=== PATIENT | male | born 1955 | race Two or more races ===

== ENCOUNTER 2018-10-14 07:40 | Inpatient (IN) | payer OTHER ==
[~2018-10-14] VITALS: Ht 167.6 cm; Wt 90.4 kg
[2018-10-14 08:17] LABS: BASO % 0 % (0-3); EOS # 0.2 x10^3/uL (0.0-0.7); EOS % 3 % (0-3); HEMATOCRIT 30.3 % (39.0-53.0); HEMOGLOBIN 10.5 g/dL (13.0-17.5); LYMPH # 0.2 x10^3/uL (1.0-4.8); LYMPH % 3 % (24-48); MEAN CORPUSCULAR HEMOGLOBIN 37 pg (25-35); MEAN CORPUSCULAR HGB CONC 35 g/dL (31-37); MEAN CORPUSCULAR VOLUME 106 fL (79-100); MONO # 0.5 x10^3/uL (0.0-1.1); MONO % 6 % (0-9); NEUT # 7.2 x10^3uL (1.8-7.7); NEUT % 89 % (31-73); RED BLOOD COUNT 2.86 x10^6/uL (4.30-5.70); RED CELL DISTRIBUTION WIDTH 14.6 % (11.5-14.5); WHITE BLOOD COUNT 8.1 x10^3/uL (4.0-11.0)
[2018-10-14 08:21] LABS: PLATELET COUNT 16 x10^3/uL (140-400)
[2018-10-14 08:27] LABS: ALBUMIN 2.1 g/dL (3.4-5.0); ALBUMIN/GLOBULIN RATIO 0.4 (1.0-1.7); CALCIUM 7.2 mg/dL (8.5-10.1); CREATININE 4.4 mg/dL (0.7-1.3); GFR 13.7; POTASSIUM 4.6 mmol/L (3.5-5.1); TOTAL BILIRUBIN 5.4 mg/dL (0.2-1.0)
[2018-10-14 08:29] LABS: PROTHROMBIN TIME PATIENT 19.2 SEC (11.7-14.0)
[2018-10-14 08:34] LABS: CREATINE KINASE 39 U/L (39-308)
[2018-10-14] MEDS ORDERED: IV NORMAL SALINE 500ML BAG 500 ML IV ONE (09:30)
--- NOTE | 2018-10-14 09:42 | RAD ---
CHEST AP ONLY History: SOA X3 DAYS. HX OF SMOKING Comparison: None. Cardiomediastinal silhouette is stable. Mild markings in left lung base, likely atelectasis versus a small infiltrate. No lobar airspace consolidation. Elevation of the right hemidiaphragm and lung base. No pneumothorax. No pleural effusion identified. IMPRESSION: Mild left lung base opacity, likely atelectasis, versus a small infiltrate. Consider follow-up PA and lateral chest radiograph when clinically feasible. Electronically signed by: Anthony Mcconnell MD (10/14/2018 9:39 AM) [facility]
--- NOTE | 2018-10-14 10:00 | PHYS DOC ---
Past Medical History Past Medical History: Alcoholism, Diabetes-Type II, Hypertension Additional Past Medical Histor: CIRRHOSIS, PANCYTOPENIA, ESOPHAGEAL VARICES Additional Past Surgical Histo: RT INGUINAL HERNIA REPAIR, ESOPHAGEAL VARICES BANDING Alcohol Use: Sober Additional Information: 10/14/18-SOBER 2 YEARS Drug Use: None Adult General Chief Complaint Chief Complaint: FLANK PAIN HPI HPI Patient is a 63 year old male presented to the ER today for evaluation of bilateral flank pain, decreased urination. Patient started having this symptom on , whenever he urinated, not much coming out. Patient went to see his doctor on Monday, had a small urine sample collected and checked. He was diagnosed with UTI, he was put on Cipro and Flomax. Patient said he had taken 4 doses of the Cipro already, but did not get any better so he came in here for evaluation today. He also complaints of trouble breathing with exertion. He denies any chest pain. Patient denies any fever, no cough. Patient felt weak and dizzy when he stood up. Review of Systems Review of Systems Constitutional: Denies fever or chills [] Eyes: Denies change in visual acuity, redness, or eye pain [] HENT: Denies nasal congestion or sore throat [] Respiratory: Denies cough, Positive for shortness of breath [] Cardiovascular: No additional information not addressed in HPI [] GI: Positive for abdominal pain and flank pain, NO nausea, vomiting, bloody stools or diarrhea [] : Denies dysuria or hematuria. Positive for decrease urination. Musculoskeletal: Denies back pain or joint pain [] Integument: Denies rash or skin lesions [] Neurologic: Denies headache, focal weakness or sensory changes [] Endocrine: Denies polyuria or polydipsia [] All other systems were reviewed and found to be within normal limits, except as documented in this note. Current Medications Current Medications Current Medications Medications (Trade) Dose Ordered Sig/Micheal Start Time Stop Time Status Last Admin Dose Admin Ondansetron HCl (Zofran) 4 mg PRN Q8HRS PRN 10/14/18 10:15 10/15/18 10:14 Sodium Chloride 500 ml @ 500 mls/hr 1X ONCE 10/14/18 09:30 10/14/18 10:29 10/14/18 09:47 500 MLS/HR Allergies Allergies Allergies Coded Allergies Type Severity Reaction Last Updated Verified No Known Drug Allergies 10/14/18 No Physical Exam Physical Exam Constitutional: Well developed, well nourished, no acute distress, non-toxic appearance. [] HENT: Normocephalic, atraumatic, bilateral external ears normal, oropharynx moist, no oral exudates, nose normal. [] Eyes: PERRLA, EOMI, conjunctiva normal, no discharge. [] Neck: Normal range of motion, no tenderness, supple, no stridor. BILATERAL JVD. Cardiovascular:Heart rate regular rhythm, no murmur [] Lungs & Thorax: Bilateral breath sounds clear to auscultation [] Abdomen: Bowel sounds normal, soft, no tenderness, no masses, no pulsatile masses. [] Skin: Warm, dry, no erythema, no rash. [] Back: No tenderness, no CVA tenderness. [] Extremities: No tenderness, no cyanosis, no clubbing, ROM intact. PITTING EDEMA IN BILATERAL LEGS. Neurologic: Alert and oriented X 3, normal motor function, normal sensory function, no focal deficits noted. [] Psychologic: Affect normal, judgement normal, mood normal. [] Current Patient Data Vital Signs Vital Signs Date Time Temp Pulse Resp B/P (MAP) Pulse Ox O2 Delivery O2 Flow Rate FiO2 10/14/18 09:44 80 20 118/56 (76) 97 Room Air 10/14/18 08:05 97.9 97.9 Lab Values Laboratory Tests Test 10/14/18 07:59 White Blood Count 8.1 x10^3/uL (4.0-11.0) Red Blood Count 2.86 x10^6/uL (4.30-5.70) L Hemoglobin 10.5 g/dL (13.0-17.5) L Hematocrit 30.3 % (39.0-53.0) L Mean Corpuscular Volume 106 fL (79-100) H Mean Corpuscular Hemoglobin 37 pg (25-35) H Mean Corpuscular Hemoglobin Concent 35 g/dL (31-37) Red Cell Distribution Width 14.6 % (11.5-14.5) H Platelet Count 16 x10^3/uL (140-400) *L Neutrophils (%) (Auto) 89 % (31-73) H Lymphocytes (%) (Auto) 3 % (24-48) L Monocytes (%) (Auto) 6 % (0-9) Eosinophils (%) (Auto) 3 % (0-3) Basophils (%) (Auto) 0 % (0-3) Neutrophils # (Auto) 7.2 x10^3uL (1.8-7.7) Lymphocytes # (Auto) 0.2 x10^3/uL (1.0-4.8) L Monocytes # (Auto) 0.5 x10^3/uL (0.0-1.1) Eosinophils # (Auto) 0.2 x10^3/uL (0.0-0.7) Basophils # (Auto) 0.0 x10^3/uL (0.0-0.2) Segmented Neutrophils % 61 % (35-66) Band Neutrophils % 32 % (0-9) H Lymphocytes % 2 % (24-48) L Monocytes % 4 % (0-10) Metamyelocytes % 1 % (0-0) H Toxic Granulation Present Toxic Vacuolation Present Dohle Bodies Present Platelet Estimate Decreased (ADEQUATE) Large Platelets Present Prothrombin Time 19.2 SEC (11.7-14.0) H Prothrombin Time INR 1.6 (0.8-1.1) H PTT 45 SEC (24-38) H Sodium Level 120 mmol/L (136-145) *L Potassium Level 4.6 mmol/L (3.5-5.1) Chloride Level 88 mmol/L (98-107) L Carbon Dioxide Level 18 mmol/L (21-32) L Anion Gap 14 (6-14) Blood Urea Nitrogen 46 mg/dL (8-26) H Creatinine 4.4 mg/dL (0.7-1.3) H Estimated GFR (Cockcroft-Gault) 13.7 BUN/Creatinine Ratio 10 (6-20) Glucose Level 186 mg/dL (70-99) H Calcium Level 7.2 mg/dL (8.5-10.1) L Total Bilirubin 5.4 mg/dL (0.2-1.0) H Aspartate Amino Transferase (AST) 69 U/L (15-37) H Alanine Aminotransferase (ALT) 47 U/L (16-63) Alkaline Phosphatase 86 U/L (46-116) Creatine Kinase 39 U/L (39-308) Creatine Kinase MB (Mass) 0.5 ng/mL (0.0-3.6) Creatine Kinase MB Relative Index % (0-4) Troponin I Quantitative < 0.017 ng/mL (0.000-0.055) VF-Lkk-M-Type Natriuretic Peptide 2493 pg/mL (0-124) H Total Protein 7.0 g/dL (6.4-8.2) Albumin 2.1 g/dL (3.4-5.0) L Albumin/Globulin Ratio 0.4 (1.0-1.7) L Lipase 82 U/L (73-393) Laboratory Tests 10/14/18 07:59 Laboratory Tests 10/14/18 07:59 EKG EKG EKG was read by this physician at 8 am today, rate of 89 BPM, SINUS RHYTHM, NO STEMI. [] Radiology/Procedures Radiology/Procedures [][facility] [address] [place] [address] IMAGING REPORT Signed PATIENT: MAGALY TAVARES ACCOUNT: [id number] : 1955 LOCATION: ER AGE: 63 SEX: M EXAM STATUS: REG ER ORD. PHYSICIAN: CAMERON LOPEZ DO REASON: flank pain PROCEDURE: CT ABDOMEN PELVIS WO CONTRAST CT ABDOMEN PELVIS WO CONTRAST Indication: BILATERAL FLANK PAIN, LOW ABD PAIN. UNABLE TO VOID Exposure: One or more of the following individualized dose reduction techniques were utilized for this examination: 1. Automated exposure control 2. Adjustment of the mA and/or kV according to patient size 3. Use of iterative reconstruction technique. Comparison: None TECHNIQUE: Standard noncontrast imaging. FINDINGS: No evidence of urinary tract calculus. No evidence of hydronephrosis. Stranding within the perinephric fat bilaterally, greater on the left. There is some markings in the right lower lobe likely atelectasis. The partially visualized lower larry appear prominent bilaterally, probably vascular in etiology and could indicate pulmonary artery hypertension. Coronary artery calcifications. Evaluation of viscera, bowel and vasculature is limited by noncontrast technique. Tiny calcification at the upper right liver. There is also some more amorphous calcification in the left lobe of the liver which appears somewhat hypertrophic compared to the right lobe. There is also some caudate lobe hypertrophy. Spleen enlarged, 14.5 cm. Pancreas grossly unremarkable. No evidence of adrenal mass. No obvious renal mass. Probable small gallstone. Gallbladder is contracted. Alternatively, this calcification could be immediately adjacent to the gallbladder. Aorta mildly calcified, no evidence of aneurysm. Small retroperitoneal lymph nodes are identified, measuring up to 9 mm in short axis. No evidence of ascites or pneumoperitoneum. Mild distention of the stomach with fluid. No evidence of bowel obstruction. Colonic diverticulosis without evidence of acute colitis. The appendix is within normal limits. There is a very small distal appendicolith. There is mild perirenal fascial thickening, slightly greater on the left. There is also mild fascial thickening along the left paracolic gutter. Urinary bladder is thick-walled but that may be due to lack of distention. No evidence of a pelvic mass. Degenerative spondylosis is identified with lumbar stenosis. No destructive bone lesion. IMPRESSION: 1. Mild stranding in the perinephric fat and mild perirenal fascial thickening, greater on the left. Nonspecific but suggest inflammatory process such as pyelonephritis. No evidence of obstructive calculus. 2. Borderline retroperitoneal lymph node enlargement, may be reactive. 3. The caudate and left lobes of the liver appear hypertrophic, finding which can be seen with cirrhosis. 4. Mild splenomegaly. 5. Gallbladder is contracted limiting evaluation, but there may be a small gallstone. 6. Linear markings in the right lung base, most likely atelectasis, versus infiltrate. 7. Urinary bladder wall thickening, may be due to lack of distention, but cystitis could also be considered. Electronically signed by: Anthony Mcconnell MD (10/14/2018 10:09 AM) [facility] DICTATED and SIGNED BY: ANTHONY MCCONNELL MD DATE: 10/14/18 0957 Course & Med Decision Making Course & Med Decision Making Pertinent Labs and Imaging studies reviewed. (See chart for details) [] Dragon Disclaimer Dragon Disclaimer This electronic medical record was generated, in whole or in part, using a voice recognition dictation system. Departure Departure Impression: Primary Impression: Acute renal failure Additional Impressions: Hyponatremia Exertional dyspnea Acute pyelonephritis Disposition: ADMITTED INPATIENT Admitting Physician: Julienne Marion Condition: STABLE Referrals: DIAZ GILL M.D. (PCP) Problem Qualifiers CAMERON LOPEZ DO Oct 14, 2018 10:00
--- NOTE | 2018-10-14 10:12 | RAD ---
CT ABDOMEN PELVIS WO CONTRAST Indication: BILATERAL FLANK PAIN, LOW ABD PAIN. UNABLE TO VOID Exposure: One or more of the following individualized dose reduction techniques were utilized for this examination: 1. Automated exposure control 2. Adjustment of the mA and/or kV according to patient size 3. Use of iterative reconstruction technique. Comparison: None TECHNIQUE: Standard noncontrast imaging. FINDINGS: No evidence of urinary tract calculus. No evidence of hydronephrosis. Stranding within the perinephric fat bilaterally, greater on the left. There is some markings in the right lower lobe likely atelectasis. The partially visualized lower larry appear prominent bilaterally, probably vascular in etiology and could indicate pulmonary artery hypertension. Coronary artery calcifications. Evaluation of viscera, bowel and vasculature is limited by noncontrast technique. Tiny calcification at the upper right liver. There is also some more amorphous calcification in the left lobe of the liver which appears somewhat hypertrophic compared to the right lobe. There is also some caudate lobe hypertrophy. Spleen enlarged, 14.5 cm. Pancreas grossly unremarkable. No evidence of adrenal mass. No obvious renal mass. Probable small gallstone. Gallbladder is contracted. Alternatively, this calcification could be immediately adjacent to the gallbladder. Aorta mildly calcified, no evidence of aneurysm. Small retroperitoneal lymph nodes are identified, measuring up to 9 mm in short axis. No evidence of ascites or pneumoperitoneum. Mild distention of the stomach with fluid. No evidence of bowel obstruction. Colonic diverticulosis without evidence of acute colitis. The appendix is within normal limits. There is a very small distal appendicolith. There is mild perirenal fascial thickening, slightly greater on the left. There is also mild fascial thickening along the left paracolic gutter. Urinary bladder is thick-walled but that may be due to lack of distention. No evidence of a pelvic mass. Degenerative spondylosis is identified with lumbar stenosis. No destructive bone lesion. IMPRESSION: 1. Mild stranding in the perinephric fat and mild perirenal fascial thickening, greater on the left. Nonspecific but suggest inflammatory process such as pyelonephritis. No evidence of obstructive calculus. 2. Borderline retroperitoneal lymph node enlargement, may be reactive. 3. The caudate and left lobes of the liver appear hypertrophic, finding which can be seen with cirrhosis. 4. Mild splenomegaly. 5. Gallbladder is contracted limiting evaluation, but there may be a small gallstone. 6. Linear markings in the right lung base, most likely atelectasis, versus infiltrate. 7. Urinary bladder wall thickening, may be due to lack of distention, but cystitis could also be considered. Electronically signed by: Anthony Mcconnell MD (10/14/2018 10:09 AM) [facility]
[2018-10-14 10:15] LABS: % BANDS 32 % (0-9); % LYMPHS 2 % (24-48); % METAS 1 % (0-0); % MONOS 4 % (0-10); % SEGS 61 % (35-66)
[2018-10-14 10:17] LABS: PLT ESTIMATE DECREASED (ADEQUATE); TOXIC GRANULATION PRESENT; TOXIC VACUOLATION PRESENT
[2018-10-14] MEDS ORDERED: cefTRIAXone IV Push 1 GM VIAL. IVP ONE (10:30)
[2018-10-14] MEDS ORDERED: ENAL10TA PO (10:59)
[2018-10-14] MEDS ORDERED: HYDR25TA10 PO (10:59)
[2018-10-14] MEDS ORDERED: CHOL10003 PO (10:59)
[2018-10-14] MEDS ORDERED: GABA100C6 PO (10:59)
[2018-10-14] MEDS ORDERED: DICL75TA PO (10:59)
--- NOTE | 2018-10-14 11:07 | EKG ---
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 Electronically Signed On 10-15-2018 11:05:47 [employer] by Jose Cruz
[2018-10-14 11:12] VITALS: BP 101/57
[2018-10-14 11:17] LABS: BILIRUBIN,URINE MODERATE (NEG); CLARITY,URINE CLOUDY; COLOR,URINE ORANGE; NITRITE,URINE NEGATIVE (NEG); PROTEIN,URINE 100 mg/dL (NEG-TRACE); UROBILINOGEN,URINE 0.2 mg/dL (0.2 mg/dL)
[2018-10-14 11:30] LABS: SQUAMOUS EPITHELIAL CELL,UR FEW /LPF
[2018-10-14 11:31] LABS: RBC,URINE 0 /HPF (0-2)
[2018-10-14 11:32] LABS: BACTERIA,URINE MANY /HPF (0-FEW); WBC,URINE TNTC /HPF (0-4)
[2018-10-14] MEDS ORDERED: IV NORMAL SALINE 1000ML BAG 1,000 ML IV ONE (12:00)
[2018-10-14] MEDS ORDERED: ESOM20CA PO (12:03)
[2018-10-14] MEDS ORDERED: ALFU10TA3 PO (12:03)
[2018-10-14] MEDS: oxyCODONE/APAP 5/325 1 TAB TABLET PO PRN ×2 (12:15→17:12)
[2018-10-14] MEDS: MORPHINE SULFATE 4 MG/ML VIAL. IV PRN ×3 (12:15→22:26)
--- NOTE | 2018-10-14 12:27 | NUR ---
The patient, MAGALY TAVARES, 63 y/o, M admitted by ELIEZER WHITTEN MD, was given written information regarding hospital policies, unit procedures and contact persons.
--- NOTE | 2018-10-14 12:29 | NUR ---
Meds reconciled: Reports Levemir 40 units every morning. Novolog SS approx 15 units with meals
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
[2018-10-14 15:00] VITALS: BP 92/46
[2018-10-14 15:01] VITALS: BP 92/44
--- NOTE | 2018-10-14 15:45 | NUR ---
Bladder scan: Post void residual 0 ml. Will not calderon cath at this time.
[2018-10-14 16:09] LABS: CREATININE 4.6 mg/dL (0.7-1.3); POTASSIUM 5.2 mmol/L (3.5-5.1)
[2018-10-14 19:00] VITALS: BP 83/40
[2018-10-14] MEDS: LACTOBACILLUS RHAMNOSUS GG 1 CAPSULE. PO SCH (22:25)
[2018-10-14] MEDS: ONDANSETRON PF 4 MG/2 ML VIAL. IV PRN (22:32)
[2018-10-14 23:00] VITALS: BP 82/42
[2018-10-15 03:00] VITALS: BP 96/76
[2018-10-15] MEDS: MORPHINE SULFATE 4 MG/ML VIAL. IV PRN (04:14)
[2018-10-15 05:46] LABS: BASO % 0 % (0-3); EOS # 0.4 x10^3/uL (0.0-0.7); EOS % 5 % (0-3); HEMATOCRIT 29.6 % (39.0-53.0); HEMOGLOBIN 10.2 g/dL (13.0-17.5); LYMPH # 0.3 x10^3/uL (1.0-4.8); LYMPH % 3 % (24-48); MEAN CORPUSCULAR HEMOGLOBIN 37 pg (25-35); MEAN CORPUSCULAR HGB CONC 35 g/dL (31-37); MEAN CORPUSCULAR VOLUME 106 fL (79-100); MONO # 0.6 x10^3/uL (0.0-1.1); MONO % 7 % (0-9); NEUT # 7.1 x10^3uL (1.8-7.7); NEUT % 84 % (31-73); RED BLOOD COUNT 2.78 x10^6/uL (4.30-5.70); RED CELL DISTRIBUTION WIDTH 14.6 % (11.5-14.5); WHITE BLOOD COUNT 8.4 x10^3/uL (4.0-11.0)
[2018-10-15 05:51] LABS: PROTHROMBIN TIME PATIENT 20.7 SEC (11.7-14.0)
[2018-10-15 05:52] LABS: PLATELET COUNT 19 x10^3/uL (140-400)
[2018-10-15 06:05] LABS: ALBUMIN/GLOBULIN RATIO 0.4 (1.0-1.7); CALCIUM 7.1 mg/dL (8.5-10.1); CREATININE 5.6 mg/dL (0.7-1.3); GFR 10.4; POTASSIUM 4.9 mmol/L (3.5-5.1); TOTAL BILIRUBIN 6.7 mg/dL (0.2-1.0); TOTAL PROTEIN 6.7 g/dL (6.4-8.2)
[2018-10-15 07:00] VITALS: BP 102/50
--- NOTE | 2018-10-15 09:28 | RAD ---
EXAM: Renal sonogram. HISTORY: Renal failure. TECHNIQUE: Sonographic imaging of the kidneys and bladder was performed. COMPARISON: CT dated 10/14/2018. FINDINGS: The exam is limited due to bowel gas. The kidneys are normal in size. No solid or cystic renal lesion is seen. The renal parenchyma is echogenic. There is no hydronephrosis. The bladder is partially empty. The ureteral jets are not seen during the exam. The aorta and inferior vena cava are obscured due to bowel gas. IMPRESSION: 1. Limited exam due to bowel gas. The kidneys are grossly unremarkable. 2. Limited evaluation of the urinary bladder due to underdistention. 3. Please refer to the separate report for the abdomen sonogram on the same date for additional findings. Electronically signed by: Janet Isaac MD (10/15/2018 9:25 AM) [id number]
--- NOTE | 2018-10-15 09:51 | CARD ---
MR#: [id number] Date of Study: 10/15/2018 Ordering Physician: ELIEZER WHITTEN, Referring Physician: ELIEZER WHITTEN Tech: Renee Donohue RDCS APPROVED REPORT EXAM: Two-dimensional and M-mode echocardiogram with Doppler and color Doppler. Other Information Quality : Good INDICATION Congestive Heart Failure 2D DIMENSIONS RVDd3.3 (2.9-3.5cm)Left Atrium(2D)4.1 (1.6-4.0cm) IVSd1.2 (0.7-1.1cm)Aortic Root(2D)3.1 (2.0-3.7cm) LVDd4.6 (3.9-5.9cm)LVOT Diameter2.1 (1.8-2.4cm) PWd0.9 (0.7-1.1cm)LVDs2.6 (2.5-4.0cm) FS (%) 30.0 %SV71.1 ml LVEF(%)60.0 (>50%) Aortic Valve AoV Peak Benja.194.5cm/sAoV VTI30.5cm AO Peak GR.15.1mmHgLVOT Peak Bejna.168.4cm/s AO Mean GR.8mmHgAVA (VMAX)2.88cm2 ROLO (VTI)3.00cm2 Mitral Valve MV E Scjvfllb91.6cm/sMV DECEL [id number] MV A Hxujqxvx302.7cm/sE/A Ratio0.6 Pulmonary Vein S1 Iitimnlh96.3cm/sD2 Tbktpnwm94.8cm/s LEFT VENTRICLE The left ventricle is normal size. There is mild asymmetric septal left ventricular hypertrophy. The left ventricular systolic function is normal. The Ejection Fraction is 55-60%. There is normal LV seg mental wall motion. Transmitral Doppler flow pattern is Grade I-abnormal relaxation pattern. RIGHT VENTRICLE The right ventricle is normal size. The right ventricular systolic function is normal. ATRIA The left atrium is mildly dilated. The right atrium size is normal. The interatrial septum is intact with no evidence for an atrial septal defect or patent foramen ovale as noted on 2-D or Doppler imagi ng. AORTIC VALVE The aortic valve is calcified but opens well. Doppler and Color Flow revealed no significant aortic r egurgitation. There is no significant aortic valvular stenosis. MITRAL VALVE The mitral valve is calcified but opens well. Mitral annular calcification is mild. There is no evide nce of mitral valve prolapse. There is no mitral valve stenosis. Doppler and Color Flow revealed no m itral valve regurgitation noted. TRICUSPID VALVE The tricuspid valve is normal in structure and function. Doppler and Color Flow revealed no tricuspid valve regurgitation noted. There is no tricuspid valve stenosis. PULMONIC VALVE The pulmonary valve is normal in structure and function. Doppler and Color Flow revealed trace pulmon ic valvular regurgitation. There is no pulmonic valvular stenosis. GREAT VESSELS The aortic root is normal in size. The ascending aorta is normal in size. The IVC is normal in size a nd collapses >50% with inspiration. PERICARDIAL EFFUSION There is no evidence of significant pericardial effusion. Critical Notification Critical Value: No <Conclusion> The left ventricular systolic function is normal. The Ejection Fraction is 55-60%. There is normal LV segmental wall motion. Transmitral Doppler flow pattern is Grade I-abnormal relaxation pattern. The left atrium is mildly dilated. No significant valvular abnormalities. There is no evidence of significant pericardial effusion. Signed by : Hai Gomez, Electronically Approved : 10/15/2018 09:51:24
--- NOTE | 2018-10-15 09:55 | RAD ---
Examination: Ultrasound abdomen limited HISTORY: History of hyperbilirubinemia COMPARISON: None available FINDINGS: The pancreas is not well-visualized due to bowel gas. Nodular appearance of the liver with increased echogenicity noted throughout the liver likely hepatic cirrhosis with hepatic steatosis. The right lobe of the liver measures 14.2 cm. Gallbladder wall thickness measures 2.5 mm. Tiny calcification identified just inferior to the gallbladder could be calcification in the liver. The common bile duct measures 4 mm in transverse dimension. The right kidney measures 13.1 cm in length. The IVC is within normal limits of dimension. IMPRESSION: 1. Hepatic steatosis with hepatic cirrhosis. 2. Tiny calcification identified just inferior to the gallbladder could be calcification in the liver. Electronically signed by: Jaylan Subramanian MD (10/15/2018 9:51 AM) [id number]
[2018-10-15] MEDS: ONDANSETRON PF 4 MG/2 ML VIAL. IV PRN (09:57)
[2018-10-15] MEDS ORDERED: ONDANSETRON PF 4 MG/2 ML VIAL. IV PRN (10:30)
[2018-10-15] MEDS ORDERED: ONDANSETRON ODT 4 MG TAB.RAPDIS. PO PRN (10:30)
[2018-10-15] MEDS: cefTRIAXone IV Push 1 GM VIAL. IVP SCH (10:58)
[2018-10-15] MEDS: LACTOBACILLUS RHAMNOSUS GG 1 CAPSULE. PO SCH ×2 (10:58→21:13)
[2018-10-15 11:00] VITALS: BP 90/44
--- NOTE | 2018-10-15 12:20 | NUR ---
SW following pt for anticipated dc needs. Chart reviewed and DW RN. Pt lives at home with spouse. RN reported pt does not need PT/OT evaluation and Tx. No SW needs indicated at this time. Will continue to follow.
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
--- NOTE | 2018-10-15 12:58 | PDOC ---
PROGRESS NOTES Chief Complaint Chief Complaint Established cirrhosis, decompensated likely from infection. 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 H/o colon polyps. Elevated creatinine, duration unknown. UTI/clinically c/w pyelonephritis. acute renal failure - 16 pills and said in 2 days hepatic cirrhosis, concern for hepatorenal thrombocytopenia, in a cirrhotic Anemia of kidney dse, liver dse Mod PCM Hyperbilirubinemia enceph, transient History of Present Illness History of Present Illness Multiple family members at bedside and I have discussed with them along with multiple consultants Total bili 6.2 which was normal in August 2018 some icteric sclerae and itchiness noted by family Platelets 19,000 which was between 50-70,000 in August 2018 Some lower abdominal discomfort and found to be have UTI with pyelonephritis on CAT scan and UA Getting IV antibiotics Some irritability and delirium as per family-seems to be better as per family at bedside. Normal ammonia He follows with a PCP, re DM - some hypo-hyperglycemic episodes per significant other Son who used to work as a pharmacist shows me lab tests Platelets 19,000, hemoglobin 10, normal WBC with an MCV of 100 INR 1.8 no bleeding tendencies Sober for 2 years Creatinine 5.6 which is news-normal in the last labs He did take 16 pills of ibuprofen for back pain Agreeable to trial of Lidoderm patch for back Was also on ARB at home and Propanolol for esoph varices Plan Hold ARB Avoid nephrotoxins Considering to start IV fluids per renal but then anasarca might be a concern Oliguria-continue to monitor urine output Labs tomorrow-if worse might need temporary dialysis Might need platelet transfusion prior to dialysis if IR deems so Watch or monitor for bleeding tendencies Hold back lactulose-normal ammonia and lactulose will only cause more GI loss hence more AK I I have provided all the copies of imaging to family Significant time at bedside cont antibiotics for UTI-await urine culture US sound abdomen unrevealing Ultrasound kidneys normal echogenicity MRCP?-Unsure of what the hyperbilirubinemia came from Hepatitis serology acute is negative MDM complex Vitals Vitals Vital Signs Date Time Temp Pulse Resp B/P (MAP) Pulse Ox O2 Delivery O2 Flow Rate FiO2 10/15/18 11:00 97.8 84 18 90/44 (59) 93 Room Air 97.8 Physical Exam General: Alert, Cooperative, No acute distress Heart: Regular rate, Normal S1, No murmurs Abdomen: Normal bowel sounds, Soft, No tenderness, Other (MILD ASCITES) Extremities: No clubbing, No cyanosis Skin: No rashes, No breakdown, No significant lesion Labs LABS Laboratory Tests Test 10/14/18 15:45 10/14/18 16:38 10/14/18 20:34 10/15/18 05:04 Sodium Level 120 mmol/L (136-145) 123 mmol/L (136-145) Potassium Level 5.2 mmol/L (3.5-5.1) 4.9 mmol/L (3.5-5.1) Chloride Level 88 mmol/L (98-107) 88 mmol/L (98-107) Carbon Dioxide Level 18 mmol/L (21-32) 19 mmol/L (21-32) Anion Gap 14 (6-14) 16 (6-14) Blood Urea Nitrogen 54 mg/dL (8-26) 68 mg/dL (8-26) Creatinine 4.6 mg/dL (0.7-1.3) 5.6 mg/dL (0.7-1.3) Estimated GFR (Cockcroft-Gault) 13.0 10.4 Glucose Level 187 mg/dL (70-99) 167 mg/dL (70-99) Calcium Level 7.0 mg/dL (8.5-10.1) 7.1 mg/dL (8.5-10.1) Ammonia 22 mcmol/L (11-34) HIV (1&2) Antibody Screen Nonreactive (Nonreactive) Glucose (Fingerstick) 175 mg/dL (70-99) 166 mg/dL (70-99) White Blood Count 8.4 x10^3/uL (4.0-11.0) Red Blood Count 2.78 x10^6/uL (4.30-5.70) Hemoglobin 10.2 g/dL (13.0-17.5) Hematocrit 29.6 % (39.0-53.0) Mean Corpuscular Volume 106 fL (79-100) Mean Corpuscular Hemoglobin 37 pg (25-35) Mean Corpuscular Hemoglobin Concent 35 g/dL (31-37) Red Cell Distribution Width 14.6 % (11.5-14.5) Platelet Count 19 x10^3/uL (140-400) Neutrophils (%) (Auto) 84 % (31-73) Lymphocytes (%) (Auto) 3 % (24-48) Monocytes (%) (Auto) 7 % (0-9) Eosinophils (%) (Auto) 5 % (0-3) Basophils (%) (Auto) 0 % (0-3) Neutrophils # (Auto) 7.1 x10^3uL (1.8-7.7) Lymphocytes # (Auto) 0.3 x10^3/uL (1.0-4.8) Monocytes # (Auto) 0.6 x10^3/uL (0.0-1.1) Eosinophils # (Auto) 0.4 x10^3/uL (0.0-0.7) Basophils # (Auto) 0.0 x10^3/uL (0.0-0.2) Reticulocyte Count (auto) 1.6 % (0.5-2.5) Prothrombin Time 20.7 SEC (11.7-14.0) Prothromb Time International Ratio 1.8 (0.8-1.1) BUN/Creatinine Ratio 12 (6-20) Ferritin 277 ng/mL (26-388) Total Bilirubin 6.7 mg/dL (0.2-1.0) Aspartate Amino Transf (AST/SGOT) 115 U/L (15-37) Alanine Aminotransferase (ALT/SGPT) 55 U/L (16-63) Alkaline Phosphatase 93 U/L (46-116) Total Protein 6.7 g/dL (6.4-8.2) Albumin 2.0 g/dL (3.4-5.0) Albumin/Globulin Ratio 0.4 (1.0-1.7) Vitamin B12 Level > 2000 pg/mL (247-911) Thyroid Stimulating Hormone (TSH) 1.070 uIU/mL (0.358-3.74) Test 10/15/18 07:27 10/15/18 11:15 10/15/18 11:32 Glucose (Fingerstick) 151 mg/dL (70-99) 158 mg/dL (70-99) Ammonia 28 mcmol/L (11-34) Assessment and Plan Assessmemt and Plan Problems Medical Problems: (1) Acute pyelonephritis Status: Acute (2) Acute renal failure Status: Acute (3) Exertional dyspnea Status: Acute (4) Hyponatremia Status: Acute Comment Review of Relevant I have reviewed the following items ester (where applicable) has been applied. Labs Laboratory Tests Test 10/14/18 07:59 10/14/18 11:03 10/14/18 11:23 10/14/18 15:45 White Blood Count 8.1 x10^3/uL (4.0-11.0) Red Blood Count 2.86 x10^6/uL (4.30-5.70) Hemoglobin 10.5 g/dL (13.0-17.5) Hematocrit 30.3 % (39.0-53.0) Mean Corpuscular Volume 106 fL (79-100) Mean Corpuscular Hemoglobin 37 pg (25-35) Mean Corpuscular Hemoglobin Concent 35 g/dL (31-37) Red Cell Distribution Width 14.6 % (11.5-14.5) Platelet Count 16 x10^3/uL (140-400) Neutrophils (%) (Auto) 89 % (31-73) Lymphocytes (%) (Auto) 3 % (24-48) Monocytes (%) (Auto) 6 % (0-9) Eosinophils (%) (Auto) 3 % (0-3) Basophils (%) (Auto) 0 % (0-3) Neutrophils # (Auto) 7.2 x10^3uL (1.8-7.7) Lymphocytes # (Auto) 0.2 x10^3/uL (1.0-4.8) Monocytes # (Auto) 0.5 x10^3/uL (0.0-1.1) Eosinophils # (Auto) 0.2 x10^3/uL (0.0-0.7) Basophils # (Auto) 0.0 x10^3/uL (0.0-0.2) Segmented Neutrophils % 61 % (35-66) Band Neutrophils % 32 % (0-9) Lymphocytes % 2 % (24-48) Monocytes % 4 % (0-10) Metamyelocytes % 1 % (0-0) Toxic Granulation Present Toxic Vacuolation Present Dohle Bodies Present Platelet Estimate Decreased (ADEQUATE) Large Platelets Present Prothrombin Time 19.2 SEC (11.7-14.0) Prothromb Time International Ratio 1.6 (0.8-1.1) Activated Partial Thromboplast Time 45 SEC (24-38) Sodium Level 120 mmol/L (136-145) 120 mmol/L (136-145) Potassium Level 4.6 mmol/L (3.5-5.1) 5.2 mmol/L (3.5-5.1) Chloride Level 88 mmol/L (98-107) 88 mmol/L (98-107) Carbon Dioxide Level 18 mmol/L (21-32) 18 mmol/L (21-32) Anion Gap 14 (6-14) 14 (6-14) Blood Urea Nitrogen 46 mg/dL (8-26) 54 mg/dL (8-26) Creatinine 4.4 mg/dL (0.7-1.3) 4.6 mg/dL (0.7-1.3) Estimated GFR (Cockcroft-Gault) 13.7 13.0 BUN/Creatinine Ratio 10 (6-20) Glucose Level 186 mg/dL (70-99) 187 mg/dL (70-99) Calcium Level 7.2 mg/dL (8.5-10.1) 7.0 mg/dL (8.5-10.1) Iron Level 52 ug/dL (65-175) Total Iron Binding Capacity 197 ug/dL (250-450) Iron Saturation 26 % (15-34) Total Bilirubin 5.4 mg/dL (0.2-1.0) Direct Bilirubin 4.2 mg/dL (0.0-0.2) Gamma Glutamyl Transpeptidase 788 U/L (10-85) Aspartate Amino Transf (AST/SGOT) 69 U/L (15-37) Alanine Aminotransferase (ALT/SGPT) 47 U/L (16-63) Alkaline Phosphatase 86 U/L (46-116) Creatine Kinase 39 U/L (39-308) Creatine Kinase MB (Mass) 0.5 ng/mL (0.0-3.6) Creatine Kinase MB Relative Index % (0-4) Troponin I Quantitative < 0.017 ng/mL (0.000-0.055) PR-Ywx-[id number]-Type Natriuretic Peptide 2493 pg/mL (0-124) Total Protein 7.0 g/dL (6.4-8.2) Albumin 2.1 g/dL (3.4-5.0) Albumin/Globulin Ratio 0.4 (1.0-1.7) Lipase 82 U/L (73-393) Hepatitis A IgM Antibody Nonreactive (Nonreactive) Hepatitis B Surface Antigen Nonreactive (Nonreactive) Hepatitis B Core IgM Antibody Nonreactive (Nonreactive) Hepatitis C IgG Antibody Nonreactive (Nonreactive) Urine Collection Type Unknown Urine Color [place] Urine Clarity Cloudy Urine pH 5.0 Urine Specific [place] 1.020 Urine Protein 100 mg/dL (NEG-TRACE) Urine Glucose (UA) Negative mg/dL (NEG) Urine Ketones (Stick) Trace mg/dL (NEG) Urine Blood Large (NEG) Urine Nitrite Negative (NEG) Urine Bilirubin Moderate (NEG) Urine Urobilinogen Dipstick 0.2 mg/dL (0.2 mg/dL) Urine Leukocyte Esterase Large (NEG) Urine RBC 0 /HPF (0-2) Urine WBC Tntc /HPF (0-4) Urine Squamous Epithelial Cells Few /LPF Urine Bacteria Many /HPF (0-FEW) Urine Random Creatinine 196.0 mg/dL (Not Estab.) Urine Random Total Protein 283.7 mg/dL (Not Estab.) Urine Random Sodium <60 mmol/L (Not Estab.) Glucose (Fingerstick) 187 mg/dL (70-99) Ammonia 22 mcmol/L (11-34) HIV (1&2) Antibody Screen Nonreactive (Nonreactive) Test 10/14/18 16:38 10/14/18 20:34 10/15/18 05:04 10/15/18 07:27 Glucose (Fingerstick) 175 mg/dL (70-99) 166 mg/dL (70-99) 151 mg/dL (70-99) White Blood Count 8.4 x10^3/uL (4.0-11.0) Red Blood Count 2.78 x10^6/uL (4.30-5.70) Hemoglobin 10.2 g/dL (13.0-17.5) Hematocrit 29.6 % (39.0-53.0) Mean Corpuscular Volume 106 fL (79-100) Mean Corpuscular Hemoglobin 37 pg (25-35) Mean Corpuscular Hemoglobin Concent 35 g/dL (31-37) Red Cell Distribution Width 14.6 % (11.5-14.5) Platelet Count 19 x10^3/uL (140-400) Neutrophils (%) (Auto) 84 % (31-73) Lymphocytes (%) (Auto) 3 % (24-48) Monocytes (%) (Auto) 7 % (0-9) Eosinophils (%) (Auto) 5 % (0-3) Basophils (%) (Auto) 0 % (0-3) Neutrophils # (Auto) 7.1 x10^3uL (1.8-7.7) Lymphocytes # (Auto) 0.3 x10^3/uL (1.0-4.8) Monocytes # (Auto) 0.6 x10^3/uL (0.0-1.1) Eosinophils # (Auto) 0.4 x10^3/uL (0.0-0.7) Basophils # (Auto) 0.0 x10^3/uL (0.0-0.2) Reticulocyte Count (auto) 1.6 % (0.5-2.5) Prothrombin Time 20.7 SEC (11.7-14.0) Prothromb Time International Ratio 1.8 (0.8-1.1) Sodium Level 123 mmol/L (136-145) Potassium Level 4.9 mmol/L (3.5-5.1) Chloride Level 88 mmol/L (98-107) Carbon Dioxide Level 19 mmol/L (21-32) Anion Gap 16 (6-14) Blood Urea Nitrogen 68 mg/dL (8-26) Creatinine 5.6 mg/dL (0.7-1.3) Estimated GFR (Cockcroft-Gault) 10.4 BUN/Creatinine Ratio 12 (6-20) Glucose Level 167 mg/dL (70-99) Calcium Level 7.1 mg/dL (8.5-10.1) Ferritin 277 ng/mL (26-388) Total Bilirubin 6.7 mg/dL (0.2-1.0) Aspartate Amino Transf (AST/SGOT) 115 U/L (15-37) Alanine Aminotransferase (ALT/SGPT) 55 U/L (16-63) Alkaline Phosphatase 93 U/L (46-116) Total Protein 6.7 g/dL (6.4-8.2) Albumin 2.0 g/dL (3.4-5.0) Albumin/Globulin Ratio 0.4 (1.0-1.7) Vitamin B12 Level > 2000 pg/mL (247-911) Thyroid Stimulating Hormone (TSH) 1.070 uIU/mL (0.358-3.74) Test 10/15/18 11:15 10/15/18 11:32 Ammonia 28 mcmol/L (11-34) Glucose (Fingerstick) 158 mg/dL (70-99) Laboratory Tests Test 10/14/18 15:45 10/14/18 16:38 10/14/18 20:34 10/15/18 05:04 Sodium Level 120 mmol/L (136-145) 123 mmol/L (136-145) Potassium Level 5.2 mmol/L (3.5-5.1) 4.9 mmol/L (3.5-5.1) Chloride Level 88 mmol/L (98-107) 88 mmol/L (98-107) Carbon Dioxide Level 18 mmol/L (21-32) 19 mmol/L (21-32) Anion Gap 14 (6-14) 16 (6-14) Blood Urea Nitrogen 54 mg/dL (8-26) 68 mg/dL (8-26) Creatinine 4.6 mg/dL (0.7-1.3) 5.6 mg/dL (0.7-1.3) Estimated GFR (Cockcroft-Gault) 13.0 10.4 Glucose Level 187 mg/dL (70-99) 167 mg/dL (70-99) Calcium Level 7.0 mg/dL (8.5-10.1) 7.1 mg/dL (8.5-10.1) Ammonia 22 mcmol/L (11-34) HIV (1&2) Antibody Screen Nonreactive (Nonreactive) Glucose (Fingerstick) 175 mg/dL (70-99) 166 mg/dL (70-99) White Blood Count 8.4 x10^3/uL (4.0-11.0) Red Blood Count 2.78 x10^6/uL (4.30-5.70) Hemoglobin 10.2 g/dL (13.0-17.5) Hematocrit 29.6 % (39.0-53.0) Mean Corpuscular Volume 106 fL (79-100) Mean Corpuscular Hemoglobin 37 pg (25-35) Mean Corpuscular Hemoglobin Concent 35 g/dL (31-37) Red Cell Distribution Width 14.6 % (11.5-14.5) Platelet Count 19 x10^3/uL (140-400) Neutrophils (%) (Auto) 84 % (31-73) Lymphocytes (%) (Auto) 3 % (24-48) Monocytes (%) (Auto) 7 % (0-9) Eosinophils (%) (Auto) 5 % (0-3) Basophils (%) (Auto) 0 % (0-3) Neutrophils # (Auto) 7.1 x10^3uL (1.8-7.7) Lymphocytes # (Auto) 0.3 x10^3/uL (1.0-4.8) Monocytes # (Auto) 0.6 x10^3/uL (0.0-1.1) Eosinophils # (Auto) 0.4 x10^3/uL (0.0-0.7) Basophils # (Auto) 0.0 x10^3/uL (0.0-0.2) Reticulocyte Count (auto) 1.6 % (0.5-2.5) Prothrombin Time 20.7 SEC (11.7-14.0) Prothromb Time International Ratio 1.8 (0.8-1.1) BUN/Creatinine Ratio 12 (6-20) Ferritin 277 ng/mL (26-388) Total Bilirubin 6.7 mg/dL (0.2-1.0) Aspartate Amino Transf (AST/SGOT) 115 U/L (15-37) Alanine Aminotransferase (ALT/SGPT) 55 U/L (16-63) Alkaline Phosphatase 93 U/L (46-116) Total Protein 6.7 g/dL (6.4-8.2) Albumin 2.0 g/dL (3.4-5.0) Albumin/Globulin Ratio 0.4 (1.0-1.7) Vitamin B12 Level > 2000 pg/mL (247-911) Thyroid Stimulating Hormone (TSH) 1.070 uIU/mL (0.358-3.74) Test 10/15/18 07:27 10/15/18 11:15 10/15/18 11:32 Glucose (Fingerstick) 151 mg/dL (70-99) 158 mg/dL (70-99) Ammonia 28 mcmol/L (11-34) Medications Current Medications Sodium Chloride 500 ml @ 500 mls/hr 1X ONCE IV Last administered on 09:47; Start 10/14/18 at 09:30; Stop 10/14/18 at 10:29; Status DC Ondansetron HCl (Zofran) 4 mg PRN Q8HRS PRN IV NAUSEA/VOMITING Last administered on 10/15/18 09:57; Start 10/14/18 at 10:15; Stop 10/15/18 at 10:14 ; Status DC Ceftriaxone Sodium (Rocephin) 1 gm 1X ONCE IVP Last administered on 10/14/18at 10:41; Start 10/14/18 at 10:30; Stop 10/14/18 at 10:31; Status DC Ceftriaxone Sodium (Rocephin) 1 gm Q24H IVP Last administered on 10/15/18 10: 58; Start 10/15/18 at 10:00 Oxycodone/ Acetaminophen (Percocet 5/325) 1 tab PRN Q4HRS PRN PO PAIN Last administered on 10/14/18 17:12; Start 10/14/18 at 12:00 Morphine Sulfate (Morphine Sulfate) 4 mg PRN Q2HR PRN IV PAIN Last administered on 10/15/18 04:14; Start 10/14/18 at 12:00 Sodium Chloride 1,000 ml @ 100 mls/hr 1X ONCE IV Last administered on 12:15; Start 10/14/18 at 12:00; Stop 10/14/18 at 21:59; Status DC Lactobacillus Rhamnosus (Culturelle) 1 cap BID PO Last administered on at 10:58; Start 10/14/18 at 21:00 Ondansetron HCl (Zofran) 4 mg PRN Q6HRS PRN IV NAUSEA/VOMITING; Start 10/15/18 at 10:30 Ondansetron HCl (Zofran Odt) 4 mg PRN Q6HRS PRN PO NAUSEA/VOMITING; Start 10/15 at 10:30 Active Scripts Active Reported Nexium Capsule (Esomeprazole Magnesium) 20 Mg Capsule.dr 1 Cap PO DAILY Alfuzosin Hcl 10 Mg Tab.er.24h 10 Mg Pe PO DAILY Vitamin D3 (Cholecalciferol (Vitamin D3)) 1,000 Unit Tablet 1,000 Unit PO DAILY Hydrochlorothiazide 25 Mg Tablet 25 Mg PO DAILY Enalapril Maleate 10 Mg Tablet 10 Mg PO DAILY Gabapentin 100 Mg Capsule 100 Mg PO TID Diclofenac Sodium 75 Mg Tablet.dr 75 Mg PO BID Vitals/I & O Vital Sign - Last 24 Hours 10/14/18 10/14/18 10/14/18 10/14/18 13:15 15:00 15:01 15:12 Temp 98.1 98.1 Pulse 84 82 Resp 20 20 B/P (MAP) 92/46 (61) 92/44 (60) Pulse Ox 97 94 O2 Delivery Room Air Room Air 10/14/18 10/14/18 10/14/18 10/14/18 15:42 17:12 18:12 19:00 Temp 97.9 97.9 Pulse 84 Resp 18 22 18 20 B/P (MAP) 83/40 (54) Pulse Ox 94 95 O2 Delivery Room Air Room Air Room Air 10/14/18 10/14/18 10/14/18 10/15/18 20:20 22:26 23:00 03:00 Temp 97.7 97.7 97.7 97.7 Pulse 82 80 Resp 20 20 B/P (MAP) 82/42 (55) 96/76 (83) Pulse Ox 95 95 97 O2 Delivery Room Air Room Air Room Air Room Air 10/15/18 10/15/18 10/15/18 10/15/18 04:14 04:44 07:00 11:00 Temp 98.3 97.8 98.3 97.8 Pulse 91 84 Resp 18 18 B/P (MAP) 102/50 (67) 90/44 (59) Pulse Ox 95 95 92 93 O2 Delivery Room Air Room Air Room Air Room Air Intake and Output 10/14/18 10/14/18 10/15/18 15:00 23:00 07:00 Intake Total 500 ml 150 ml 350 ml Balance 500 ml 150 ml 350 ml KYA SZYMANSKI MD Oct 15, 2018 12:58
[2018-10-15] MEDS: IV NORMAL SALINE 1000ML BAG 1,000 ML IV SCH (13:07)
--- NOTE | 2018-10-15 13:25 | PDOC ---
Subjective: Subjective: Says vomited this morning after breakfast but going to try lunch now. Says abd pain is better. Family reports has been forgetful and "snappy." Feels itchy. Objective: Vital Signs: Vital Signs Date Time Temp Pulse Resp B/P (MAP) Pulse Ox O2 Delivery O2 Flow Rate FiO2 10/15/18 11:00 97.8 84 18 90/44 (59) 93 Room Air 97.8 Labs: Laboratory Tests Test 10/14/18 15:45 10/14/18 16:38 10/14/18 20:34 10/15/18 05:04 Sodium Level 120 mmol/L 123 mmol/L Potassium Level 5.2 mmol/L 4.9 mmol/L Chloride Level 88 mmol/L 88 mmol/L Carbon Dioxide Level 18 mmol/L 19 mmol/L Anion Gap 14 16 Blood Urea Nitrogen 54 mg/dL 68 mg/dL Creatinine 4.6 mg/dL 5.6 mg/dL Estimated GFR (Cockcroft-Gault) 13.0 10.4 Glucose Level 187 mg/dL 167 mg/dL Calcium Level 7.0 mg/dL 7.1 mg/dL Ammonia 22 mcmol/L HIV (1&2) Antibody Screen Nonreactive Glucose (Fingerstick) 175 mg/dL 166 mg/dL White Blood Count 8.4 x10^3/uL Red Blood Count 2.78 x10^6/uL Hemoglobin 10.2 g/dL Hematocrit 29.6 % Mean Corpuscular Volume 106 fL Mean Corpuscular Hemoglobin 37 pg Mean Corpuscular Hemoglobin Concent 35 g/dL Red Cell Distribution Width 14.6 % Platelet Count 19 x10^3/uL Neutrophils (%) (Auto) 84 % Lymphocytes (%) (Auto) 3 % Monocytes (%) (Auto) 7 % Eosinophils (%) (Auto) 5 % Basophils (%) (Auto) 0 % Neutrophils # (Auto) 7.1 x10^3uL Lymphocytes # (Auto) 0.3 x10^3/uL Monocytes # (Auto) 0.6 x10^3/uL Eosinophils # (Auto) 0.4 x10^3/uL Basophils # (Auto) 0.0 x10^3/uL Reticulocyte Count (auto) 1.6 % Prothrombin Time 20.7 SEC Prothromb Time International Ratio 1.8 BUN/Creatinine Ratio 12 Ferritin 277 ng/mL Total Bilirubin 6.7 mg/dL Aspartate Amino Transf (AST/SGOT) 115 U/L Alanine Aminotransferase (ALT/SGPT) 55 U/L Alkaline Phosphatase 93 U/L Total Protein 6.7 g/dL Albumin 2.0 g/dL Albumin/Globulin Ratio 0.4 Vitamin B12 Level > 2000 pg/mL Thyroid Stimulating Hormone (TSH) 1.070 uIU/mL Test 10/15/18 07:27 10/15/18 11:15 10/15/18 11:32 Glucose (Fingerstick) 151 mg/dL 158 mg/dL Ammonia 28 mcmol/L Imaging: Abd US IMPRESSION: 1. Hepatic steatosis with hepatic cirrhosis. 2. Tiny calcification identified just inferior to the gallbladder could be calcification in the liver. Renal US IMPRESSION: 1. Limited exam due to bowel gas. The kidneys are grossly unremarkable. 2. Limited evaluation of the urinary bladder due to underdistention. 3. Please refer to the separate report for the abdomen sonogram on the same date for additional findings. CXR IMPRESSION: Mild left lung base opacity, likely atelectasis, versus a small infiltrate. Consider follow-up PA and lateral chest radiograph when clinically feasible. CT A/P IMPRESSION: 1. Mild stranding in the perinephric fat and mild perirenal fascial thickening, greater on the left. Nonspecific but suggest inflammatory process such as pyelonephritis. No evidence of obstructive calculus. 2. Borderline retroperitoneal lymph node enlargement, may be reactive. 3. The caudate and left lobes of the liver appear hypertrophic, finding which can be seen with cirrhosis. 4. Mild splenomegaly. 5. Gallbladder is contracted limiting evaluation, but there may be a small gallstone. 6. Linear markings in the right lung base, most likely atelectasis, versus infiltrate. 7. Urinary bladder wall thickening, may be due to lack of distention, but cystitis could also be considered. PE: GEN: NAD LUNGS: CTAB HEART: RRR, ABD: soft NEURO/PSYCH: probably forgetful/a little confused A/P: Cirrhosis (alcohol - now sober), jaundice w/ pruritus, cytopenias DEE (worse - multi-factorial), hyponatremia, UTI/pyelonephritis Encephalopathy (ammonia ok) ?vomiting -- Urine culture pending - ?ID consult Other per Dr. Nunez. IRIS CRONIN Oct 15, 2018 13:25
[2018-10-15 15:00] VITALS: BP 90/39
[2018-10-15] MEDS: LACTULOSE 20 GM/30 ML SOLUTION. PO SCH ×2 (15:00→21:13)
[2018-10-15 19:00] VITALS: BP 102/51
[2018-10-15] MEDS: SERTRALINE 25 MG TABLET. PO SCH (21:13)
--- NOTE | 2018-10-15 21:32 | CONS ---
DATE OF CONSULTATION: 10/15/2018 HEMATOLOGY-ONCOLOGY CONSULTATION REPORT REQUESTING PHYSICIAN: Julienne Marion M.D. REASON FOR CONSULTATION: Thrombocytopenia due to cirrhosis. HISTORY OF PRESENT ILLNESS: The patient is a 63-year-old gentleman who reports having had chronic thrombocytopenia due to cirrhosis of the liver and he follows with a postie in [place]. He also mentions having had a bone marrow biopsy approximately in 2013, which did not show any primary bone marrow disorders. He was admitted to [facility] on 10/14/2018 with complaints of bilateral flank pain and decreased urination. He was started on Cipro and Flomax about 4 days prior to admission, without any significant improvement. He has a history of alcohol abuse for almost 30 years that he quit in 2017 after an episode of hepatic encephalopathy. He underwent further evaluation with a CT abdomen and pelvis on 10/14/2018, which revealed mild stranding in the perinephric fat, suggesting pyelonephritis; borderline retroperitoneal lymph node enlargement, which may be reactive. Changes in the liver are suggestive of cirrhosis. There is evidence of splenomegaly, mild. He was also noted to have severe thrombocytopenia with a platelet count of 16,000 on 10/14/2018, with a hemoglobin of 10.5 and a WBC of 8.1. There were 32% bands. Reticulocyte count was normal at 1.6. Creatinine was 5.6. His total bilirubin was 5.4 and then it was 6.7. Direct bilirubin 4.2. GGT was 788. I was asked to see the patient for further evaluation of thrombocytopenia. GI consultation was also obtained for evaluation of jaundice. Etiology was thought to be due to cirrhosis of the liver, decompensated, likely from an underlying infection. PAST MEDICAL HISTORY: Hypertension, diabetes mellitus, urinary tract infections, history of vocal cord polyp removal, hernia repair and hepatic encephalopathy. SOCIAL HISTORY: He has history of cigarette smoking, less than 1 pack per day. He has history of heavy alcohol use that he quit in 2017. FAMILY HISTORY: Positive for hypertension. REVIEW OF SYSTEMS: A 12-point review of system was performed. Pertinent positives are mentioned in the history of present illness. Rest of the system review is negative. PHYSICAL EXAMINATION: GENERAL APPEARANCE: The patient is a 63-year-old gentleman, who is in no acute cardiorespiratory distress. VITAL SIGNS: Blood pressure 102/50 and temperature 98.3. HEAD: Atraumatic, normocephalic. EYES: He has evidence of icterus. NECK: Supple. CHEST: Bilaterally symmetrical. No crepitations or rhonchi heard. HEART: S1, S2 normal. ABDOMEN: Soft, nontender. CENTRAL NERVOUS SYSTEM: No focal deficits. LYMPHATICS: No lymphadenopathy. SKIN: He has evidence of icterus. MUSCULOSKELETAL: No joint effusions. LABORATORY DATA: WBC 8.4, hemoglobin 10.2, platelet count 19,000 and MCV 106 with a reticulocyte count of 1.6 on 10/15/2018. Total bilirubin 6.7, direct bilirubin 4.2. Creatinine 5.6. BNP 2493. B12 more than 2000. TSH 1.070. IMPRESSION AND PLAN: 1. Thrombocytopenia due to cirrhosis of the liver and hypersplenism. The patient has chronic thrombocytopenia and he is aware of hematologic abnormality. I suspect that his platelets are worse at this time due to underlying infection. He has history of urinary tract infection and now the CAT scan reveals evidence of pyelonephritis. He has 32% bands. Reticulocyte count is normal at 1.6, and hence, I do not suspect DIC or TTP. There is no evidence of fragmented red cells in the peripheral smear. There is evidence of toxic granulations and toxic vacuolation further indicating that he has underlying infection causing worsening thrombocytopenia. No clinical evidence of bleeding at this time. If he has any significant bleeding, I would recommend platelet transfusion. He is afebrile and does not appear toxic. Continue to monitor closely. 2. Anemia secondary to renal failure and cirrhosis of the liver. Reticulocyte count is normal at 1.6. Iron studies are consistent with anemia of chronic disease. B12 is more than 2000. TSH is normal at 1.070. Continue to monitor hemoglobin. 3. Jaundice thought to be due to decompensated cirrhosis. I appreciate GI consultation. 4. Renal failure, management per primary team. JAMAL HRE MD DR: DONN/elayne JOB#: [id number] / [id number]
[2018-10-15 22:51] VITALS: BP 113/51
[2018-10-16] VITALS (7 sets, daily range): BP systolic 94–188; BP diastolic 39–65
[2018-10-16] MEDS: IV NORMAL SALINE 1000ML BAG 1,000 ML IV SCH ×2 (03:55→16:39)
[2018-10-16 05:32] LABS: CALCIUM 7.1 mg/dL (8.5-10.1); CREATININE 6.6 mg/dL (0.7-1.3); GFR 8.6
[2018-10-16] MEDS: LACTULOSE 20 GM/30 ML SOLUTION. PO SCH ×3 (08:17→21:19)
[2018-10-16] MEDS: LACTOBACILLUS RHAMNOSUS GG 1 CAPSULE. PO SCH ×2 (08:17→21:19)
--- NOTE | 2018-10-16 08:56 | PDOC ---
PROGRESS NOTES Subjective Subjective HPI - f/u of Thrombocytopenia ROS - no bleed Objective Objective Vital Signs Date Time Temp Pulse Resp B/P (MAP) Pulse Ox O2 Delivery O2 Flow Rate FiO2 10/16/18 07:00 98.4 101 20 188/52 (97) 93 Room Air 98.4 Intake and Output 10/16/18 07:00 Intake Total 300 ml Output Total 250 ml Balance 50 ml Intake Oral 300 ml Output Urine Total 250 ml # Voids 4 Physical Exam Heart: Normal S1, Normal S2 General: Alert, Oriented X3 Lungs: Clear to auscultation Neuro: Normal speech Psych/Mental Status: Mental status NL Assessment Assessment Problems Medical Problems: (1) Acute pyelonephritis Status: Acute (2) Acute renal failure Status: Acute (3) Exertional dyspnea Status: Acute (4) Hyponatremia Status: Acute IMPRESSION AND PLAN: 1. Thrombocytopenia due to cirrhosis of the liver and hypersplenism. The patient has chronic thrombocytopenia and he is aware of hematologic abnormality. I suspect that his platelets are worse at this time due to underlying infection. He has history of urinary tract infection and now the CAT scan reveals evidence of pyelonephritis. He has 32% bands. Reticulocyte count is normal at 1.6, and hence, I do not suspect DIC or TTP. There is no evidence of fragmented red cells in the peripheral smear. There is evidence of toxic granulations and toxic vacuolation further indicating that he has underlying infection causing worsening thrombocytopenia. No clinical evidence of bleeding at this time. If he has any significant bleeding, I would recommend platelet transfusion. He is afebrile and does not appear toxic. Continue to monitor closely. No bleed. 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 2. Anemia secondary to renal failure and cirrhosis of the liver. Reticulocyte count is normal at 1.6. Iron studies are consistent with anemia of chronic disease. B12 is more than 2000. TSH is normal at 1.070. Continue to monitor hemoglobin. 3. Jaundice thought to be due to decompensated cirrhosis. I appreciate GI consultation. 4. Renal failure, management per primary team. Comment Review of Relevant I have reviewed the following items ester (where applicable) has been applied. Labs Laboratory Tests Test 10/14/18 11:03 10/14/18 11:23 10/14/18 15:45 10/14/18 16:38 Urine Collection Type Unknown Urine Color [place] Urine Clarity Cloudy Urine pH 5.0 Urine Specific [place] 1.020 Urine Protein 100 mg/dL (NEG-TRACE) Urine Glucose (UA) Negative mg/dL (NEG) Urine Ketones (Stick) Trace mg/dL (NEG) Urine Blood Large (NEG) Urine Nitrite Negative (NEG) Urine Bilirubin Moderate (NEG) Urine Urobilinogen Dipstick 0.2 mg/dL (0.2 mg/dL) Urine Leukocyte Esterase Large (NEG) Urine RBC 0 /HPF (0-2) Urine WBC Tntc /HPF (0-4) Urine Squamous Epithelial Cells Few /LPF Urine Bacteria Many /HPF (0-FEW) Urine Random Creatinine 196.0 mg/dL (Not Estab.) Urine Random Total Protein 283.7 mg/dL (Not Estab.) Urine Random Sodium <60 mmol/L (Not Estab.) Glucose (Fingerstick) 187 mg/dL (70-99) 175 mg/dL (70-99) Sodium Level 120 mmol/L (136-145) Potassium Level 5.2 mmol/L (3.5-5.1) Chloride Level 88 mmol/L (98-107) Carbon Dioxide Level 18 mmol/L (21-32) Anion Gap 14 (6-14) Blood Urea Nitrogen 54 mg/dL (8-26) Creatinine 4.6 mg/dL (0.7-1.3) Estimated GFR (Cockcroft-Gault) 13.0 Glucose Level 187 mg/dL (70-99) Calcium Level 7.0 mg/dL (8.5-10.1) Ammonia 22 mcmol/L (11-34) HIV (1&2) Antibody Screen Nonreactive (Nonreactive) Test 10/14/18 20:34 10/15/18 05:04 10/15/18 07:27 10/15/18 11:15 Glucose (Fingerstick) 166 mg/dL (70-99) 151 mg/dL (70-99) White Blood Count 8.4 x10^3/uL (4.0-11.0) Red Blood Count 2.78 x10^6/uL (4.30-5.70) Hemoglobin 10.2 g/dL (13.0-17.5) Hematocrit 29.6 % (39.0-53.0) Mean Corpuscular Volume 106 fL (79-100) Mean Corpuscular Hemoglobin 37 pg (25-35) Mean Corpuscular Hemoglobin Concent 35 g/dL (31-37) Red Cell Distribution Width 14.6 % (11.5-14.5) Platelet Count 19 x10^3/uL (140-400) Neutrophils (%) (Auto) 84 % (31-73) Lymphocytes (%) (Auto) 3 % (24-48) Monocytes (%) (Auto) 7 % (0-9) Eosinophils (%) (Auto) 5 % (0-3) Basophils (%) (Auto) 0 % (0-3) Neutrophils # (Auto) 7.1 x10^3uL (1.8-7.7) Lymphocytes # (Auto) 0.3 x10^3/uL (1.0-4.8) Monocytes # (Auto) 0.6 x10^3/uL (0.0-1.1) Eosinophils # (Auto) 0.4 x10^3/uL (0.0-0.7) Basophils # (Auto) 0.0 x10^3/uL (0.0-0.2) Reticulocyte Count (auto) 1.6 % (0.5-2.5) Prothrombin Time 20.7 SEC (11.7-14.0) Prothromb Time International Ratio 1.8 (0.8-1.1) Sodium Level 123 mmol/L (136-145) Potassium Level 4.9 mmol/L (3.5-5.1) Chloride Level 88 mmol/L (98-107) Carbon Dioxide Level 19 mmol/L (21-32) Anion Gap 16 (6-14) Blood Urea Nitrogen 68 mg/dL (8-26) Creatinine 5.6 mg/dL (0.7-1.3) Estimated GFR (Cockcroft-Gault) 10.4 BUN/Creatinine Ratio 12 (6-20) Glucose Level 167 mg/dL (70-99) Calcium Level 7.1 mg/dL (8.5-10.1) Ferritin 277 ng/mL (26-388) Total Bilirubin 6.7 mg/dL (0.2-1.0) Aspartate Amino Transf (AST/SGOT) 115 U/L (15-37) Alanine Aminotransferase (ALT/SGPT) 55 U/L (16-63) Alkaline Phosphatase 93 U/L (46-116) Total Protein 6.7 g/dL (6.4-8.2) Albumin 2.0 g/dL (3.4-5.0) Albumin/Globulin Ratio 0.4 (1.0-1.7) Vitamin B12 Level > 2000 pg/mL (247-911) Thyroid Stimulating Hormone (TSH) 1.070 uIU/mL (0.358-3.74) Ammonia 28 mcmol/L (11-34) Test 10/15/18 11:32 10/15/18 16:34 10/15/18 20:42 10/16/18 04:10 Glucose (Fingerstick) 158 mg/dL (70-99) 191 mg/dL (70-99) 197 mg/dL (70-99) Sodium Level 121 mmol/L (136-145) Potassium Level 5.0 mmol/L (3.5-5.1) Chloride Level 87 mmol/L (98-107) Carbon Dioxide Level 16 mmol/L (21-32) Anion Gap 18 (6-14) Blood Urea Nitrogen 97 mg/dL (8-26) Creatinine 6.6 mg/dL (0.7-1.3) Estimated GFR (Cockcroft-Gault) 8.6 Glucose Level 208 mg/dL (70-99) Calcium Level 7.1 mg/dL (8.5-10.1) Test 10/16/18 07:22 Glucose (Fingerstick) 207 mg/dL (70-99) Laboratory Tests Test 10/15/18 11:15 10/15/18 11:32 10/15/18 16:34 10/15/18 20:42 Ammonia 28 mcmol/L (11-34) Glucose (Fingerstick) 158 mg/dL (70-99) 191 mg/dL (70-99) 197 mg/dL (70-99) Test 10/16/18 04:10 10/16/18 07:22 Sodium Level 121 mmol/L (136-145) Potassium Level 5.0 mmol/L (3.5-5.1) Chloride Level 87 mmol/L (98-107) Carbon Dioxide Level 16 mmol/L (21-32) Anion Gap 18 (6-14) Blood Urea Nitrogen 97 mg/dL (8-26) Creatinine 6.6 mg/dL (0.7-1.3) Estimated GFR (Cockcroft-Gault) 8.6 Glucose Level 208 mg/dL (70-99) Calcium Level 7.1 mg/dL (8.5-10.1) Glucose (Fingerstick) 207 mg/dL (70-99) Microbiology 10/14/18 Urine Culture - Preliminary, Resulted 10/14/18 Urine Culture Result 1 (SABRINA) - Preliminary, Resulted Medications Current Medications Sodium Chloride 500 ml @ 500 mls/hr 1X ONCE IV Last administered on 09:47; Start 10/14/18 at 09:30; Stop 10/14/18 at 10:29; Status DC Ondansetron HCl (Zofran) 4 mg PRN Q8HRS PRN IV NAUSEA/VOMITING Last administered on 10/15/18 09:57; Start 10/14/18 at 10:15; Stop 10/15/18 at 10:14 ; Status DC Ceftriaxone Sodium (Rocephin) 1 gm 1X ONCE IVP Last administered on 10/14/18at 10:41; Start 10/14/18 at 10:30; Stop 10/14/18 at 10:31; Status DC Ceftriaxone Sodium (Rocephin) 1 gm Q24H IVP Last administered on 10/15/18 10: 58; Start 10/15/18 at 10:00 Oxycodone/ Acetaminophen (Percocet 5/325) 1 tab PRN Q4HRS PRN PO PAIN Last administered on 10/14/18 17:12; Start 10/14/18 at 12:00 Morphine Sulfate (Morphine Sulfate) 4 mg PRN Q2HR PRN IV PAIN Last administered on 10/15/18 04:14; Start 10/14/18 at 12:00 Sodium Chloride 1,000 ml @ 100 mls/hr 1X ONCE IV Last administered on 12:15; Start 10/14/18 at 12:00; Stop 10/14/18 at 21:59; Status DC Lactobacillus Rhamnosus (Culturelle) 1 cap BID PO Last administered on 08:17; Start 10/14/18 at 21:00 Ondansetron HCl (Zofran) 4 mg PRN Q6HRS PRN IV NAUSEA/VOMITING; Start 10/15/18 at 10:30 Ondansetron HCl (Zofran Odt) 4 mg PRN Q6HRS PRN PO NAUSEA/VOMITING; Start 10/15 at 10:30 Sodium Chloride 1,000 ml @ 75 mls/hr [id number] IV Last administered on at 03:55; Start 10/15/18 at 13:00 Lactulose (Lactulose) 20 gm TID PO Last administered on 10/16/18at 08:17; Start 10/15/18 at 15:00 Sertraline HCl (Zoloft) 25 mg QHS PO Last administered on 10/15/18at 21:13; Start 10/15/18 at 21:00 Active Scripts Active Reported Nexium Capsule (Esomeprazole Magnesium) 20 Mg Capsule. 1 Cap PO DAILY Alfuzosin Hcl 10 Mg Tab.er.24h 10 Mg Pe PO DAILY Vitamin D3 (Cholecalciferol (Vitamin D3)) 1,000 Unit Tablet 1,000 Unit PO DAILY Hydrochlorothiazide 25 Mg Tablet 25 Mg PO DAILY Enalapril Maleate 10 Mg Tablet 10 Mg PO DAILY Gabapentin 100 Mg Capsule 100 Mg PO TID Diclofenac Sodium 75 Mg Tablet. 75 Mg PO BID Vitals/I & O Vital Sign - Last 24 Hours 10/15/18 10/15/18 10/15/18 10/15/18 11:00 15:00 19:00 20:00 Temp 97.8 98.1 98.7 97.8 98.1 98.7 Pulse 84 97 68 Resp 18 17 18 B/P (MAP) 90/44 (59) 90/39 (56) 102/51 (68) Pulse Ox 93 93 92 O2 Delivery Room Air Room Air Room Air Room Air 10/15/18 10/16/18 10/16/18 22:51 03:00 07:00 Temp 98.7 98.5 98.4 98.7 98.5 98.4 Pulse 103 107 101 Resp 18 18 20 B/P (MAP) 113/51 (71) 94/65 (75) 188/52 (97) Pulse Ox 92 93 93 O2 Delivery Room Air Room Air Room Air Intake and Output 10/15/18 10/15/18 10/16/18 15:00 23:00 07:00 Intake Total 300 ml Output Total 250 ml Balance 300 ml -250 ml JAMAL HER MD Oct 16, 2018 08:56
[2018-10-16] MEDS: cefTRIAXone IV Push 1 GM VIAL. IVP SCH (09:55)
[2018-10-16 11:25] LABS: SODIUM, URINE <60 mmol/L (Not Estab.); UR POTASSIUM 80.5 mmol/L (Not Estab.)
--- NOTE | 2018-10-16 11:52 | PDOC ---
PROGRESS NOTES Chief Complaint Chief Complaint Established cirrhosis, decompensated likely from infection. 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 H/o colon polyps. Elevated creatinine, duration unknown. UTI/clinically c/w pyelonephritis. acute renal failure - 16 pills and said in 2 days hepatic cirrhosis, concern for hepatorenal thrombocytopenia, in a cirrhotic Anemia of kidney dse, liver dse Mod PCM Hyperbilirubinemia enceph, transient History of Present Illness History of Present Illness Patient feels good But creatinine 6.6 from 5.6 Ambulating around the halls Good urine output - NS running at 75 mL an hour Urine cultures grows GNR UTI on IV Rocephin Agreeable to dialysis if recommended by renal Platelets 19,000, no bleeding-no leukocytosis Plan: await renal Rounds Continue IV Rocephin Follow-up urine culture Discussed with family at bedside Son wishes to speak with 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 REcheck CBC and daily bmp (K and bicarb ok) Vitals Vitals Vital Signs Date Time Temp Pulse Resp B/P (MAP) Pulse Ox O2 Delivery O2 Flow Rate FiO2 10/16/18 08:00 Room Air 10/16/18 07:00 98.4 101 20 188/52 (97) 93 98.4 Physical Exam General: Alert, Oriented X3 Heart: Normal S1, Normal S2 Abdomen: Normal bowel sounds, Soft, No tenderness, Other (MILD ASCITES) Extremities: No clubbing, No cyanosis Skin: No rashes, No breakdown, No significant lesion Labs LABS Laboratory Tests Test 10/15/18 16:34 10/15/18 18:40 10/15/18 20:42 10/16/18 04:10 Glucose (Fingerstick) 191 mg/dL (70-99) 197 mg/dL (70-99) Urine Sodium <60 mmol/L (Not Estab.) Urine Potassium 80.5 mmol/L (Not Estab.) Urine Chloride <60 mmol/L (Not Estab.) Sodium Level 121 mmol/L (136-145) Potassium Level 5.0 mmol/L (3.5-5.1) Chloride Level 87 mmol/L (98-107) Carbon Dioxide Level 16 mmol/L (21-32) Anion Gap 18 (6-14) Blood Urea Nitrogen 97 mg/dL (8-26) Creatinine 6.6 mg/dL (0.7-1.3) Estimated GFR (Cockcroft-Gault) 8.6 Glucose Level 208 mg/dL (70-99) Calcium Level 7.1 mg/dL (8.5-10.1) Test 10/16/18 07:22 10/16/18 10:20 Glucose (Fingerstick) 207 mg/dL (70-99) 254 mg/dL (70-99) Review of Systems Review of Systems A 14 point ROS was completed with the following noted as positive: Other systems reviewed and negative. \CONSTITUTIONAL: No fever or chills EYES: No recent changes SKIN: No rash or itching CARDIOVASCULAR: No chest pain, syncope, palpitations, or edema RESPIRATORY: No SOB or cough GASTROINTESTINAL: No nausea, vomiting or abdominal pain NEUROLOGICAL: No headaches or weakness ENDOCRINE: No cold or heat intolerance GENITOURINARY: No urgency or frequency of urination MUSCULOSKELETAL: No back pain or joint pain LYMPHATICS: No enlarged lymph nodes PSYCHIATRIC: No anxiety or depression Assessment and Plan Assessmemt and Plan Problems Medical Problems: (1) Acute pyelonephritis Status: Acute (2) Acute renal failure Status: Acute (3) Exertional dyspnea Status: Acute (4) Hyponatremia Status: Acute Comment Review of Relevant I have reviewed the following items ester (where applicable) has been applied. Labs Laboratory Tests Test 10/14/18 15:45 10/14/18 16:38 10/14/18 20:34 10/15/18 05:04 Sodium Level 120 mmol/L (136-145) 123 mmol/L (136-145) Potassium Level 5.2 mmol/L (3.5-5.1) 4.9 mmol/L (3.5-5.1) Chloride Level 88 mmol/L (98-107) 88 mmol/L (98-107) Carbon Dioxide Level 18 mmol/L (21-32) 19 mmol/L (21-32) Anion Gap 14 (6-14) 16 (6-14) Blood Urea Nitrogen 54 mg/dL (8-26) 68 mg/dL (8-26) Creatinine 4.6 mg/dL (0.7-1.3) 5.6 mg/dL (0.7-1.3) Estimated GFR (Cockcroft-Gault) 13.0 10.4 Glucose Level 187 mg/dL (70-99) 167 mg/dL (70-99) Calcium Level 7.0 mg/dL (8.5-10.1) 7.1 mg/dL (8.5-10.1) Ammonia 22 mcmol/L (11-34) HIV (1&2) Antibody Screen Nonreactive (Nonreactive) Glucose (Fingerstick) 175 mg/dL (70-99) 166 mg/dL (70-99) White Blood Count 8.4 x10^3/uL (4.0-11.0) Red Blood Count 2.78 x10^6/uL (4.30-5.70) Hemoglobin 10.2 g/dL (13.0-17.5) Hematocrit 29.6 % (39.0-53.0) Mean Corpuscular Volume 106 fL (79-100) Mean Corpuscular Hemoglobin 37 pg (25-35) Mean Corpuscular Hemoglobin Concent 35 g/dL (31-37) Red Cell Distribution Width 14.6 % (11.5-14.5) Platelet Count 19 x10^3/uL (140-400) Neutrophils (%) (Auto) 84 % (31-73) Lymphocytes (%) (Auto) 3 % (24-48) Monocytes (%) (Auto) 7 % (0-9) Eosinophils (%) (Auto) 5 % (0-3) Basophils (%) (Auto) 0 % (0-3) Neutrophils # (Auto) 7.1 x10^3uL (1.8-7.7) Lymphocytes # (Auto) 0.3 x10^3/uL (1.0-4.8) Monocytes # (Auto) 0.6 x10^3/uL (0.0-1.1) Eosinophils # (Auto) 0.4 x10^3/uL (0.0-0.7) Basophils # (Auto) 0.0 x10^3/uL (0.0-0.2) Reticulocyte Count (auto) 1.6 % (0.5-2.5) Prothrombin Time 20.7 SEC (11.7-14.0) Prothromb Time International Ratio 1.8 (0.8-1.1) BUN/Creatinine Ratio 12 (6-20) Ferritin 277 ng/mL (26-388) Total Bilirubin 6.7 mg/dL (0.2-1.0) Aspartate Amino Transf (AST/SGOT) 115 U/L (15-37) Alanine Aminotransferase (ALT/SGPT) 55 U/L (16-63) Alkaline Phosphatase 93 U/L (46-116) Total Protein 6.7 g/dL (6.4-8.2) Albumin 2.0 g/dL (3.4-5.0) Albumin/Globulin Ratio 0.4 (1.0-1.7) Vitamin B12 Level > 2000 pg/mL (247-911) Thyroid Stimulating Hormone (TSH) 1.070 uIU/mL (0.358-3.74) Test 10/15/18 07:27 10/15/18 11:15 10/15/18 11:32 10/15/18 16:34 Glucose (Fingerstick) 151 mg/dL (70-99) 158 mg/dL (70-99) 191 mg/dL (70-99) Ammonia 28 mcmol/L (11-34) Test 10/15/18 18:40 10/15/18 20:42 10/16/18 04:10 10/16/18 07:22 Urine Sodium <60 mmol/L (Not Estab.) Urine Potassium 80.5 mmol/L (Not Estab.) Urine Chloride <60 mmol/L (Not Estab.) Glucose (Fingerstick) 197 mg/dL (70-99) 207 mg/dL (70-99) Sodium Level 121 mmol/L (136-145) Potassium Level 5.0 mmol/L (3.5-5.1) Chloride Level 87 mmol/L (98-107) Carbon Dioxide Level 16 mmol/L (21-32) Anion Gap 18 (6-14) Blood Urea Nitrogen 97 mg/dL (8-26) Creatinine 6.6 mg/dL (0.7-1.3) Estimated GFR (Cockcroft-Gault) 8.6 Glucose Level 208 mg/dL (70-99) Calcium Level 7.1 mg/dL (8.5-10.1) Test 10/16/18 10:20 Glucose (Fingerstick) 254 mg/dL (70-99) Laboratory Tests Test 10/15/18 16:34 10/15/18 18:40 10/15/18 20:42 10/16/18 04:10 Glucose (Fingerstick) 191 mg/dL (70-99) 197 mg/dL (70-99) Urine Sodium <60 mmol/L (Not Estab.) Urine Potassium 80.5 mmol/L (Not Estab.) Urine Chloride <60 mmol/L (Not Estab.) Sodium Level 121 mmol/L (136-145) Potassium Level 5.0 mmol/L (3.5-5.1) Chloride Level 87 mmol/L (98-107) Carbon Dioxide Level 16 mmol/L (21-32) Anion Gap 18 (6-14) Blood Urea Nitrogen 97 mg/dL (8-26) Creatinine 6.6 mg/dL (0.7-1.3) Estimated GFR (Cockcroft-Gault) 8.6 Glucose Level 208 mg/dL (70-99) Calcium Level 7.1 mg/dL (8.5-10.1) Test 10/16/18 07:22 10/16/18 10:20 Glucose (Fingerstick) 207 mg/dL (70-99) 254 mg/dL (70-99) Microbiology 10/14/18 Urine Culture - Preliminary, Resulted 10/14/18 Urine Culture Result 1 (SABRINA) - Preliminary, Resulted Medications Current Medications Sodium Chloride 500 ml @ 500 mls/hr 1X ONCE IV Last administered on 09:47; Start 10/14/18 at 09:30; Stop 10/14/18 at 10:29; Status DC Ondansetron HCl (Zofran) 4 mg PRN Q8HRS PRN IV NAUSEA/VOMITING Last administered on 10/15/18at 09:57; Start 10/14/18 at 10:15; Stop 10/15/18 at 10:14 ; Status DC Ceftriaxone Sodium (Rocephin) 1 gm 1X ONCE IVP Last administered on 10/14/18at 10:41; Start 10/14/18 at 10:30; Stop 10/14/18 at 10:31; Status DC Ceftriaxone Sodium (Rocephin) 1 gm Q24H IVP Last administered on 10/16/18at 09: 55; Start 10/15/18 at 10:00 Oxycodone/ Acetaminophen (Percocet 5/325) 1 tab PRN Q4HRS PRN PO PAIN Last administered on 10/14/18at 17:12; Start 10/14/18 at 12:00 Morphine Sulfate (Morphine Sulfate) 4 mg PRN Q2HR PRN IV PAIN Last administered on 10/15/18at 04:14; Start 10/14/18 at 12:00 Sodium Chloride 1,000 ml @ 100 mls/hr 1X ONCE IV Last administered on at 12:15; Start 10/14/18 at 12:00; Stop 10/14/18 at 21:59; Status DC Lactobacillus Rhamnosus (Culturelle) 1 cap BID PO Last administered on at 08:17; Start 10/14/18 at 21:00 Ondansetron HCl (Zofran) 4 mg PRN Q6HRS PRN IV NAUSEA/VOMITING; Start 10/15/18 at 10:30 Ondansetron HCl (Zofran Odt) 4 mg PRN Q6HRS PRN PO NAUSEA/VOMITING; Start 10/15 at 10:30 Sodium Chloride 1,000 ml @ 75 mls/hr [id number] IV Last administered on at 03:55; Start 10/15/18 at 13:00 Lactulose (Lactulose) 20 gm TID PO Last administered on 10/16/18at 08:17; Start 10/15/18 at 15:00 Sertraline HCl (Zoloft) 25 mg QHS PO Last administered on 10/15/18at 21:13; Start 10/15/18 at 21:00 Active Scripts Active Reported Nexium Capsule (Esomeprazole Magnesium) 20 Mg Capsule. 1 Cap PO DAILY Alfuzosin Hcl 10 Mg Tab.er.24h 10 Mg Pe PO DAILY Vitamin D3 (Cholecalciferol (Vitamin D3)) 1,000 Unit Tablet 1,000 Unit PO DAILY Hydrochlorothiazide 25 Mg Tablet 25 Mg PO DAILY Enalapril Maleate 10 Mg Tablet 10 Mg PO DAILY Gabapentin 100 Mg Capsule 100 Mg PO TID Diclofenac Sodium 75 Mg Tablet.dr 75 Mg PO BID Vitals/I & O Vital Sign - Last 24 Hours 10/15/18 10/15/18 10/15/18 10/15/18 15:00 19:00 20:00 22:51 Temp 98.1 98.7 98.7 98.1 98.7 98.7 Pulse 97 68 103 Resp 17 18 18 B/P (MAP) 90/39 (56) 102/51 (68) 113/51 (71) Pulse Ox 93 92 92 O2 Delivery Room Air Room Air Room Air Room Air 10/16/18 10/16/18 10/16/18 03:00 07:00 08:00 Temp 98.5 98.4 98.5 98.4 Pulse 107 101 Resp 18 20 B/P (MAP) 94/65 (75) 188/52 (97) Pulse Ox 93 93 O2 Delivery Room Air Room Air Room Air Intake and Output 10/15/18 10/15/18 10/16/18 14:59 22:59 06:59 Intake Total 300 ml Output Total 250 ml Balance 300 ml -250 ml KYA SZYMANSKI MD Oct 16, 2018 11:52
[2018-10-16] MEDS ORDERED: LABETALOL 20 MG/4 ML DISP.SYRIN. IVP PRN (12:15)
[2018-10-16] MEDS ORDERED: DEXTROSE 50% 25 GM / 50ML DISP.SYRIN. IV PRN (12:15)
[2018-10-16] MEDS ORDERED: LABETALOL 20 MG/4 ML DISP.SYRIN. IVP ONE (12:15)
[2018-10-16] MEDS: TAMSULOSIN 0.4 MG CAP.ER.24H. PO SCH (12:34)
[2018-10-16] MEDS: CHOLECALCIFEROL (VITAMIN D3) 1,000 UNIT TABLET PO SCH (12:34)
--- NOTE | 2018-10-16 13:34 | PDOC ---
Renal-Progress Notes Subjective Notes Notes NO NEW COMPLAINTS, DOES NOT FEEL CONFUSED BUT FAMILY STATES HE IS HAVING SOME AUDITORY AND VISUAL HALLUCINATIONS History of Present Illness Hx of present illness STABLE Vitals Vitals Vital Signs Date Time Temp Pulse Resp B/P (MAP) Pulse Ox O2 Delivery O2 Flow Rate FiO2 10/16/18 11:00 98.2 94 20 107/52 (70) 95 Room Air 98.2 Weight Weight [ ] I.O. Intake and Output Intake and Output 10/16/18 06:59 Intake Total 300 ml Output Total 250 ml Balance 50 ml Intake Oral 300 ml Output Urine Total 250 ml # Voids 4 Labs Labs Laboratory Tests Test 10/15/18 16:34 10/15/18 18:40 10/15/18 20:42 10/16/18 04:10 Glucose (Fingerstick) 191 mg/dL (70-99) 197 mg/dL (70-99) Urine Sodium <60 mmol/L (Not Estab.) Urine Potassium 80.5 mmol/L (Not Estab.) Urine Chloride <60 mmol/L (Not Estab.) Sodium Level 121 mmol/L (136-145) Potassium Level 5.0 mmol/L (3.5-5.1) Chloride Level 87 mmol/L (98-107) Carbon Dioxide Level 16 mmol/L (21-32) Anion Gap 18 (6-14) Blood Urea Nitrogen 97 mg/dL (8-26) Creatinine 6.6 mg/dL (0.7-1.3) Estimated GFR (Cockcroft-Gault) 8.6 Glucose Level 208 mg/dL (70-99) Calcium Level 7.1 mg/dL (8.5-10.1) Test 10/16/18 07:22 10/16/18 10:20 Glucose (Fingerstick) 207 mg/dL (70-99) 254 mg/dL (70-99) Micro Micro Microbiology 10/14/18 Urine Culture - Preliminary, Resulted 10/14/18 Urine Culture Result 1 (SABRINA) - Preliminary, Resulted X-Ray X-Ray Examination: Ultrasound abdomen limited HISTORY: History of hyperbilirubinemia COMPARISON: None available FINDINGS: The pancreas is not well-visualized due to bowel gas. Nodular appearance of the liver with increased echogenicity noted throughout the liver likely hepatic cirrhosis with hepatic steatosis. The right lobe of the liver measures 14.2 cm. Gallbladder wall thickness measures 2.5 mm. Tiny calcification identified just inferior to the gallbladder could be calcification in the liver. The common bile duct measures 4 mm in transverse dimension. The right kidney measures 13.1 cm in length. The IVC is within normal limits of dimension. IMPRESSION: 1. Hepatic steatosis with hepatic cirrhosis. 2. Tiny calcification identified just inferior to the gallbladder could be calcification in the liver. Review of Systems Constitutional: yes: weakness, alert, oriented Ears/Nose/Throat: Yes: no symptom reported Eyes: Yes: no symptom reported Pulmonary: Yes no symptom reported Cardiovascular: Yes no symptom reported Gastrointestional: Yes: constipation Genitourinary: Yes: no symptom reported Musculoskeletal: Yes: no symptom reported Skin: Yes no symptom reported Psychiatric/Neurological: Yes: no symptom reported Endocrine: Yes: no symptom reported Hematologic/Lymphatic: Yes: no symptom reported Physical Exam General Appearance: no apparent distress Skin: warm Respiratory: bilateral CTA Heart: S1S2, RRR Abdomen: soft, bowel sounds present Genitourinary: bladder flat Extremities: pulses present, no edema Neurology: alert, oriented, follow commands Assessment Assessment IMP DEE-MULTIFACTORIAL DUE TO NSAID, ECVD AND LIVER FAILURE-HEPATORENAL ACUTE HEPATITIS-T BILI OF 1.4 IN AUGUST CHRONIC LIVER CIRRHOSIS PROTEINURIA DM II HTN HX OF ETOH ABUSE UTI/PYELONEPHRITIS PANCYTOPENIA HYPONATREMIA-STABLE MET ENCEPHALOPATHY PLAN HOLD DICLOFENAC, HCTZ AND VASOTEC PER HOME MED LIST URINE OSMO PENDING ANTIBIOTICS LOW FLOW IVF'S-SALINE HE NEEDS TO START HD WILL ASK IR TO PLACE TUNNELED HD CATHETER EXPECT SOME TIME BEFORE HE RECOVERS MAY NEED PLATELETS PRIOR TO PROCEDURE UPDATED FAMILY GI EVAL D/W ATTENDING WILL FOLLOW CRISTIAN YEN MD Oct 16, 2018 13:34
[2018-10-16] MEDS ORDERED: GABAPENTIN 100 MG CAPSULE. PO SCH (14:00)
[2018-10-16] MEDS: GABAPENTIN 100 MG CAPSULE. PO SCH ×2 (14:00→21:00)
--- NOTE | 2018-10-16 14:58 | PDOC ---
G I PROGRESS NOTE Subjective No complaints GI-guzman. Says slept better. Physical Exam Lungs clear. RRR Abdomen soft, maybe some fluid, not tender. Trace LE edema. Jaundiced. Review of Relevant I have reviewed the following items ester (where applicable) has been applied. Labs Laboratory Tests Test 10/14/18 15:45 10/14/18 16:38 10/14/18 20:34 10/15/18 05:04 Sodium Level 120 mmol/L (136-145) 123 mmol/L (136-145) Potassium Level 5.2 mmol/L (3.5-5.1) 4.9 mmol/L (3.5-5.1) Chloride Level 88 mmol/L (98-107) 88 mmol/L (98-107) Carbon Dioxide Level 18 mmol/L (21-32) 19 mmol/L (21-32) Anion Gap 14 (6-14) 16 (6-14) Blood Urea Nitrogen 54 mg/dL (8-26) 68 mg/dL (8-26) Creatinine 4.6 mg/dL (0.7-1.3) 5.6 mg/dL (0.7-1.3) Estimated GFR (Cockcroft-Gault) 13.0 10.4 Glucose Level 187 mg/dL (70-99) 167 mg/dL (70-99) Calcium Level 7.0 mg/dL (8.5-10.1) 7.1 mg/dL (8.5-10.1) Ammonia 22 mcmol/L (11-34) HIV (1&2) Antibody Screen Nonreactive (Nonreactive) Glucose (Fingerstick) 175 mg/dL (70-99) 166 mg/dL (70-99) White Blood Count 8.4 x10^3/uL (4.0-11.0) Red Blood Count 2.78 x10^6/uL (4.30-5.70) Hemoglobin 10.2 g/dL (13.0-17.5) Hematocrit 29.6 % (39.0-53.0) Mean Corpuscular Volume 106 fL (79-100) Mean Corpuscular Hemoglobin 37 pg (25-35) Mean Corpuscular Hemoglobin Concent 35 g/dL (31-37) Red Cell Distribution Width 14.6 % (11.5-14.5) Platelet Count 19 x10^3/uL (140-400) Neutrophils (%) (Auto) 84 % (31-73) Lymphocytes (%) (Auto) 3 % (24-48) Monocytes (%) (Auto) 7 % (0-9) Eosinophils (%) (Auto) 5 % (0-3) Basophils (%) (Auto) 0 % (0-3) Neutrophils # (Auto) 7.1 x10^3uL (1.8-7.7) Lymphocytes # (Auto) 0.3 x10^3/uL (1.0-4.8) Monocytes # (Auto) 0.6 x10^3/uL (0.0-1.1) Eosinophils # (Auto) 0.4 x10^3/uL (0.0-0.7) Basophils # (Auto) 0.0 x10^3/uL (0.0-0.2) Reticulocyte Count (auto) 1.6 % (0.5-2.5) Prothrombin Time 20.7 SEC (11.7-14.0) Prothromb Time International Ratio 1.8 (0.8-1.1) BUN/Creatinine Ratio 12 (6-20) Ferritin 277 ng/mL (26-388) Total Bilirubin 6.7 mg/dL (0.2-1.0) Aspartate Amino Transf (AST/SGOT) 115 U/L (15-37) Alanine Aminotransferase (ALT/SGPT) 55 U/L (16-63) Alkaline Phosphatase 93 U/L (46-116) Total Protein 6.7 g/dL (6.4-8.2) Albumin 2.0 g/dL (3.4-5.0) Albumin/Globulin Ratio 0.4 (1.0-1.7) Vitamin B12 Level > 2000 pg/mL (247-911) Thyroid Stimulating Hormone (TSH) 1.070 uIU/mL (0.358-3.74) Test 10/15/18 07:27 10/15/18 11:15 10/15/18 11:32 10/15/18 16:34 Glucose (Fingerstick) 151 mg/dL (70-99) 158 mg/dL (70-99) 191 mg/dL (70-99) Ammonia 28 mcmol/L (11-34) Test 10/15/18 18:40 2/25/19 20:42 10/16/18 04:10 10/16/18 07:22 Urine Sodium <60 mmol/L (Not Estab.) Urine Potassium 80.5 mmol/L (Not Estab.) Urine Chloride <60 mmol/L (Not Estab.) Glucose (Fingerstick) 197 mg/dL (70-99) 207 mg/dL (70-99) Sodium Level 121 mmol/L (136-145) Potassium Level 5.0 mmol/L (3.5-5.1) Chloride Level 87 mmol/L (98-107) Carbon Dioxide Level 16 mmol/L (21-32) Anion Gap 18 (6-14) Blood Urea Nitrogen 97 mg/dL (8-26) Creatinine 6.6 mg/dL (0.7-1.3) Estimated GFR (Cockcroft-Gault) 8.6 Glucose Level 208 mg/dL (70-99) Calcium Level 7.1 mg/dL (8.5-10.1) Test 10/16/18 10:20 10/16/18 13:25 Glucose (Fingerstick) 254 mg/dL (70-99) Platelet Count 25 x10^3/uL (140-400) Laboratory Tests Test 10/15/18 16:34 10/15/18 18:40 10/15/18 20:42 10/16/18 04:10 Glucose (Fingerstick) 191 mg/dL (70-99) 197 mg/dL (70-99) Urine Sodium <60 mmol/L (Not Estab.) Urine Potassium 80.5 mmol/L (Not Estab.) Urine Chloride <60 mmol/L (Not Estab.) Sodium Level 121 mmol/L (136-145) Potassium Level 5.0 mmol/L (3.5-5.1) Chloride Level 87 mmol/L (98-107) Carbon Dioxide Level 16 mmol/L (21-32) Anion Gap 18 (6-14) Blood Urea Nitrogen 97 mg/dL (8-26) Creatinine 6.6 mg/dL (0.7-1.3) Estimated GFR (Cockcroft-Gault) 8.6 Glucose Level 208 mg/dL (70-99) Calcium Level 7.1 mg/dL (8.5-10.1) Test 10/16/18 07:22 10/16/18 10:20 10/16/18 13:25 Glucose (Fingerstick) 207 mg/dL (70-99) 254 mg/dL (70-99) Platelet Count 25 x10^3/uL (140-400) Microbiology 10/14/18 Urine Culture - Preliminary, Resulted 10/14/18 Urine Culture Result 1 (SABRINA) - Preliminary, Resulted--GNR in urine. Vitals/I & O Vital Sign - Last 24 Hours 10/15/18 10/15/18 10/15/18 10/15/18 15:00 19:00 20:00 22:51 Temp 98.1 98.7 98.7 98.1 98.7 98.7 Pulse 97 68 103 Resp 17 18 18 B/P (MAP) 90/39 (56) 102/51 (68) 113/51 (71) Pulse Ox 93 92 92 O2 Delivery Room Air Room Air Room Air Room Air 10/16/18 10/16/18 10/16/18 10/16/18 03:00 07:00 08:00 11:00 Temp 98.5 98.4 98.2 98.5 98.4 98.2 Pulse 107 101 94 Resp 18 20 20 B/P (MAP) 94/65 (75) 118/52 (74) 107/52 (70) Pulse Ox 93 93 95 O2 Delivery Room Air Room Air Room Air Room Air Intake and Output 10/15/18 10/15/18 10/16/18 15:00 23:00 07:00 Intake Total 300 ml Output Total 250 ml Balance 300 ml -250 ml Problem List Problems Medical Problems: (1) Acute pyelonephritis Status: Acute (2) Acute renal failure Status: Acute (3) Exertional dyspnea Status: Acute (4) Hyponatremia Status: Acute Assessment Alcoholic cirrhosis, 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 Feels better, but numbers worse. HRS? Complicated UTI/pyelo--unusual in a male. Plan of Care: Continue current Tx, Mgmt Plan of Care Note Consider urology opinion. JESUS GARCIA MD Oct 16, 2018 14:57
[2018-10-16] MEDS: MORPHINE SULFATE 4 MG/ML VIAL. IV PRN (15:07)
[2018-10-16] MEDS: PANTOPRAZOLE 40 MG TABLET.DR. PO SCH (16:38)
[2018-10-16] MEDS: INSULIN LISPRO 300 UNITS/3 ML INSULN.PEN. SQ SCH (17:26)
[2018-10-16] MEDS: SERTRALINE 25 MG TABLET. PO SCH (21:20)
[2018-10-17] VITALS (13 sets, daily range): BP systolic 99–138; BP diastolic 45–71
[2018-10-17] MEDS: IV NORMAL SALINE 1000ML BAG 1,000 ML IV SCH ×2 (05:00→20:56)
[2018-10-17] MEDS: PANTOPRAZOLE 40 MG TABLET.DR. PO SCH (06:46)
[2018-10-17] MEDS: INSULIN LISPRO 300 UNITS/3 ML INSULN.PEN. SQ SCH ×3 (08:00→17:00)
[2018-10-17 08:41] LABS: BASO # 0.1 x10^3/uL (0.0-0.2); BASO % 0 % (0-3); EOS # 0.3 x10^3/uL (0.0-0.7); EOS % 2 % (0-3); HEMATOCRIT 26.9 % (39.0-53.0); HEMOGLOBIN 9.1 g/dL (13.0-17.5); LYMPH # 0.3 x10^3/uL (1.0-4.8); LYMPH % 2 % (24-48); MEAN CORPUSCULAR HEMOGLOBIN 36 pg (25-35); MEAN CORPUSCULAR HGB CONC 34 g/dL (31-37); MEAN CORPUSCULAR VOLUME 107 fL (79-100); MONO # 0.5 x10^3/uL (0.0-1.1); MONO % 3 % (0-9); NEUT # 18.1 x10^3uL (1.8-7.7); NEUT % 94 % (31-73); PLATELET COUNT 48 x10^3/uL (140-400); RED BLOOD COUNT 2.53 x10^6/uL (4.30-5.70); RED CELL DISTRIBUTION WIDTH 15.1 % (11.5-14.5); WHITE BLOOD COUNT 19.3 x10^3/uL (4.0-11.0)
[2018-10-17 08:56] LABS: ALBUMIN 1.8 g/dL (3.4-5.0); CALCIUM 6.8 mg/dL (8.5-10.1); CREATININE 5.9 mg/dL (0.7-1.3); DIRECT BILIRUBIN 8.9 mg/dL (0.0-0.2); GFR 9.8; POTASSIUM 4.6 mmol/L (3.5-5.1); TOTAL BILIRUBIN 10.4 mg/dL (0.2-1.0); TOTAL PROTEIN 6.1 g/dL (6.4-8.2)
[2018-10-17] MEDS: LACTOBACILLUS RHAMNOSUS GG 1 CAPSULE. PO SCH ×2 (09:00→20:56)
[2018-10-17] MEDS: LACTULOSE 20 GM/30 ML SOLUTION. PO SCH ×3 (09:00→20:56)
[2018-10-17] MEDS: TAMSULOSIN 0.4 MG CAP.ER.24H. PO SCH (09:00)
[2018-10-17] MEDS: CHOLECALCIFEROL (VITAMIN D3) 1,000 UNIT TABLET PO SCH (09:00)
[2018-10-17] MEDS: GABAPENTIN 100 MG CAPSULE. PO SCH ×3 (09:00→20:56)
[2018-10-17 09:11] LABS: PROTHROMBIN TIME PATIENT 19.6 SEC (11.7-14.0)
[2018-10-17] MEDS ORDERED: LIDOCAINE 1%/EPI 1:100,000 20 ML VIAL. ONE (09:26)
[2018-10-17] MEDS ORDERED: fentaNYL PF VIAL 100 MCG/2 ML VIAL ONE (09:37)
[2018-10-17] MEDS ORDERED: MIDAZOLAM HCL/PF 2 MG/2 ML VIAL. ONE (09:37)
[2018-10-17] MEDS ORDERED: fentaNYL PF VIAL 100 MCG/2 ML VIAL IV ONE (10:15)
[2018-10-17] MEDS ORDERED: MIDAZOLAM HCL/PF 2 MG/2 ML VIAL. IV ONE (10:15)
[2018-10-17] MEDS ORDERED: LIDOCAINE 1%/EPI 1:100,000 20 ML VIAL. IJ ONE (10:15)
[2018-10-17] MEDS: oxyCODONE/APAP 5/325 1 TAB TABLET PO PRN ×2 (10:54→17:45)
--- NOTE | 2018-10-17 11:31 | RAD ---
Procedure: Tunneled hemodialysis catheter placement 10/17/2018 11:27 AM Clinical Indication: Renal failure. Sterility: All elements of maximal sterile barrier technique including the use of a cap, mask, sterile gown, sterile gloves, large sterile sheet, appropriate hand hygiene, and 2% chlorhexidine for cutaneous antisepsis (or acceptable alternative antiseptic per current guidelines) were followed for this procedure. Consent: The procedure was explained in its entirety to the patient or the patients designated off premise service representative by a member of the treatment team, including a discussion of the risks, benefits and commonly accepted alternatives to the procedure, as well as the expected consequences of no therapy whatsoever. Discussion of the risks included, but was not limited to, those that are most frequent and those that are rare but possibly severe or life-threatening, as well as the possibility of unforeseen complications. Technique and Findings: Following informed consent, a timeout procedure was performed. The patient was prepped and draped in the usual sterile fashion. Ultrasound interrogation of the right neck revealed patency and compressibility of the right internal jugular vein. A 21-gauge micropuncture was then used to gain access to this vein under ultrasound guidance. A hard copy ultrasound image was recorded. The needle was exchanged over a wire for a 4 Polish sheath which was used to guide an guidewire into the IVC. The skin over the right anterior chest wall was copiously anesthetized with 1% Lidocaine and a small dermatotomy was made. A 23 cm tipped cuff palindrome tunneled hemodialysis catheter was then tunneled subcutaneously towards the neck dermatotomy and deployed through a large caliber peel-away sheath under fluoroscopic guidance such that the distal tip resided in the mid right atrium. Manual flow rates were assessed and found to be within normal limits. The catheter was then flushed, packed with Heparin, capped, and sutured to the skin. The neck dermatotomy was closed with Dermabond. No immediate complications were identified. Sedation: Conscious sedation was administered for 30 minutes. The patient was monitored by a qualified independent observer throughout the time of sedation. Please refer to the medical record for exact doses of medications utilized to achieve moderate sedation. Fluoroscopy time: 0.5 MIN Dose area product: 2 Gycm2 Impression: Tunneled hemodialysis catheter placement as described
[2018-10-17] MEDS: cefTRIAXone IV Push 1 GM VIAL. IVP SCH (11:37)
[2018-10-17 12:30] LABS: % BANDS 21 % (0-9); % LYMPHS 1 % (24-48); % MONOS 3 % (0-10); % SEGS 75 % (35-66); PLT ESTIMATE DECREASED (ADEQUATE)
[2018-10-17 12:31] LABS: TOXIC VACUOLATION PRESENT
--- NOTE | 2018-10-17 13:50 | RAD ---
EXAM: Chest, single view. HISTORY: Dyspnea. COMPARISON: 10/14/2018 FINDINGS: A frontal view of the chest is obtained. There is stable diffuse interstitial prominence. There is no consolidation, pleural effusion or pneumothorax. There is stable mild elevation of the right hemidiaphragm with right lower lobe compressive atelectasis. There is a stable prominent cardiac silhouette. There is a dialysis catheter with the tip in the right atrium. IMPRESSION: 1. Stable interstitial prominence without guy congestion. 2. Stable mild elevation of the right hemidiaphragm with suspected right lower lobe compressive atelectasis. Electronically signed by: Janet Isaac MD (10/17/2018 1:47 PM) [facility]
--- NOTE | 2018-10-17 14:37 | PDOC ---
Subjective: Subjective: [facility], family waiting on dialysis plans. Confused w/ ananda. Objective: Objective: 1 stool charted. Vital Signs: Vital Signs Date Time Temp Pulse Resp B/P (MAP) Pulse Ox O2 Delivery O2 Flow Rate FiO2 10/17/18 11:00 98.0 105 20 122/56 (78) 95 Room Air 98.0 10/17/18 10:54 2.0 Labs: Laboratory Tests Test 10/16/18 16:37 10/16/18 18:26 10/16/18 20:45 10/17/18 07:37 Glucose (Fingerstick) 228 mg/dL 198 mg/dL 180 mg/dL 265 mg/dL Test 10/17/18 08:20 10/17/18 10:26 White Blood Count 19.3 x10^3/uL Red Blood Count 2.53 x10^6/uL Hemoglobin 9.1 g/dL Hematocrit 26.9 % Mean Corpuscular Volume 107 fL Mean Corpuscular Hemoglobin 36 pg Mean Corpuscular Hemoglobin Concent 34 g/dL Red Cell Distribution Width 15.1 % Platelet Count 48 x10^3/uL Neutrophils (%) (Auto) 94 % Lymphocytes (%) (Auto) 2 % Monocytes (%) (Auto) 3 % Eosinophils (%) (Auto) 2 % Basophils (%) (Auto) 0 % Neutrophils # (Auto) 18.1 x10^3uL Lymphocytes # (Auto) 0.3 x10^3/uL Monocytes # (Auto) 0.5 x10^3/uL Eosinophils # (Auto) 0.3 x10^3/uL Basophils # (Auto) 0.1 x10^3/uL Segmented Neutrophils % 75 % Band Neutrophils % 21 % Lymphocytes % 1 % Monocytes % 3 % Toxic Vacuolation Present Dohle Bodies Present Platelet Estimate Decreased Prothrombin Time 19.6 SEC Prothromb Time International Ratio 1.7 Activated Partial Thromboplast Time 33 SEC Sodium Level 123 mmol/L Potassium Level 4.6 mmol/L Chloride Level 89 mmol/L Carbon Dioxide Level 13 mmol/L Anion Gap 21 Blood Urea Nitrogen 121 mg/dL Creatinine 5.9 mg/dL Estimated GFR (Cockcroft-Gault) 9.8 Glucose Level 276 mg/dL Calcium Level 6.8 mg/dL Total Bilirubin 10.4 mg/dL Direct Bilirubin 8.9 mg/dL Aspartate Amino Transf (AST/SGOT) 180 U/L Alanine Aminotransferase (ALT/SGPT) 77 U/L Alkaline Phosphatase 219 U/L Total Protein 6.1 g/dL Albumin 1.8 g/dL Glucose (Fingerstick) 287 mg/dL URINE CULTURE Final Final report URINE CULTURE RES 1 Final Escherichia coli Imaging: CXR 10/17 IMPRESSION: 1. Stable interstitial prominence without guy congestion. 2. Stable mild elevation of the right hemidiaphragm with suspected right lower lobe compressive atelectasis. PE: GEN: ill LUNGS: room air ABD: soft SKIN: +jaundice NEURO/PSYCH: drowsy/confused A/P: Cirrhosis, cytopenias DEE/?hepatorenal UTI - looks like resistant to Rocephin, defer to primary (?ask ID/urology to see ) -- Continue same per GI - ?add IRIS Khan Oct 17, 2018 14:37
--- NOTE | 2018-10-17 16:31 | NUR ---
VSS-AFEBRILE. REMAINS ON ROOM AIR. MANY PO MEDICATIONS HELP TODAY DUE TO DROWSINESS AFTER SEDATION THAT WAS GIVEN FOR PLACEMENT OF DIALYSIS CATHETER. INSULIN WAS GIVEN TWICE. REMAINS CONFUSED AND SLEEPY, BUT AROUSABLE. ABLE TO COMMUNICATE WHEN NEEDONG TO USE BSC. PULLS AT LINES, PULLED OUT PERIPHERAL IV THIS AM, IR ABLE TO PLACE A NEW ONE. FAMILY AT BEDSIDE THROUGHOUT DAY, OCCASIONALLY NEEDS MITTENS ON TO NOT PULL ON LINES. WHEN AWAKE, ABLE TO SIT ON SIDE OF BED WITH SUPERVISION.
[2018-10-17] MEDS ORDERED: IV NORMAL SALINE 1000ML BAG 1,000 ML IV PRN ×2 (18:06)
[2018-10-17] MEDS ORDERED: diphenhydrAMINE 50 MG/ML VIAL IV PRN ×2 (18:15)
[2018-10-17] MEDS ORDERED: DIALYSIS PATIENT. MC PRN (18:15)
[2018-10-17] MEDS: SERTRALINE 25 MG TABLET. PO SCH (20:56)
--- NOTE | 2018-10-18 00:11 | PN ---
DATE: 10/17/2018 SUBJECTIVE: The patient just had a dialysis tunneled catheter inserted and so he is slightly sleepy with family at bedside. Platelets came up to 48,000 after my 2 platelets, but WBC jumped to 19,000 with normal hemoglobin. I do not think he got steroids or this lab test was drawn before HD catheter insertion. Called by micro, E. coli UTI on urine culture and he has been getting IV Rocephin since day 1 on admission. OBJECTIVE: GENERAL: Sleepy, not in distress, sedated from sedatives from tunneled dialysis catheter insertion. HEENT: Unremarkable. LUNGS: Clear to auscultation bilaterally. HEART: Normal rate and rhythm. No murmurs, rubs or gallops. ABDOMEN: Soft, nontender, normoactive bowel sounds. GENITALIA: Appropriate for age. EXTREMITIES: Negative edema. Pulses full and equal. No pallor or cyanosis of nailbed. ASSESSMENT AND PLAN: 1. New dialysis. 2. Severe albuminemia. 3. Liver cirrhosis with normal LFTs. 4. Ex-drinker. 5. Encephalopathy, hepatic, though ammonia is normal. 6. Pruritus secondary to hyperbilirubinemia. Bilirubin is 6 - started on sertraline or Zoloft by GI. 7. Leukocytosis 19, on the background of urinary tract infection. 8. Escherichia coli urinary tract infection. 9. Sepsis POA. PLAN: 1. I did order a chest x-ray, PA and lateral views to see why though WBC would jump to 19 despite my IV Rocephin from day #1. It showed atelectasis and maybe infiltrate on chest x-ray portable on admission. 2. I have discussed my plan with the family and they are agreeable. 3. Plan for dialysis today, first round today by Renal. KYA SZYMANSKI MD DR: /nts JOB#: [id number] / [id number]
[2018-10-18] MEDS: oxyCODONE/APAP 5/325 1 TAB TABLET PO PRN ×2 (03:19→21:54)
[2018-10-18 03:30] VITALS: BP 157/68
[2018-10-18 03:57] LABS: BASO # 0.1 x10^3/uL (0.0-0.2); BASO % 0 % (0-3); EOS # 0.6 x10^3/uL (0.0-0.7); EOS % 3 % (0-3); HEMATOCRIT 27.9 % (39.0-53.0); HEMOGLOBIN 9.6 g/dL (13.0-17.5); LYMPH # 0.3 x10^3/uL (1.0-4.8); LYMPH % 2 % (24-48); MEAN CORPUSCULAR HEMOGLOBIN 36 pg (25-35); MEAN CORPUSCULAR HGB CONC 34 g/dL (31-37); MEAN CORPUSCULAR VOLUME 104 fL (79-100); MONO # 1.1 x10^3/uL (0.0-1.1); MONO % 7 % (0-9); NEUT # 15.3 x10^3uL (1.8-7.7); NEUT % 88 % (31-73); RED BLOOD COUNT 2.67 x10^6/uL (4.30-5.70); RED CELL DISTRIBUTION WIDTH 14.7 % (11.5-14.5); WHITE BLOOD COUNT 17.3 x10^3/uL (4.0-11.0)
[2018-10-18 04:04] LABS: PLATELET COUNT 25 x10^3/uL (140-400)
[2018-10-18 04:09] LABS: ALBUMIN 1.6 g/dL (3.4-5.0); CALCIUM 6.8 mg/dL (8.5-10.1); CREATININE 3.1 mg/dL (0.7-1.3); GFR 20.5; PHOSPHORUS 5.1 mg/dL (2.6-4.7); POTASSIUM 3.6 mmol/L (3.5-5.1)
[2018-10-18 07:00] VITALS: BP 110/51
[2018-10-18] MEDS: PANTOPRAZOLE 40 MG TABLET.DR. PO SCH (07:36)
[2018-10-18] MEDS: LACTULOSE 20 GM/30 ML SOLUTION. PO SCH ×3 (08:25→20:57)
[2018-10-18] MEDS: LACTOBACILLUS RHAMNOSUS GG 1 CAPSULE. PO SCH ×2 (08:25→20:57)
[2018-10-18] MEDS: GABAPENTIN 100 MG CAPSULE. PO SCH ×4 (08:25→20:57)
[2018-10-18] MEDS: CHOLECALCIFEROL (VITAMIN D3) 1,000 UNIT TABLET PO SCH (08:25)
[2018-10-18] MEDS: TAMSULOSIN 0.4 MG CAP.ER.24H. PO SCH (08:25)
[2018-10-18] MEDS: INSULIN LISPRO 300 UNITS/3 ML INSULN.PEN. SQ SCH ×3 (08:31→17:21)
[2018-10-18] MEDS: IV NORMAL SALINE 1000ML BAG 1,000 ML IV SCH ×2 (08:33→20:57)
--- NOTE | 2018-10-18 08:40 | NUR ---
IP: Pt has + urine culture of (R) E.coli with ESBL requiring contact precautions.
--- NOTE | 2018-10-18 08:54 | PDOC2 ---
RAJANIRADAMES L TUBE SIZER OPERATOR 10/18/18 0854: UROLOGY CONSULT Date of Consult Date of Consult DATE: 10/18/18 TIME: 08:49 Reason for Consult Reason for Consult: Complicated UTI Identification/Chief Complaint Chief Complaint Complicated UTI Source Source: Caregiver, Chart review, Patient History of Present Illness Reason for Visit: This pleasant 63 year old male is currently experiencing a UTI that has multiple drug resistance. This is his third UTI in the last twelve months. There were two others, one in May of 2018 and one in July of 2018. Both were treated with antibiotics but then the UTI came back. This most recent one he reports was "not like the other ones." He did not have any fevers or pain or bad dysuria to speak of. He had only a "slight discomfort" with urination. He denies any history of BPH or prostate cancer. However, he does admit to a history of ED. He is not sure if he is emptying his bladder well, but denies further discomfort with urination or LUTS. Past Medical History Cardiovascular: HTN Pulmonary: No pertinent hx GI: GI bleed, Other (CIRRHOSIS, PORTAL HTN) Heme/Onc: No pertinent hx Hepatobiliary: Cirrhosis ENT: No pertinent hx Renal/: No pertinent hx, UTI (3rd one in last 12 months ) Endocrine: Diabetes Family History Family History: Hypertension Social History <1 pack per day ALCOHOL: other (quit 2 years ago after 30 years of abuse) Drugs: None Current Problem List Problems: (1) UTI (urinary tract infection) Current Medications Current Medications Current Medications Cefazolin Sodium 50 ml @ 100 mls/hr 1X ONCE IV Last administered on at 09:45; Start 10/17/18 at 10:15; Stop 10/17/18 at 10:44; Status DC Cefazolin Sodium 50 ml @ As Directed STK-MED ONCE IV ; Start 10/17/18 at 09:37; Stop 10/17/18 at 09:38; Status DC Diphenhydramine HCl (Benadryl) 25 mg 1X PRN PRN IV ITCHING; Start 10/17/18 at 18:15; Stop 10/18/18 at 18:14 Diphenhydramine HCl (Benadryl) 25 mg 1X PRN PRN IV ITCHING; Start 10/17/18 at 18:15; Stop 10/18/18 at 18:14 Fentanyl Citrate (Fentanyl 2ml Vial) 50 mcg 1X ONCE IV Last administered on at 09:44; Start 10/17/18 at 10:15; Stop 10/17/18 at 10:16; Status DC Fentanyl Citrate (Fentanyl 2ml Vial) 100 mcg STK-MED ONCE .ROUTE ; Start at 09:37; Stop 10/17/18 at 09:38; Status DC Info (PHARMACY MONITORING -- do not chart) 1 each PRN DAILY PRN MC SEE COMMENTS ; Start 10/17/18 at 18:15 Lidocaine/ Epinephrine (LIDOCAINE 1%-EPI 1:100,000 Multi-Dose) 7 ml 1X ONCE IJ Last administered on 10/17/18at 09:44; Start 10/17/18 at 10:15; Stop 10/17/18 at 10:16; Status DC Lidocaine/ Epinephrine (LIDOCAINE 1%-EPI 1:100,000 Multi-Dose) 20 ml STK-MED ONCE .ROUTE ; Start 10/17/18 at 09:26; Stop 10/17/18 at 09:27; Status DC Midazolam HCl (Versed) 1 mg 1X ONCE IV Last administered on 10/17/18at 09:44; Start 10/17/18 at 10:15; Stop 10/17/18 at 10:16; Status DC Midazolam HCl (Versed) 2 mg STK-MED ONCE .ROUTE ; Start 10/17/18 at 09:37; Stop 10/17/18 at 09:38; Status DC Sodium Chloride 1,000 ml @ 400 mls/hr Q2H30M PRN IV PATENCY; Start 10/17/18 at 18:06; Stop 10/18/18 at 06:05; Status DC Sodium Chloride 1,000 ml @ 1,000 mls/hr Q1H PRN IV hypotension; Start 10/17/18 at 18:06; Stop 10/18/18 at 00:05; Status DC Allergies Allergies: Coded Allergies: I S O L A T I O N *CONTACT* (Verified Allergy, Unknown, 10/18/18) ESBL No Known Medication Allergies (Verified Allergy, Unknown, 10/18/18) ROS Review Of Systems: CONSTITUTIONAL: No fever or chills EYES: No recent changes SKIN: No rash or itching CARDIOVASCULAR: No chest pain, syncope, palpitations, or edema RESPIRATORY: No SOB or cough GASTROINTESTINAL: No nausea, vomiting or abdominal pain NEUROLOGICAL: No headaches or weakness ENDOCRINE: No cold or heat intolerance GENITOURINARY: No urgency or frequency of urination MUSCULOSKELETAL: No back pain or joint pain LYMPHATICS: No enlarged lymph nodes PSYCHIATRIC: No anxiety or depression Physical Exam Physical Exam: General: Pleasant, no acute distress, well groomed Eyes: conjunctiva anicteric, eyes full range of motion ENT: moist oral mucosa, normal dentition Neck: Trachea midline, no masses Respiratory: unlabored breathing, not using accessory muscles Back: No flank pain on testing bilaterally Abdomen: nontender, nondistended, Skin: area of skin breakdown on his buttocks just below anus. TRE: Prostate 30-40 grams, non tender on exam. : Uncircumcised phallus with foreskin that is easily retractable. Appears clean and WNL. Psych: normal mood, affect. Alert and oriented x 3. His speech is slow. Vitals VITALS Vital Signs Date Time Temp Pulse Resp B/P (MAP) Pulse Ox O2 Delivery O2 Flow Rate FiO2 10/18/18 07:00 97.4 97 16 110/51 (70) 92 Room Air 97.4 10/18/18 04:19 2.0 Labs Labs Laboratory Tests Test 10/16/18 10:20 10/16/18 13:25 10/16/18 16:37 10/16/18 18:26 Glucose (Fingerstick) 254 mg/dL (70-99) 228 mg/dL (70-99) 198 mg/dL (70-99) Platelet Count 25 x10^3/uL (140-400) Test 10/16/18 20:45 10/17/18 07:37 10/17/18 08:20 10/17/18 10:26 Glucose (Fingerstick) 180 mg/dL (70-99) 265 mg/dL (70-99) 287 mg/dL (70-99) White Blood Count 19.3 x10^3/uL (4.0-11.0) Red Blood Count 2.53 x10^6/uL (4.30-5.70) Hemoglobin 9.1 g/dL (13.0-17.5) Hematocrit 26.9 % (39.0-53.0) Mean Corpuscular Volume 107 fL (79-100) Mean Corpuscular Hemoglobin 36 pg (25-35) Mean Corpuscular Hemoglobin Concent 34 g/dL (31-37) Red Cell Distribution Width 15.1 % (11.5-14.5) Platelet Count 48 x10^3/uL (140-400) Neutrophils (%) (Auto) 94 % (31-73) Lymphocytes (%) (Auto) 2 % (24-48) Monocytes (%) (Auto) 3 % (0-9) Eosinophils (%) (Auto) 2 % (0-3) Basophils (%) (Auto) 0 % (0-3) Neutrophils # (Auto) 18.1 x10^3uL (1.8-7.7) Lymphocytes # (Auto) 0.3 x10^3/uL (1.0-4.8) Monocytes # (Auto) 0.5 x10^3/uL (0.0-1.1) Eosinophils # (Auto) 0.3 x10^3/uL (0.0-0.7) Basophils # (Auto) 0.1 x10^3/uL (0.0-0.2) Segmented Neutrophils % 75 % (35-66) Band Neutrophils % 21 % (0-9) Lymphocytes % 1 % (24-48) Monocytes % 3 % (0-10) Toxic Vacuolation Present Dohle Bodies Present Platelet Estimate Decreased (ADEQUATE) Prothrombin Time 19.6 SEC (11.7-14.0) Prothromb Time International Ratio 1.7 (0.8-1.1) Activated Partial Thromboplast Time 33 SEC (24-38) Sodium Level 123 mmol/L (136-145) Potassium Level 4.6 mmol/L (3.5-5.1) Chloride Level 89 mmol/L (98-107) Carbon Dioxide Level 13 mmol/L (21-32) Anion Gap 21 (6-14) Blood Urea Nitrogen 121 mg/dL (8-26) Creatinine 5.9 mg/dL (0.7-1.3) Estimated GFR (Cockcroft-Gault) 9.8 Glucose Level 276 mg/dL (70-99) Calcium Level 6.8 mg/dL (8.5-10.1) Total Bilirubin 10.4 mg/dL (0.2-1.0) Direct Bilirubin 8.9 mg/dL (0.0-0.2) Aspartate Amino Transf (AST/SGOT) 180 U/L (15-37) Alanine Aminotransferase (ALT/SGPT) 77 U/L (16-63) Alkaline Phosphatase 219 U/L (46-116) Total Protein 6.1 g/dL (6.4-8.2) Albumin 1.8 g/dL (3.4-5.0) Hepatitis B Core Total Antibody Negative (Negative) Test 10/17/18 13:11 10/18/18 03:25 10/18/18 07:29 Glucose (Fingerstick) 222 mg/dL (70-99) 266 mg/dL (70-99) White Blood Count 17.3 x10^3/uL (4.0-11.0) Red Blood Count 2.67 x10^6/uL (4.30-5.70) Hemoglobin 9.6 g/dL (13.0-17.5) Hematocrit 27.9 % (39.0-53.0) Mean Corpuscular Volume 104 fL (79-100) Mean Corpuscular Hemoglobin 36 pg (25-35) Mean Corpuscular Hemoglobin Concent 34 g/dL (31-37) Red Cell Distribution Width 14.7 % (11.5-14.5) Platelet Count 25 x10^3/uL (140-400) Neutrophils (%) (Auto) 88 % (31-73) Lymphocytes (%) (Auto) 2 % (24-48) Monocytes (%) (Auto) 7 % (0-9) Eosinophils (%) (Auto) 3 % (0-3) Basophils (%) (Auto) 0 % (0-3) Neutrophils # (Auto) 15.3 x10^3uL (1.8-7.7) Lymphocytes # (Auto) 0.3 x10^3/uL (1.0-4.8) Monocytes # (Auto) 1.1 x10^3/uL (0.0-1.1) Eosinophils # (Auto) 0.6 x10^3/uL (0.0-0.7) Basophils # (Auto) 0.1 x10^3/uL (0.0-0.2) Sodium Level 133 mmol/L (136-145) Potassium Level 3.6 mmol/L (3.5-5.1) Chloride Level 94 mmol/L (98-107) Carbon Dioxide Level 24 mmol/L (21-32) Anion Gap 15 (6-14) Blood Urea Nitrogen 65 mg/dL (8-26) Creatinine 3.1 mg/dL (0.7-1.3) Estimated GFR (Cockcroft-Gault) 20.5 Glucose Level 240 mg/dL (70-99) Calcium Level 6.8 mg/dL (8.5-10.1) Phosphorus Level 5.1 mg/dL (2.6-4.7) Albumin 1.6 g/dL (3.4-5.0) Laboratory Tests Test 10/17/18 10:26 10/17/18 13:11 10/18/18 03:25 10/18/18 07:29 Glucose (Fingerstick) 287 mg/dL (70-99) 222 mg/dL (70-99) 266 mg/dL (70-99) White Blood Count 17.3 x10^3/uL (4.0-11.0) Red Blood Count 2.67 x10^6/uL (4.30-5.70) Hemoglobin 9.6 g/dL (13.0-17.5) Hematocrit 27.9 % (39.0-53.0) Mean Corpuscular Volume 104 fL (79-100) Mean Corpuscular Hemoglobin 36 pg (25-35) Mean Corpuscular Hemoglobin Concent 34 g/dL (31-37) Red Cell Distribution Width 14.7 % (11.5-14.5) Platelet Count 25 x10^3/uL (140-400) Neutrophils (%) (Auto) 88 % (31-73) Lymphocytes (%) (Auto) 2 % (24-48) Monocytes (%) (Auto) 7 % (0-9) Eosinophils (%) (Auto) 3 % (0-3) Basophils (%) (Auto) 0 % (0-3) Neutrophils # (Auto) 15.3 x10^3uL (1.8-7.7) Lymphocytes # (Auto) 0.3 x10^3/uL (1.0-4.8) Monocytes # (Auto) 1.1 x10^3/uL (0.0-1.1) Eosinophils # (Auto) 0.6 x10^3/uL (0.0-0.7) Basophils # (Auto) 0.1 x10^3/uL (0.0-0.2) Sodium Level 133 mmol/L (136-145) Potassium Level 3.6 mmol/L (3.5-5.1) Chloride Level 94 mmol/L (98-107) Carbon Dioxide Level 24 mmol/L (21-32) Anion Gap 15 (6-14) Blood Urea Nitrogen 65 mg/dL (8-26) Creatinine 3.1 mg/dL (0.7-1.3) Estimated GFR (Cockcroft-Gault) 20.5 Glucose Level 240 mg/dL (70-99) Calcium Level 6.8 mg/dL (8.5-10.1) Phosphorus Level 5.1 mg/dL (2.6-4.7) Albumin 1.6 g/dL (3.4-5.0) Images Images IMPRESSION: 1. Mild stranding in the perinephric fat and mild perirenal fascial thickening, greater on the left. Nonspecific but suggest inflammatory process such as pyelonephritis. No evidence of obstructive calculus. 2. Borderline retroperitoneal lymph node enlargement, may be reactive. 3. The caudate and left lobes of the liver appear hypertrophic, finding which can be seen with cirrhosis. 4. Mild splenomegaly. 5. Gallbladder is contracted limiting evaluation, but there may be a small gallstone. 6. Linear markings in the right lung base, most likely atelectasis, versus infiltrate. 7. Urinary bladder wall thickening, may be due to lack of distention, but cystitis could also be considered. Assessment/Plan Assessment/Plan PVR WNL between 17-24 and no retention TRE prostate 40 grams Recommend PSA in 4-6 weeks when UTI has resolved. Consult entered for Infectious Disease to see patient in light of complicated UTI. DAVID ROSENTHAL MD 10/18/18 1624: UROLOGY CONSULT Assessment/Plan Assessment/Plan Agree with assessment and plan. No obvious urologic source for his infection. Recommend outpatient cystoscopy after infection treated. Consider suppressive antibiotics after UTI treated - will defer to ID. RADAMES GERARD APRN Oct 18, 2018 08:54 DAVID ROSENTHAL MD Oct 18, 2018 16:24
--- NOTE | 2018-10-18 08:59 | NUR ---
SW notified pt needs OP HD. MARANDA phoned and faxed referral to [facility] Intake. Pt admission and chair time pending. Will continue to follow.
[2018-10-18] MEDS ORDERED: DIALYSIS PATIENT. MC PRN ×2 (10:00)
[2018-10-18] MEDS ORDERED: CEFEPIME HCL IV Push 1 GM VIAL. IVP SCH (10:00)
--- NOTE | 2018-10-18 10:01 | PDOC ---
Infectious Disease Note Vital Sign Vital Signs Vital Signs Date Time Temp Pulse Resp B/P (MAP) Pulse Ox O2 Delivery O2 Flow Rate FiO2 10/18/18 08:00 Room Air 10/18/18 07:00 97.4 97 16 110/51 (70) 92 97.4 10/18/18 04:19 2.0 Labs Lab Laboratory Tests Test 10/17/18 10:26 10/17/18 13:11 10/18/18 03:25 10/18/18 07:29 Glucose (Fingerstick) 287 mg/dL (70-99) 222 mg/dL (70-99) 266 mg/dL (70-99) White Blood Count 17.3 x10^3/uL (4.0-11.0) Red Blood Count 2.67 x10^6/uL (4.30-5.70) Hemoglobin 9.6 g/dL (13.0-17.5) Hematocrit 27.9 % (39.0-53.0) Mean Corpuscular Volume 104 fL (79-100) Mean Corpuscular Hemoglobin 36 pg (25-35) Mean Corpuscular Hemoglobin Concent 34 g/dL (31-37) Red Cell Distribution Width 14.7 % (11.5-14.5) Platelet Count 25 x10^3/uL (140-400) Neutrophils (%) (Auto) 88 % (31-73) Lymphocytes (%) (Auto) 2 % (24-48) Monocytes (%) (Auto) 7 % (0-9) Eosinophils (%) (Auto) 3 % (0-3) Basophils (%) (Auto) 0 % (0-3) Neutrophils # (Auto) 15.3 x10^3uL (1.8-7.7) Lymphocytes # (Auto) 0.3 x10^3/uL (1.0-4.8) Monocytes # (Auto) 1.1 x10^3/uL (0.0-1.1) Eosinophils # (Auto) 0.6 x10^3/uL (0.0-0.7) Basophils # (Auto) 0.1 x10^3/uL (0.0-0.2) Sodium Level 133 mmol/L (136-145) Potassium Level 3.6 mmol/L (3.5-5.1) Chloride Level 94 mmol/L (98-107) Carbon Dioxide Level 24 mmol/L (21-32) Anion Gap 15 (6-14) Blood Urea Nitrogen 65 mg/dL (8-26) Creatinine 3.1 mg/dL (0.7-1.3) Estimated GFR (Cockcroft-Gault) 20.5 Glucose Level 240 mg/dL (70-99) Calcium Level 6.8 mg/dL (8.5-10.1) Phosphorus Level 5.1 mg/dL (2.6-4.7) Albumin 1.6 g/dL (3.4-5.0) Micro Microbiology 10/14/18 Urine Culture - Final, Complete 10/14/18 Urine Culture Result 1 (SABRINA) - Final, Complete 10/14/18 Antimicrobic Susceptibility - Final, Complete Objective Assessment ESBL ecoli UTI, complicated Renal failure now on HD Cirrhosis of liver Severe thrombocytopenia Plan Plan of Care change cefepime to Meropenem d/w son in detail supportive care MATTHEW MEDINA MD Oct 18, 2018 10:01
--- NOTE | 2018-10-18 10:40 | NUR ---
MARANDA following. MARANDA recieved a voice mail from Zainab at [facility]. Clinicals are submitted to Terrie Pretty. Will continue to follow. Addendum: 10/18/18 at 1042 by DEANNA LOW MARANDA also assisted pt in completing AD form. Pt provided with Notarized original AD and copies to take home. A copy placed on chart.
--- NOTE | 2018-10-18 11:27 | PDOC ---
Renal-Progress Notes Subjective Notes Notes LESS CONFUSED History of Present Illness Hx of present illness STABLE Vitals Vitals Vital Signs Date Time Temp Pulse Resp B/P (MAP) Pulse Ox O2 Delivery O2 Flow Rate FiO2 10/18/18 08:00 Room Air 10/18/18 07:00 97.4 97 16 110/51 (70) 92 97.4 10/18/18 04:19 2.0 Weight Weight [ ] I.O. Intake and Output Intake and Output 10/18/18 06:59 Intake Total 1000 ml Output Total 4 ml Balance 996 ml IV Total 1000 ml Stool Total 4 ml # Voids 5 # Bowel Movements 2 Labs Labs Laboratory Tests Test 10/17/18 13:11 10/18/18 03:25 10/18/18 07:29 Glucose (Fingerstick) 222 mg/dL (70-99) 266 mg/dL (70-99) White Blood Count 17.3 x10^3/uL (4.0-11.0) Red Blood Count 2.67 x10^6/uL (4.30-5.70) Hemoglobin 9.6 g/dL (13.0-17.5) Hematocrit 27.9 % (39.0-53.0) Mean Corpuscular Volume 104 fL (79-100) Mean Corpuscular Hemoglobin 36 pg (25-35) Mean Corpuscular Hemoglobin Concent 34 g/dL (31-37) Red Cell Distribution Width 14.7 % (11.5-14.5) Platelet Count 25 x10^3/uL (140-400) Neutrophils (%) (Auto) 88 % (31-73) Lymphocytes (%) (Auto) 2 % (24-48) Monocytes (%) (Auto) 7 % (0-9) Eosinophils (%) (Auto) 3 % (0-3) Basophils (%) (Auto) 0 % (0-3) Neutrophils # (Auto) 15.3 x10^3uL (1.8-7.7) Lymphocytes # (Auto) 0.3 x10^3/uL (1.0-4.8) Monocytes # (Auto) 1.1 x10^3/uL (0.0-1.1) Eosinophils # (Auto) 0.6 x10^3/uL (0.0-0.7) Basophils # (Auto) 0.1 x10^3/uL (0.0-0.2) Sodium Level 133 mmol/L (136-145) Potassium Level 3.6 mmol/L (3.5-5.1) Chloride Level 94 mmol/L (98-107) Carbon Dioxide Level 24 mmol/L (21-32) Anion Gap 15 (6-14) Blood Urea Nitrogen 65 mg/dL (8-26) Creatinine 3.1 mg/dL (0.7-1.3) Estimated GFR (Cockcroft-Gault) 20.5 Glucose Level 240 mg/dL (70-99) Calcium Level 6.8 mg/dL (8.5-10.1) Phosphorus Level 5.1 mg/dL (2.6-4.7) Albumin 1.6 g/dL (3.4-5.0) Micro Micro Microbiology 10/14/18 Urine Culture - Final, Complete 10/14/18 Urine Culture Result 1 (SABRINA) - Final, Complete 10/14/18 Antimicrobic Susceptibility - Final, Complete Review of Systems Constitutional: yes: weakness, alert, oriented Ears/Nose/Throat: Yes: no symptom reported Eyes: Yes: no symptom reported Pulmonary: Yes no symptom reported Cardiovascular: Yes no symptom reported Gastrointestional: Yes: constipation Genitourinary: Yes: no symptom reported Musculoskeletal: Yes: no symptom reported Skin: Yes no symptom reported Psychiatric/Neurological: Yes: no symptom reported Endocrine: Yes: no symptom reported Hematologic/Lymphatic: Yes: no symptom reported Physical Exam General Appearance: no apparent distress Skin: warm Respiratory: bilateral CTA Heart: S1S2, RRR Abdomen: soft, bowel sounds present Genitourinary: bladder flat Extremities: pulses present, no edema Neurology: alert, oriented, follow commands Assessment Assessment IMP MET ENCEPHALOPATHY DEE-MULTIFACTORIAL DUE TO NSAID, ECVD AND LIVER FAILURE ACUTE HEPATITIS-T BILI OF 1.4 IN AUGUST CHRONIC LIVER CIRRHOSIS PROTEINURIA DM II HTN HX OF ETOH ABUSE UTI/PYELONEPHRITIS PANCYTOPENIA [id number] MET ENCEPHALOPATHY S/P TUNNELED HD CATHETER PLAN HOLD DICLOFENAC, HCTZ AND VASOTEC PER HOME MED LIST ANTIBIOTICS EXPECT SOME TIME BEFORE HE RECOVERS HD TODAY UF TO MINIMAL UPDATED FAMILY GI EVAL D/W ATTENDING WILL FOLLOW CRISTIAN YEN MD Oct 18, 2018 11:27
--- NOTE | 2018-10-18 11:56 | NUR ---
Patient's son stated received lab reports from patient's doctor- as of 05/2018 patient had ESBL in urine at that time.
--- NOTE | 2018-10-18 12:37 | PDOC ---
PROGRESS NOTES Subjective Subjective HPI - f/u of Thrombocytopenia ROS - no fever Objective Objective Vital Signs Date Time Temp Pulse Resp B/P (MAP) Pulse Ox O2 Delivery O2 Flow Rate FiO2 10/18/18 08:00 Room Air 10/18/18 07:00 97.4 97 16 110/51 (70) 92 97.4 10/18/18 04:19 2.0 Intake and Output 10/18/18 07:00 Intake Total 1000 ml Output Total 4 ml Balance 996 ml IV Total 1000 ml Stool Total 4 ml # Voids 5 # Bowel Movements 2 Physical Exam General: Alert, Oriented X3, No acute distress Psych/Mental Status: Mental status NL Assessment Assessment Problems Medical Problems: (1) Acute pyelonephritis Status: Acute (2) Acute renal failure Status: Acute (3) Exertional dyspnea Status: Acute (4) Hyponatremia Status: Acute IMPRESSION AND PLAN: 1. Thrombocytopenia due to cirrhosis of the liver and hypersplenism. The patient has chronic thrombocytopenia and he is aware of hematologic abnormality. I suspect that his platelets are worse at this time due to underlying infection. He has history of urinary tract infection and now the CAT scan reveals evidence of pyelonephritis. He has 32% bands. Reticulocyte count is normal at 1.6, and hence, I do not suspect DIC or TTP. There is no evidence of fragmented red cells in the peripheral smear. There is evidence of toxic granulations and toxic vacuolation further indicating that he has underlying infection causing worsening thrombocytopenia. No clinical evidence of bleeding at this time. If he has any significant bleeding, I would recommend platelet transfusion. He is afebrile and does not appear toxic. Continue to monitor closely. No bleed. 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 plt now 25. 2. Anemia secondary to renal failure and cirrhosis of the liver. Reticulocyte count is normal at 1.6. Iron studies are consistent with anemia of chronic disease. B12 is more than 2000. TSH is normal at 1.070. Continue to monitor hemoglobin. 3. Jaundice thought to be due to decompensated cirrhosis. I appreciate GI consultation. 4. Renal failure, management per primary team. 5. UTI - appreciate ID and urology management. Comment Review of Relevant I have reviewed the following items ester (where applicable) has been applied. Labs Laboratory Tests Test 10/16/18 13:25 2/26/19 16:37 10/16/18 18:26 10/16/18 20:45 Platelet Count 25 x10^3/uL (140-400) Glucose (Fingerstick) 228 mg/dL (70-99) 198 mg/dL (70-99) 180 mg/dL (70-99) Test 10/17/18 07:37 10/17/18 08:20 10/17/18 10:26 10/17/18 13:11 Glucose (Fingerstick) 265 mg/dL (70-99) 287 mg/dL (70-99) 222 mg/dL (70-99) White Blood Count 19.3 x10^3/uL (4.0-11.0) Red Blood Count 2.53 x10^6/uL (4.30-5.70) Hemoglobin 9.1 g/dL (13.0-17.5) Hematocrit 26.9 % (39.0-53.0) Mean Corpuscular Volume 107 fL (79-100) Mean Corpuscular Hemoglobin 36 pg (25-35) Mean Corpuscular Hemoglobin Concent 34 g/dL (31-37) Red Cell Distribution Width 15.1 % (11.5-14.5) Platelet Count 48 x10^3/uL (140-400) Neutrophils (%) (Auto) 94 % (31-73) Lymphocytes (%) (Auto) 2 % (24-48) Monocytes (%) (Auto) 3 % (0-9) Eosinophils (%) (Auto) 2 % (0-3) Basophils (%) (Auto) 0 % (0-3) Neutrophils # (Auto) 18.1 x10^3uL (1.8-7.7) Lymphocytes # (Auto) 0.3 x10^3/uL (1.0-4.8) Monocytes # (Auto) 0.5 x10^3/uL (0.0-1.1) Eosinophils # (Auto) 0.3 x10^3/uL (0.0-0.7) Basophils # (Auto) 0.1 x10^3/uL (0.0-0.2) Segmented Neutrophils % 75 % (35-66) Band Neutrophils % 21 % (0-9) Lymphocytes % 1 % (24-48) Monocytes % 3 % (0-10) Toxic Vacuolation Present Dohle Bodies Present Platelet Estimate Decreased (ADEQUATE) Prothrombin Time 19.6 SEC (11.7-14.0) Prothromb Time International Ratio 1.7 (0.8-1.1) Activated Partial Thromboplast Time 33 SEC (24-38) Sodium Level 123 mmol/L (136-145) Potassium Level 4.6 mmol/L (3.5-5.1) Chloride Level 89 mmol/L (98-107) Carbon Dioxide Level 13 mmol/L (21-32) Anion Gap 21 (6-14) Blood Urea Nitrogen 121 mg/dL (8-26) Creatinine 5.9 mg/dL (0.7-1.3) Estimated GFR (Cockcroft-Gault) 9.8 Glucose Level 276 mg/dL (70-99) Calcium Level 6.8 mg/dL (8.5-10.1) Total Bilirubin 10.4 mg/dL (0.2-1.0) Direct Bilirubin 8.9 mg/dL (0.0-0.2) Aspartate Amino Transf (AST/SGOT) 180 U/L (15-37) Alanine Aminotransferase (ALT/SGPT) 77 U/L (16-63) Alkaline Phosphatase 219 U/L (46-116) Total Protein 6.1 g/dL (6.4-8.2) Albumin 1.8 g/dL (3.4-5.0) Hepatitis B Core Total Antibody Negative (Negative) Test 10/18/18 03:25 10/18/18 07:29 White Blood Count 17.3 x10^3/uL (4.0-11.0) Red Blood Count 2.67 x10^6/uL (4.30-5.70) Hemoglobin 9.6 g/dL (13.0-17.5) Hematocrit 27.9 % (39.0-53.0) Mean Corpuscular Volume 104 fL (79-100) Mean Corpuscular Hemoglobin 36 pg (25-35) Mean Corpuscular Hemoglobin Concent 34 g/dL (31-37) Red Cell Distribution Width 14.7 % (11.5-14.5) Platelet Count 25 x10^3/uL (140-400) Neutrophils (%) (Auto) 88 % (31-73) Lymphocytes (%) (Auto) 2 % (24-48) Monocytes (%) (Auto) 7 % (0-9) Eosinophils (%) (Auto) 3 % (0-3) Basophils (%) (Auto) 0 % (0-3) Neutrophils # (Auto) 15.3 x10^3uL (1.8-7.7) Lymphocytes # (Auto) 0.3 x10^3/uL (1.0-4.8) Monocytes # (Auto) 1.1 x10^3/uL (0.0-1.1) Eosinophils # (Auto) 0.6 x10^3/uL (0.0-0.7) Basophils # (Auto) 0.1 x10^3/uL (0.0-0.2) Sodium Level 133 mmol/L (136-145) Potassium Level 3.6 mmol/L (3.5-5.1) Chloride Level 94 mmol/L (98-107) Carbon Dioxide Level 24 mmol/L (21-32) Anion Gap 15 (6-14) Blood Urea Nitrogen 65 mg/dL (8-26) Creatinine 3.1 mg/dL (0.7-1.3) Estimated GFR (Cockcroft-Gault) 20.5 Glucose Level 240 mg/dL (70-99) Calcium Level 6.8 mg/dL (8.5-10.1) Phosphorus Level 5.1 mg/dL (2.6-4.7) Albumin 1.6 g/dL (3.4-5.0) Glucose (Fingerstick) 266 mg/dL (70-99) Laboratory Tests Test 10/17/18 13:11 10/18/18 03:25 10/18/18 07:29 Glucose (Fingerstick) 222 mg/dL (70-99) 266 mg/dL (70-99) White Blood Count 17.3 x10^3/uL (4.0-11.0) Red Blood Count 2.67 x10^6/uL (4.30-5.70) Hemoglobin 9.6 g/dL (13.0-17.5) Hematocrit 27.9 % (39.0-53.0) Mean Corpuscular Volume 104 fL (79-100) Mean Corpuscular Hemoglobin 36 pg (25-35) Mean Corpuscular Hemoglobin Concent 34 g/dL (31-37) Red Cell Distribution Width 14.7 % (11.5-14.5) Platelet Count 25 x10^3/uL (140-400) Neutrophils (%) (Auto) 88 % (31-73) Lymphocytes (%) (Auto) 2 % (24-48) Monocytes (%) (Auto) 7 % (0-9) Eosinophils (%) (Auto) 3 % (0-3) Basophils (%) (Auto) 0 % (0-3) Neutrophils # (Auto) 15.3 x10^3uL (1.8-7.7) Lymphocytes # (Auto) 0.3 x10^3/uL (1.0-4.8) Monocytes # (Auto) 1.1 x10^3/uL (0.0-1.1) Eosinophils # (Auto) 0.6 x10^3/uL (0.0-0.7) Basophils # (Auto) 0.1 x10^3/uL (0.0-0.2) Sodium Level 133 mmol/L (136-145) Potassium Level 3.6 mmol/L (3.5-5.1) Chloride Level 94 mmol/L (98-107) Carbon Dioxide Level 24 mmol/L (21-32) Anion Gap 15 (6-14) Blood Urea Nitrogen 65 mg/dL (8-26) Creatinine 3.1 mg/dL (0.7-1.3) Estimated GFR (Cockcroft-Gault) 20.5 Glucose Level 240 mg/dL (70-99) Calcium Level 6.8 mg/dL (8.5-10.1) Phosphorus Level 5.1 mg/dL (2.6-4.7) Albumin 1.6 g/dL (3.4-5.0) Microbiology 10/14/18 Urine Culture - Final, Complete 10/14/18 Urine Culture Result 1 (SABRINA) - Final, Complete 10/14/18 Antimicrobic Susceptibility - Final, Complete Medications Current Medications Sodium Chloride 500 ml @ 500 mls/hr 1X ONCE IV Last administered on at 09:47; Start 10/14/18 at 09:30; Stop 10/14/18 at 10:29; Status DC Ondansetron HCl (Zofran) 4 mg PRN Q8HRS PRN IV NAUSEA/VOMITING Last administered on 10/15/18 09:57; Start 10/14/18 at 10:15; Stop 10/15/18 at 10:14 ; Status DC Ceftriaxone Sodium (Rocephin) 1 gm 1X ONCE IVP Last administered on 10/14/18 10:41; Start 10/14/18 at 10:30; Stop 10/14/18 at 10:31; Status DC Ceftriaxone Sodium (Rocephin) 1 gm Q24H IVP Last administered on 10/17/18 11: 37; Start 10/15/18 at 10:00; Stop 10/18/18 at 09:12; Status DC Oxycodone/ Acetaminophen (Percocet 5/325) 1 tab PRN Q4HRS PRN PO PAIN Last administered on 10/18/18 03:19; Start 10/14/18 at 12:00 Morphine Sulfate (Morphine Sulfate) 4 mg PRN Q2HR PRN IV PAIN Last administered on 10/16/18 15:07; Start 10/14/18 at 12:00 Sodium Chloride 1,000 ml @ 100 mls/hr 1X ONCE IV Last administered on 12:15; Start 10/14/18 at 12:00; Stop 10/14/18 at 21:59; Status DC Lactobacillus Rhamnosus (Culturelle) 1 cap BID PO Last administered on 08:25; Start 10/14/18 at 21:00 Ondansetron HCl (Zofran) 4 mg PRN Q6HRS PRN IV NAUSEA/VOMITING; Start 10/15/18 at 10:30 Ondansetron HCl (Zofran Odt) 4 mg PRN Q6HRS PRN PO NAUSEA/VOMITING; Start 10/15 at 10:30 Sodium Chloride 1,000 ml @ 75 mls/hr [id number] IV Last administered on 08:33; Start 10/15/18 at 13:00 Lactulose (Lactulose) 20 gm TID PO Last administered on 10/18/18 08:25; Start 10/15/18 at 15:00 Sertraline HCl (Zoloft) 25 mg QHS PO Last administered on 10/17/18 20:56; Start 10/15/18 at 21:00 Insulin Human Lispro (HumaLOG) 0-9 UNITS TIDWMEALS SQ Last administered on 10/18at 08:31; Start 10/16/18 at 17:00 Dextrose (Dextrose 50%-Water Syringe) 12.5 gm PRN Q15MIN PRN IV SEE COMMENTS; Start 10/16/18 at 12:15 Labetalol HCl (Normodyne Iv Push) 20 mg 1X ONCE IVP ; Start 10/16/18 at 12:15; Stop 10/16/18 at 12:15; Status DC Labetalol HCl (Normodyne Iv Push) 10 mg PRN Q2HR PRN IVP HYPERTENSION, SEE COMMENTS; Start 10/16/18 at 12:15 Vitamin D (Vitamin D3) 1,000 unit DAILY PO Last administered on 10/18/18at 08:25 ; Start 10/16/18 at 13:00 Tamsulosin HCl (Flomax) 0.4 mg DAILY PO Last administered on 10/18/18at 08:25; Start 10/16/18 at 13:00 Pantoprazole Sodium (Protonix) 40 mg DAILYAC PO Last administered on 10/18/18at 07:36; Start 10/16/18 at 16:30 Gabapentin (Neurontin) 100 mg TID PO ; Start 10/16/18 at 14:00; Stop 10/16/18 at 16:21; Status DC Gabapentin (Neurontin) 100 mg TID PO Last administered on 10/18/18at 08:25; Start 10/16/18 at 14:00 Lidocaine/ Epinephrine (LIDOCAINE 1%-EPI 1:100,000 Multi-Dose) 20 ml STK-MED ONCE .ROUTE ; Start 10/17/18 at 09:26; Stop 10/17/18 at 09:27; Status DC Cefazolin Sodium 50 ml @ As Directed STK-MED ONCE IV ; Start 10/17/18 at 09:37; Stop 10/17/18 at 09:38; Status DC Midazolam HCl (Versed) 2 mg STK-MED ONCE .ROUTE ; Start 10/17/18 at 09:37; Stop 10/17/18 at 09:38; Status DC Fentanyl Citrate (Fentanyl 2ml Vial) 100 mcg STK-MED ONCE .ROUTE ; Start at 09:37; Stop 10/17/18 at 09:38; Status DC Midazolam HCl (Versed) 1 mg 1X ONCE IV Last administered on 10/17/18at 09:44; Start 10/17/18 at 10:15; Stop 10/17/18 at 10:16; Status DC Fentanyl Citrate (Fentanyl 2ml Vial) 50 mcg 1X ONCE IV Last administered on at 09:44; Start 10/17/18 at 10:15; Stop 10/17/18 at 10:16; Status DC Lidocaine/ Epinephrine (LIDOCAINE 1%-EPI 1:100,000 Multi-Dose) 7 ml 1X ONCE IJ Last administered on 10/17/18at 09:44; Start 10/17/18 at 10:15; Stop 10/17/18 at 10:16; Status DC Cefazolin Sodium 50 ml @ 100 mls/hr 1X ONCE IV Last administered on at 09:45; Start 10/17/18 at 10:15; Stop 10/17/18 at 10:44; Status DC Sodium Chloride 1,000 ml @ 1,000 mls/hr Q1H PRN IV hypotension; Start 10/17/18 at 18:06; Stop 10/18/18 at 00:05; Status DC Diphenhydramine HCl (Benadryl) 25 mg 1X PRN PRN IV ITCHING; Start 10/17/18 at 18:15; Stop 10/18/18 at 18:14 Diphenhydramine HCl (Benadryl) 25 mg 1X PRN PRN IV ITCHING; Start 10/17/18 at 18:15; Stop 10/18/18 at 18:14 Sodium Chloride 1,000 ml @ 400 mls/hr Q2H30M PRN IV PATENCY; Start 10/17/18 at 18:06; Stop 10/18/18 at 06:05; Status DC Info (PHARMACY MONITORING -- do not chart) 1 each PRN DAILY PRN MC SEE COMMENTS ; Start 10/17/18 at 18:15 Cefepime HCl (Maxipime) 1 gm Q12HR IVP ; Start 10/18/18 at 10:00; Stop 10/18/18 at 10:01; Status DC Info (PHARMACY MONITORING -- do not chart) 1 each PRN DAILY PRN MC SEE COMMENTS ; Start 10/18/18 at 10:00; Stop 10/18/18 at 10:04; Status DC Info (PHARMACY MONITORING -- do not chart) 1 each PRN DAILY PRN MC SEE COMMENTS ; Start 10/18/18 at 10:00; Stop 10/18/18 at 10:04; Status DC Meropenem 500 mg/ Sodium Chloride 50 ml @ 100 mls/hr Q12HR IV ; Start 10/18/18 at 11:00 Active Scripts Active Reported Nexium Capsule (Esomeprazole Magnesium) 20 Mg Capsule.dr 1 Cap PO DAILY Alfuzosin Hcl 10 Mg Tab.er.24h 10 Mg Pe PO DAILY Vitamin D3 (Cholecalciferol (Vitamin D3)) 1,000 Unit Tablet 1,000 Unit PO DAILY Hydrochlorothiazide 25 Mg Tablet 25 Mg PO DAILY Enalapril Maleate 10 Mg Tablet 10 Mg PO DAILY Gabapentin 100 Mg Capsule 100 Mg PO TID Diclofenac Sodium 75 Mg Tablet.dr 75 Mg PO BID Vitals/I & O Vital Sign - Last 24 Hours 10/17/18 10/17/18 10/17/18 10/17/18 15:00 17:45 20:00 23:41 Temp 97.8 98.6 97.8 98.6 Pulse 94 94 Resp 20 16 B/P (MAP) 102/56 (71) 99/ Pulse Ox 90 90 89 O2 Delivery Room Air Room Air Room Air Room Air O2 Flow Rate 2.0 10/18/18 10/18/18 10/18/18 10/18/18 03:19 03:30 04:19 07:00 Temp 97.4 97.4 97.4 97.4 Pulse 96 97 Resp 16 16 B/P (MAP) 157/68 (97) 110/51 (70) Pulse Ox 89 94 94 92 O2 Delivery Room Air Room Air Room Air Room Air O2 Flow Rate 2.0 2.0 10/18/18 08:00 O2 Delivery Room Air Intake and Output 10/17/18 10/17/18 10/18/18 15:00 23:00 07:00 Intake Total 1000 ml Output Total 4 ml Balance 996 ml JAMAL HER MD Oct 18, 2018 12:37
--- NOTE | 2018-10-18 12:39 | PDOC ---
Objective: Vital Signs: Vital Signs Date Time Temp Pulse Resp B/P (MAP) Pulse Ox O2 Delivery O2 Flow Rate FiO2 10/18/18 08:00 Room Air 10/18/18 07:00 97.4 97 16 110/51 (70) 92 97.4 10/18/18 04:19 2.0 Labs: Laboratory Tests Test 10/17/18 13:11 10/18/18 03:25 10/18/18 07:29 Glucose (Fingerstick) 222 mg/dL 266 mg/dL White Blood Count 17.3 x10^3/uL Red Blood Count 2.67 x10^6/uL Hemoglobin 9.6 g/dL Hematocrit 27.9 % Mean Corpuscular Volume 104 fL Mean Corpuscular Hemoglobin 36 pg Mean Corpuscular Hemoglobin Concent 34 g/dL Red Cell Distribution Width 14.7 % Platelet Count 25 x10^3/uL Neutrophils (%) (Auto) 88 % Lymphocytes (%) (Auto) 2 % Monocytes (%) (Auto) 7 % Eosinophils (%) (Auto) 3 % Basophils (%) (Auto) 0 % Neutrophils # (Auto) 15.3 x10^3uL Lymphocytes # (Auto) 0.3 x10^3/uL Monocytes # (Auto) 1.1 x10^3/uL Eosinophils # (Auto) 0.6 x10^3/uL Basophils # (Auto) 0.1 x10^3/uL Sodium Level 133 mmol/L Potassium Level 3.6 mmol/L Chloride Level 94 mmol/L Carbon Dioxide Level 24 mmol/L Anion Gap 15 Blood Urea Nitrogen 65 mg/dL Creatinine 3.1 mg/dL Estimated GFR (Cockcroft-Gault) 20.5 Glucose Level 240 mg/dL Calcium Level 6.8 mg/dL Phosphorus Level 5.1 mg/dL Albumin 1.6 g/dL PE: GEN: dialyzing LUNGS:room air ABD: non-tender SKIN: +jaundice NEURO/PSYCH: confused A/P: Cirrhosis, anemia/thrombocytopenia DEE (better w/ HD)/?hepatorenal UTI - ID following -- Other per Dr. Nunez. IRIS CRONIN Oct 18, 2018 12:39
--- NOTE | 2018-10-18 12:48 | PDOC ---
PROGRESS NOTES Chief Complaint Chief Complaint NEw ESRD - new HD - Anemia, multifactorial in the background of advanced cirrhosis and new esrd Established cirrhosis, decompensated likely from infection. Hx of esophageal varices on propanolol, E coli UTI/clinically c/w pyelonephritis with resistance ti rocpehin and others thrombocytopenia, in a cirrhotic HEpatic enceph, subtle/mild Mod PCM Hyperbilirubinemia TB 6 with pruritus History of Present Illness History of Present Illness Seen in dialysis Subtle signs of hepatic encephalopathy despite normal ammonia and GI is aware Total bili is 6, some pruritus seems to be controlled when we started SSRI ( Zoloft)- as started by GI Platelets 25,000 after transfusion which we gave prior to tunneled dialysis catheter insertion Creatinine 3.1 from 5 We're waiting for renal - if this will be a continued case for outpatient dialysis ? Blood sugars running high Plan: adjust insulin when necessary - I shifted to high-dose Dialysis per renal So far the plans to go home with family-family very involved in his care NOTEWORTHY WBC 17 despite IV Rocephin, Escherichia coli UTI on urine culture that is resistant to Rocephin which I have been giving from day # 1 (sensitivities only out today) I was not aware that ID was consulted I have started IV cefepime-follow ID recommendations from hereon Continue PT OT Continue dialysis per renal Avoid nephrotoxins Monitor that low platelets hepatic encephalopathy and anemia Seen at dialysis Vitals Vitals Vital Signs Date Time Temp Pulse Resp B/P (MAP) Pulse Ox O2 Delivery O2 Flow Rate FiO2 10/18/18 08:00 Room Air 10/18/18 07:00 97.4 97 16 110/51 (70) 92 97.4 10/18/18 04:19 2.0 Physical Exam General: Alert, Oriented X3, No acute distress Heart: Normal S1, Normal S2 Abdomen: Normal bowel sounds, Soft, No tenderness, Other (MILD ASCITES) Extremities: No clubbing, No cyanosis Skin: No rashes, No breakdown, No significant lesion Labs LABS Laboratory Tests Test 10/17/18 13:11 10/18/18 03:25 10/18/18 07:29 Glucose (Fingerstick) 222 mg/dL (70-99) 266 mg/dL (70-99) White Blood Count 17.3 x10^3/uL (4.0-11.0) Red Blood Count 2.67 x10^6/uL (4.30-5.70) Hemoglobin 9.6 g/dL (13.0-17.5) Hematocrit 27.9 % (39.0-53.0) Mean Corpuscular Volume 104 fL (79-100) Mean Corpuscular Hemoglobin 36 pg (25-35) Mean Corpuscular Hemoglobin Concent 34 g/dL (31-37) Red Cell Distribution Width 14.7 % (11.5-14.5) Platelet Count 25 x10^3/uL (140-400) Neutrophils (%) (Auto) 88 % (31-73) Lymphocytes (%) (Auto) 2 % (24-48) Monocytes (%) (Auto) 7 % (0-9) Eosinophils (%) (Auto) 3 % (0-3) Basophils (%) (Auto) 0 % (0-3) Neutrophils # (Auto) 15.3 x10^3uL (1.8-7.7) Lymphocytes # (Auto) 0.3 x10^3/uL (1.0-4.8) Monocytes # (Auto) 1.1 x10^3/uL (0.0-1.1) Eosinophils # (Auto) 0.6 x10^3/uL (0.0-0.7) Basophils # (Auto) 0.1 x10^3/uL (0.0-0.2) Sodium Level 133 mmol/L (136-145) Potassium Level 3.6 mmol/L (3.5-5.1) Chloride Level 94 mmol/L (98-107) Carbon Dioxide Level 24 mmol/L (21-32) Anion Gap 15 (6-14) Blood Urea Nitrogen 65 mg/dL (8-26) Creatinine 3.1 mg/dL (0.7-1.3) Estimated GFR (Cockcroft-Gault) 20.5 Glucose Level 240 mg/dL (70-99) Calcium Level 6.8 mg/dL (8.5-10.1) Phosphorus Level 5.1 mg/dL (2.6-4.7) Albumin 1.6 g/dL (3.4-5.0) Review of Systems Review of Systems EnCephalopathic hence limited ROS Assessment and Plan Assessmemt and Plan Problems Medical Problems: (1) Acute pyelonephritis Status: Acute (2) Acute renal failure Status: Acute (3) Exertional dyspnea Status: Acute (4) Hyponatremia Status: Acute Comment Review of Relevant I have reviewed the following items ester (where applicable) has been applied. Labs Laboratory Tests Test 10/16/18 13:25 10/16/18 16:37 10/16/18 18:26 10/16/18 20:45 Platelet Count 25 x10^3/uL (140-400) Glucose (Fingerstick) 228 mg/dL (70-99) 198 mg/dL (70-99) 180 mg/dL (70-99) Test 10/17/18 07:37 10/17/18 08:20 10/17/18 10:26 10/17/18 13:11 Glucose (Fingerstick) 265 mg/dL (70-99) 287 mg/dL (70-99) 222 mg/dL (70-99) White Blood Count 19.3 x10^3/uL (4.0-11.0) Red Blood Count 2.53 x10^6/uL (4.30-5.70) Hemoglobin 9.1 g/dL (13.0-17.5) Hematocrit 26.9 % (39.0-53.0) Mean Corpuscular Volume 107 fL (79-100) Mean Corpuscular Hemoglobin 36 pg (25-35) Mean Corpuscular Hemoglobin Concent 34 g/dL (31-37) Red Cell Distribution Width 15.1 % (11.5-14.5) Platelet Count 48 x10^3/uL (140-400) Neutrophils (%) (Auto) 94 % (31-73) Lymphocytes (%) (Auto) 2 % (24-48) Monocytes (%) (Auto) 3 % (0-9) Eosinophils (%) (Auto) 2 % (0-3) Basophils (%) (Auto) 0 % (0-3) Neutrophils # (Auto) 18.1 x10^3uL (1.8-7.7) Lymphocytes # (Auto) 0.3 x10^3/uL (1.0-4.8) Monocytes # (Auto) 0.5 x10^3/uL (0.0-1.1) Eosinophils # (Auto) 0.3 x10^3/uL (0.0-0.7) Basophils # (Auto) 0.1 x10^3/uL (0.0-0.2) Segmented Neutrophils % 75 % (35-66) Band Neutrophils % 21 % (0-9) Lymphocytes % 1 % (24-48) Monocytes % 3 % (0-10) Toxic Vacuolation Present Dohle Bodies Present Platelet Estimate Decreased (ADEQUATE) Prothrombin Time 19.6 SEC (11.7-14.0) Prothromb Time International Ratio 1.7 (0.8-1.1) Activated Partial Thromboplast Time 33 SEC (24-38) Sodium Level 123 mmol/L (136-145) Potassium Level 4.6 mmol/L (3.5-5.1) Chloride Level 89 mmol/L (98-107) Carbon Dioxide Level 13 mmol/L (21-32) Anion Gap 21 (6-14) Blood Urea Nitrogen 121 mg/dL (8-26) Creatinine 5.9 mg/dL (0.7-1.3) Estimated GFR (Cockcroft-Gault) 9.8 Glucose Level 276 mg/dL (70-99) Calcium Level 6.8 mg/dL (8.5-10.1) Total Bilirubin 10.4 mg/dL (0.2-1.0) Direct Bilirubin 8.9 mg/dL (0.0-0.2) Aspartate Amino Transf (AST/SGOT) 180 U/L (15-37) Alanine Aminotransferase (ALT/SGPT) 77 U/L (16-63) Alkaline Phosphatase 219 U/L (46-116) Total Protein 6.1 g/dL (6.4-8.2) Albumin 1.8 g/dL (3.4-5.0) Hepatitis B Core Total Antibody Negative (Negative) Test 10/18/18 03:25 10/18/18 07:29 White Blood Count 17.3 x10^3/uL (4.0-11.0) Red Blood Count 2.67 x10^6/uL (4.30-5.70) Hemoglobin 9.6 g/dL (13.0-17.5) Hematocrit 27.9 % (39.0-53.0) Mean Corpuscular Volume 104 fL (79-100) Mean Corpuscular Hemoglobin 36 pg (25-35) Mean Corpuscular Hemoglobin Concent 34 g/dL (31-37) Red Cell Distribution Width 14.7 % (11.5-14.5) Platelet Count 25 x10^3/uL (140-400) Neutrophils (%) (Auto) 88 % (31-73) Lymphocytes (%) (Auto) 2 % (24-48) Monocytes (%) (Auto) 7 % (0-9) Eosinophils (%) (Auto) 3 % (0-3) Basophils (%) (Auto) 0 % (0-3) Neutrophils # (Auto) 15.3 x10^3uL (1.8-7.7) Lymphocytes # (Auto) 0.3 x10^3/uL (1.0-4.8) Monocytes # (Auto) 1.1 x10^3/uL (0.0-1.1) Eosinophils # (Auto) 0.6 x10^3/uL (0.0-0.7) Basophils # (Auto) 0.1 x10^3/uL (0.0-0.2) Sodium Level 133 mmol/L (136-145) Potassium Level 3.6 mmol/L (3.5-5.1) Chloride Level 94 mmol/L (98-107) Carbon Dioxide Level 24 mmol/L (21-32) Anion Gap 15 (6-14) Blood Urea Nitrogen 65 mg/dL (8-26) Creatinine 3.1 mg/dL (0.7-1.3) Estimated GFR (Cockcroft-Gault) 20.5 Glucose Level 240 mg/dL (70-99) Calcium Level 6.8 mg/dL (8.5-10.1) Phosphorus Level 5.1 mg/dL (2.6-4.7) Albumin 1.6 g/dL (3.4-5.0) Glucose (Fingerstick) 266 mg/dL (70-99) Laboratory Tests Test 10/17/18 13:11 10/18/18 03:25 10/18/18 07:29 Glucose (Fingerstick) 222 mg/dL (70-99) 266 mg/dL (70-99) White Blood Count 17.3 x10^3/uL (4.0-11.0) Red Blood Count 2.67 x10^6/uL (4.30-5.70) Hemoglobin 9.6 g/dL (13.0-17.5) Hematocrit 27.9 % (39.0-53.0) Mean Corpuscular Volume 104 fL (79-100) Mean Corpuscular Hemoglobin 36 pg (25-35) Mean Corpuscular Hemoglobin Concent 34 g/dL (31-37) Red Cell Distribution Width 14.7 % (11.5-14.5) Platelet Count 25 x10^3/uL (140-400) Neutrophils (%) (Auto) 88 % (31-73) Lymphocytes (%) (Auto) 2 % (24-48) Monocytes (%) (Auto) 7 % (0-9) Eosinophils (%) (Auto) 3 % (0-3) Basophils (%) (Auto) 0 % (0-3) Neutrophils # (Auto) 15.3 x10^3uL (1.8-7.7) Lymphocytes # (Auto) 0.3 x10^3/uL (1.0-4.8) Monocytes # (Auto) 1.1 x10^3/uL (0.0-1.1) Eosinophils # (Auto) 0.6 x10^3/uL (0.0-0.7) Basophils # (Auto) 0.1 x10^3/uL (0.0-0.2) Sodium Level 133 mmol/L (136-145) Potassium Level 3.6 mmol/L (3.5-5.1) Chloride Level 94 mmol/L (98-107) Carbon Dioxide Level 24 mmol/L (21-32) Anion Gap 15 (6-14) Blood Urea Nitrogen 65 mg/dL (8-26) Creatinine 3.1 mg/dL (0.7-1.3) Estimated GFR (Cockcroft-Gault) 20.5 Glucose Level 240 mg/dL (70-99) Calcium Level 6.8 mg/dL (8.5-10.1) Phosphorus Level 5.1 mg/dL (2.6-4.7) Albumin 1.6 g/dL (3.4-5.0) Microbiology 10/14/18 Urine Culture - Final, Complete 10/14/18 Urine Culture Result 1 (SABRINA) - Final, Complete 10/14/18 Antimicrobic Susceptibility - Final, Complete Medications Current Medications Sodium Chloride 500 ml @ 500 mls/hr 1X ONCE IV Last administered on at 09:47; Start 2/24/19 at 09:30; Stop 10/14/18 at 10:29; Status DC Ondansetron HCl (Zofran) 4 mg PRN Q8HRS PRN IV NAUSEA/VOMITING Last administered on 10/15/18 09:57; Start 10/14/18 at 10:15; Stop 10/15/18 at 10:14 ; Status DC Ceftriaxone Sodium (Rocephin) 1 gm 1X ONCE IVP Last administered on 10/14/18at 10:41; Start 10/14/18 at 10:30; Stop 10/14/18 at 10:31; Status DC Ceftriaxone Sodium (Rocephin) 1 gm Q24H IVP Last administered on 10/17/18 11: 37; Start 10/15/18 at 10:00; Stop 10/18/18 at 09:12; Status DC Oxycodone/ Acetaminophen (Percocet 5/325) 1 tab PRN Q4HRS PRN PO PAIN Last administered on 10/18/18 03:19; Start 10/14/18 at 12:00 Morphine Sulfate (Morphine Sulfate) 4 mg PRN Q2HR PRN IV PAIN Last administered on 10/16/18 15:07; Start 10/14/18 at 12:00 Sodium Chloride 1,000 ml @ 100 mls/hr 1X ONCE IV Last administered on 12:15; Start 10/14/18 at 12:00; Stop 10/14/18 at 21:59; Status DC Lactobacillus Rhamnosus (Culturelle) 1 cap BID PO Last administered on at 08:25; Start 10/14/18 at 21:00 Ondansetron HCl (Zofran) 4 mg PRN Q6HRS PRN IV NAUSEA/VOMITING; Start 10/15/18 at 10:30 Ondansetron HCl (Zofran Odt) 4 mg PRN Q6HRS PRN PO NAUSEA/VOMITING; Start 10/15 at 10:30 Sodium Chloride 1,000 ml @ 75 mls/hr [id number] IV Last administered on 08:33; Start 10/15/18 at 13:00 Lactulose (Lactulose) 20 gm TID PO Last administered on 2/28/19at 08:25; Start 10/15/18 at 15:00 Sertraline HCl (Zoloft) 25 mg QHS PO Last administered on 10/17/18at 20:56; Start 10/15/18 at 21:00 Insulin Human Lispro (HumaLOG) 0-9 UNITS TIDWMEALS SQ Last administered on 10/18at 08:31; Start 10/16/18 at 17:00 Dextrose (Dextrose 50%-Water Syringe) 12.5 gm PRN Q15MIN PRN IV SEE COMMENTS; Start 10/16/18 at 12:15 Labetalol HCl (Normodyne Iv Push) 20 mg 1X ONCE IVP ; Start 10/16/18 at 12:15; Stop 10/16/18 at 12:15; Status DC Labetalol HCl (Normodyne Iv Push) 10 mg PRN Q2HR PRN IVP HYPERTENSION, SEE COMMENTS; Start 10/16/18 at 12:15 Vitamin D (Vitamin D3) 1,000 unit DAILY PO Last administered on 10/18/18at 08:25 ; Start 10/16/18 at 13:00 Tamsulosin HCl (Flomax) 0.4 mg DAILY PO Last administered on 10/18/18at 08:25; Start 10/16/18 at 13:00 Pantoprazole Sodium (Protonix) 40 mg DAILYAC PO Last administered on 10/18/18at 07:36; Start 10/16/18 at 16:30 Gabapentin (Neurontin) 100 mg TID PO ; Start 10/16/18 at 14:00; Stop 10/16/18 at 16:21; Status DC Gabapentin (Neurontin) 100 mg TID PO Last administered on 10/18/18at 08:25; Start 10/16/18 at 14:00 Lidocaine/ Epinephrine (LIDOCAINE 1%-EPI 1:100,000 Multi-Dose) 20 ml STK-MED ONCE .ROUTE ; Start 10/17/18 at 09:26; Stop 10/17/18 at 09:27; Status DC Cefazolin Sodium 50 ml @ As Directed STK-MED ONCE IV ; Start 10/17/18 at 09:37; Stop 10/17/18 at 09:38; Status DC Midazolam HCl (Versed) 2 mg STK-MED ONCE .ROUTE ; Start 10/17/18 at 09:37; Stop 10/17/18 at 09:38; Status DC Fentanyl Citrate (Fentanyl 2ml Vial) 100 mcg STK-MED ONCE .ROUTE ; Start at 09:37; Stop 10/17/18 at 09:38; Status DC Midazolam HCl (Versed) 1 mg 1X ONCE IV Last administered on 10/17/18at 09:44; Start 10/17/18 at 10:15; Stop 10/17/18 at 10:16; Status DC Fentanyl Citrate (Fentanyl 2ml Vial) 50 mcg 1X ONCE IV Last administered on at 09:44; Start 10/17/18 at 10:15; Stop 10/17/18 at 10:16; Status DC Lidocaine/ Epinephrine (LIDOCAINE 1%-EPI 1:100,000 Multi-Dose) 7 ml 1X ONCE IJ Last administered on 10/17/18at 09:44; Start 10/17/18 at 10:15; Stop 10/17/18 at 10:16; Status DC Cefazolin Sodium 50 ml @ 100 mls/hr 1X ONCE IV Last administered on at 09:45; Start 10/17/18 at 10:15; Stop 10/17/18 at 10:44; Status DC Sodium Chloride 1,000 ml @ 1,000 mls/hr Q1H PRN IV hypotension; Start 10/17/18 at 18:06; Stop 10/18/18 at 00:05; Status DC Diphenhydramine HCl (Benadryl) 25 mg 1X PRN PRN IV ITCHING; Start 10/17/18 at 18:15; Stop 10/18/18 at 18:14 Diphenhydramine HCl (Benadryl) 25 mg 1X PRN PRN IV ITCHING; Start 10/17/18 at 18:15; Stop 10/18/18 at 18:14 Sodium Chloride 1,000 ml @ 400 mls/hr Q2H30M PRN IV PATENCY; Start 10/17/18 at 18:06; Stop 10/18/18 at 06:05; Status DC Info (PHARMACY MONITORING -- do not chart) 1 each PRN DAILY PRN MC SEE COMMENTS ; Start 10/17/18 at 18:15 Cefepime HCl (Maxipime) 1 gm Q12HR IVP ; Start 10/18/18 at 10:00; Stop 10/18/18 at 10:01; Status DC Info (PHARMACY MONITORING -- do not chart) 1 each PRN DAILY PRN MC SEE COMMENTS ; Start 10/18/18 at 10:00; Stop 10/18/18 at 10:04; Status DC Info (PHARMACY MONITORING -- do not chart) 1 each PRN DAILY PRN MC SEE COMMENTS ; Start 10/18/18 at 10:00; Stop 10/18/18 at 10:04; Status DC Meropenem 500 mg/ Sodium Chloride 50 ml @ 100 mls/hr Q12HR IV ; Start 10/18/18 at 11:00 Active Scripts Active Reported Nexium Capsule (Esomeprazole Magnesium) 20 Mg Capsule. 1 Cap PO DAILY Alfuzosin Hcl 10 Mg Tab.er.24h 10 Mg Pe PO DAILY Vitamin D3 (Cholecalciferol (Vitamin D3)) 1,000 Unit Tablet 1,000 Unit PO DAILY Hydrochlorothiazide 25 Mg Tablet 25 Mg PO DAILY Enalapril Maleate 10 Mg Tablet 10 Mg PO DAILY Gabapentin 100 Mg Capsule 100 Mg PO TID Diclofenac Sodium 75 Mg Tablet.dr 75 Mg PO BID Vitals/I & O Vital Sign - Last 24 Hours 10/17/18 10/17/18 10/17/18 10/17/18 15:00 17:45 20:00 23:41 Temp 97.8 98.6 97.8 98.6 Pulse 94 94 Resp 20 16 B/P (MAP) 102/56 (71) 99/ Pulse Ox 90 90 89 O2 Delivery Room Air Room Air Room Air Room Air O2 Flow Rate 2.0 10/18/18 10/18/18 10/18/18 10/18/18 03:19 03:30 04:19 07:00 Temp 97.4 97.4 97.4 97.4 Pulse 96 97 Resp 16 16 B/P (MAP) 157/68 (97) 110/51 (70) Pulse Ox 89 94 94 92 O2 Delivery Room Air Room Air Room Air Room Air O2 Flow Rate 2.0 2.0 10/18/18 08:00 O2 Delivery Room Air Intake and Output 10/17/18 10/17/18 10/18/18 15:00 23:00 07:00 Intake Total 1000 ml Output Total 4 ml Balance 996 ml KYA SZYMANSKI MD Oct 18, 2018 12:48
[2018-10-18] MEDS: MEROPENEM 500 MG in IV NORMAL SALINE 50ML 50 ML IV SCH ×2 (14:11→20:57)
[2018-10-18 15:00] VITALS: BP 125/64
[2018-10-18 19:00] VITALS: BP 125/64
[2018-10-18] MEDS: SERTRALINE 25 MG TABLET. PO SCH (20:57)
--- NOTE | 2018-10-18 20:58 | CONS ---
DATE OF CONSULTATION: 10/18/2018 REQUESTING PHYSICIAN: Judy Roger M.D. REASON FOR CONSULTATION: ESBL UTI. HISTORY OF PRESENT ILLNESS: This is a 63-year-old gentleman with a history of cirrhosis of liver, also renal insufficiency who was admitted with not feeling well, some flank pain and urinary burning. The patient was started on Cipro and Flomax 4 days ago and no improvement, hence he came in. The patient has been found to have a urinary tract infection with ESBL producing E. coli and had leukocytosis. The patient also has renal failure that worsened that he is now started on hemodialysis and has severe thrombocytopenia from his cirrhosis of liver and complicated by infection. The patient is feeling reasonably well. The patient was on Rocephin and has been changed today to cefepime before the consult and I have changed now to meropenem. Denies any nausea, vomiting, diarrhea, chest pain, shortness of breath, abdominal pain, urinary symptoms now or bowel symptoms. The patient has not had any fever. PAST MEDICAL HISTORY: Positive for cirrhosis of liver with some alcoholism, diabetes mellitus and hypertension. He has had two urinary tract infections in the last year, hernia repair done, hepatic encephalopathy in the past and vocal cord polyp removal done. SOCIAL HISTORY: Positive for smoking. Now, he quit alcohol 2 years ago. No drug use. The patient is still working. ALLERGIES: No known drug allergies. CURRENT MEDICATIONS: Reviewed. REVIEW OF SYSTEMS: As per HPI, all other systems reviewed and are negative. PHYSICAL EXAMINATION: GENERAL: Alert, oriented gentleman, not in distress. VITAL SIGNS: Stable, afebrile. HEENT: NAD. NECK: Supple. No JVP and no lymphadenopathy. LUNGS: Clear. HEART: S1 and S2 regular. ABDOMEN: Benign. EXTREMITIES: No edema or cyanosis. SKIN: Unremarkable. NEUROLOGICAL: The patient is alert and awake. No focal neurologic deficit. LABORATORY DATA: White count is 17,000; hemoglobin 9.6 and platelets are 25,000. BUN and creatinine is 65 and 3.1. Total bilirubin is 10.4, direct bilirubin is 8.9, AST 180 and ALT 77. Urinalysis showed too numerous to count WBC. RADIOLOGICAL DATA: X-ray and CT reviewed. Urine culture is showing E. coli multi-resistant ESBL producing. IMPRESSION: 1. Complicated urinary tract infection with extended-spectrum beta-lactamase producing Escherichia coli. 2. Leukocytosis. 3. Severe thrombocytopenia. 4. Cirrhosis of liver. 5. [id number] renal failure, now on hemodialysis. RECOMMENDATIONS: Recommend change cefepime to meropenem. Supportive care. Hemodialysis and we will continue to follow. Discussion with the patient's son who is the DPOA done at the bedside. Thank you very much, Dr. Roger, for giving me the opportunity to participate in this patient's care. MATTHEW MEDINA MD DR: CHRISTIAN/elayne JOB#: [id number] / [id number]
[2018-10-18 23:00] VITALS: BP 148/69
[2018-10-19 03:00] VITALS: BP 129/90
[2018-10-19 06:09] LABS: HEMATOCRIT 25.5 % (39.0-53.0); HEMOGLOBIN 8.8 g/dL (13.0-17.5); RED BLOOD COUNT 2.45 x10^6/uL (4.30-5.70); RED CELL DISTRIBUTION WIDTH 14.9 % (11.5-14.5); WHITE BLOOD COUNT 14.6 x10^3/uL (4.0-11.0)
[2018-10-19 06:24] LABS: CALCIUM 6.9 mg/dL (8.5-10.1); CREATININE 2.6 mg/dL (0.7-1.3); GFR 25.1; POTASSIUM 3.3 mmol/L (3.5-5.1)
[2018-10-19 07:00] VITALS: BP 144/66
[2018-10-19] MEDS: PANTOPRAZOLE 40 MG TABLET.DR. PO SCH (08:06)
[2018-10-19] MEDS: INSULIN LISPRO 300 UNITS/3 ML INSULN.PEN. SQ SCH ×3 (08:13→20:17)
--- NOTE | 2018-10-19 08:37 | PDOC ---
PROGRESS NOTES Subjective Subjective HPI - f/u of Thrombocytopenia ROS - feels groggy, no bleed Objective Objective Vital Signs Date Time Temp Pulse Resp B/P (MAP) Pulse Ox O2 Delivery O2 Flow Rate FiO2 10/19/18 07:00 98.0 92 18 144/66 (92) 94 Nasal Cannula 2.0 98.0 Intake and Output 10/19/18 07:00 Intake Total 1650 ml Output Total 50 ml Balance 1600 ml Intake Oral 600 ml IV Total 1050 ml Output Urine Total 50 ml # Voids 3 # Bowel Movements 3 Physical Exam Heart: Normal S1, Normal S2 General: Alert Lungs: Clear to auscultation Assessment Assessment Problems Medical Problems: (1) Acute pyelonephritis Status: Acute (2) Acute renal failure Status: Acute (3) Exertional dyspnea Status: Acute (4) Hyponatremia Status: Acute IMPRESSION AND PLAN: 1. Thrombocytopenia due to cirrhosis of the liver and hypersplenism. The patient has chronic thrombocytopenia and he is aware of hematologic abnormality. I suspect that his platelets are worse at this time due to underlying infection. He has history of urinary tract infection and now the CAT scan reveals evidence of pyelonephritis. He has 32% bands. Reticulocyte count is normal at 1.6, and hence, I do not suspect DIC or TTP. There is no evidence of fragmented red cells in the peripheral smear. There is evidence of toxic granulations and toxic vacuolation further indicating that he has underlying infection causing worsening thrombocytopenia. No clinical evidence of bleeding at this time. If he has any significant bleeding, I would recommend platelet transfusion. He is afebrile and does not appear toxic. Continue to monitor closely. No bleed. He would like to f/u with his social services aide upon discharge. plt now 14. Plan to transfuse if platelets at or below 10. I d/w RN 2. Anemia secondary to renal failure and cirrhosis of the liver. Reticulocyte count is normal at 1.6. Iron studies are consistent with anemia of chronic disease. B12 is more than 2000. TSH is normal at 1.070. Continue to monitor hemoglobin. 3. Jaundice thought to be due to decompensated cirrhosis. I appreciate GI consultation. 4. Renal failure, management per primary team. 5. UTI - appreciate ID and urology management. Comment Review of Relevant I have reviewed the following items ester (where applicable) has been applied. Labs Laboratory Tests Test 10/17/18 10:26 10/17/18 13:11 10/18/18 03:25 10/18/18 07:29 Glucose (Fingerstick) 287 mg/dL (70-99) 222 mg/dL (70-99) 266 mg/dL (70-99) White Blood Count 17.3 x10^3/uL (4.0-11.0) Red Blood Count 2.67 x10^6/uL (4.30-5.70) Hemoglobin 9.6 g/dL (13.0-17.5) Hematocrit 27.9 % (39.0-53.0) Mean Corpuscular Volume 104 fL (79-100) Mean Corpuscular Hemoglobin 36 pg (25-35) Mean Corpuscular Hemoglobin Concent 34 g/dL (31-37) Red Cell Distribution Width 14.7 % (11.5-14.5) Platelet Count 25 x10^3/uL (140-400) Neutrophils (%) (Auto) 88 % (31-73) Lymphocytes (%) (Auto) 2 % (24-48) Monocytes (%) (Auto) 7 % (0-9) Eosinophils (%) (Auto) 3 % (0-3) Basophils (%) (Auto) 0 % (0-3) Neutrophils # (Auto) 15.3 x10^3uL (1.8-7.7) Lymphocytes # (Auto) 0.3 x10^3/uL (1.0-4.8) Monocytes # (Auto) 1.1 x10^3/uL (0.0-1.1) Eosinophils # (Auto) 0.6 x10^3/uL (0.0-0.7) Basophils # (Auto) 0.1 x10^3/uL (0.0-0.2) Sodium Level 133 mmol/L (136-145) Potassium Level 3.6 mmol/L (3.5-5.1) Chloride Level 94 mmol/L (98-107) Carbon Dioxide Level 24 mmol/L (21-32) Anion Gap 15 (6-14) Blood Urea Nitrogen 65 mg/dL (8-26) Creatinine 3.1 mg/dL (0.7-1.3) Estimated GFR (Cockcroft-Gault) 20.5 Glucose Level 240 mg/dL (70-99) Calcium Level 6.8 mg/dL (8.5-10.1) Phosphorus Level 5.1 mg/dL (2.6-4.7) Albumin 1.6 g/dL (3.4-5.0) Hepatitis B Surface Antibody, Quant 27.0 mIU/mL (Immunity>9.9) Test 10/18/18 14:07 10/18/18 16:35 10/18/18 19:52 10/19/18 05:03 Glucose (Fingerstick) 145 mg/dL (70-99) 195 mg/dL (70-99) 229 mg/dL (70-99) White Blood Count 14.6 x10^3/uL (4.0-11.0) Red Blood Count 2.45 x10^6/uL (4.30-5.70) Hemoglobin 8.8 g/dL (13.0-17.5) Hematocrit 25.5 % (39.0-53.0) Mean Corpuscular Volume 104 fL (79-100) Mean Corpuscular Hemoglobin 36 pg (25-35) Mean Corpuscular Hemoglobin Concent 34 g/dL (31-37) Red Cell Distribution Width 14.9 % (11.5-14.5) Platelet Count 14 x10^3/uL (140-400) Sodium Level 135 mmol/L (136-145) Potassium Level 3.3 mmol/L (3.5-5.1) Chloride Level 96 mmol/L (98-107) Carbon Dioxide Level 27 mmol/L (21-32) Anion Gap 12 (6-14) Blood Urea Nitrogen 50 mg/dL (8-26) Creatinine 2.6 mg/dL (0.7-1.3) Estimated GFR (Cockcroft-Gault) 25.1 Glucose Level 279 mg/dL (70-99) Calcium Level 6.9 mg/dL (8.5-10.1) Test 10/19/18 07:38 Glucose (Fingerstick) 255 mg/dL (70-99) Laboratory Tests Test 10/18/18 14:07 10/18/18 16:35 10/18/18 19:52 10/19/18 05:03 Glucose (Fingerstick) 145 mg/dL (70-99) 195 mg/dL (70-99) 229 mg/dL (70-99) White Blood Count 14.6 x10^3/uL (4.0-11.0) Red Blood Count 2.45 x10^6/uL (4.30-5.70) Hemoglobin 8.8 g/dL (13.0-17.5) Hematocrit 25.5 % (39.0-53.0) Mean Corpuscular Volume 104 fL (79-100) Mean Corpuscular Hemoglobin 36 pg (25-35) Mean Corpuscular Hemoglobin Concent 34 g/dL (31-37) Red Cell Distribution Width 14.9 % (11.5-14.5) Platelet Count 14 x10^3/uL (140-400) Sodium Level 135 mmol/L (136-145) Potassium Level 3.3 mmol/L (3.5-5.1) Chloride Level 96 mmol/L (98-107) Carbon Dioxide Level 27 mmol/L (21-32) Anion Gap 12 (6-14) Blood Urea Nitrogen 50 mg/dL (8-26) Creatinine 2.6 mg/dL (0.7-1.3) Estimated GFR (Cockcroft-Gault) 25.1 Glucose Level 279 mg/dL (70-99) Calcium Level 6.9 mg/dL (8.5-10.1) Test 10/19/18 07:38 Glucose (Fingerstick) 255 mg/dL (70-99) Microbiology 10/14/18 Urine Culture - Final, Complete 10/14/18 Urine Culture Result 1 (SABRINA) - Final, Complete 10/14/18 Antimicrobic Susceptibility - Final, Complete Medications Current Medications Sodium Chloride 500 ml @ 500 mls/hr 1X ONCE IV Last administered on at 09:47; Start 10/14/18 at 09:30; Stop 10/14/18 at 10:29; Status DC Ondansetron HCl (Zofran) 4 mg PRN Q8HRS PRN IV NAUSEA/VOMITING Last administered on 10/15/18at 09:57; Start 10/14/18 at 10:15; Stop 10/15/18 at 10:14 ; Status DC Ceftriaxone Sodium (Rocephin) 1 gm 1X ONCE IVP Last administered on 10/14/18at 10:41; Start 10/14/18 at 10:30; Stop 10/14/18 at 10:31; Status DC Ceftriaxone Sodium (Rocephin) 1 gm Q24H IVP Last administered on 10/17/18 11: 37; Start 10/15/18 at 10:00; Stop 10/18/18 at 09:12; Status DC Oxycodone/ Acetaminophen (Percocet 5/325) 1 tab PRN Q4HRS PRN PO PAIN Last administered on 10/18/18 21:54; Start 10/14/18 at 12:00 Morphine Sulfate (Morphine Sulfate) 4 mg PRN Q2HR PRN IV PAIN Last administered on 10/16/18 15:07; Start 10/14/18 at 12:00 Sodium Chloride 1,000 ml @ 100 mls/hr 1X ONCE IV Last administered on 12:15; Start 10/14/18 at 12:00; Stop 10/14/18 at 21:59; Status DC Lactobacillus Rhamnosus (Culturelle) 1 cap BID PO Last administered on 20:57; Start 10/14/18 at 21:00 Ondansetron HCl (Zofran) 4 mg PRN Q6HRS PRN IV NAUSEA/VOMITING; Start 10/15/18 at 10:30 Ondansetron HCl (Zofran Odt) 4 mg PRN Q6HRS PRN PO NAUSEA/VOMITING; Start 10/15 at 10:30 Sodium Chloride 1,000 ml @ 75 mls/hr [id number] IV Last administered on 20:57; Start 10/15/18 at 13:00 Lactulose (Lactulose) 20 gm TID PO Last administered on 10/18/18 20:57; Start 10/15/18 at 15:00 Sertraline HCl (Zoloft) 25 mg QHS PO Last administered on 10/18/18 20:57; Start 10/15/18 at 21:00 Insulin Human Lispro (HumaLOG) 0-9 UNITS TIDWMEALS SQ Last administered on 08:13; Start 10/16/18 at 17:00 Dextrose (Dextrose 50%-Water Syringe) 12.5 gm PRN Q15MIN PRN IV SEE COMMENTS; Start 10/16/18 at 12:15 Labetalol HCl (Normodyne Iv Push) 20 mg 1X ONCE IVP ; Start 10/16/18 at 12:15; Stop 10/16/18 at 12:15; Status DC Labetalol HCl (Normodyne Iv Push) 10 mg PRN Q2HR PRN IVP HYPERTENSION, SEE COMMENTS; Start 10/16/18 at 12:15 Vitamin D (Vitamin D3) 1,000 unit DAILY PO Last administered on 10/18/18at 08:25 ; Start 10/16/18 at 13:00 Tamsulosin HCl (Flomax) 0.4 mg DAILY PO Last administered on 10/18/18at 08:25; Start 10/16/18 at 13:00 Pantoprazole Sodium (Protonix) 40 mg DAILYAC PO Last administered on 10/19/18at 08:06; Start 10/16/18 at 16:30 Gabapentin (Neurontin) 100 mg TID PO ; Start 10/16/18 at 14:00; Stop 10/16/18 at 16:21; Status DC Gabapentin (Neurontin) 100 mg TID PO Last administered on 10/18/18at 20:57; Start 10/16/18 at 14:00 Lidocaine/ Epinephrine (LIDOCAINE 1%-EPI 1:100,000 Multi-Dose) 20 ml STK-MED ONCE .ROUTE ; Start 10/17/18 at 09:26; Stop 10/17/18 at 09:27; Status DC Cefazolin Sodium 50 ml @ As Directed STK-MED ONCE IV ; Start 10/17/18 at 09:37; Stop 10/17/18 at 09:38; Status DC Midazolam HCl (Versed) 2 mg STK-MED ONCE .ROUTE ; Start 10/17/18 at 09:37; Stop 10/17/18 at 09:38; Status DC Fentanyl Citrate (Fentanyl 2ml Vial) 100 mcg STK-MED ONCE .ROUTE ; Start at 09:37; Stop 10/17/18 at 09:38; Status DC Midazolam HCl (Versed) 1 mg 1X ONCE IV Last administered on 10/17/18at 09:44; Start 10/17/18 at 10:15; Stop 10/17/18 at 10:16; Status DC Fentanyl Citrate (Fentanyl 2ml Vial) 50 mcg 1X ONCE IV Last administered on at 09:44; Start 10/17/18 at 10:15; Stop 10/17/18 at 10:16; Status DC Lidocaine/ Epinephrine (LIDOCAINE 1%-EPI 1:100,000 Multi-Dose) 7 ml 1X ONCE IJ Last administered on 10/17/18at 09:44; Start 10/17/18 at 10:15; Stop 10/17/18 at 10:16; Status DC Cefazolin Sodium 50 ml @ 100 mls/hr 1X ONCE IV Last administered on at 09:45; Start 10/17/18 at 10:15; Stop 10/17/18 at 10:44; Status DC Sodium Chloride 1,000 ml @ 1,000 mls/hr Q1H PRN IV hypotension; Start 10/17/18 at 18:06; Stop 10/18/18 at 00:05; Status DC Diphenhydramine HCl (Benadryl) 25 mg 1X PRN PRN IV ITCHING; Start 10/17/18 at 18:15; Stop 10/18/18 at 18:14; Status DC Diphenhydramine HCl (Benadryl) 25 mg 1X PRN PRN IV ITCHING; Start 10/17/18 at 18:15; Stop 10/18/18 at 18:14; Status DC Sodium Chloride 1,000 ml @ 400 mls/hr Q2H30M PRN IV PATENCY; Start 10/17/18 at 18:06; Stop 10/18/18 at 06:05; Status DC Info (PHARMACY MONITORING -- do not chart) 1 each PRN DAILY PRN MC SEE COMMENTS ; Start 10/17/18 at 18:15 Cefepime HCl (Maxipime) 1 gm Q12HR IVP ; Start 10/18/18 at 10:00; Stop 10/18/18 at 10:01; Status DC Info (PHARMACY MONITORING -- do not chart) 1 each PRN DAILY PRN MC SEE COMMENTS ; Start 10/18/18 at 10:00; Stop 10/18/18 at 10:04; Status DC Info (PHARMACY MONITORING -- do not chart) 1 each PRN DAILY PRN MC SEE COMMENTS ; Start 10/18/18 at 10:00; Stop 10/18/18 at 10:04; Status DC Meropenem 500 mg/ Sodium Chloride 50 ml @ 100 mls/hr Q12HR IV Last administered on 10/18/18at 20:57; Start 10/18/18 at 11:00 Active Scripts Active Reported Nexium Capsule (Esomeprazole Magnesium) 20 Mg Capsule. 1 Cap PO DAILY Alfuzosin Hcl 10 Mg Tab.er.24h 10 Mg Pe PO DAILY Vitamin D3 (Cholecalciferol (Vitamin D3)) 1,000 Unit Tablet 1,000 Unit PO DAILY Hydrochlorothiazide 25 Mg Tablet 25 Mg PO DAILY Enalapril Maleate 10 Mg Tablet 10 Mg PO DAILY Gabapentin 100 Mg Capsule 100 Mg PO TID Diclofenac Sodium 75 Mg Tablet.dr 75 Mg PO BID Vitals/I & O Vital Sign - Last 24 Hours 10/18/18 10/18/18 10/18/18 10/18/18 15:00 19:00 19:10 21:54 Temp 97.3 97.9 97.3 97.9 Pulse 96 95 Resp 18 18 16 B/P (MAP) 125/64 (84) 125/64 (84) Pulse Ox 92 93 93 O2 Delivery Nasal Cannula Nasal Cannula Room Air Room Air O2 Flow Rate 2.0 2.0 10/18/18 10/18/18 10/19/18 10/19/18 22:54 23:00 03:00 07:00 Temp 98.3 98.2 98.0 98.3 98.2 98.0 Pulse 98 100 92 Resp 17 18 18 18 B/P (MAP) 148/69 (95) 129/90 (103) 144/66 (92) Pulse Ox 93 91 90 94 O2 Delivery Room Air Nasal Cannula Nasal Cannula Nasal Cannula O2 Flow Rate 2.0 2.0 2.0 Intake and Output 10/18/18 10/18/18 10/19/18 15:00 23:00 07:00 Intake Total 1050 ml 600 ml Output Total 50 ml Balance -50 ml 1050 ml 600 ml JAMAL HER MD Oct 19, 2018 08:37
[2018-10-19] MEDS: LACTULOSE 20 GM/30 ML SOLUTION. PO SCH ×3 (09:00→20:17)
[2018-10-19] MEDS: GABAPENTIN 100 MG CAPSULE. PO SCH ×3 (09:00→21:12)
--- NOTE | 2018-10-19 09:13 | NUR ---
SW following pt. Spoke with Zainab at [facility]. She reported a chair time has opened at [facility] which is closer to pt's residence on [address] at first shift. Zainab requested for Hep B surface. CANDIDO Unger to order labs. Chair time pending. Will continue to follow.
--- NOTE | 2018-10-19 09:30 | PDOC ---
RADAMES GERARD BOTTOM CAGER 10/19/18 0930: SUBJECTIVE Subjective Did well overnight. No pain/ dysuria. Is open to having a cystoscopy with Dr. Rosenthal. OBJECTIVE Objective Physical Exam: General appearance: Alert and Oriented Head: Normocephalic, without obvious abnormality Eyes: conjunctivae/corneas clear. PERRL, EOM's intact. Fundi benign Back: negative, no CVA pain bilaterally Lungs: Regular respirations, non labored breathing Abdomen: soft, non-tender, obese No masses, no organomegaly Pelvic: deferred Vital Signs Vital Signs Date Time Temp Pulse Resp B/P (MAP) Pulse Ox O2 Delivery O2 Flow Rate FiO2 10/19/18 08:00 Nasal Cannula 2.0 10/19/18 07:00 98.0 92 18 144/66 (92) 94 Nasal Cannula 2.0 98.0 10/19/18 03:00 98.2 100 18 129/90 (103) 90 Nasal Cannula 2.0 98.2 10/18/18 23:00 98.3 98 18 148/69 (95) 91 Nasal Cannula 2.0 98.3 10/18/18 22:54 17 93 Room Air 10/18/18 21:54 16 93 Room Air 10/18/18 19:10 Room Air 10/18/18 19:00 97.9 95 18 125/64 (84) 93 Nasal Cannula 2.0 97.9 10/18/18 15:00 97.3 96 18 125/64 (84) 92 Nasal Cannula 2.0 97.3 I & O Intake and Output 10/19/18 07:00 Intake Total 1650 ml Output Total 50 ml Balance 1600 ml Intake Oral 600 ml IV Total 1050 ml Output Urine Total 50 ml # Voids 3 # Bowel Movements 3 PHYSICAL EXAM Physical Exam Physical Exam: General appearance: Alert and Oriented Head: Normocephalic, without obvious abnormality Eyes: conjunctivae/corneas clear. PERRL, EOM's intact. Fundi benign Back: negative, no CVA pain bilaterally Lungs: Regular respirations, non labored breathing Abdomen: soft, non-tender, obese No masses, no organomegaly Pelvic: deferred ASSESSMENT/PLAN Assessment/Plan PVR WNL between 17-24 yesterday= no retention TRE prostate 40 grams (exam done yesterday) Recommend PSA in 4-6 weeks when UTI has resolved. Appreciate ID input in light of complicated UTI. A cystoscopy appointment has been secured for patient on 11/01/[address] at [address] Rosenthal of [facility] [place]. Appointment card and new patient paperwork given to patient's son. All questions answered. Recommend prophylactic abx whenever he does discharge; will defer this decision to ID. Will follow peripherally over the weekend but please call with questions or concerns over the weekend. Problems: (1) UTI (urinary tract infection) COMMENT Lab Laboratory Tests Test 10/18/18 14:07 10/18/18 16:35 10/18/18 19:52 10/19/18 05:03 Glucose (Fingerstick) 145 mg/dL (70-99) 195 mg/dL (70-99) 229 mg/dL (70-99) White Blood Count 14.6 x10^3/uL (4.0-11.0) Red Blood Count 2.45 x10^6/uL (4.30-5.70) Hemoglobin 8.8 g/dL (13.0-17.5) Hematocrit 25.5 % (39.0-53.0) Mean Corpuscular Volume 104 fL (79-100) Mean Corpuscular Hemoglobin 36 pg (25-35) Mean Corpuscular Hemoglobin Concent 34 g/dL (31-37) Red Cell Distribution Width 14.9 % (11.5-14.5) Platelet Count 14 x10^3/uL (140-400) Reticulocyte Count (auto) 1.4 % (0.5-2.5) Sodium Level 135 mmol/L (136-145) Potassium Level 3.3 mmol/L (3.5-5.1) Chloride Level 96 mmol/L (98-107) Carbon Dioxide Level 27 mmol/L (21-32) Anion Gap 12 (6-14) Blood Urea Nitrogen 50 mg/dL (8-26) Creatinine 2.6 mg/dL (0.7-1.3) Estimated GFR (Cockcroft-Gault) 25.1 Glucose Level 279 mg/dL (70-99) Calcium Level 6.9 mg/dL (8.5-10.1) Test 10/19/18 07:38 Glucose (Fingerstick) 255 mg/dL (70-99) DAVID ROSENTHAL MD 10/19/18 0453: ASSESSMENT/PLAN Assessment/Plan Agree with assessment and plan. RADAMES GERARD APRN Oct 19, 2018 09:30 DAVID ROSENTHAL MD Oct 19, 2018 17:53
[2018-10-19] MEDS: TAMSULOSIN 0.4 MG CAP.ER.24H. PO SCH (09:31)
[2018-10-19] MEDS: LACTOBACILLUS RHAMNOSUS GG 1 CAPSULE. PO SCH ×2 (09:31→21:12)
[2018-10-19] MEDS: MEROPENEM 500 MG in IV NORMAL SALINE 50ML 50 ML IV SCH ×2 (09:31→21:12)
[2018-10-19] MEDS: CHOLECALCIFEROL (VITAMIN D3) 1,000 UNIT TABLET PO SCH (09:31)
--- NOTE | 2018-10-19 10:34 | PDOC ---
Infectious Disease Note Subjective Subjective pt is feeling good though sleepy all the time ROS ROS no n/v/d/sob Vital Sign Vital Signs Vital Signs Date Time Temp Pulse Resp B/P (MAP) Pulse Ox O2 Delivery O2 Flow Rate FiO2 10/19/18 08:00 Nasal Cannula 2.0 10/19/18 07:00 98.0 92 18 144/66 (92) 94 98.0 Physical Exam PHYSICAL EXAM GENERAL: Alert, oriented gentleman, not in distress. VITAL SIGNS: Stable, afebrile. HEENT: NAD. NECK: Supple. No JVP and no lymphadenopathy. LUNGS: Clear. HEART: S1 and S2 regular. ABDOMEN: Benign. EXTREMITIES: No edema or cyanosis. SKIN: Unremarkable. NEUROLOGICAL: The patient is alert and awake. No focal neurologic deficit. Labs Lab Laboratory Tests Test 10/18/18 14:07 10/18/18 16:35 10/18/18 19:52 10/19/18 05:03 Glucose (Fingerstick) 145 mg/dL (70-99) 195 mg/dL (70-99) 229 mg/dL (70-99) White Blood Count 14.6 x10^3/uL (4.0-11.0) Red Blood Count 2.45 x10^6/uL (4.30-5.70) Hemoglobin 8.8 g/dL (13.0-17.5) Hematocrit 25.5 % (39.0-53.0) Mean Corpuscular Volume 104 fL (79-100) Mean Corpuscular Hemoglobin 36 pg (25-35) Mean Corpuscular Hemoglobin Concent 34 g/dL (31-37) Red Cell Distribution Width 14.9 % (11.5-14.5) Platelet Count 14 x10^3/uL (140-400) Reticulocyte Count (auto) 1.4 % (0.5-2.5) Sodium Level 135 mmol/L (136-145) Potassium Level 3.3 mmol/L (3.5-5.1) Chloride Level 96 mmol/L (98-107) Carbon Dioxide Level 27 mmol/L (21-32) Anion Gap 12 (6-14) Blood Urea Nitrogen 50 mg/dL (8-26) Creatinine 2.6 mg/dL (0.7-1.3) Estimated GFR (Cockcroft-Gault) 25.1 Glucose Level 279 mg/dL (70-99) Calcium Level 6.9 mg/dL (8.5-10.1) Test 10/19/18 07:38 Glucose (Fingerstick) 255 mg/dL (70-99) Micro Microbiology 10/14/18 Urine Culture - Final, Complete 10/14/18 Urine Culture Result 1 (SABRINA) - Final, Complete 10/14/18 Antimicrobic Susceptibility - Final, Complete Objective Assessment ESBL ecoli UTI, complicated Renal failure now on HD Cirrhosis of liver Severe thrombocytopenia Plan Plan of Care Meropenem d/w son in detail supportive care MATHTEW MEDINA MD Oct 19, 2018 10:34
[2018-10-19 11:00] VITALS: BP 128/58
--- NOTE | 2018-10-19 11:11 | PDOC ---
Renal-Progress Notes Subjective Notes Notes NONE, STILL CONFUSED History of Present Illness Hx of present illness NO CHANGES Vitals Vitals Vital Signs Date Time Temp Pulse Resp B/P (MAP) Pulse Ox O2 Delivery O2 Flow Rate FiO2 10/19/18 08:00 Nasal Cannula 2.0 10/19/18 07:00 98.0 92 18 144/66 (92) 94 98.0 Weight Weight [ ] I.O. Intake and Output Intake and Output 10/19/18 07:00 Intake Total 1650 ml Output Total 50 ml Balance 1600 ml Intake Oral 600 ml IV Total 1050 ml Output Urine Total 50 ml # Voids 3 # Bowel Movements 3 Labs Labs Laboratory Tests Test 10/18/18 14:07 10/18/18 16:35 10/18/18 19:52 10/19/18 05:03 Glucose (Fingerstick) 145 mg/dL (70-99) 195 mg/dL (70-99) 229 mg/dL (70-99) White Blood Count 14.6 x10^3/uL (4.0-11.0) Red Blood Count 2.45 x10^6/uL (4.30-5.70) Hemoglobin 8.8 g/dL (13.0-17.5) Hematocrit 25.5 % (39.0-53.0) Mean Corpuscular Volume 104 fL (79-100) Mean Corpuscular Hemoglobin 36 pg (25-35) Mean Corpuscular Hemoglobin Concent 34 g/dL (31-37) Red Cell Distribution Width 14.9 % (11.5-14.5) Platelet Count 14 x10^3/uL (140-400) Reticulocyte Count (auto) 1.4 % (0.5-2.5) Sodium Level 135 mmol/L (136-145) Potassium Level 3.3 mmol/L (3.5-5.1) Chloride Level 96 mmol/L (98-107) Carbon Dioxide Level 27 mmol/L (21-32) Anion Gap 12 (6-14) Blood Urea Nitrogen 50 mg/dL (8-26) Creatinine 2.6 mg/dL (0.7-1.3) Estimated GFR (Cockcroft-Gault) 25.1 Glucose Level 279 mg/dL (70-99) Calcium Level 6.9 mg/dL (8.5-10.1) Test 10/19/18 07:38 Glucose (Fingerstick) 255 mg/dL (70-99) Micro Micro Microbiology 10/14/18 Urine Culture - Final, Complete 10/14/18 Urine Culture Result 1 (SABRINA) - Final, Complete 10/14/18 Antimicrobic Susceptibility - Final, Complete Review of Systems Constitutional: yes: alert Ears/Nose/Throat: Yes: no symptom reported Eyes: Yes: no symptom reported Pulmonary: Yes no symptom reported Cardiovascular: Yes no symptom reported Gastrointestional: Yes: no symptom reported Genitourinary: Yes: no symptom reported Musculoskeletal: Yes: no symptom reported Skin: Yes no symptom reported Psychiatric/Neurological: Yes: no symptom reported Endocrine: Yes: no symptom reported Hematologic/Lymphatic: Yes: no symptom reported Physical Exam General Appearance: no apparent distress Skin: warm Respiratory: bilateral CTA Heart: S1S2, RRR Abdomen: soft, bowel sounds present Genitourinary: bladder flat Extremities: pulses present, no edema Neurology: alert, oriented, follow commands Assessment Assessment IMP MET ENCEPHALOPATHY DEE-MULTIFACTORIAL DUE TO NSAID, ECVD AND LIVER FAILURE ACUTE HEPATITIS-T BILI OF 1.4 IN AUGUST CHRONIC LIVER CIRRHOSIS-ESLD PROTEINURIA DM II HTN HX OF ETOH ABUSE UTI/PYELONEPHRITIS PANCYTOPENIA-SEVERE THROMBOCYTOPENIA [id number] MET ENCEPHALOPATHY S/P TUNNELED HD CATHETER PLAN HOLD DICLOFENAC, HCTZ AND VASOTEC PER HOME MED LIST ANTIBIOTICS EXPECT SOME TIME BEFORE HE RECOVERS HD AGAIN TODAY UF TO MINIMAL UPDATED FAMILY GI FAREED D/W ATTENDING WILL FOLLOW UPDATED SON USP PROGNOSIS CRISTIAN KING MD Oct 19, 2018 11:11
[2018-10-19] MEDS: IV NORMAL SALINE 1000ML BAG 1,000 ML IV SCH (11:18)
--- NOTE | 2018-10-19 12:19 | PDOC ---
PROGRESS NOTES Chief Complaint Chief Complaint NEw ESRD - new HD - HEPATORENAL SYNDROME Anemia, multifactorial in the background of advanced cirrhosis and new esrd Established cirrhosis, decompensated likely from infection. Hx of esophageal varices on propanolol, E coli UTI/clinically c/w pyelonephritis with resistance ti rocpehin and others thrombocytopenia, in a cirrhotic HEpatic enceph, subtle/mild Mod PCM Hyperbilirubinemia TB 6 with pruritus likely ESLD HOSPICE PLANNED PAT DISCUSSED PER MY REVIEW OF COMPLETE CHART LIKELY QUALIFIES FOR PALLIATIVE CARE/ HOSPICE History of Present Illness History of Present Illness Seen in dialysis Subtle signs of hepatic encephalopathy despite normal ammonia and GI is aware Total bili is 6, some pruritus seems to be controlled when we started SSRI ( Zoloft)- as started by GI Platelets 25,000 after transfusion which we gave prior to tunneled dialysis catheter insertion Creatinine 3.1 from 5 We're waiting for renal - if this will be a continued case for outpatient dialysis ? Blood sugars running high Plan: adjust insulin when necessary - I shifted to high-dose Dialysis per renal So far the plans to go home with family-family very involved in his care NOTEWORTHY WBC 17 despite IV Rocephin, Escherichia coli UTI on urine culture that is resistant to Rocephin which I have been giving from day # 1 (sensitivities only out today) I was not aware that ID was consulted I have started IV cefepime-follow ID recommendations from hereon Continue PT OT Continue dialysis per renal Avoid nephrotoxins Monitor that low platelets hepatic encephalopathy and anemia Seen at dialysis Vitals Vitals Vital Signs Date Time Temp Pulse Resp B/P (MAP) Pulse Ox O2 Delivery O2 Flow Rate FiO2 10/19/18 11:00 97.8 89 18 128/58 (81) 96 Nasal Cannula 2.0 97.8 Physical Exam Physical Exam GENERAL: Alert, oriented gentleman, not in distress. VITAL SIGNS: Stable, afebrile. HEENT: NAD. NECK: Supple. No JVP and no lymphadenopathy. LUNGS: Clear. HEART: S1 and S2 regular. ABDOMEN: Benign. EXTREMITIES: No edema or cyanosis. SKIN: Unremarkable. NEUROLOGICAL: The patient is alert and awake. No focal neurologic deficit. General: Alert, Oriented X3, Cooperative, mild distress Heart: Normal S1, Normal S2 Abdomen: Normal bowel sounds, Soft, No tenderness, Other (MILD ASCITES) Extremities: No clubbing, No cyanosis Skin: No rashes, No breakdown, No significant lesion Labs LABS There is some markings in the right lower lobe likely atelectasis. The partially visualized lower larry appear prominent bilaterally, probably vascular in etiology and could indicate pulmonary artery hypertension. Coronary artery calcifications. Evaluation of viscera, bowel and vasculature is limited by noncontrast technique. Tiny calcification at the upper right liver. There is also some more amorphous calcification in the left lobe of the liver which appears somewhat hypertrophic compared to the right lobe. There is also some caudate lobe hypertrophy. Spleen enlarged, 14.5 cm. Pancreas grossly unremarkable. No evidence of adrenal mass. No obvious renal mass. Probable small gallstone. Gallbladder is contracted. Alternatively, this calcification could be immediately adjacent to the gallbladder. Aorta mildly calcified, no evidence of aneurysm. Small retroperitoneal lymph nodes are identified, measuring up to 9 mm in short axis. No evidence of ascites or pneumoperitoneum. Mild distention of the stomach with fluid. No evidence of bowel obstruction. Colonic diverticulosis without evidence of acute colitis. The appendix is within normal limits. There is a very small distal appendicolith. There is mild perirenal fascial thickening, slightly greater on the left. There is also mild fascial thickening along the left paracolic gutter. Urinary bladder is thick-walled but that may be due to lack of distention. No evidence of a pelvic mass. Degenerative spondylosis is identified with lumbar stenosis. No destructive bone lesion. IMPRESSION: 1. Mild stranding in the perinephric fat and mild perirenal fascial thickening, greater on the left. Nonspecific but suggest inflammatory process such as pyelonephritis. No evidence of obstructive calculus. 2. Borderline retroperitoneal lymph node enlargement, may be reactive. 3. The caudate and left lobes of the liver appear hypertrophic, finding which can be seen with cirrhosis. 4. Mild splenomegaly. 5. Gallbladder is contracted limiting evaluation, but there may be a small gallstone. 6. Linear markings in the right lung base, most likely atelectasis, versus infiltrate. 7. Urinary bladder wall thickening, may be due to lack of distention, but cystitis could also be considered. Electronically signed by: Anthony Mcconnell MD (10/14/2018 10:09 AM) [facility] DICTATED and SIGNED BY: ANTHONY MCCONNELL MD DATE: 10/14/18 0957 Laboratory Tests Test 10/18/18 14:07 10/18/18 16:35 10/18/18 19:52 10/19/18 05:03 Glucose (Fingerstick) 145 mg/dL (70-99) 195 mg/dL (70-99) 229 mg/dL (70-99) White Blood Count 14.6 x10^3/uL (4.0-11.0) Red Blood Count 2.45 x10^6/uL (4.30-5.70) Hemoglobin 8.8 g/dL (13.0-17.5) Hematocrit 25.5 % (39.0-53.0) Mean Corpuscular Volume 104 fL (79-100) Mean Corpuscular Hemoglobin 36 pg (25-35) Mean Corpuscular Hemoglobin Concent 34 g/dL (31-37) Red Cell Distribution Width 14.9 % (11.5-14.5) Platelet Count 14 x10^3/uL (140-400) Reticulocyte Count (auto) 1.4 % (0.5-2.5) Sodium Level 135 mmol/L (136-145) Potassium Level 3.3 mmol/L (3.5-5.1) Chloride Level 96 mmol/L (98-107) Carbon Dioxide Level 27 mmol/L (21-32) Anion Gap 12 (6-14) Blood Urea Nitrogen 50 mg/dL (8-26) Creatinine 2.6 mg/dL (0.7-1.3) Estimated GFR (Cockcroft-Gault) 25.1 Glucose Level 279 mg/dL (70-99) Calcium Level 6.9 mg/dL (8.5-10.1) Test 10/19/18 07:38 10/19/18 11:47 Glucose (Fingerstick) 255 mg/dL (70-99) 305 mg/dL (70-99) Assessment and Plan Assessmemt and Plan Problems Medical Problems: (1) Acute pyelonephritis Status: Acute (2) Acute renal failure Status: Acute (3) Exertional dyspnea Status: Acute (4) Hyponatremia Status: Acute Procedure Result URINE CULTURE Final Final report URINE CULTURE RES 1 Final Escherichia coli Greater than 100,000 colony forming units per mL Susceptibility profile is consistent with a probable ESBL. Multi-Drug Resistant Organism ANTIMICROBIAL SUSCEPTIBILITY Final Comment S = Susceptible; I = Intermediate; R = Resistant P = Positive; N = Negative MICS are expressed in micrograms per mL Antibiotic RSLT#1 RSLT#2 RSLT#3 RSLT#4 Amikacin S<=2 Amoxicillin/Clavulanic Acid S =8 Ampicillin R>=32 Ampicillin/Sulbactam I =16 Cefazolin R>=64 Cefepime S<=1 Cefotaxime R =8 Ceftazidime S =4 Ceftriaxone R>=64 Cefuroxime R>=64 Ciprofloxacin R>=4 Ertapenem S<=0.12 Gentamicin R>=16 Imipenem S<=1 Levofloxacin R>=8 Meropenem S<=0.25 Nitrofurantoin S<=16 Piperacillin/Tazobactam S<=4 Tetracycline R>=16 Comment Review of Relevant I have reviewed the following items ester (where applicable) has been applied. Labs Laboratory Tests Test 10/17/18 13:11 10/18/18 03:25 10/18/18 07:29 10/18/18 14:07 Glucose (Fingerstick) 222 mg/dL (70-99) 266 mg/dL (70-99) 145 mg/dL (70-99) White Blood Count 17.3 x10^3/uL (4.0-11.0) Red Blood Count 2.67 x10^6/uL (4.30-5.70) Hemoglobin 9.6 g/dL (13.0-17.5) Hematocrit 27.9 % (39.0-53.0) Mean Corpuscular Volume 104 fL (79-100) Mean Corpuscular Hemoglobin 36 pg (25-35) Mean Corpuscular Hemoglobin Concent 34 g/dL (31-37) Red Cell Distribution Width 14.7 % (11.5-14.5) Platelet Count 25 x10^3/uL (140-400) Neutrophils (%) (Auto) 88 % (31-73) Lymphocytes (%) (Auto) 2 % (24-48) Monocytes (%) (Auto) 7 % (0-9) Eosinophils (%) (Auto) 3 % (0-3) Basophils (%) (Auto) 0 % (0-3) Neutrophils # (Auto) 15.3 x10^3uL (1.8-7.7) Lymphocytes # (Auto) 0.3 x10^3/uL (1.0-4.8) Monocytes # (Auto) 1.1 x10^3/uL (0.0-1.1) Eosinophils # (Auto) 0.6 x10^3/uL (0.0-0.7) Basophils # (Auto) 0.1 x10^3/uL (0.0-0.2) Sodium Level 133 mmol/L (136-145) Potassium Level 3.6 mmol/L (3.5-5.1) Chloride Level 94 mmol/L (98-107) Carbon Dioxide Level 24 mmol/L (21-32) Anion Gap 15 (6-14) Blood Urea Nitrogen 65 mg/dL (8-26) Creatinine 3.1 mg/dL (0.7-1.3) Estimated GFR (Cockcroft-Gault) 20.5 Glucose Level 240 mg/dL (70-99) Calcium Level 6.8 mg/dL (8.5-10.1) Phosphorus Level 5.1 mg/dL (2.6-4.7) Albumin 1.6 g/dL (3.4-5.0) Hepatitis B Surface Antibody, Quant 27.0 mIU/mL (Immunity>9.9) Test 10/18/18 16:35 10/18/18 19:52 10/19/18 05:03 10/19/18 07:38 Glucose (Fingerstick) 195 mg/dL (70-99) 229 mg/dL (70-99) 255 mg/dL (70-99) White Blood Count 14.6 x10^3/uL (4.0-11.0) Red Blood Count 2.45 x10^6/uL (4.30-5.70) Hemoglobin 8.8 g/dL (13.0-17.5) Hematocrit 25.5 % (39.0-53.0) Mean Corpuscular Volume 104 fL (79-100) Mean Corpuscular Hemoglobin 36 pg (25-35) Mean Corpuscular Hemoglobin Concent 34 g/dL (31-37) Red Cell Distribution Width 14.9 % (11.5-14.5) Platelet Count 14 x10^3/uL (140-400) Reticulocyte Count (auto) 1.4 % (0.5-2.5) Sodium Level 135 mmol/L (136-145) Potassium Level 3.3 mmol/L (3.5-5.1) Chloride Level 96 mmol/L (98-107) Carbon Dioxide Level 27 mmol/L (21-32) Anion Gap 12 (6-14) Blood Urea Nitrogen 50 mg/dL (8-26) Creatinine 2.6 mg/dL (0.7-1.3) Estimated GFR (Cockcroft-Gault) 25.1 Glucose Level 279 mg/dL (70-99) Calcium Level 6.9 mg/dL (8.5-10.1) Test 10/19/18 11:47 Glucose (Fingerstick) 305 mg/dL (70-99) Laboratory Tests Test 10/18/18 14:07 10/18/18 16:35 10/18/18 19:52 10/19/18 05:03 Glucose (Fingerstick) 145 mg/dL (70-99) 195 mg/dL (70-99) 229 mg/dL (70-99) White Blood Count 14.6 x10^3/uL (4.0-11.0) Red Blood Count 2.45 x10^6/uL (4.30-5.70) Hemoglobin 8.8 g/dL (13.0-17.5) Hematocrit 25.5 % (39.0-53.0) Mean Corpuscular Volume 104 fL (79-100) Mean Corpuscular Hemoglobin 36 pg (25-35) Mean Corpuscular Hemoglobin Concent 34 g/dL (31-37) Red Cell Distribution Width 14.9 % (11.5-14.5) Platelet Count 14 x10^3/uL (140-400) Reticulocyte Count (auto) 1.4 % (0.5-2.5) Sodium Level 135 mmol/L (136-145) Potassium Level 3.3 mmol/L (3.5-5.1) Chloride Level 96 mmol/L (98-107) Carbon Dioxide Level 27 mmol/L (21-32) Anion Gap 12 (6-14) Blood Urea Nitrogen 50 mg/dL (8-26) Creatinine 2.6 mg/dL (0.7-1.3) Estimated GFR (Cockcroft-Gault) 25.1 Glucose Level 279 mg/dL (70-99) Calcium Level 6.9 mg/dL (8.5-10.1) Test 10/19/18 07:38 10/19/18 11:47 Glucose (Fingerstick) 255 mg/dL (70-99) 305 mg/dL (70-99) Microbiology 10/14/18 Urine Culture - Final, Complete 10/14/18 Urine Culture Result 1 (SABRINA) - Final, Complete 10/14/18 Antimicrobic Susceptibility - Final, Complete Medications Current Medications Sodium Chloride 500 ml @ 500 mls/hr 1X ONCE IV Last administered on at 09:47; Start 10/14/18 at 09:30; Stop 10/14/18 at 10:29; Status DC Ondansetron HCl (Zofran) 4 mg PRN Q8HRS PRN IV NAUSEA/VOMITING Last administered on 10/15/18at 09:57; Start 10/14/18 at 10:15; Stop 10/15/18 at 10:14 ; Status DC Ceftriaxone Sodium (Rocephin) 1 gm 1X ONCE IVP Last administered on 10/14/18at 10:41; Start 10/14/18 at 10:30; Stop 10/14/18 at 10:31; Status DC Ceftriaxone Sodium (Rocephin) 1 gm Q24H IVP Last administered on 10/17/18at 11: 37; Start 10/15/18 at 10:00; Stop 10/18/18 at 09:12; Status DC Oxycodone/ Acetaminophen (Percocet 5/325) 1 tab PRN Q4HRS PRN PO PAIN Last administered on 10/18/18at 21:54; Start 10/14/18 at 12:00 Morphine Sulfate (Morphine Sulfate) 4 mg PRN Q2HR PRN IV PAIN Last administered on 10/16/18at 15:07; Start 10/14/18 at 12:00 Sodium Chloride 1,000 ml @ 100 mls/hr 1X ONCE IV Last administered on at 12:15; Start 10/14/18 at 12:00; Stop 10/14/18 at 21:59; Status DC Lactobacillus Rhamnosus (Culturelle) 1 cap BID PO Last administered on at 09:31; Start 10/14/18 at 21:00 Ondansetron HCl (Zofran) 4 mg PRN Q6HRS PRN IV NAUSEA/VOMITING; Start 10/15/18 at 10:30 Ondansetron HCl (Zofran Odt) 4 mg PRN Q6HRS PRN PO NAUSEA/VOMITING; Start 10/15 at 10:30 Sodium Chloride 1,000 ml @ 75 mls/hr [id number] IV Last administered on 10/19/18at 11:18; Start 10/15/18 at 13:00 Lactulose (Lactulose) 20 gm TID PO Last administered on 10/18/18at 20:57; Start 10/15/18 at 15:00 Sertraline HCl (Zoloft) 25 mg QHS PO Last administered on 10/18/18at 20:57; Start 10/15/18 at 21:00 Insulin Human Lispro (HumaLOG) 0-9 UNITS TIDWMEALS SQ Last administered on at 12:16; Start 10/16/18 at 17:00 Dextrose (Dextrose 50%-Water Syringe) 12.5 gm PRN Q15MIN PRN IV SEE COMMENTS; Start 10/16/18 at 12:15 Labetalol HCl (Normodyne Iv Push) 20 mg 1X ONCE IVP ; Start 10/16/18 at 12:15; Stop 10/16/18 at 12:15; Status DC Labetalol HCl (Normodyne Iv Push) 10 mg PRN Q2HR PRN IVP HYPERTENSION, SEE COMMENTS; Start 10/16/18 at 12:15 Vitamin D (Vitamin D3) 1,000 unit DAILY PO Last administered on 10/19/18 09:31 ; Start 10/16/18 at 13:00 Tamsulosin HCl (Flomax) 0.4 mg DAILY PO Last administered on 10/19/18 09:31; Start 10/16/18 at 13:00 Pantoprazole Sodium (Protonix) 40 mg DAILYAC PO Last administered on 10/19/18 08:06; Start 10/16/18 at 16:30 Gabapentin (Neurontin) 100 mg TID PO ; Start 10/16/18 at 14:00; Stop 10/16/18 at 16:21; Status DC Gabapentin (Neurontin) 100 mg TID PO Last administered on 10/18/18at 20:57; Start 10/16/18 at 14:00 Lidocaine/ Epinephrine (LIDOCAINE 1%-EPI 1:100,000 Multi-Dose) 20 ml STK-MED ONCE .ROUTE ; Start 10/17/18 at 09:26; Stop 10/17/18 at 09:27; Status DC Cefazolin Sodium 50 ml @ As Directed STK-MED ONCE IV ; Start 10/17/18 at 09:37; Stop 10/17/18 at 09:38; Status DC Midazolam HCl (Versed) 2 mg STK-MED ONCE .ROUTE ; Start 10/17/18 at 09:37; Stop 10/17/18 at 09:38; Status DC Fentanyl Citrate (Fentanyl 2ml Vial) 100 mcg STK-MED ONCE .ROUTE ; Start at 09:37; Stop 10/17/18 at 09:38; Status DC Midazolam HCl (Versed) 1 mg 1X ONCE IV Last administered on 10/17/18 09:44; Start 10/17/18 at 10:15; Stop 10/17/18 at 10:16; Status DC Fentanyl Citrate (Fentanyl 2ml Vial) 50 mcg 1X ONCE IV Last administered on 09:44; Start 10/17/18 at 10:15; Stop 10/17/18 at 10:16; Status DC Lidocaine/ Epinephrine (LIDOCAINE 1%-EPI 1:100,000 Multi-Dose) 7 ml 1X ONCE IJ Last administered on 10/17/18 09:44; Start 10/17/18 at 10:15; Stop 10/17/18 at 10:16; Status DC Cefazolin Sodium 50 ml @ 100 mls/hr 1X ONCE IV Last administered on at 09:45; Start 10/17/18 at 10:15; Stop 10/17/18 at 10:44; Status DC Sodium Chloride 1,000 ml @ 1,000 mls/hr Q1H PRN IV hypotension; Start 10/17/18 at 18:06; Stop 10/18/18 at 00:05; Status DC Diphenhydramine HCl (Benadryl) 25 mg 1X PRN PRN IV ITCHING; Start 10/17/18 at 18:15; Stop 10/18/18 at 18:14; Status DC Diphenhydramine HCl (Benadryl) 25 mg 1X PRN PRN IV ITCHING; Start 10/17/18 at 18:15; Stop 10/18/18 at 18:14; Status DC Sodium Chloride 1,000 ml @ 400 mls/hr Q2H30M PRN IV PATENCY; Start 10/17/18 at 18:06; Stop 10/18/18 at 06:05; Status DC Info (PHARMACY MONITORING -- do not chart) 1 each PRN DAILY PRN MC SEE COMMENTS ; Start 10/17/18 at 18:15 Cefepime HCl (Maxipime) 1 gm Q12HR IVP ; Start 10/18/18 at 10:00; Stop 10/18/18 at 10:01; Status DC Info (PHARMACY MONITORING -- do not chart) 1 each PRN DAILY PRN MC SEE COMMENTS ; Start 10/18/18 at 10:00; Stop 10/18/18 at 10:04; Status DC Info (PHARMACY MONITORING -- do not chart) 1 each PRN DAILY PRN MC SEE COMMENTS ; Start 10/18/18 at 10:00; Stop 10/18/18 at 10:04; Status DC Meropenem 500 mg/ Sodium Chloride 50 ml @ 100 mls/hr Q12HR IV Last administered on 10/19/18at 09:31; Start 10/18/18 at 11:00 Darbepoetin [place] (Aranesp) 60 mcg WEEKLYHS SQ ; Start 10/19/18 at 21:00 Active Scripts Active Reported Nexium Capsule (Esomeprazole Magnesium) 20 Mg Capsule.dr 1 Cap PO DAILY Alfuzosin Hcl 10 Mg Tab.er.24h 10 Mg Pe PO DAILY Vitamin D3 (Cholecalciferol (Vitamin D3)) 1,000 Unit Tablet 1,000 Unit PO DAILY Hydrochlorothiazide 25 Mg Tablet 25 Mg PO DAILY Enalapril Maleate 10 Mg Tablet 10 Mg PO DAILY Gabapentin 100 Mg Capsule 100 Mg PO TID Diclofenac Sodium 75 Mg Tablet.dr 75 Mg PO BID Vitals/I & O Vital Sign - Last 24 Hours 10/18/18 10/18/18 10/18/18 10/18/18 15:00 19:00 19:10 21:54 Temp 97.3 97.9 97.3 97.9 Pulse 96 95 Resp 18 18 16 B/P (MAP) 125/64 (84) 125/64 (84) Pulse Ox 92 93 93 O2 Delivery Nasal Cannula Nasal Cannula Room Air Room Air O2 Flow Rate 2.0 2.0 10/18/18 10/18/18 10/19/18 10/19/18 22:54 23:00 03:00 07:00 Temp 98.3 98.2 98.0 98.3 98.2 98.0 Pulse 98 100 92 Resp 17 18 18 18 B/P (MAP) 148/69 (95) 129/90 (103) 144/66 (92) Pulse Ox 93 91 90 94 O2 Delivery Room Air Nasal Cannula Nasal Cannula Nasal Cannula O2 Flow Rate 2.0 2.0 2.0 10/19/18 10/19/18 08:00 11:00 Temp 97.8 97.8 Pulse 89 Resp 18 B/P (MAP) 128/58 (81) Pulse Ox 96 O2 Delivery Nasal Cannula Nasal Cannula O2 Flow Rate 2.0 2.0 Intake and Output 10/18/18 10/18/18 10/19/18 15:00 23:00 07:00 Intake Total 1050 ml 600 ml Output Total 50 ml Balance -50 ml 1050 ml 600 ml BROOKLYN LUNA MD Oct 19, 2018 12:19
--- NOTE | 2018-10-19 12:45 | PDOC ---
Subjective: Subjective: Family present and tearful - they have questions about potential complications of ESLD after discussion w/ other physicians. Objective: Vital Signs: Vital Signs Date Time Temp Pulse Resp B/P (MAP) Pulse Ox O2 Delivery O2 Flow Rate FiO2 10/19/18 11:00 97.8 89 18 128/58 (81) 96 Nasal Cannula 2.0 97.8 Labs: Laboratory Tests Test 10/18/18 14:07 10/18/18 16:35 10/18/18 19:52 10/19/18 05:03 Glucose (Fingerstick) 145 mg/dL 195 mg/dL 229 mg/dL White Blood Count 14.6 x10^3/uL Red Blood Count 2.45 x10^6/uL Hemoglobin 8.8 g/dL Hematocrit 25.5 % Mean Corpuscular Volume 104 fL Mean Corpuscular Hemoglobin 36 pg Mean Corpuscular Hemoglobin Concent 34 g/dL Red Cell Distribution Width 14.9 % Platelet Count 14 x10^3/uL Reticulocyte Count (auto) 1.4 % Sodium Level 135 mmol/L Potassium Level 3.3 mmol/L Chloride Level 96 mmol/L Carbon Dioxide Level 27 mmol/L Anion Gap 12 Blood Urea Nitrogen 50 mg/dL Creatinine 2.6 mg/dL Estimated GFR (Cockcroft-Gault) 25.1 Glucose Level 279 mg/dL Calcium Level 6.9 mg/dL Test 10/19/18 07:38 10/19/18 11:47 Glucose (Fingerstick) 255 mg/dL 305 mg/dL PE: GEN: NAD LUNGS: room air HEART: RRR ABD: soft, non-tender SKIN: +jaundice NEURO/PSYCH: awakens and says hi A/P: Cirrhosis, ?hepatorenal syndrome - now on HD Anemia/thrombocytopenia - plt 14 UTI -- Family would like to talk with palliative care re: goals of care. Will return later w/ Dr. Nunez. IRIS CRONIN Oct 19, 2018 12:45
[2018-10-19] MEDS ORDERED: VITS A & D/LANOLIN TOPICAL OINTMENT 56GM TUBE. TP PRN (13:15)
--- NOTE | 2018-10-19 13:42 | NUR ---
Wound Care: Consult to eval treat for bilateral buttock wounds. MASD cleansed and applied barrier cream. Recommending A*&D ointment BID. Pt son and present at bedside, educated to assist and remind pt to turn from side to side to offload pressure to bottom and improve healing. No other open areas noted on head to toe assessment. Foams covering intact scabbed abrasions to bilateral elbows, clean, dry, intact. Communicated with nurse Marie SUERO. Plan to follow up 10/26/18
[2018-10-19 15:00] VITALS: BP 134/61
[2018-10-19] MEDS ORDERED: IV NORMAL SALINE 1000ML BAG 1,000 ML IV PRN ×2 (15:33)
--- NOTE | 2018-10-19 15:40 | PDOC2 ---
PALLIATIVE CARE Palliative Care Note Palliative Care Consult requested by Corinne COVARRUBIAS at request of family to discuss goals of care. Medical Assessment per medical record; MET ENCEPHALOPATHY DEE-MULTIFACTORIAL DUE TO NSAID, ECVD AND LIVER FAILURE ACUTE HEPATITIS-T BILI OF 1.4 IN AUGUST CHRONIC LIVER CIRRHOSIS-ESLD PROTEINURIA DM II HTN HX OF ETOH ABUSE UTI/PYELONEPHRITIS PANCYTOPENIA-SEVERE THROMBOCYTOPENIA [id number] MET ENCEPHALOPATHY S/P TUNNELED HD CATHETER DIALYSIS Patient alternates with being alert and drowsy. Met with Alyssa, and son Sawyer. Patient has 2 other children. Reviewed medical condition as above. Copy of AD reviewed. Discussed Code Status: Will remain Full code until family is able to discuss with other family members. Discussed Hospice Support. Reviewed support provided by Hospice. They are interested in Hospice support. Will need to check with Insurance provider concerning benefits. MELI SCHUSTER Oct 19, 2018 15:40
[2018-10-19] MEDS ORDERED: DIALYSIS PATIENT. MC PRN ×2 (15:45)
[2018-10-19] MEDS ORDERED: 0.9 % SODIUM CHLORIDE 10 ML DISP.SYRIN. IV PRN ×2 (15:45)
[2018-10-19 19:00] VITALS: BP 132/62
[2018-10-19] MEDS: MORPHINE SULFATE 4 MG/ML VIAL. IV PRN (20:17)
[2018-10-19] MEDS ORDERED: DARBEPOETIN ALFA 60 MCG/0.3 ML DISP.SYRIN. SQ SCH (21:00)
[2018-10-19] MEDS: SERTRALINE 25 MG TABLET. PO SCH (21:12)
[2018-10-19 23:00] VITALS: BP 145/64
[2018-10-20 03:00] VITALS: BP 156/74
[2018-10-20] MEDS: IV NORMAL SALINE 1000ML BAG 1,000 ML IV SCH ×3 (05:10→20:19)
[2018-10-20 05:49] LABS: HEMATOCRIT 27.4 % (39.0-53.0); HEMOGLOBIN 9.5 g/dL (13.0-17.5); RED BLOOD COUNT 2.62 x10^6/uL (4.30-5.70); RED CELL DISTRIBUTION WIDTH 14.8 % (11.5-14.5)
[2018-10-20 05:50] LABS: PROTHROMBIN TIME PATIENT 19.1 SEC (11.7-14.0)
[2018-10-20 05:51] LABS: CALCIUM 7.4 mg/dL (8.5-10.1); CREATININE 2.1 mg/dL (0.7-1.3); GFR 32.2; POTASSIUM 3.6 mmol/L (3.5-5.1)
[2018-10-20 06:06] LABS: ALBUMIN 1.5 g/dL (3.4-5.0); DIRECT BILIRUBIN 9.6 mg/dL (0.0-0.2); TOTAL BILIRUBIN 11.3 mg/dL (0.2-1.0); TOTAL PROTEIN 5.7 g/dL (6.4-8.2)
--- NOTE | 2018-10-20 06:59 | PDOC ---
Infectious Disease Note Subjective Subjective sleepy ROS ROS no n/v/d/sob/fever per RN Vital Sign Vital Signs Vital Signs Date Time Temp Pulse Resp B/P (MAP) Pulse Ox O2 Delivery O2 Flow Rate FiO2 10/20/18 03:00 98.0 101 18 156/74 (101) 94 Nasal Cannula 2.0 98.0 Physical Exam PHYSICAL EXAM GENERAL: Alert, oriented gentleman, not in distress. VITAL SIGNS: Stable, afebrile. HEENT: NAD. NECK: Supple. No JVP and no lymphadenopathy. LUNGS: Clear. HEART: S1 and S2 regular. ABDOMEN: Benign. EXTREMITIES: No edema or cyanosis. SKIN: Unremarkable. NEUROLOGICAL: The patient is alert and awake. No focal neurologic deficit. Labs Lab Laboratory Tests Test 10/19/18 07:38 10/19/18 11:47 10/19/18 19:44 10/20/18 05:07 Glucose (Fingerstick) 255 mg/dL (70-99) 305 mg/dL (70-99) 182 mg/dL (70-99) White Blood Count 13.0 x10^3/uL (4.0-11.0) Red Blood Count 2.62 x10^6/uL (4.30-5.70) Hemoglobin 9.5 g/dL (13.0-17.5) Hematocrit 27.4 % (39.0-53.0) Mean Corpuscular Volume 105 fL (79-100) Mean Corpuscular Hemoglobin 36 pg (25-35) Mean Corpuscular Hemoglobin Concent 35 g/dL (31-37) Red Cell Distribution Width 14.8 % (11.5-14.5) Platelet Count 14 x10^3/uL (140-400) Prothrombin Time 19.1 SEC (11.7-14.0) Prothromb Time International Ratio 1.6 (0.8-1.1) Sodium Level 134 mmol/L (136-145) Potassium Level 3.6 mmol/L (3.5-5.1) Chloride Level 98 mmol/L (98-107) Carbon Dioxide Level 27 mmol/L (21-32) Anion Gap 9 (6-14) Blood Urea Nitrogen 35 mg/dL (8-26) Creatinine 2.1 mg/dL (0.7-1.3) Estimated GFR (Cockcroft-Gault) 32.2 Glucose Level 378 mg/dL (70-99) Calcium Level 7.4 mg/dL (8.5-10.1) Total Bilirubin 11.3 mg/dL (0.2-1.0) Direct Bilirubin 9.6 mg/dL (0.0-0.2) Aspartate Amino Transf (AST/SGOT) 124 U/L (15-37) Alanine Aminotransferase (ALT/SGPT) 85 U/L (16-63) Alkaline Phosphatase 295 U/L (46-116) Total Protein 5.7 g/dL (6.4-8.2) Albumin 1.5 g/dL (3.4-5.0) Micro Microbiology 10/14/18 Urine Culture - Final, Complete 10/14/18 Urine Culture Result 1 (SABRINA) - Final, Complete 10/14/18 Antimicrobic Susceptibility - Final, Complete Objective Assessment ESBL ecoli UTI, complicated Renal failure now on HD Cirrhosis of liver Severe thrombocytopenia Plan Plan of Care Meropenem supportive care MATTHEW MEDINA MD Oct 20, 2018 06:59
[2018-10-20] MEDS: PANTOPRAZOLE 40 MG TABLET.DR. PO SCH (07:19)
[2018-10-20 07:34] VITALS: BP 153/73
[2018-10-20] MEDS: TAMSULOSIN 0.4 MG CAP.ER.24H. PO SCH (09:00)
[2018-10-20] MEDS: GABAPENTIN 100 MG CAPSULE. PO SCH ×4 (09:00→20:29)
[2018-10-20] MEDS: CHOLECALCIFEROL (VITAMIN D3) 1,000 UNIT TABLET PO SCH (09:00)
[2018-10-20] MEDS: LACTULOSE 20 GM/30 ML SOLUTION. PO SCH ×3 (09:00→20:20)
[2018-10-20] MEDS: LACTOBACILLUS RHAMNOSUS GG 1 CAPSULE. PO SCH ×2 (09:00→20:20)
[2018-10-20] MEDS: MEROPENEM 500 MG in IV NORMAL SALINE 50ML 50 ML IV SCH ×2 (09:01→20:31)
[2018-10-20] MEDS: MORPHINE SULFATE 4 MG/ML VIAL. IV PRN (09:14)
[2018-10-20] MEDS: INSULIN LISPRO 300 UNITS/3 ML INSULN.PEN. SQ SCH ×3 (09:19→17:01)
--- NOTE | 2018-10-20 10:28 | PDOC ---
PROGRESS NOTES Chief Complaint Chief Complaint NEw ESRD - new HD - HEPATORENAL SYNDROME Anemia, multifactorial in the background of advanced cirrhosis and new esrd Established cirrhosis, decompensated likely from infection. 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 poor prognosis History of Present Illness History of Present Illness impression hepatic encephalopathy despite normal ammonia Total bili 9.6 3/2 Platelets 14 k Creatinine 2.1 from 5 Blood sugars running high added lantus 8 units sq hs 3/2 uncontrolled diabetes Plan: adjust insulin Dialysis per renal So far the plans to go home with family-family very involved in his care NOTEWORTHY WBC 17 despite IV Rocephin, Escherichia coli UTI on urine culture that is resistant to Rocephin which I have been giving from day # 1 (sensitivities only out today) ID consulted ID recommendations Continue PT OT Continue dialysis per renal Avoid nephrotoxins Monitor that low platelets hepatic encephalopathy and anemia 3/2 plt continue to decline, not improved Vitals Vitals Vital Signs Date Time Temp Pulse Resp B/P (MAP) Pulse Ox O2 Delivery O2 Flow Rate FiO2 10/20/18 09:44 20 Nasal Cannula 2.0 10/20/18 07:34 97.7 99 153/73 (99) 98 97.7 Physical Exam Physical Exam GENERAL: Alert, oriented gentleman, sad affect VITAL SIGNS: Stable, afebrile. HEENT: NAD. NECK: Supple. No JVP and no lymphadenopathy. LUNGS: Clear. HEART: S1 and S2 regular. ABDOMEN: Benign. EXTREMITIES: No edema or cyanosis. SKIN: Unremarkable. NEUROLOGICAL: The patient is alert and awake. No focal neurologic deficit. General: Alert, Oriented X3, Cooperative, mild distress Heart: Regular rate, Normal S1, Normal S2 Abdomen: Normal bowel sounds, Soft, No tenderness, Other (MILD ASCITES) Extremities: No clubbing, No cyanosis Skin: No rashes, No breakdown, No significant lesion Labs LABS Laboratory Tests Test 10/19/18 11:47 10/19/18 19:44 10/20/18 05:07 10/20/18 07:11 Glucose (Fingerstick) 305 mg/dL (70-99) 182 mg/dL (70-99) 352 mg/dL (70-99) White Blood Count 13.0 x10^3/uL (4.0-11.0) Red Blood Count 2.62 x10^6/uL (4.30-5.70) Hemoglobin 9.5 g/dL (13.0-17.5) Hematocrit 27.4 % (39.0-53.0) Mean Corpuscular Volume 105 fL (79-100) Mean Corpuscular Hemoglobin 36 pg (25-35) Mean Corpuscular Hemoglobin Concent 35 g/dL (31-37) Red Cell Distribution Width 14.8 % (11.5-14.5) Platelet Count 14 x10^3/uL (140-400) Prothrombin Time 19.1 SEC (11.7-14.0) Prothromb Time International Ratio 1.6 (0.8-1.1) Sodium Level 134 mmol/L (136-145) Potassium Level 3.6 mmol/L (3.5-5.1) Chloride Level 98 mmol/L (98-107) Carbon Dioxide Level 27 mmol/L (21-32) Anion Gap 9 (6-14) Blood Urea Nitrogen 35 mg/dL (8-26) Creatinine 2.1 mg/dL (0.7-1.3) Estimated GFR (Cockcroft-Gault) 32.2 Glucose Level 378 mg/dL (70-99) Calcium Level 7.4 mg/dL (8.5-10.1) Total Bilirubin 11.3 mg/dL (0.2-1.0) Direct Bilirubin 9.6 mg/dL (0.0-0.2) Aspartate Amino Transf (AST/SGOT) 124 U/L (15-37) Alanine Aminotransferase (ALT/SGPT) 85 U/L (16-63) Alkaline Phosphatase 295 U/L (46-116) Total Protein 5.7 g/dL (6.4-8.2) Albumin 1.5 g/dL (3.4-5.0) Assessment and Plan Assessmemt and Plan Problems Medical Problems: (1) Acute pyelonephritis Status: Acute (2) Acute renal failure Status: Acute (3) Exertional dyspnea Status: Acute (4) Hyponatremia Status: Acute Comment Review of Relevant I have reviewed the following items ester (where applicable) has been applied. Labs Laboratory Tests Test 10/18/18 14:07 10/18/18 16:35 10/18/18 19:52 10/19/18 05:03 Glucose (Fingerstick) 145 mg/dL (70-99) 195 mg/dL (70-99) 229 mg/dL (70-99) White Blood Count 14.6 x10^3/uL (4.0-11.0) Red Blood Count 2.45 x10^6/uL (4.30-5.70) Hemoglobin 8.8 g/dL (13.0-17.5) Hematocrit 25.5 % (39.0-53.0) Mean Corpuscular Volume 104 fL (79-100) Mean Corpuscular Hemoglobin 36 pg (25-35) Mean Corpuscular Hemoglobin Concent 34 g/dL (31-37) Red Cell Distribution Width 14.9 % (11.5-14.5) Platelet Count 14 x10^3/uL (140-400) Reticulocyte Count (auto) 1.4 % (0.5-2.5) Sodium Level 135 mmol/L (136-145) Potassium Level 3.3 mmol/L (3.5-5.1) Chloride Level 96 mmol/L (98-107) Carbon Dioxide Level 27 mmol/L (21-32) Anion Gap 12 (6-14) Blood Urea Nitrogen 50 mg/dL (8-26) Creatinine 2.6 mg/dL (0.7-1.3) Estimated GFR (Cockcroft-Gault) 25.1 Glucose Level 279 mg/dL (70-99) Calcium Level 6.9 mg/dL (8.5-10.1) Test 10/19/18 07:38 10/19/18 11:47 10/19/18 19:44 10/20/18 05:07 Glucose (Fingerstick) 255 mg/dL (70-99) 305 mg/dL (70-99) 182 mg/dL (70-99) White Blood Count 13.0 x10^3/uL (4.0-11.0) Red Blood Count 2.62 x10^6/uL (4.30-5.70) Hemoglobin 9.5 g/dL (13.0-17.5) Hematocrit 27.4 % (39.0-53.0) Mean Corpuscular Volume 105 fL (79-100) Mean Corpuscular Hemoglobin 36 pg (25-35) Mean Corpuscular Hemoglobin Concent 35 g/dL (31-37) Red Cell Distribution Width 14.8 % (11.5-14.5) Platelet Count 14 x10^3/uL (140-400) Prothrombin Time 19.1 SEC (11.7-14.0) Prothromb Time International Ratio 1.6 (0.8-1.1) Sodium Level 134 mmol/L (136-145) Potassium Level 3.6 mmol/L (3.5-5.1) Chloride Level 98 mmol/L (98-107) Carbon Dioxide Level 27 mmol/L (21-32) Anion Gap 9 (6-14) Blood Urea Nitrogen 35 mg/dL (8-26) Creatinine 2.1 mg/dL (0.7-1.3) Estimated GFR (Cockcroft-Gault) 32.2 Glucose Level 378 mg/dL (70-99) Calcium Level 7.4 mg/dL (8.5-10.1) Total Bilirubin 11.3 mg/dL (0.2-1.0) Direct Bilirubin 9.6 mg/dL (0.0-0.2) Aspartate Amino Transf (AST/SGOT) 124 U/L (15-37) Alanine Aminotransferase (ALT/SGPT) 85 U/L (16-63) Alkaline Phosphatase 295 U/L (46-116) Total Protein 5.7 g/dL (6.4-8.2) Albumin 1.5 g/dL (3.4-5.0) Test 10/20/18 07:11 Glucose (Fingerstick) 352 mg/dL (70-99) Laboratory Tests Test 10/19/18 11:47 10/19/18 19:44 10/20/18 05:07 10/20/18 07:11 Glucose (Fingerstick) 305 mg/dL (70-99) 182 mg/dL (70-99) 352 mg/dL (70-99) White Blood Count 13.0 x10^3/uL (4.0-11.0) Red Blood Count 2.62 x10^6/uL (4.30-5.70) Hemoglobin 9.5 g/dL (13.0-17.5) Hematocrit 27.4 % (39.0-53.0) Mean Corpuscular Volume 105 fL (79-100) Mean Corpuscular Hemoglobin 36 pg (25-35) Mean Corpuscular Hemoglobin Concent 35 g/dL (31-37) Red Cell Distribution Width 14.8 % (11.5-14.5) Platelet Count 14 x10^3/uL (140-400) Prothrombin Time 19.1 SEC (11.7-14.0) Prothromb Time International Ratio 1.6 (0.8-1.1) Sodium Level 134 mmol/L (136-145) Potassium Level 3.6 mmol/L (3.5-5.1) Chloride Level 98 mmol/L (98-107) Carbon Dioxide Level 27 mmol/L (21-32) Anion Gap 9 (6-14) Blood Urea Nitrogen 35 mg/dL (8-26) Creatinine 2.1 mg/dL (0.7-1.3) Estimated GFR (Cockcroft-Gault) 32.2 Glucose Level 378 mg/dL (70-99) Calcium Level 7.4 mg/dL (8.5-10.1) Total Bilirubin 11.3 mg/dL (0.2-1.0) Direct Bilirubin 9.6 mg/dL (0.0-0.2) Aspartate Amino Transf (AST/SGOT) 124 U/L (15-37) Alanine Aminotransferase (ALT/SGPT) 85 U/L (16-63) Alkaline Phosphatase 295 U/L (46-116) Total Protein 5.7 g/dL (6.4-8.2) Albumin 1.5 g/dL (3.4-5.0) Microbiology 10/14/18 Urine Culture - Final, Complete 10/14/18 Urine Culture Result 1 (SABRINA) - Final, Complete 10/14/18 Antimicrobic Susceptibility - Final, Complete Medications Current Medications Sodium Chloride 500 ml @ 500 mls/hr 1X ONCE IV Last administered on at 09:47; Start 10/14/18 at 09:30; Stop 10/14/18 at 10:29; Status DC Ondansetron HCl (Zofran) 4 mg PRN Q8HRS PRN IV NAUSEA/VOMITING Last administered on 10/15/18 09:57; Start 10/14/18 at 10:15; Stop 10/15/18 at 10:14 ; Status DC Ceftriaxone Sodium (Rocephin) 1 gm 1X ONCE IVP Last administered on 10/14/18at 10:41; Start 10/14/18 at 10:30; Stop 10/14/18 at 10:31; Status DC Ceftriaxone Sodium (Rocephin) 1 gm Q24H IVP Last administered on 10/17/18 11: 37; Start 10/15/18 at 10:00; Stop 10/18/18 at 09:12; Status DC Oxycodone/ Acetaminophen (Percocet 5/325) 1 tab PRN Q4HRS PRN PO PAIN Last administered on 10/18/18 21:54; Start 10/14/18 at 12:00 Morphine Sulfate (Morphine Sulfate) 4 mg PRN Q2HR PRN IV PAIN Last administered on 10/20/18 09:14; Start 10/14/18 at 12:00 Sodium Chloride 1,000 ml @ 100 mls/hr 1X ONCE IV Last administered on 12:15; Start 10/14/18 at 12:00; Stop 10/14/18 at 21:59; Status DC Lactobacillus Rhamnosus (Culturelle) 1 cap BID PO Last administered on 09:00; Start 10/14/18 at 21:00 Ondansetron HCl (Zofran) 4 mg PRN Q6HRS PRN IV NAUSEA/VOMITING; Start 10/15/18 at 10:30 Ondansetron HCl (Zofran Odt) 4 mg PRN Q6HRS PRN PO NAUSEA/VOMITING; Start 10/15 at 10:30 Sodium Chloride 1,000 ml @ 75 mls/hr [id number] IV Last administered on 10/20/18 05:10; Start 10/15/18 at 13:00 Lactulose (Lactulose) 20 gm TID PO Last administered on 10/18/18at 20:57; Start 10/15/18 at 15:00 Sertraline HCl (Zoloft) 25 mg QHS PO Last administered on 10/19/18at 21:12; Start 10/15/18 at 21:00 Insulin Human Lispro (HumaLOG) 0-9 UNITS TIDWMEALS SQ Last administered on at 09:19; Start 10/16/18 at 17:00 Dextrose (Dextrose 50%-Water Syringe) 12.5 gm PRN Q15MIN PRN IV SEE COMMENTS; Start 10/16/18 at 12:15 Labetalol HCl (Normodyne Iv Push) 20 mg 1X ONCE IVP ; Start 10/16/18 at 12:15; Stop 10/16/18 at 12:15; Status DC Labetalol HCl (Normodyne Iv Push) 10 mg PRN Q2HR PRN IVP HYPERTENSION, SEE COMMENTS; Start 10/16/18 at 12:15 Vitamin D (Vitamin D3) 1,000 unit DAILY PO Last administered on 10/20/18at 09:00 ; Start 10/16/18 at 13:00 Tamsulosin HCl (Flomax) 0.4 mg DAILY PO Last administered on 10/20/18at 09:00; Start 10/16/18 at 13:00 Pantoprazole Sodium (Protonix) 40 mg DAILYAC PO Last administered on 10/20/18at 07:19; Start 10/16/18 at 16:30 Gabapentin (Neurontin) 100 mg TID PO ; Start 10/16/18 at 14:00; Stop 10/16/18 at 16:21; Status DC Gabapentin (Neurontin) 100 mg TID PO Last administered on 10/20/18at 09:00; Start 10/16/18 at 14:00 Lidocaine/ Epinephrine (LIDOCAINE 1%-EPI 1:100,000 Multi-Dose) 20 ml STK-MED ONCE .ROUTE ; Start 10/17/18 at 09:26; Stop 10/17/18 at 09:27; Status DC Cefazolin Sodium 50 ml @ As Directed STK-MED ONCE IV ; Start 10/17/18 at 09:37; Stop 10/17/18 at 09:38; Status DC Midazolam HCl (Versed) 2 mg STK-MED ONCE .ROUTE ; Start 10/17/18 at 09:37; Stop 10/17/18 at 09:38; Status DC Fentanyl Citrate (Fentanyl 2ml Vial) 100 mcg STK-MED ONCE .ROUTE ; Start at 09:37; Stop 10/17/18 at 09:38; Status DC Midazolam HCl (Versed) 1 mg 1X ONCE IV Last administered on 10/17/18at 09:44; Start 10/17/18 at 10:15; Stop 10/17/18 at 10:16; Status DC Fentanyl Citrate (Fentanyl 2ml Vial) 50 mcg 1X ONCE IV Last administered on at 09:44; Start 10/17/18 at 10:15; Stop 10/17/18 at 10:16; Status DC Lidocaine/ Epinephrine (LIDOCAINE 1%-EPI 1:100,000 Multi-Dose) 7 ml 1X ONCE IJ Last administered on 10/17/18at 09:44; Start 10/17/18 at 10:15; Stop 10/17/18 at 10:16; Status DC Cefazolin Sodium 50 ml @ 100 mls/hr 1X ONCE IV Last administered on at 09:45; Start 10/17/18 at 10:15; Stop 10/17/18 at 10:44; Status DC Sodium Chloride 1,000 ml @ 1,000 mls/hr Q1H PRN IV hypotension; Start 10/17/18 at 18:06; Stop 10/18/18 at 00:05; Status DC Diphenhydramine HCl (Benadryl) 25 mg 1X PRN PRN IV ITCHING; Start 10/17/18 at 18:15; Stop 10/18/18 at 18:14; Status DC Diphenhydramine HCl (Benadryl) 25 mg 1X PRN PRN IV ITCHING; Start 10/17/18 at 18:15; Stop 10/18/18 at 18:14; Status DC Sodium Chloride 1,000 ml @ 400 mls/hr Q2H30M PRN IV PATENCY; Start 10/17/18 at 18:06; Stop 10/18/18 at 06:05; Status DC Info (PHARMACY MONITORING -- do not chart) 1 each PRN DAILY PRN MC SEE COMMENTS ; Start 10/17/18 at 18:15; Status Cancel Cefepime HCl (Maxipime) 1 gm Q12HR IVP ; Start 10/18/18 at 10:00; Stop 10/18/18 at 10:01; Status DC Info (PHARMACY MONITORING -- do not chart) 1 each PRN DAILY PRN MC SEE COMMENTS ; Start 10/18/18 at 10:00; Stop 10/18/18 at 10:04; Status DC Info (PHARMACY MONITORING -- do not chart) 1 each PRN DAILY PRN MC SEE COMMENTS ; Start 10/18/18 at 10:00; Stop 10/18/18 at 10:04; Status DC Meropenem 500 mg/ Sodium Chloride 50 ml @ 100 mls/hr Q12HR IV Last administered on 10/20/18at 09:01; Start 10/18/18 at 11:00 Darbepoetin [place] (Aranesp) 60 mcg [id number] SQ Last administered on 10/19/18at 21: 12; Start 10/19/18 at 21:00 Vitamin A/Vitamin D (Vitamin A & D Ointment) 1 melvin BID PRN TP SKIN PROTECTION; Start 10/19/18 at 13:15 Sodium Chloride 1,000 ml @ 1,000 mls/hr Q1H PRN IV hypotension; Start 10/19/18 at 15:33; Stop 10/19/18 at 21:32; Status DC Sodium Chloride (Normal Saline Flush) 10 ml 1X PRN PRN IV AP catheter pack; Start 10/19/18 at 15:45; Stop 10/20/18 at 15:44 Sodium Chloride (Normal Saline Flush) 10 ml 1X PRN PRN IV CLERICAL OFFICE catheter pack; Start 10/19/18 at 15:45; Stop 10/20/18 at 15:44 Sodium Chloride 1,000 ml @ 400 mls/hr Q2H30M PRN IV PATENCY; Start 10/19/18 at 15:33; Stop 10/20/18 at 03:32; Status DC Info (PHARMACY MONITORING -- do not chart) 1 each PRN DAILY PRN MC SEE COMMENTS ; Start 10/19/18 at 15:45; Status UNV Info (PHARMACY MONITORING -- do not chart) 1 each PRN DAILY PRN MC SEE COMMENTS ; Start 10/19/18 at 15:45 Active Scripts Active Reported Nexium Capsule (Esomeprazole Magnesium) 20 Mg Capsule.dr 1 Cap PO DAILY Alfuzosin Hcl 10 Mg Tab.er.24h 10 Mg Pe PO DAILY Vitamin D3 (Cholecalciferol (Vitamin D3)) 1,000 Unit Tablet 1,000 Unit PO DAILY Hydrochlorothiazide 25 Mg Tablet 25 Mg PO DAILY Enalapril Maleate 10 Mg Tablet 10 Mg PO DAILY Gabapentin 100 Mg Capsule 100 Mg PO TID Diclofenac Sodium 75 Mg Tablet.dr 75 Mg PO BID Vitals/I & O Vital Sign - Last 24 Hours 10/19/18 10/19/18 10/19/18 10/19/18 11:00 15:00 19:00 20:17 Temp 97.8 97.9 98.5 97.8 97.9 98.5 Pulse 89 96 91 Resp 18 18 18 20 B/P (MAP) 128/58 (81) 134/61 (85) 132/62 (85) Pulse Ox 96 96 95 O2 Delivery Nasal Cannula Nasal Cannula Nasal Cannula Nasal Cannula O2 Flow Rate 2.0 2.0 2.0 2.0 10/19/18 10/19/18 10/20/18 10/20/18 20:17 23:00 03:00 07:34 Temp 98.4 98.0 97.7 98.4 98.0 97.7 Pulse 109 101 99 Resp 18 B/P (MAP) 145/64 (91) 156/74 (101) 153/73 (99) Pulse Ox 95 94 98 O2 Delivery Nasal Cannula Nasal Cannula Nasal Cannula Nasal Cannula O2 Flow Rate 2.0 2.0 2.0 2.0 10/20/18 10/20/18 10/20/18 08:00 09:14 09:44 Resp 24 20 O2 Delivery Nasal Cannula Nasal Cannula Nasal Cannula O2 Flow Rate 2.0 2.0 2.0 Intake and Output 10/19/18 10/19/18 10/20/18 14:59 22:59 06:59 Intake Total 1075 ml 50 ml 710 ml Output Total 100 ml Balance 975 ml 50 ml 710 ml BROOKLYN LUNA MD Oct 20, 2018 10:28
[2018-10-20] MEDS ORDERED: INSULIN LISPRO 300 UNITS/3 ML INSULN.PEN. SQ SCH (11:30)
[2018-10-20 11:43] VITALS: BP 147/72
--- NOTE | 2018-10-20 13:48 | PDOC ---
PROGRESS NOTES Subjective Subjective HPI - f/u of Thrombocytopenia ROS - no bleed Objective Objective Vital Signs Date Time Temp Pulse Resp B/P (MAP) Pulse Ox O2 Delivery O2 Flow Rate FiO2 10/20/18 11:43 98.7 95 18 147/72 (97) 97 Nasal Cannula 2.0 98.7 Intake and Output 10/20/18 07:00 Intake Total 1835 ml Output Total 100 ml Balance 1735 ml Intake Oral 150 ml IV Total 1685 ml Output Urine Total 100 ml # Voids 2 # Bowel Movements 6 Physical Exam General: Alert, No acute distress Neck: No JVD Assessment Assessment Problems Medical Problems: (1) Acute pyelonephritis Status: Acute (2) Acute renal failure Status: Acute (3) Exertional dyspnea Status: Acute (4) Hyponatremia Status: Acute IMPRESSION AND PLAN: 1. Thrombocytopenia due to cirrhosis of the liver and hypersplenism. The patient has chronic thrombocytopenia and he is aware of hematologic abnormality. I suspect that his platelets are worse at this time due to underlying infection. He has history of urinary tract infection and now the CAT scan reveals evidence of pyelonephritis. He has 32% bands. Reticulocyte count is normal at 1.6, and hence, I do not suspect DIC or TTP. There is no evidence of fragmented red cells in the peripheral smear. There is evidence of toxic granulations and toxic vacuolation further indicating that he has underlying infection causing worsening thrombocytopenia. No clinical evidence of bleeding at this time. If he has any significant bleeding, I would recommend platelet transfusion. He is afebrile and does not appear toxic. Continue to monitor closely. No bleed. He would like to f/u with his associate chemist upon discharge. plt now 14. Plan to transfuse if platelets at or below 10. I d/w RN 2. Anemia secondary to renal failure and cirrhosis of the liver. Reticulocyte count is normal at 1.6. Iron studies are consistent with anemia of chronic disease. B12 is more than 2000. TSH is normal at 1.070. Continue to monitor hemoglobin. Hb 9.5 3. Jaundice thought to be due to decompensated cirrhosis. I appreciate GI consultation. 4. Renal failure, management per primary team. 5. UTI - appreciate ID and urology management. 6. Met encephalopathy. Comment Review of Relevant I have reviewed the following items ester (where applicable) has been applied. Labs Laboratory Tests Test 10/18/18 14:07 10/18/18 16:35 10/18/18 19:52 10/19/18 05:03 Glucose (Fingerstick) 145 mg/dL (70-99) 195 mg/dL (70-99) 229 mg/dL (70-99) White Blood Count 14.6 x10^3/uL (4.0-11.0) Red Blood Count 2.45 x10^6/uL (4.30-5.70) Hemoglobin 8.8 g/dL (13.0-17.5) Hematocrit 25.5 % (39.0-53.0) Mean Corpuscular Volume 104 fL (79-100) Mean Corpuscular Hemoglobin 36 pg (25-35) Mean Corpuscular Hemoglobin Concent 34 g/dL (31-37) Red Cell Distribution Width 14.9 % (11.5-14.5) Platelet Count 14 x10^3/uL (140-400) Reticulocyte Count (auto) 1.4 % (0.5-2.5) Sodium Level 135 mmol/L (136-145) Potassium Level 3.3 mmol/L (3.5-5.1) Chloride Level 96 mmol/L (98-107) Carbon Dioxide Level 27 mmol/L (21-32) Anion Gap 12 (6-14) Blood Urea Nitrogen 50 mg/dL (8-26) Creatinine 2.6 mg/dL (0.7-1.3) Estimated GFR (Cockcroft-Gault) 25.1 Glucose Level 279 mg/dL (70-99) Calcium Level 6.9 mg/dL (8.5-10.1) Test 10/19/18 07:38 10/19/18 11:47 10/19/18 19:44 10/20/18 05:07 Glucose (Fingerstick) 255 mg/dL (70-99) 305 mg/dL (70-99) 182 mg/dL (70-99) White Blood Count 13.0 x10^3/uL (4.0-11.0) Red Blood Count 2.62 x10^6/uL (4.30-5.70) Hemoglobin 9.5 g/dL (13.0-17.5) Hematocrit 27.4 % (39.0-53.0) Mean Corpuscular Volume 105 fL (79-100) Mean Corpuscular Hemoglobin 36 pg (25-35) Mean Corpuscular Hemoglobin Concent 35 g/dL (31-37) Red Cell Distribution Width 14.8 % (11.5-14.5) Platelet Count 14 x10^3/uL (140-400) Prothrombin Time 19.1 SEC (11.7-14.0) Prothromb Time International Ratio 1.6 (0.8-1.1) Sodium Level 134 mmol/L (136-145) Potassium Level 3.6 mmol/L (3.5-5.1) Chloride Level 98 mmol/L (98-107) Carbon Dioxide Level 27 mmol/L (21-32) Anion Gap 9 (6-14) Blood Urea Nitrogen 35 mg/dL (8-26) Creatinine 2.1 mg/dL (0.7-1.3) Estimated GFR (Cockcroft-Gault) 32.2 Glucose Level 378 mg/dL (70-99) Calcium Level 7.4 mg/dL (8.5-10.1) Total Bilirubin 11.3 mg/dL (0.2-1.0) Direct Bilirubin 9.6 mg/dL (0.0-0.2) Aspartate Amino Transf (AST/SGOT) 124 U/L (15-37) Alanine Aminotransferase (ALT/SGPT) 85 U/L (16-63) Alkaline Phosphatase 295 U/L (46-116) Total Protein 5.7 g/dL (6.4-8.2) Albumin 1.5 g/dL (3.4-5.0) Test 10/20/18 07:11 10/20/18 11:21 Glucose (Fingerstick) 352 mg/dL (70-99) 403 mg/dL (70-99) Laboratory Tests Test 10/19/18 19:44 10/20/18 05:07 10/20/18 07:11 10/20/18 11:21 Glucose (Fingerstick) 182 mg/dL (70-99) 352 mg/dL (70-99) 403 mg/dL (70-99) White Blood Count 13.0 x10^3/uL (4.0-11.0) Red Blood Count 2.62 x10^6/uL (4.30-5.70) Hemoglobin 9.5 g/dL (13.0-17.5) Hematocrit 27.4 % (39.0-53.0) Mean Corpuscular Volume 105 fL (79-100) Mean Corpuscular Hemoglobin 36 pg (25-35) Mean Corpuscular Hemoglobin Concent 35 g/dL (31-37) Red Cell Distribution Width 14.8 % (11.5-14.5) Platelet Count 14 x10^3/uL (140-400) Prothrombin Time 19.1 SEC (11.7-14.0) Prothromb Time International Ratio 1.6 (0.8-1.1) Sodium Level 134 mmol/L (136-145) Potassium Level 3.6 mmol/L (3.5-5.1) Chloride Level 98 mmol/L (98-107) Carbon Dioxide Level 27 mmol/L (21-32) Anion Gap 9 (6-14) Blood Urea Nitrogen 35 mg/dL (8-26) Creatinine 2.1 mg/dL (0.7-1.3) Estimated GFR (Cockcroft-Gault) 32.2 Glucose Level 378 mg/dL (70-99) Calcium Level 7.4 mg/dL (8.5-10.1) Total Bilirubin 11.3 mg/dL (0.2-1.0) Direct Bilirubin 9.6 mg/dL (0.0-0.2) Aspartate Amino Transf (AST/SGOT) 124 U/L (15-37) Alanine Aminotransferase (ALT/SGPT) 85 U/L (16-63) Alkaline Phosphatase 295 U/L (46-116) Total Protein 5.7 g/dL (6.4-8.2) Albumin 1.5 g/dL (3.4-5.0) Microbiology 10/14/18 Urine Culture - Final, Complete 10/14/18 Urine Culture Result 1 (SABRINA) - Final, Complete 10/14/18 Antimicrobic Susceptibility - Final, Complete Medications Current Medications Sodium Chloride 500 ml @ 500 mls/hr 1X ONCE IV Last administered on at 09:47; Start 10/14/18 at 09:30; Stop 10/14/18 at 10:29; Status DC Ondansetron HCl (Zofran) 4 mg PRN Q8HRS PRN IV NAUSEA/VOMITING Last administered on 10/15/18at 09:57; Start 10/14/18 at 10:15; Stop 10/15/18 at 10:14 ; Status DC Ceftriaxone Sodium (Rocephin) 1 gm 1X ONCE IVP Last administered on 10/14/18at 10:41; Start 10/14/18 at 10:30; Stop 10/14/18 at 10:31; Status DC Ceftriaxone Sodium (Rocephin) 1 gm Q24H IVP Last administered on 10/17/18at 11: 37; Start 10/15/18 at 10:00; Stop 10/18/18 at 09:12; Status DC Oxycodone/ Acetaminophen (Percocet 5/325) 1 tab PRN Q4HRS PRN PO PAIN Last administered on 10/18/18 21:54; Start 10/14/18 at 12:00 Morphine Sulfate (Morphine Sulfate) 4 mg PRN Q2HR PRN IV PAIN Last administered on 10/20/18 09:14; Start 10/14/18 at 12:00 Sodium Chloride 1,000 ml @ 100 mls/hr 1X ONCE IV Last administered on 12:15; Start 10/14/18 at 12:00; Stop 10/14/18 at 21:59; Status DC Lactobacillus Rhamnosus (Culturelle) 1 cap BID PO Last administered on 09:00; Start 10/14/18 at 21:00 Ondansetron HCl (Zofran) 4 mg PRN Q6HRS PRN IV NAUSEA/VOMITING; Start 10/15/18 at 10:30 Ondansetron HCl (Zofran Odt) 4 mg PRN Q6HRS PRN PO NAUSEA/VOMITING; Start 10/15 at 10:30 Sodium Chloride 1,000 ml @ 75 mls/hr [id number] IV Last administered on 10/20/18 05:10; Start 10/15/18 at 13:00 Lactulose (Lactulose) 20 gm TID PO Last administered on 10/18/18at 20:57; Start 10/15/18 at 15:00 Sertraline HCl (Zoloft) 25 mg QHS PO Last administered on 10/19/18 21:12; Start 10/15/18 at 21:00 Insulin Human Lispro (HumaLOG) 0-9 UNITS TIDWMEALS SQ Last administered on at 09:19; Start 10/16/18 at 17:00 Dextrose (Dextrose 50%-Water Syringe) 12.5 gm PRN Q15MIN PRN IV SEE COMMENTS; Start 10/16/18 at 12:15 Labetalol HCl (Normodyne Iv Push) 20 mg 1X ONCE IVP ; Start 10/16/18 at 12:15; Stop 10/16/18 at 12:15; Status DC Labetalol HCl (Normodyne Iv Push) 10 mg PRN Q2HR PRN IVP HYPERTENSION, SEE COMMENTS; Start 10/16/18 at 12:15 Vitamin D (Vitamin D3) 1,000 unit DAILY PO Last administered on 10/20/18at 09:00 ; Start 10/16/18 at 13:00 Tamsulosin HCl (Flomax) 0.4 mg DAILY PO Last administered on 10/20/18at 09:00; Start 10/16/18 at 13:00 Pantoprazole Sodium (Protonix) 40 mg DAILYAC PO Last administered on 10/20/18at 07:19; Start 10/16/18 at 16:30 Gabapentin (Neurontin) 100 mg TID PO ; Start 10/16/18 at 14:00; Stop 10/16/18 at 16:21; Status DC Gabapentin (Neurontin) 100 mg TID PO Last administered on 10/20/18at 09:00; Start 10/16/18 at 14:00 Lidocaine/ Epinephrine (LIDOCAINE 1%-EPI 1:100,000 Multi-Dose) 20 ml STK-MED ONCE .ROUTE ; Start 10/17/18 at 09:26; Stop 10/17/18 at 09:27; Status DC Cefazolin Sodium 50 ml @ As Directed STK-MED ONCE IV ; Start 10/17/18 at 09:37; Stop 10/17/18 at 09:38; Status DC Midazolam HCl (Versed) 2 mg STK-MED ONCE .ROUTE ; Start 10/17/18 at 09:37; Stop 10/17/18 at 09:38; Status DC Fentanyl Citrate (Fentanyl 2ml Vial) 100 mcg STK-MED ONCE .ROUTE ; Start at 09:37; Stop 10/17/18 at 09:38; Status DC Midazolam HCl (Versed) 1 mg 1X ONCE IV Last administered on 10/17/18at 09:44; Start 10/17/18 at 10:15; Stop 10/17/18 at 10:16; Status DC Fentanyl Citrate (Fentanyl 2ml Vial) 50 mcg 1X ONCE IV Last administered on at 09:44; Start 10/17/18 at 10:15; Stop 10/17/18 at 10:16; Status DC Lidocaine/ Epinephrine (LIDOCAINE 1%-EPI 1:100,000 Multi-Dose) 7 ml 1X ONCE IJ Last administered on 10/17/18at 09:44; Start 10/17/18 at 10:15; Stop 10/17/18 at 10:16; Status DC Cefazolin Sodium 50 ml @ 100 mls/hr 1X ONCE IV Last administered on at 09:45; Start 10/17/18 at 10:15; Stop 10/17/18 at 10:44; Status DC Sodium Chloride 1,000 ml @ 1,000 mls/hr Q1H PRN IV hypotension; Start 10/17/18 at 18:06; Stop 10/18/18 at 00:05; Status DC Diphenhydramine HCl (Benadryl) 25 mg 1X PRN PRN IV ITCHING; Start 10/17/18 at 18:15; Stop 10/18/18 at 18:14; Status DC Diphenhydramine HCl (Benadryl) 25 mg 1X PRN PRN IV ITCHING; Start 10/17/18 at 18:15; Stop 10/18/18 at 18:14; Status DC Sodium Chloride 1,000 ml @ 400 mls/hr Q2H30M PRN IV PATENCY; Start 10/17/18 at 18:06; Stop 10/18/18 at 06:05; Status DC Info (PHARMACY MONITORING -- do not chart) 1 each PRN DAILY PRN MC SEE COMMENTS ; Start 10/17/18 at 18:15; Status Cancel Cefepime HCl (Maxipime) 1 gm Q12HR IVP ; Start 10/18/18 at 10:00; Stop 10/18/18 at 10:01; Status DC Info (PHARMACY MONITORING -- do not chart) 1 each PRN DAILY PRN MC SEE COMMENTS ; Start 10/18/18 at 10:00; Stop 10/18/18 at 10:04; Status DC Info (PHARMACY MONITORING -- do not chart) 1 each PRN DAILY PRN MC SEE COMMENTS ; Start 10/18/18 at 10:00; Stop 10/18/18 at 10:04; Status DC Meropenem 500 mg/ Sodium Chloride 50 ml @ 100 mls/hr Q12HR IV Last administered on 10/20/18at 09:01; Start 10/18/18 at 11:00 Darbepoetin [place] (Aranesp) 60 mcg [id number] SQ Last administered on 10/19/18at 21: 12; Start 10/19/18 at 21:00 Vitamin A/Vitamin D (Vitamin A & D Ointment) 1 melvin BID PRN TP SKIN PROTECTION; Start 10/19/18 at 13:15 Sodium Chloride 1,000 ml @ 1,000 mls/hr Q1H PRN IV hypotension; Start 10/19/18 at 15:33; Stop 10/19/18 at 21:32; Status DC Sodium Chloride (Normal Saline Flush) 10 ml 1X PRN PRN IV AP catheter pack; Start 10/19/18 at 15:45; Stop 10/20/18 at 15:44 Sodium Chloride (Normal Saline Flush) 10 ml 1X PRN PRN IV ROCK [place] catheter pack; Start 10/19/18 at 15:45; Stop 10/20/18 at 15:44 Sodium Chloride 1,000 ml @ 400 mls/hr Q2H30M PRN IV PATENCY; Start 10/19/18 at 15:33; Stop 10/20/18 at 03:32; Status DC Info (PHARMACY MONITORING -- do not chart) 1 each PRN DAILY PRN MC SEE COMMENTS ; Start 10/19/18 at 15:45; Status UNV Info (PHARMACY MONITORING -- do not chart) 1 each PRN DAILY PRN MC SEE COMMENTS ; Start 10/19/18 at 15:45 Insulin Human Lispro (HumaLOG) 20 units STAT SQ ; Start 10/20/18 at 11:30 Active Scripts Active Reported Nexium Capsule (Esomeprazole Magnesium) 20 Mg Capsule.dr 1 Cap PO DAILY Alfuzosin Hcl 10 Mg Tab.er.24h 10 Mg Pe PO DAILY Vitamin D3 (Cholecalciferol (Vitamin D3)) 1,000 Unit Tablet 1,000 Unit PO DAILY Hydrochlorothiazide 25 Mg Tablet 25 Mg PO DAILY Enalapril Maleate 10 Mg Tablet 10 Mg PO DAILY Gabapentin 100 Mg Capsule 100 Mg PO TID Diclofenac Sodium 75 Mg Tablet.dr 75 Mg PO BID Vitals/I & O Vital Sign - Last 24 Hours 10/19/18 10/19/18 10/19/18 10/19/18 15:00 19:00 20:17 20:17 Temp 97.9 98.5 97.9 98.5 Pulse 96 91 Resp 18 18 20 B/P (MAP) 134/61 (85) 132/62 (85) Pulse Ox 96 95 O2 Delivery Nasal Cannula Nasal Cannula Nasal Cannula Nasal Cannula O2 Flow Rate 2.0 2.0 2.0 2.0 10/19/18 10/20/18 10/20/18 10/20/18 23:00 03:00 07:34 08:00 Temp 98.4 98.0 97.7 98.4 98.0 97.7 Pulse 109 101 99 Resp 20 18 18 B/P (MAP) 145/64 (91) 156/74 (101) 153/73 (99) Pulse Ox 95 94 98 O2 Delivery Nasal Cannula Nasal Cannula Nasal Cannula Nasal Cannula O2 Flow Rate 2.0 2.0 2.0 2.0 10/20/18 10/20/18 10/20/18 09:14 09:44 11:43 Temp 98.7 98.7 Pulse 95 Resp 20 18 B/P (MAP) 147/72 (97) Pulse Ox 97 O2 Delivery Nasal Cannula Nasal Cannula Nasal Cannula O2 Flow Rate 2.0 2.0 2.0 Intake and Output 10/19/18 10/19/18 10/20/18 15:00 23:00 07:00 Intake Total 1075 ml 50 ml 710 ml Output Total 100 ml Balance 975 ml 50 ml 710 ml JAMAL HER MD Oct 20, 2018 13:48
[2018-10-20 15:13] VITALS: BP 127/61
[2018-10-20 19:07] VITALS: BP 138/70
[2018-10-20] MEDS: SERTRALINE 25 MG TABLET. PO SCH (20:20)
[2018-10-20] MEDS ORDERED: INSULIN GLARGINE 300 UNITS/3 ML INSULN.PEN. SQ SCH (21:00)
[2018-10-20 22:17] VITALS: BP 145/67
[2018-10-21] VITALS (7 sets, daily range): BP systolic 119–172; BP diastolic 52–75
[2018-10-21] MEDS: MORPHINE SULFATE 4 MG/ML VIAL. IV PRN ×4 (01:55→23:23)
[2018-10-21] MEDS: PANTOPRAZOLE 40 MG TABLET.DR. PO SCH (07:51)
[2018-10-21] MEDS: INSULIN LISPRO 300 UNITS/3 ML INSULN.PEN. SQ SCH ×5 (08:00→17:28)
[2018-10-21] MEDS ORDERED: INSULIN LISPRO 300 UNITS/3 ML INSULN.PEN. SQ STA (08:21)
[2018-10-21] MEDS: LACTOBACILLUS RHAMNOSUS GG 1 CAPSULE. PO SCH ×2 (08:37→21:11)
[2018-10-21] MEDS: TAMSULOSIN 0.4 MG CAP.ER.24H. PO SCH (08:37)
[2018-10-21] MEDS: MEROPENEM 500 MG in IV NORMAL SALINE 50ML 50 ML IV SCH ×2 (08:37→21:11)
[2018-10-21] MEDS: GABAPENTIN 100 MG CAPSULE. PO SCH ×3 (08:38→21:00)
[2018-10-21] MEDS: LACTULOSE 20 GM/30 ML SOLUTION. PO SCH ×3 (08:38→21:00)
[2018-10-21] MEDS: CHOLECALCIFEROL (VITAMIN D3) 1,000 UNIT TABLET PO SCH (10:22)
[2018-10-21] MEDS ORDERED: INSULIN LISPRO 300 UNITS/3 ML INSULN.PEN. SQ ONE ×3 (10:30→22:30)
[2018-10-21] MEDS ORDERED: INSULIN GLARGINE 300 UNITS/3 ML INSULN.PEN. SQ ONE (10:30)
--- NOTE | 2018-10-21 10:58 | PDOC ---
Infectious Disease Note Subjective Subjective Says feeling alright, denies pain No fevers, vomiting or diarrhea reported Vital Sign Vital Signs Vital Signs Date Time Temp Pulse Resp B/P (MAP) Pulse Ox O2 Delivery O2 Flow Rate FiO2 10/21/18 07:00 99.0 104 18 155/75 (101) 96 Nasal Cannula 2.0 99.0 Physical Exam PHYSICAL EXAM GENERAL: Lethargic HEENT: Oral cavity dry LUNGS: Clear. HEART: S1 and S2 regular. ABDOMEN: Soft and nontender EXTREMITIES: 1-2 edema BLE. No cyanosis SKIN: warm without rash NEUROLOGICAL: Arouses to name, lethargic Tunneled HDC (10/17) clean Labs Lab Laboratory Tests Test 10/20/18 11:21 10/20/18 15:07 10/20/18 16:42 10/20/18 20:32 Glucose (Fingerstick) 403 mg/dL (70-99) 391 mg/dL (70-99) 323 mg/dL (70-99) 308 mg/dL (70-99) Test 10/21/18 07:58 10/21/18 09:59 Glucose (Fingerstick) 376 mg/dL (70-99) 314 mg/dL (70-99) Micro Microbiology 10/14/18 Urine Culture - Final, Complete 10/14/18 Urine Culture Result 1 (SABRINA) - Final, Complete 10/14/18 Antimicrobic Susceptibility - Final, Complete Objective Assessment ESBL E. coli UTI, complicated, 10/14 (POA) Renal failure now on HD Cirrhosis of liver Severe thrombocytopenia Leukocytosis improving Plan Plan of Care Meropenem (started 10/18) Monitor temp/WBC Contact isolation D/w nursing Attending Co-Sign The patient was seen and interviewed as well as examined at the bedside. The chart was reviewed. The case was discussed. Agree with the plan of care. SMILEY BALLESTEROS APRN Oct 21, 2018 10:58 MATTHEW MEDINA MD Oct 21, 2018 11:33
[2018-10-21 11:43] LABS: BASO # 0.2 x10^3/uL (0.0-0.2); BASO % 1 % (0-3); EOS % 0 % (0-3); HEMOGLOBIN 9.4 g/dL (13.0-17.5); LYMPH # 2.4 x10^3/uL (1.0-4.8); LYMPH % 14 % (24-48); MEAN CORPUSCULAR HEMOGLOBIN 35 pg (25-35); MEAN CORPUSCULAR HGB CONC 34 g/dL (31-37); MEAN CORPUSCULAR VOLUME 105 fL (79-100); MONO # 0.8 x10^3/uL (0.0-1.1); MONO % 5 % (0-9); NEUT # 14.1 x10^3uL (1.8-7.7); NEUT % 81 % (31-73); RED BLOOD COUNT 2.67 x10^6/uL (4.30-5.70); WHITE BLOOD COUNT 17.5 x10^3/uL (4.0-11.0)
[2018-10-21 11:49] LABS: PLATELET COUNT 16 x10^3/uL (140-400)
[2018-10-21 11:58] LABS: ALBUMIN 1.4 g/dL (3.4-5.0); ALBUMIN/GLOBULIN RATIO 0.3 (1.0-1.7); CALCIUM 7.5 mg/dL (8.5-10.1); CREATININE 2.6 mg/dL (0.7-1.3); GFR 25.1; POTASSIUM 3.4 mmol/L (3.5-5.1); TOTAL BILIRUBIN 8.9 mg/dL (0.2-1.0); TOTAL PROTEIN 5.9 g/dL (6.4-8.2)
--- NOTE | 2018-10-21 12:05 | PDOC ---
PROGRESS NOTES Chief Complaint Chief Complaint acute renal failuer, ESRD - new HD - HEPATORENAL SYNDROME Anemia, multifactoria Established cirrhosis, decompensated likely from infection. w. ascites Hx of esophageal varices on propanolol, E coli UTI/clinically c/w pyelonephritis with resistance ti rocpehin and others Hepatic metabolic encephalopathy, subtle/mild Mod PCM, poor PO itnake Dm,2, poor control, increase insulin Hyperbilirubinemia TB 6 with pruritus 3/ likely ESLD - hospice has been considered Thrombocytopenia poor prognosis History of Present Illness History of Present Illness impression hepatic encephalopathy despite normal ammonia Total bili 9.6 3/ Platelets 14 k Creatinine 2.1 from 5 Blood sugars running high added lantus 8 units sq hs 3/ uncontrolled diabetes Plan: adjust insulin Dialysis per renal So far the plans to go home with family-family very involved in his care NOTEWORTHY WBC 17 despite IV Rocephin, Escherichia coli UTI on urine culture that is resistant to Rocephin which I have been giving from day # 1 (sensitivities only out today) ID consulted ID recommendations Continue PT OT Continue dialysis per renal Avoid nephrotoxins Monitor that low platelets hepatic encephalopathy and anemia 3/ plt continue to decline, not improved Vitals Vitals Vital Signs Date Time Temp Pulse Resp B/P (MAP) Pulse Ox O2 Delivery O2 Flow Rate FiO2 10/21/18 11:00 99.2 100 20 143/70 (94) 97 Nasal Cannula 2.0 99.2 Physical Exam Physical Exam GENERAL: Lethargic HEENT: Oral cavity dry LUNGS: Clear. HEART: S1 and S2 regular. ABDOMEN: Soft and nontender EXTREMITIES: 1-2 edema BLE. No cyanosis SKIN: warm without rash NEUROLOGICAL: Arouses to name, lethargic Tunneled HDC (10/17) clean General: Alert, No acute distress Heart: Regular rate, Normal S1, Normal S2 Abdomen: Normal bowel sounds, Soft, No tenderness, Other (MILD ASCITES) Extremities: No clubbing, No cyanosis Skin: No rashes, No breakdown, No significant lesion Labs LABS Laboratory Tests Test 10/20/18 15:07 10/20/18 16:42 10/20/18 20:32 10/21/18 07:58 Glucose (Fingerstick) 391 mg/dL (70-99) 323 mg/dL (70-99) 308 mg/dL (70-99) 376 mg/dL (70-99) Test 10/21/18 09:59 10/21/18 10:43 Glucose (Fingerstick) 314 mg/dL (70-99) White Blood Count 17.5 x10^3/uL (4.0-11.0) Red Blood Count 2.67 x10^6/uL (4.30-5.70) Hemoglobin 9.4 g/dL (13.0-17.5) Hematocrit 28.0 % (39.0-53.0) Mean Corpuscular Volume 105 fL (79-100) Mean Corpuscular Hemoglobin 35 pg (25-35) Mean Corpuscular Hemoglobin Concent 34 g/dL (31-37) Red Cell Distribution Width 15.0 % (11.5-14.5) Platelet Count 16 x10^3/uL (140-400) Neutrophils (%) (Auto) 81 % (31-73) Lymphocytes (%) (Auto) 14 % (24-48) Monocytes (%) (Auto) 5 % (0-9) Eosinophils (%) (Auto) 0 % (0-3) Basophils (%) (Auto) 1 % (0-3) Neutrophils # (Auto) 14.1 x10^3uL (1.8-7.7) Lymphocytes # (Auto) 2.4 x10^3/uL (1.0-4.8) Monocytes # (Auto) 0.8 x10^3/uL (0.0-1.1) Eosinophils # (Auto) 0.0 x10^3/uL (0.0-0.7) Basophils # (Auto) 0.2 x10^3/uL (0.0-0.2) Assessment and Plan Assessmemt and Plan Problems Medical Problems: (1) Acute pyelonephritis Status: Acute (2) Acute renal failure Status: Acute (3) Exertional dyspnea Status: Acute (4) Hyponatremia Status: Acute Comment Review of Relevant I have reviewed the following items ester (where applicable) has been applied. Labs Laboratory Tests Test 10/19/18 19:44 10/20/18 05:07 10/20/18 07:11 10/20/18 11:21 Glucose (Fingerstick) 182 mg/dL (70-99) 352 mg/dL (70-99) 403 mg/dL (70-99) White Blood Count 13.0 x10^3/uL (4.0-11.0) Red Blood Count 2.62 x10^6/uL (4.30-5.70) Hemoglobin 9.5 g/dL (13.0-17.5) Hematocrit 27.4 % (39.0-53.0) Mean Corpuscular Volume 105 fL (79-100) Mean Corpuscular Hemoglobin 36 pg (25-35) Mean Corpuscular Hemoglobin Concent 35 g/dL (31-37) Red Cell Distribution Width 14.8 % (11.5-14.5) Platelet Count 14 x10^3/uL (140-400) Prothrombin Time 19.1 SEC (11.7-14.0) Prothromb Time International Ratio 1.6 (0.8-1.1) Sodium Level 134 mmol/L (136-145) Potassium Level 3.6 mmol/L (3.5-5.1) Chloride Level 98 mmol/L (98-107) Carbon Dioxide Level 27 mmol/L (21-32) Anion Gap 9 (6-14) Blood Urea Nitrogen 35 mg/dL (8-26) Creatinine 2.1 mg/dL (0.7-1.3) Estimated GFR (Cockcroft-Gault) 32.2 Glucose Level 378 mg/dL (70-99) Calcium Level 7.4 mg/dL (8.5-10.1) Total Bilirubin 11.3 mg/dL (0.2-1.0) Direct Bilirubin 9.6 mg/dL (0.0-0.2) Aspartate Amino Transf (AST/SGOT) 124 U/L (15-37) Alanine Aminotransferase (ALT/SGPT) 85 U/L (16-63) Alkaline Phosphatase 295 U/L (46-116) Total Protein 5.7 g/dL (6.4-8.2) Albumin 1.5 g/dL (3.4-5.0) Test 10/20/18 15:07 10/20/18 16:42 10/20/18 20:32 10/21/18 07:58 Glucose (Fingerstick) 391 mg/dL (70-99) 323 mg/dL (70-99) 308 mg/dL (70-99) 376 mg/dL (70-99) Test 10/21/18 09:59 10/21/18 10:43 Glucose (Fingerstick) 314 mg/dL (70-99) White Blood Count 17.5 x10^3/uL (4.0-11.0) Red Blood Count 2.67 x10^6/uL (4.30-5.70) Hemoglobin 9.4 g/dL (13.0-17.5) Hematocrit 28.0 % (39.0-53.0) Mean Corpuscular Volume 105 fL (79-100) Mean Corpuscular Hemoglobin 35 pg (25-35) Mean Corpuscular Hemoglobin Concent 34 g/dL (31-37) Red Cell Distribution Width 15.0 % (11.5-14.5) Platelet Count 16 x10^3/uL (140-400) Neutrophils (%) (Auto) 81 % (31-73) Lymphocytes (%) (Auto) 14 % (24-48) Monocytes (%) (Auto) 5 % (0-9) Eosinophils (%) (Auto) 0 % (0-3) Basophils (%) (Auto) 1 % (0-3) Neutrophils # (Auto) 14.1 x10^3uL (1.8-7.7) Lymphocytes # (Auto) 2.4 x10^3/uL (1.0-4.8) Monocytes # (Auto) 0.8 x10^3/uL (0.0-1.1) Eosinophils # (Auto) 0.0 x10^3/uL (0.0-0.7) Basophils # (Auto) 0.2 x10^3/uL (0.0-0.2) Laboratory Tests Test 10/20/18 15:07 10/20/18 16:42 10/20/18 20:32 10/21/18 07:58 Glucose (Fingerstick) 391 mg/dL (70-99) 323 mg/dL (70-99) 308 mg/dL (70-99) 376 mg/dL (70-99) Test 10/21/18 09:59 10/21/18 10:43 Glucose (Fingerstick) 314 mg/dL (70-99) White Blood Count 17.5 x10^3/uL (4.0-11.0) Red Blood Count 2.67 x10^6/uL (4.30-5.70) Hemoglobin 9.4 g/dL (13.0-17.5) Hematocrit 28.0 % (39.0-53.0) Mean Corpuscular Volume 105 fL (79-100) Mean Corpuscular Hemoglobin 35 pg (25-35) Mean Corpuscular Hemoglobin Concent 34 g/dL (31-37) Red Cell Distribution Width 15.0 % (11.5-14.5) Platelet Count 16 x10^3/uL (140-400) Neutrophils (%) (Auto) 81 % (31-73) Lymphocytes (%) (Auto) 14 % (24-48) Monocytes (%) (Auto) 5 % (0-9) Eosinophils (%) (Auto) 0 % (0-3) Basophils (%) (Auto) 1 % (0-3) Neutrophils # (Auto) 14.1 x10^3uL (1.8-7.7) Lymphocytes # (Auto) 2.4 x10^3/uL (1.0-4.8) Monocytes # (Auto) 0.8 x10^3/uL (0.0-1.1) Eosinophils # (Auto) 0.0 x10^3/uL (0.0-0.7) Basophils # (Auto) 0.2 x10^3/uL (0.0-0.2) Microbiology 10/14/18 Urine Culture - Final, Complete 10/14/18 Urine Culture Result 1 (SABRINA) - Final, Complete 10/14/18 Antimicrobic Susceptibility - Final, Complete Medications Current Medications Sodium Chloride 500 ml @ 500 mls/hr 1X ONCE IV Last administered on at 09:47; Start 10/14/18 at 09:30; Stop 10/14/18 at 10:29; Status DC Ondansetron HCl (Zofran) 4 mg PRN Q8HRS PRN IV NAUSEA/VOMITING Last administered on 10/15/18at 09:57; Start 10/14/18 at 10:15; Stop 10/15/18 at 10:14 ; Status DC Ceftriaxone Sodium (Rocephin) 1 gm 1X ONCE IVP Last administered on 10/14/18at 10:41; Start 10/14/18 at 10:30; Stop 10/14/18 at 10:31; Status DC Ceftriaxone Sodium (Rocephin) 1 gm Q24H IVP Last administered on 10/17/18 11: 37; Start 10/15/18 at 10:00; Stop 10/18/18 at 09:12; Status DC Oxycodone/ Acetaminophen (Percocet 5/325) 1 tab PRN Q4HRS PRN PO PAIN Last administered on 10/18/18at 21:54; Start 10/14/18 at 12:00 Morphine Sulfate (Morphine Sulfate) 4 mg PRN Q2HR PRN IV PAIN Last administered on 10/21/18 01:55; Start 10/14/18 at 12:00 Sodium Chloride 1,000 ml @ 100 mls/hr 1X ONCE IV Last administered on 12:15; Start 10/14/18 at 12:00; Stop 10/14/18 at 21:59; Status DC Lactobacillus Rhamnosus (Culturelle) 1 cap BID PO Last administered on 08:37; Start 10/14/18 at 21:00 Ondansetron HCl (Zofran) 4 mg PRN Q6HRS PRN IV NAUSEA/VOMITING; Start 10/15/18 at 10:30 Ondansetron HCl (Zofran Odt) 4 mg PRN Q6HRS PRN PO NAUSEA/VOMITING; Start 10/15 at 10:30 Sodium Chloride 1,000 ml @ 75 mls/hr [id number] IV Last administered on 10/20/18 20:19; Start 10/15/18 at 13:00 Lactulose (Lactulose) 20 gm TID PO Last administered on 10/20/18 20:20; Start 10/15/18 at 15:00 Sertraline HCl (Zoloft) 25 mg QHS PO Last administered on 10/20/18 20:20; Start 10/15/18 at 21:00 Insulin Human Lispro (HumaLOG) 0-9 UNITS TIDWMEALS SQ Last administered on 17:01; Start 10/16/18 at 17:00 Dextrose (Dextrose 50%-Water Syringe) 12.5 gm PRN Q15MIN PRN IV SEE COMMENTS; Start 10/16/18 at 12:15 Labetalol HCl (Normodyne Iv Push) 20 mg 1X ONCE IVP ; Start 10/16/18 at 12:15; Stop 10/16/18 at 12:15; Status DC Labetalol HCl (Normodyne Iv Push) 10 mg PRN Q2HR PRN IVP HYPERTENSION, SEE COMMENTS; Start 10/16/18 at 12:15 Vitamin D (Vitamin D3) 1,000 unit DAILY PO Last administered on 10/21/18at 10:22 ; Start 10/16/18 at 13:00 Tamsulosin HCl (Flomax) 0.4 mg DAILY PO Last administered on 10/21/18at 08:37; Start 10/16/18 at 13:00 Pantoprazole Sodium (Protonix) 40 mg DAILYAC PO Last administered on 10/21/18at 07:51; Start 10/16/18 at 16:30 Gabapentin (Neurontin) 100 mg TID PO ; Start 10/16/18 at 14:00; Stop 10/16/18 at 16:21; Status DC Gabapentin (Neurontin) 100 mg TID PO Last administered on 10/20/18at 09:00; Start 10/16/18 at 14:00 Lidocaine/ Epinephrine (LIDOCAINE 1%-EPI 1:100,000 Multi-Dose) 20 ml STK-MED ONCE .ROUTE ; Start 10/17/18 at 09:26; Stop 10/17/18 at 09:27; Status DC Cefazolin Sodium 50 ml @ As Directed STK-MED ONCE IV ; Start 10/17/18 at 09:37; Stop 10/17/18 at 09:38; Status DC Midazolam HCl (Versed) 2 mg STK-MED ONCE .ROUTE ; Start 10/17/18 at 09:37; Stop 10/17/18 at 09:38; Status DC Fentanyl Citrate (Fentanyl 2ml Vial) 100 mcg STK-MED ONCE .ROUTE ; Start at 09:37; Stop 10/17/18 at 09:38; Status DC Midazolam HCl (Versed) 1 mg 1X ONCE IV Last administered on 10/17/18at 09:44; Start 10/17/18 at 10:15; Stop 10/17/18 at 10:16; Status DC Fentanyl Citrate (Fentanyl 2ml Vial) 50 mcg 1X ONCE IV Last administered on at 09:44; Start 10/17/18 at 10:15; Stop 10/17/18 at 10:16; Status DC Lidocaine/ Epinephrine (LIDOCAINE 1%-EPI 1:100,000 Multi-Dose) 7 ml 1X ONCE IJ Last administered on 10/17/18at 09:44; Start 10/17/18 at 10:15; Stop 10/17/18 at 10:16; Status DC Cefazolin Sodium 50 ml @ 100 mls/hr 1X ONCE IV Last administered on at 09:45; Start 10/17/18 at 10:15; Stop 10/17/18 at 10:44; Status DC Sodium Chloride 1,000 ml @ 1,000 mls/hr Q1H PRN IV hypotension; Start 10/17/18 at 18:06; Stop 10/18/18 at 00:05; Status DC Diphenhydramine HCl (Benadryl) 25 mg 1X PRN PRN IV ITCHING; Start 10/17/18 at 18:15; Stop 10/18/18 at 18:14; Status DC Diphenhydramine HCl (Benadryl) 25 mg 1X PRN PRN IV ITCHING; Start 10/17/18 at 18:15; Stop 10/18/18 at 18:14; Status DC Sodium Chloride 1,000 ml @ 400 mls/hr Q2H30M PRN IV PATENCY; Start 10/17/18 at 18:06; Stop 10/18/18 at 06:05; Status DC Info (PHARMACY MONITORING -- do not chart) 1 each PRN DAILY PRN MC SEE COMMENTS ; Start 10/17/18 at 18:15; Status Cancel Cefepime HCl (Maxipime) 1 gm Q12HR IVP ; Start 10/18/18 at 10:00; Stop 10/18/18 at 10:01; Status DC Info (PHARMACY MONITORING -- do not chart) 1 each PRN DAILY PRN MC SEE COMMENTS ; Start 10/18/18 at 10:00; Stop 10/18/18 at 10:04; Status DC Info (PHARMACY MONITORING -- do not chart) 1 each PRN DAILY PRN MC SEE COMMENTS ; Start 10/18/18 at 10:00; Stop 10/18/18 at 10:04; Status DC Meropenem 500 mg/ Sodium Chloride 50 ml @ 100 mls/hr Q12HR IV Last administered on 10/21/18at 08:37; Start 10/18/18 at 11:00 Darbepoetin [place] (Aranesp) 60 mcg WEEKLYHS SQ Last administered on 10/19/18at 21: 12; Start 10/19/18 at 21:00 Vitamin A/Vitamin D (Vitamin A & D Ointment) 1 melvin BID PRN TP SKIN PROTECTION; Start 10/19/18 at 13:15 Sodium Chloride 1,000 ml @ 1,000 mls/hr Q1H PRN IV hypotension; Start 10/19/18 at 15:33; Stop 10/19/18 at 21:32; Status DC Sodium Chloride (Normal Saline Flush) 10 ml 1X PRN PRN IV AP catheter pack; Start 10/19/18 at 15:45; Stop 10/20/18 at 15:44; Status DC Sodium Chloride (Normal Saline Flush) 10 ml 1X PRN PRN IV QUOTATION CLERK catheter pack; Start 10/19/18 at 15:45; Stop 10/20/18 at 15:44; Status DC Sodium Chloride 1,000 ml @ 400 mls/hr Q2H30M PRN IV PATENCY; Start 10/19/18 at 15:33; Stop 10/20/18 at 03:32; Status DC Info (PHARMACY MONITORING -- do not chart) 1 each PRN DAILY PRN MC SEE COMMENTS ; Start 10/19/18 at 15:45; Status UNV Info (PHARMACY MONITORING -- do not chart) 1 each PRN DAILY PRN MC SEE COMMENTS ; Start 10/19/18 at 15:45 Insulin Human Lispro (HumaLOG) 20 units STAT SQ ; Start 10/20/18 at 11:30; Stop 10/21/18 at 10:00; Status DC Insulin Glargine (Lantus) 8 units QHS SQ Last administered on 10/20/18at 21:15; Start 10/20/18 at 21:00; Stop 10/21/18 at 09:56; Status DC Insulin Human Lispro (HumaLOG) 15 units STAT STAT SQ Last administered on at 08:47; Start 10/21/18 at 08:21; Stop 10/21/18 at 08:24; Status DC Insulin Glargine (Lantus) 20 units QHS SQ ; Start 10/21/18 at 21:00 Insulin Glargine (Lantus) 15 units 1X ONCE SQ ; Start 10/21/18 at 10:30; Stop at 10:31; Status DC Insulin Human Lispro (HumaLOG) 10 units TIDWMEALS SQ ; Start 10/21/18 at 12:00 Insulin Human Lispro (HumaLOG) 15 units 1X ONCE SQ ; Start 10/21/18 at 10:30; Stop 10/21/18 at 10:31; Status DC Active Scripts Active Reported Nexium Capsule (Esomeprazole Magnesium) 20 Mg Capsule.dr 1 Cap PO DAILY Alfuzosin Hcl 10 Mg Tab.er.24h 10 Mg Pe PO DAILY Vitamin D3 (Cholecalciferol (Vitamin D3)) 1,000 Unit Tablet 1,000 Unit PO DAILY Hydrochlorothiazide 25 Mg Tablet 25 Mg PO DAILY Enalapril Maleate 10 Mg Tablet 10 Mg PO DAILY Gabapentin 100 Mg Capsule 100 Mg PO TID Diclofenac Sodium 75 Mg Tablet.dr 75 Mg PO BID Vitals/I & O Vital Sign - Last 24 Hours 10/20/18 10/20/18 10/20/18 10/20/18 15:13 19:07 20:00 22:17 Temp 98.3 97.8 98.1 98.3 97.8 98.1 Pulse 96 100 98 Resp 18 18 16 B/P (MAP) 127/61 (83) 138/70 (92) 145/67 (93) Pulse Ox 96 95 96 O2 Delivery Nasal Cannula Nasal Cannula Nasal Cannula Nasal Cannula O2 Flow Rate 2.0 2.0 2.0 2.0 10/21/18 10/21/18 10/21/18 10/21/18 01:55 02:00 02:25 07:00 Temp 97.8 99.0 97.8 99.0 Pulse 99 104 Resp 20 16 20 18 B/P (MAP) 141/62 (88) 155/75 (101) Pulse Ox 96 97 97 96 O2 Delivery Nasal Cannula Nasal Cannula Nasal Cannula Nasal Cannula O2 Flow Rate 2.0 2.0 2.0 2.0 10/21/18 11:00 Temp 99.2 99.2 Pulse 100 Resp 20 B/P (MAP) 143/70 (94) Pulse Ox 97 O2 Delivery Nasal Cannula O2 Flow Rate 2.0 Intake and Output 10/20/18 10/20/18 10/21/18 15:00 23:00 07:00 Intake Total 320 ml 100 ml 420 ml Output Total 50 ml 25 ml Balance 270 ml 100 ml 395 ml ELIEZER WHITTEN MD Oct 21, 2018 12:05
[2018-10-21] MEDS: IV NORMAL SALINE 1000ML BAG 1,000 ML IV SCH ×2 (15:40→23:30)
[2018-10-21] MEDS: SERTRALINE 25 MG TABLET. PO SCH (21:11)
[2018-10-21] MEDS: INSULIN GLARGINE 300 UNITS/3 ML INSULN.PEN. SQ SCH (21:15)
--- NOTE | 2018-10-21 21:37 | NUR ---
OK to print out labs and provide family/son per request NOT progress notes per Dorene RN
--- NOTE | 2018-10-22 00:34 | NUR ---
Notified Dr Flores of glucose of 277 after 6 units of Humalog. No further coverage, just check in AM. Will inform family
[2018-10-22] MEDS ORDERED: INSULIN LISPRO 300 UNITS/3 ML INSULN.PEN. SQ ONE ×3 (01:00→23:45)
--- NOTE | 2018-10-22 01:35 | NUR ---
After talking to Dr Flores (@[id number]) about pt's glucose of 277, the son was notified that no further insulin was ordered. The son wants to talk to the doctor. Dr. Flores was paged, called back and son talked to Dr Flores. Additional 4 units of Humalog was ordered and to check after 2 hours.
[2018-10-22 02:56] VITALS: BP 153/70
[2018-10-22 05:57] LABS: PROTHROMBIN TIME PATIENT 17.5 SEC (11.7-14.0)
[2018-10-22 05:58] LABS: BASO % 0 % (0-3); EOS # 0.1 x10^3/uL (0.0-0.7); EOS % 1 % (0-3); HEMATOCRIT 26.9 % (39.0-53.0); HEMOGLOBIN 9.3 g/dL (13.0-17.5); LYMPH # 1.4 x10^3/uL (1.0-4.8); LYMPH % 8 % (24-48); MEAN CORPUSCULAR HEMOGLOBIN 36 pg (25-35); MEAN CORPUSCULAR HGB CONC 35 g/dL (31-37); MEAN CORPUSCULAR VOLUME 104 fL (79-100); MONO # 1.6 x10^3/uL (0.0-1.1); MONO % 9 % (0-9); NEUT # 14.1 x10^3uL (1.8-7.7); NEUT % 82 % (31-73); RED BLOOD COUNT 2.59 x10^6/uL (4.30-5.70); WHITE BLOOD COUNT 17.1 x10^3/uL (4.0-11.0)
[2018-10-22 06:01] LABS: ALBUMIN 1.4 g/dL (3.4-5.0); ALBUMIN/GLOBULIN RATIO 0.3 (1.0-1.7); CALCIUM 7.8 mg/dL (8.5-10.1); CREATININE 2.4 mg/dL (0.7-1.3); GFR 27.6; POTASSIUM 3.2 mmol/L (3.5-5.1); TOTAL BILIRUBIN 7.8 mg/dL (0.2-1.0)
[2018-10-22 06:03] LABS: PLATELET COUNT 18 x10^3/uL (140-400)
[2018-10-22 07:15] VITALS: BP 128/56
[2018-10-22] MEDS ORDERED: IV NORMAL SALINE 1000ML BAG 1,000 ML IV PRN (07:29)
[2018-10-22] MEDS ORDERED: DIALYSIS PATIENT. MC PRN ×2 (07:30)
[2018-10-22] MEDS ORDERED: 0.9 % SODIUM CHLORIDE 10 ML DISP.SYRIN. IV PRN ×2 (07:30)
[2018-10-22] MEDS: INSULIN LISPRO 300 UNITS/3 ML INSULN.PEN. SQ SCH ×6 (08:00→17:00)
--- NOTE | 2018-10-22 08:26 | PDOC ---
PROGRESS NOTES Chief Complaint Chief Complaint Acute renal failure, ESRD - new HD - Likely HEPATORENAL SYNDROME Anemia, multifactorial Established cirrhosis, decompensated likely from infection. w. ascites Hx of esophageal varices on propanolol Complicated E coli UTI/clinically c/w pyelonephritis with resistance to rocephin and others Hepatic metabolic encephalopathy, subtle/mild Mod PCM, poor PO itnake Dm,2, poor control, increased insulin Hyperbilirubinemia TB 6 with pruritus Likely ESLD - hospice has been considered Thrombocytopenia Poor prognosis History of Present Illness History of Present Illness Mr Hernandez is a 63 y/o male with known alcoholic cirrhosis; previously seen at [facility]. Family states other causes of liver disease effectively ruled out. 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 Banded several times. Last EGD a year ago and nothing left to band. No h/o ascites, though occasional LE edema. Admitted with complicated UTI - MDRO 3/: plt continue to decline, not improved Very edematous today, seen on dialysis No bleed. Family is worried about get a paracentesis and overall prognosis. They have noted he is still confused. They wish to meet with palliative care, after a long discussion today they are leaning toward DNR/DNI consistent with patient wishes, he had actually already made this very clear to family and noted he wants his body donated to medical research/cadaver lab. A/P: hepatic encephalopathy despite normal ammonia Total bili 9.6 3/2 Platelets 18 k Creatinine 2.1 from 5 Blood sugars running high added lantus 8 units sq hs 3/2 uncontrolled diabetes Dialysis per renal ID consulted ID recommendations Continue PT OT Continue dialysis per renal Avoid nephrotoxins Monitor that low platelets hepatic encephalopathy and anemia DNR/DNI, will update Will d/w all specialists Vitals Vitals Vital Signs Date Time Temp Pulse Resp B/P (MAP) Pulse Ox O2 Delivery O2 Flow Rate FiO2 10/22/18 08:13 Nasal Cannula 2.0 10/22/18 07:15 97.4 99 14 128/56 (80) 96 97.4 Physical Exam Physical Exam GENERAL: Lethargic HEENT: Oral cavity dry LUNGS: Clear. HEART: S1 and S2 regular. ABDOMEN: Soft and nontender EXTREMITIES: 1-2 edema BLE. No cyanosis SKIN: warm without rash NEUROLOGICAL: Arouses to name, lethargic Tunneled HDC (10/17) clean General: Alert, No acute distress Heart: Regular rate, Normal S1, Normal S2 Abdomen: Normal bowel sounds, Soft, No tenderness, Other (MILD ASCITES) Extremities: No clubbing, No cyanosis Skin: No rashes, No breakdown, No significant lesion Labs LABS Laboratory Tests Test 10/21/18 09:59 10/21/18 10:43 10/21/18 12:08 10/21/18 16:58 Glucose (Fingerstick) 314 mg/dL (70-99) 259 mg/dL (70-99) 362 mg/dL (70-99) White Blood Count 17.5 x10^3/uL (4.0-11.0) Red Blood Count 2.67 x10^6/uL (4.30-5.70) Hemoglobin 9.4 g/dL (13.0-17.5) Hematocrit 28.0 % (39.0-53.0) Mean Corpuscular Volume 105 fL (79-100) Mean Corpuscular Hemoglobin 35 pg (25-35) Mean Corpuscular Hemoglobin Concent 34 g/dL (31-37) Red Cell Distribution Width 15.0 % (11.5-14.5) Platelet Count 16 x10^3/uL (140-400) Neutrophils (%) (Auto) 81 % (31-73) Lymphocytes (%) (Auto) 14 % (24-48) Monocytes (%) (Auto) 5 % (0-9) Eosinophils (%) (Auto) 0 % (0-3) Basophils (%) (Auto) 1 % (0-3) Neutrophils # (Auto) 14.1 x10^3uL (1.8-7.7) Lymphocytes # (Auto) 2.4 x10^3/uL (1.0-4.8) Monocytes # (Auto) 0.8 x10^3/uL (0.0-1.1) Eosinophils # (Auto) 0.0 x10^3/uL (0.0-0.7) Basophils # (Auto) 0.2 x10^3/uL (0.0-0.2) Sodium Level 130 mmol/L (136-145) Potassium Level 3.4 mmol/L (3.5-5.1) Chloride Level 97 mmol/L (98-107) Carbon Dioxide Level 25 mmol/L (21-32) Anion Gap 8 (6-14) Blood Urea Nitrogen 57 mg/dL (8-26) Creatinine 2.6 mg/dL (0.7-1.3) Estimated GFR (Cockcroft-Gault) 25.1 BUN/Creatinine Ratio 22 (6-20) Glucose Level 291 mg/dL (70-99) Calcium Level 7.5 mg/dL (8.5-10.1) Total Bilirubin 8.9 mg/dL (0.2-1.0) Aspartate Amino Transf (AST/SGOT) 69 U/L (15-37) Alanine Aminotransferase (ALT/SGPT) 73 U/L (16-63) Alkaline Phosphatase 304 U/L (46-116) Total Protein 5.9 g/dL (6.4-8.2) Albumin 1.4 g/dL (3.4-5.0) Albumin/Globulin Ratio 0.3 (1.0-1.7) Test 10/21/18 19:51 10/21/18 22:04 10/22/18 00:28 10/22/18 02:15 Glucose (Fingerstick) 331 mg/dL (70-99) 305 mg/dL (70-99) 277 mg/dL (70-99) 213 mg/dL (70-99) Test 10/22/18 04:45 10/22/18 05:39 10/22/18 07:14 White Blood Count 17.1 x10^3/uL (4.0-11.0) Red Blood Count 2.59 x10^6/uL (4.30-5.70) Hemoglobin 9.3 g/dL (13.0-17.5) Hematocrit 26.9 % (39.0-53.0) Mean Corpuscular Volume 104 fL (79-100) Mean Corpuscular Hemoglobin 36 pg (25-35) Mean Corpuscular Hemoglobin Concent 35 g/dL (31-37) Red Cell Distribution Width 15.0 % (11.5-14.5) Platelet Count 18 x10^3/uL (140-400) Neutrophils (%) (Auto) 82 % (31-73) Lymphocytes (%) (Auto) 8 % (24-48) Monocytes (%) (Auto) 9 % (0-9) Eosinophils (%) (Auto) 1 % (0-3) Basophils (%) (Auto) 0 % (0-3) Neutrophils # (Auto) 14.1 x10^3uL (1.8-7.7) Lymphocytes # (Auto) 1.4 x10^3/uL (1.0-4.8) Monocytes # (Auto) 1.6 x10^3/uL (0.0-1.1) Eosinophils # (Auto) 0.1 x10^3/uL (0.0-0.7) Basophils # (Auto) 0.0 x10^3/uL (0.0-0.2) Prothrombin Time 17.5 SEC (11.7-14.0) Prothromb Time International Ratio 1.5 (0.8-1.1) Sodium Level 131 mmol/L (136-145) Potassium Level 3.2 mmol/L (3.5-5.1) Chloride Level 98 mmol/L (98-107) Carbon Dioxide Level 26 mmol/L (21-32) Anion Gap 7 (6-14) Blood Urea Nitrogen 66 mg/dL (8-26) Creatinine 2.4 mg/dL (0.7-1.3) Estimated GFR (Cockcroft-Gault) 27.6 BUN/Creatinine Ratio 28 (6-20) Glucose Level 198 mg/dL (70-99) Calcium Level 7.8 mg/dL (8.5-10.1) Total Bilirubin 7.8 mg/dL (0.2-1.0) Aspartate Amino Transf (AST/SGOT) 66 U/L (15-37) Alanine Aminotransferase (ALT/SGPT) 71 U/L (16-63) Alkaline Phosphatase 290 U/L (46-116) Ammonia 71 mcmol/L (11-34) Total Protein 6.0 g/dL (6.4-8.2) Albumin 1.4 g/dL (3.4-5.0) Albumin/Globulin Ratio 0.3 (1.0-1.7) Glucose (Fingerstick) 175 mg/dL (70-99) 183 mg/dL (70-99) Assessment and Plan Assessmemt and Plan Problems Medical Problems: (1) Acute pyelonephritis Status: Acute (2) Acute renal failure Status: Acute (3) Exertional dyspnea Status: Acute (4) Hyponatremia Status: Acute Comment Review of Relevant I have reviewed the following items ester (where applicable) has been applied. Labs Laboratory Tests Test 10/20/18 11:21 10/20/18 15:07 10/20/18 16:42 10/20/18 20:32 Glucose (Fingerstick) 403 mg/dL (70-99) 391 mg/dL (70-99) 323 mg/dL (70-99) 308 mg/dL (70-99) Test 10/21/18 07:58 10/21/18 09:59 10/21/18 10:43 10/21/18 12:08 Glucose (Fingerstick) 376 mg/dL (70-99) 314 mg/dL (70-99) 259 mg/dL (70-99) White Blood Count 17.5 x10^3/uL (4.0-11.0) Red Blood Count 2.67 x10^6/uL (4.30-5.70) Hemoglobin 9.4 g/dL (13.0-17.5) Hematocrit 28.0 % (39.0-53.0) Mean Corpuscular Volume 105 fL (79-100) Mean Corpuscular Hemoglobin 35 pg (25-35) Mean Corpuscular Hemoglobin Concent 34 g/dL (31-37) Red Cell Distribution Width 15.0 % (11.5-14.5) Platelet Count 16 x10^3/uL (140-400) Neutrophils (%) (Auto) 81 % (31-73) Lymphocytes (%) (Auto) 14 % (24-48) Monocytes (%) (Auto) 5 % (0-9) Eosinophils (%) (Auto) 0 % (0-3) Basophils (%) (Auto) 1 % (0-3) Neutrophils # (Auto) 14.1 x10^3uL (1.8-7.7) Lymphocytes # (Auto) 2.4 x10^3/uL (1.0-4.8) Monocytes # (Auto) 0.8 x10^3/uL (0.0-1.1) Eosinophils # (Auto) 0.0 x10^3/uL (0.0-0.7) Basophils # (Auto) 0.2 x10^3/uL (0.0-0.2) Sodium Level 130 mmol/L (136-145) Potassium Level 3.4 mmol/L (3.5-5.1) Chloride Level 97 mmol/L (98-107) Carbon Dioxide Level 25 mmol/L (21-32) Anion Gap 8 (6-14) Blood Urea Nitrogen 57 mg/dL (8-26) Creatinine 2.6 mg/dL (0.7-1.3) Estimated GFR (Cockcroft-Gault) 25.1 BUN/Creatinine Ratio 22 (6-20) Glucose Level 291 mg/dL (70-99) Calcium Level 7.5 mg/dL (8.5-10.1) Total Bilirubin 8.9 mg/dL (0.2-1.0) Aspartate Amino Transf (AST/SGOT) 69 U/L (15-37) Alanine Aminotransferase (ALT/SGPT) 73 U/L (16-63) Alkaline Phosphatase 304 U/L (46-116) Total Protein 5.9 g/dL (6.4-8.2) Albumin 1.4 g/dL (3.4-5.0) Albumin/Globulin Ratio 0.3 (1.0-1.7) Test 10/21/18 16:58 10/21/18 19:51 10/21/18 22:04 10/22/18 00:28 Glucose (Fingerstick) 362 mg/dL (70-99) 331 mg/dL (70-99) 305 mg/dL (70-99) 277 mg/dL (70-99) Test 10/22/18 02:15 10/22/18 04:45 10/22/18 05:39 10/22/18 07:14 Glucose (Fingerstick) 213 mg/dL (70-99) 175 mg/dL (70-99) 183 mg/dL (70-99) White Blood Count 17.1 x10^3/uL (4.0-11.0) Red Blood Count 2.59 x10^6/uL (4.30-5.70) Hemoglobin 9.3 g/dL (13.0-17.5) Hematocrit 26.9 % (39.0-53.0) Mean Corpuscular Volume 104 fL (79-100) Mean Corpuscular Hemoglobin 36 pg (25-35) Mean Corpuscular Hemoglobin Concent 35 g/dL (31-37) Red Cell Distribution Width 15.0 % (11.5-14.5) Platelet Count 18 x10^3/uL (140-400) Neutrophils (%) (Auto) 82 % (31-73) Lymphocytes (%) (Auto) 8 % (24-48) Monocytes (%) (Auto) 9 % (0-9) Eosinophils (%) (Auto) 1 % (0-3) Basophils (%) (Auto) 0 % (0-3) Neutrophils # (Auto) 14.1 x10^3uL (1.8-7.7) Lymphocytes # (Auto) 1.4 x10^3/uL (1.0-4.8) Monocytes # (Auto) 1.6 x10^3/uL (0.0-1.1) Eosinophils # (Auto) 0.1 x10^3/uL (0.0-0.7) Basophils # (Auto) 0.0 x10^3/uL (0.0-0.2) Prothrombin Time 17.5 SEC (11.7-14.0) Prothromb Time International Ratio 1.5 (0.8-1.1) Sodium Level 131 mmol/L (136-145) Potassium Level 3.2 mmol/L (3.5-5.1) Chloride Level 98 mmol/L (98-107) Carbon Dioxide Level 26 mmol/L (21-32) Anion Gap 7 (6-14) Blood Urea Nitrogen 66 mg/dL (8-26) Creatinine 2.4 mg/dL (0.7-1.3) Estimated GFR (Cockcroft-Gault) 27.6 BUN/Creatinine Ratio 28 (6-20) Glucose Level 198 mg/dL (70-99) Calcium Level 7.8 mg/dL (8.5-10.1) Total Bilirubin 7.8 mg/dL (0.2-1.0) Aspartate Amino Transf (AST/SGOT) 66 U/L (15-37) Alanine Aminotransferase (ALT/SGPT) 71 U/L (16-63) Alkaline Phosphatase 290 U/L (46-116) Ammonia 71 mcmol/L (11-34) Total Protein 6.0 g/dL (6.4-8.2) Albumin 1.4 g/dL (3.4-5.0) Albumin/Globulin Ratio 0.3 (1.0-1.7) Laboratory Tests Test 10/21/18 09:59 10/21/18 10:43 10/21/18 12:08 10/21/18 16:58 Glucose (Fingerstick) 314 mg/dL (70-99) 259 mg/dL (70-99) 362 mg/dL (70-99) White Blood Count 17.5 x10^3/uL (4.0-11.0) Red Blood Count 2.67 x10^6/uL (4.30-5.70) Hemoglobin 9.4 g/dL (13.0-17.5) Hematocrit 28.0 % (39.0-53.0) Mean Corpuscular Volume 105 fL (79-100) Mean Corpuscular Hemoglobin 35 pg (25-35) Mean Corpuscular Hemoglobin Concent 34 g/dL (31-37) Red Cell Distribution Width 15.0 % (11.5-14.5) Platelet Count 16 x10^3/uL (140-400) Neutrophils (%) (Auto) 81 % (31-73) Lymphocytes (%) (Auto) 14 % (24-48) Monocytes (%) (Auto) 5 % (0-9) Eosinophils (%) (Auto) 0 % (0-3) Basophils (%) (Auto) 1 % (0-3) Neutrophils # (Auto) 14.1 x10^3uL (1.8-7.7) Lymphocytes # (Auto) 2.4 x10^3/uL (1.0-4.8) Monocytes # (Auto) 0.8 x10^3/uL (0.0-1.1) Eosinophils # (Auto) 0.0 x10^3/uL (0.0-0.7) Basophils # (Auto) 0.2 x10^3/uL (0.0-0.2) Sodium Level 130 mmol/L (136-145) Potassium Level 3.4 mmol/L (3.5-5.1) Chloride Level 97 mmol/L (98-107) Carbon Dioxide Level 25 mmol/L (21-32) Anion Gap 8 (6-14) Blood Urea Nitrogen 57 mg/dL (8-26) Creatinine 2.6 mg/dL (0.7-1.3) Estimated GFR (Cockcroft-Gault) 25.1 BUN/Creatinine Ratio 22 (6-20) Glucose Level 291 mg/dL (70-99) Calcium Level 7.5 mg/dL (8.5-10.1) Total Bilirubin 8.9 mg/dL (0.2-1.0) Aspartate Amino Transf (AST/SGOT) 69 U/L (15-37) Alanine Aminotransferase (ALT/SGPT) 73 U/L (16-63) Alkaline Phosphatase 304 U/L (46-116) Total Protein 5.9 g/dL (6.4-8.2) Albumin 1.4 g/dL (3.4-5.0) Albumin/Globulin Ratio 0.3 (1.0-1.7) Test 10/21/18 19:51 10/21/18 22:04 10/22/18 00:28 10/22/18 02:15 Glucose (Fingerstick) 331 mg/dL (70-99) 305 mg/dL (70-99) 277 mg/dL (70-99) 213 mg/dL (70-99) Test 10/22/18 04:45 10/22/18 05:39 10/22/18 07:14 White Blood Count 17.1 x10^3/uL (4.0-11.0) Red Blood Count 2.59 x10^6/uL (4.30-5.70) Hemoglobin 9.3 g/dL (13.0-17.5) Hematocrit 26.9 % (39.0-53.0) Mean Corpuscular Volume 104 fL (79-100) Mean Corpuscular Hemoglobin 36 pg (25-35) Mean Corpuscular Hemoglobin Concent 35 g/dL (31-37) Red Cell Distribution Width 15.0 % (11.5-14.5) Platelet Count 18 x10^3/uL (140-400) Neutrophils (%) (Auto) 82 % (31-73) Lymphocytes (%) (Auto) 8 % (24-48) Monocytes (%) (Auto) 9 % (0-9) Eosinophils (%) (Auto) 1 % (0-3) Basophils (%) (Auto) 0 % (0-3) Neutrophils # (Auto) 14.1 x10^3uL (1.8-7.7) Lymphocytes # (Auto) 1.4 x10^3/uL (1.0-4.8) Monocytes # (Auto) 1.6 x10^3/uL (0.0-1.1) Eosinophils # (Auto) 0.1 x10^3/uL (0.0-0.7) Basophils # (Auto) 0.0 x10^3/uL (0.0-0.2) Prothrombin Time 17.5 SEC (11.7-14.0) Prothromb Time International Ratio 1.5 (0.8-1.1) Sodium Level 131 mmol/L (136-145) Potassium Level 3.2 mmol/L (3.5-5.1) Chloride Level 98 mmol/L (98-107) Carbon Dioxide Level 26 mmol/L (21-32) Anion Gap 7 (6-14) Blood Urea Nitrogen 66 mg/dL (8-26) Creatinine 2.4 mg/dL (0.7-1.3) Estimated GFR (Cockcroft-Gault) 27.6 BUN/Creatinine Ratio 28 (6-20) Glucose Level 198 mg/dL (70-99) Calcium Level 7.8 mg/dL (8.5-10.1) Total Bilirubin 7.8 mg/dL (0.2-1.0) Aspartate Amino Transf (AST/SGOT) 66 U/L (15-37) Alanine Aminotransferase (ALT/SGPT) 71 U/L (16-63) Alkaline Phosphatase 290 U/L (46-116) Ammonia 71 mcmol/L (11-34) Total Protein 6.0 g/dL (6.4-8.2) Albumin 1.4 g/dL (3.4-5.0) Albumin/Globulin Ratio 0.3 (1.0-1.7) Glucose (Fingerstick) 175 mg/dL (70-99) 183 mg/dL (70-99) Microbiology 10/14/18 Urine Culture - Final, Complete 10/14/18 Urine Culture Result 1 (SABRINA) - Final, Complete 10/14/18 Antimicrobic Susceptibility - Final, Complete Medications Current Medications Sodium Chloride 500 ml @ 500 mls/hr 1X ONCE IV Last administered on at 09:47; Start 10/14/18 at 09:30; Stop 10/14/18 at 10:29; Status DC Ondansetron HCl (Zofran) 4 mg PRN Q8HRS PRN IV NAUSEA/VOMITING Last administered on 10/15/18 09:57; Start 10/14/18 at 10:15; Stop 10/15/18 at 10:14 ; Status DC Ceftriaxone Sodium (Rocephin) 1 gm 1X ONCE IVP Last administered on 10/14/18 10:41; Start 10/14/18 at 10:30; Stop 10/14/18 at 10:31; Status DC Ceftriaxone Sodium (Rocephin) 1 gm Q24H IVP Last administered on 10/17/18 11: 37; Start 10/15/18 at 10:00; Stop 10/18/18 at 09:12; Status DC Oxycodone/ Acetaminophen (Percocet 5/325) 1 tab PRN Q4HRS PRN PO PAIN Last administered on 10/18/18 21:54; Start 10/14/18 at 12:00 Morphine Sulfate (Morphine Sulfate) 4 mg PRN Q2HR PRN IV PAIN Last administered on 10/21/18 23:23; Start 10/14/18 at 12:00 Sodium Chloride 1,000 ml @ 100 mls/hr 1X ONCE IV Last administered on 12:15; Start 10/14/18 at 12:00; Stop 10/14/18 at 21:59; Status DC Lactobacillus Rhamnosus (Culturelle) 1 cap BID PO Last administered on 21:11; Start 10/14/18 at 21:00 Ondansetron HCl (Zofran) 4 mg PRN Q6HRS PRN IV NAUSEA/VOMITING; Start 10/15/18 at 10:30 Ondansetron HCl (Zofran Odt) 4 mg PRN Q6HRS PRN PO NAUSEA/VOMITING; Start 10/15 at 10:30 Sodium Chloride 1,000 ml @ 75 mls/hr [id number] IV Last administered on 10/21/18 23:30; Start 10/15/18 at 13:00 Lactulose (Lactulose) 20 gm TID PO Last administered on 10/20/18 20:20; Start 10/15/18 at 15:00 Sertraline HCl (Zoloft) 25 mg QHS PO Last administered on 10/21/18at 21:11; Start 10/15/18 at 21:00 Insulin Human Lispro (HumaLOG) 0-9 UNITS TIDWMEALS SQ Last administered on at 17:27; Start 10/16/18 at 17:00 Dextrose (Dextrose 50%-Water Syringe) 12.5 gm PRN Q15MIN PRN IV SEE COMMENTS; Start 10/16/18 at 12:15 Labetalol HCl (Normodyne Iv Push) 20 mg 1X ONCE IVP ; Start 10/16/18 at 12:15; Stop 10/16/18 at 12:15; Status DC Labetalol HCl (Normodyne Iv Push) 10 mg PRN Q2HR PRN IVP HYPERTENSION, SEE COMMENTS; Start 10/16/18 at 12:15 Vitamin D (Vitamin D3) 1,000 unit DAILY PO Last administered on 10/21/18at 10:22 ; Start 10/16/18 at 13:00 Tamsulosin HCl (Flomax) 0.4 mg DAILY PO Last administered on 10/21/18at 08:37; Start 10/16/18 at 13:00 Pantoprazole Sodium (Protonix) 40 mg DAILYAC PO Last administered on 10/21/18at 07:51; Start 10/16/18 at 16:30 Gabapentin (Neurontin) 100 mg TID PO ; Start 10/16/18 at 14:00; Stop 10/16/18 at 16:21; Status DC Gabapentin (Neurontin) 100 mg TID PO Last administered on 10/20/18at 09:00; Start 10/16/18 at 14:00 Lidocaine/ Epinephrine (LIDOCAINE 1%-EPI 1:100,000 Multi-Dose) 20 ml STK-MED ONCE .ROUTE ; Start 10/17/18 at 09:26; Stop 10/17/18 at 09:27; Status DC Cefazolin Sodium 50 ml @ As Directed STK-MED ONCE IV ; Start 10/17/18 at 09:37; Stop 10/17/18 at 09:38; Status DC Midazolam HCl (Versed) 2 mg STK-MED ONCE .ROUTE ; Start 10/17/18 at 09:37; Stop 10/17/18 at 09:38; Status DC Fentanyl Citrate (Fentanyl 2ml Vial) 100 mcg STK-MED ONCE .ROUTE ; Start at 09:37; Stop 10/17/18 at 09:38; Status DC Midazolam HCl (Versed) 1 mg 1X ONCE IV Last administered on 10/17/18at 09:44; Start 10/17/18 at 10:15; Stop 10/17/18 at 10:16; Status DC Fentanyl Citrate (Fentanyl 2ml Vial) 50 mcg 1X ONCE IV Last administered on at 09:44; Start 10/17/18 at 10:15; Stop 10/17/18 at 10:16; Status DC Lidocaine/ Epinephrine (LIDOCAINE 1%-EPI 1:100,000 Multi-Dose) 7 ml 1X ONCE IJ Last administered on 10/17/18at 09:44; Start 10/17/18 at 10:15; Stop 10/17/18 at 10:16; Status DC Cefazolin Sodium 50 ml @ 100 mls/hr 1X ONCE IV Last administered on at 09:45; Start 10/17/18 at 10:15; Stop 10/17/18 at 10:44; Status DC Sodium Chloride 1,000 ml @ 1,000 mls/hr Q1H PRN IV hypotension; Start 10/17/18 at 18:06; Stop 10/18/18 at 00:05; Status DC Diphenhydramine HCl (Benadryl) 25 mg 1X PRN PRN IV ITCHING; Start 10/17/18 at 18:15; Stop 10/18/18 at 18:14; Status DC Diphenhydramine HCl (Benadryl) 25 mg 1X PRN PRN IV ITCHING; Start 10/17/18 at 18:15; Stop 10/18/18 at 18:14; Status DC Sodium Chloride 1,000 ml @ 400 mls/hr Q2H30M PRN IV PATENCY; Start 10/17/18 at 18:06; Stop 10/18/18 at 06:05; Status DC Info (PHARMACY MONITORING -- do not chart) 1 each PRN DAILY PRN MC SEE COMMENTS ; Start 10/17/18 at 18:15; Status Cancel Cefepime HCl (Maxipime) 1 gm Q12HR IVP ; Start 10/18/18 at 10:00; Stop 10/18/18 at 10:01; Status DC Info (PHARMACY MONITORING -- do not chart) 1 each PRN DAILY PRN MC SEE COMMENTS ; Start 10/18/18 at 10:00; Stop 10/18/18 at 10:04; Status DC Info (PHARMACY MONITORING -- do not chart) 1 each PRN DAILY PRN MC SEE COMMENTS ; Start 10/18/18 at 10:00; Stop 10/18/18 at 10:04; Status DC Meropenem 500 mg/ Sodium Chloride 50 ml @ 100 mls/hr Q12HR IV Last administered on 10/21/18at 21:11; Start 10/18/18 at 11:00 Darbepoetin [place] (Aranesp) 60 mcg [id number] SQ Last administered on 10/19/18at 21: 12; Start 10/19/18 at 21:00 Vitamin A/Vitamin D (Vitamin A & D Ointment) 1 melvin BID PRN TP SKIN PROTECTION; Start 10/19/18 at 13:15 Sodium Chloride 1,000 ml @ 1,000 mls/hr Q1H PRN IV hypotension; Start 10/19/18 at 15:33; Stop 10/19/18 at 21:32; Status DC Sodium Chloride (Normal Saline Flush) 10 ml 1X PRN PRN IV AP catheter pack; Start 10/19/18 at 15:45; Stop 10/20/18 at 15:44; Status DC Sodium Chloride (Normal Saline Flush) 10 ml 1X PRN PRN IV MARINE DRAFTER catheter pack; Start 10/19/18 at 15:45; Stop 10/20/18 at 15:44; Status DC Sodium Chloride 1,000 ml @ 400 mls/hr Q2H30M PRN IV PATENCY; Start 10/19/18 at 15:33; Stop 10/20/18 at 03:32; Status DC Info (PHARMACY MONITORING -- do not chart) 1 each PRN DAILY PRN MC SEE COMMENTS ; Start 10/19/18 at 15:45; Status UNV Info (PHARMACY MONITORING -- do not chart) 1 each PRN DAILY PRN MC SEE COMMENTS ; Start 10/19/18 at 15:45 Insulin Human Lispro (HumaLOG) 20 units STAT SQ ; Start 10/20/18 at 11:30; Stop 10/21/18 at 10:00; Status DC Insulin Glargine (Lantus) 8 units QHS SQ Last administered on 10/20/18at 21:15; Start 10/20/18 at 21:00; Stop 10/21/18 at 09:56; Status DC Insulin Human Lispro (HumaLOG) 15 units STAT STAT SQ Last administered on at 08:47; Start 10/21/18 at 08:21; Stop 10/21/18 at 08:24; Status DC Insulin Glargine (Lantus) 20 units QHS SQ Last administered on 10/21/18at 21:15; Start 10/21/18 at 21:00 Insulin Glargine (Lantus) 15 units 1X ONCE SQ Last administered on 10/21/18at 13 :24; Start 10/21/18 at 10:30; Stop 10/21/18 at 10:31; Status DC Insulin Human Lispro (HumaLOG) 10 units TIDWMEALS SQ Last administered on at 17:28; Start 10/21/18 at 12:00 Insulin Human Lispro (HumaLOG) 15 units 1X ONCE SQ ; Start 10/21/18 at 10:30; Stop 10/21/18 at 10:31; Status DC Insulin Human Lispro (HumaLOG) 9 units 1X ONCE SQ Last administered on at 20:06; Start 10/21/18 at 20:00; Stop 10/21/18 at 20:09; Status DC Insulin Human Lispro (HumaLOG) 6 units 1X ONCE SQ Last administered on at 22:23; Start 10/21/18 at 22:30; Stop 10/21/18 at 22:31; Status DC Insulin Human Lispro (HumaLOG) 4 units 1X ONCE SQ Last administered on at 00:54; Start 10/22/18 at 01:00; Stop 10/22/18 at 01:01; Status DC Insulin Human Lispro (HumaLOG) 2 units 1X ONCE SQ Last administered on at 02:42; Start 10/22/18 at 03:00; Stop 10/22/18 at 03:01; Status DC Sodium Chloride 1,000 ml @ 1,000 mls/hr Q1H PRN IV hypotension; Start 10/22/18 at 07:29; Stop 10/22/18 at 13:28 Sodium Chloride (Normal Saline Flush) 10 ml 1X PRN PRN IV AP catheter pack; Start 10/22/18 at 07:30; Stop 10/23/18 at 07:29 Sodium Chloride (Normal Saline Flush) 10 ml 1X PRN PRN IV MARINE DRAFTER catheter pack; Start 10/22/18 at 07:30; Stop 10/23/18 at 07:29 Info (PHARMACY MONITORING -- do not chart) 1 each PRN DAILY PRN MC SEE COMMENTS ; Start 10/22/18 at 07:30; Status UNV Info (PHARMACY MONITORING -- do not chart) 1 each PRN DAILY PRN MC SEE COMMENTS ; Start 10/22/18 at 07:30 Active Scripts Active Reported Nexium Capsule (Esomeprazole Magnesium) 20 Mg Capsule. 1 Cap PO DAILY Alfuzosin Hcl 10 Mg Tab.er.24h 10 Mg Pe PO DAILY Vitamin D3 (Cholecalciferol (Vitamin D3)) 1,000 Unit Tablet 1,000 Unit PO DAILY Hydrochlorothiazide 25 Mg Tablet 25 Mg PO DAILY Enalapril Maleate 10 Mg Tablet 10 Mg PO DAILY Gabapentin 100 Mg Capsule 100 Mg PO TID Diclofenac Sodium 75 Mg Tablet. 75 Mg PO BID Vitals/I & O Vital Sign - Last 24 Hours 10/21/18 10/21/18 10/21/18 10/21/18 11:00 14:50 15:00 19:00 Temp 99.2 98.0 97.9 99.2 98.0 97.9 Pulse 100 106 104 Resp 20 22 20 19 B/P (MAP) 143/70 (94) 137/71 (93) 172/72 (105) Pulse Ox 97 97 96 95 O2 Delivery Nasal Cannula Nasal Cannula Nasal Cannula Nasal Cannula O2 Flow Rate 2.0 2.0 2.0 2.0 10/21/18 10/21/18 10/21/18 10/21/18 19:39 20:00 20:09 20:26 Pulse 107 Resp 20 20 B/P (MAP) 145/65 (91) Pulse Ox 96 96 O2 Delivery Nasal Cannula Nasal Cannula Nasal Cannula O2 Flow Rate 2.0 2.0 2.0 10/21/18 10/21/18 10/22/18 10/22/18 22:45 23:23 02:56 07:15 Temp 97.9 98.1 97.4 97.9 98.1 97.4 Pulse 106 110 99 Resp 19 20 20 14 B/P (MAP) 119/52 (74) 153/70 (97) 128/56 (80) Pulse Ox 96 96 91 96 O2 Delivery Nasal Cannula Nasal Cannula Nasal Cannula Room Air O2 Flow Rate 2.0 2.0 2.0 10/22/18 08:13 O2 Delivery Nasal Cannula O2 Flow Rate 2.0 Intake and Output 10/21/18 10/21/18 10/22/18 14:59 22:59 06:59 Intake Total 100 ml Balance 100 ml MEGGAN BALDWIN MD Oct 22, 2018 08:26
[2018-10-22] MEDS: MORPHINE SULFATE 4 MG/ML VIAL. IV PRN ×3 (08:57→22:32)
[2018-10-22] MEDS: LACTULOSE 20 GM/30 ML SOLUTION. PO SCH ×3 (09:00→21:00)
[2018-10-22] MEDS: TAMSULOSIN 0.4 MG CAP.ER.24H. PO SCH (09:00)
[2018-10-22] MEDS: GABAPENTIN 100 MG CAPSULE. PO SCH ×3 (09:00→21:00)
[2018-10-22] MEDS: CHOLECALCIFEROL (VITAMIN D3) 1,000 UNIT TABLET PO SCH (09:00)
--- NOTE | 2018-10-22 09:06 | PDOC ---
Infectious Disease Note Subjective: Subjective Pt seen in dialysis unit, appears weak arousable, says feels ok, denies pain No fevers, vomiting or diarrhea reported Temp 94.5 axillary during dialysis session cont to have intermitent confusion ROS: ROS as above d/w RN D/W Son and at bedside. Vital Signs: Vital Signs Vital Signs Date Time Temp Pulse Resp B/P (MAP) Pulse Ox O2 Delivery O2 Flow Rate FiO2 10/22/18 08:57 Nasal Cannula 2.0 10/22/18 07:15 97.4 99 14 128/56 (80) 96 97.4 Physical Exam: PHYSICAL EXAM GENERAL: Lethargic HEENT: Oral cavity dry LUNGS: Clear. HEART: S1 and S2 regular. ABDOMEN: Soft and nontender EXTREMITIES: 1-2 edema BLE. No cyanosis SKIN: warm without rash NEUROLOGICAL: Arouses to name, lethargic Tunneled HDC (10/17) clean Medications: Inpatient Meds: Current Medications Medications (Trade) Dose Ordered Sig/Micheal Start Time Stop Time Status Last Admin Dose Admin Cefazolin Sodium 50 ml @ 100 mls/hr 1X ONCE 10/17/18 10:15 10/17/18 10:44 DC 10/17/18 09:45 100 MLS/HR Cefepime HCl (Maxipime) 1 gm Q12HR 10/18/18 10:00 10/18/18 10:01 DC Ceftriaxone Sodium (Rocephin) 1 gm Q24H 10/15/18 10:00 10/18/18 09:12 DC 10/17/18 11:37 1 GM Darbepoetin Poncho (Aranesp) 60 mcg WEEKLYHS 10/19/18 21:00 10/19/18 21:12 60 MCG Dextrose (Dextrose 50%-Water Syringe) 12.5 gm PRN Q15MIN PRN 10/16/18 12:15 Diphenhydramine HCl (Benadryl) 25 mg 1X PRN PRN 10/17/18 18:15 10/18/18 18:14 DC Fentanyl Citrate (Fentanyl 2ml Vial) 50 mcg 1X ONCE 10/17/18 10:15 10/17/18 10:16 DC 10/17/18 09:44 50 MCG Gabapentin (Neurontin) 100 mg TID 10/16/18 14:00 10/20/18 09:00 100 MG Info (PHARMACY MONITORING -- do not chart) 1 each PRN DAILY PRN 10/22/18 07:30 Insulin Glargine (Lantus) 15 units 1X ONCE 10/21/18 10:30 10/21/18 10:31 DC 10/21/18 13:24 15 UNITS Insulin Human Lispro (HumaLOG) 2 units 1X ONCE 10/22/18 03:00 10/22/18 03:01 DC 10/22/18 02:42 2 UNITS Labetalol HCl (Normodyne Iv Push) 10 mg PRN Q2HR PRN 10/16/18 12:15 Lactobacillus Rhamnosus (Culturelle) 1 cap BID 10/14/18 21:00 10/21/18 21:11 1 CAP Lactulose (Lactulose) 20 gm TID 10/15/18 15:00 10/20/18 20:20 20 GM Lidocaine/ Epinephrine (LIDOCAINE 1%-EPI 1:100,000 Multi-Dose) 7 ml 1X ONCE 10/17/18 10:15 10/17/18 10:16 DC 10/17/18 09:44 7 ML Meropenem 500 mg/ Sodium Chloride 50 ml @ 100 mls/hr Q12HR 10/18/18 11:00 10/21/18 21:11 100 MLS/HR Midazolam HCl (Versed) 1 mg 1X ONCE 10/17/18 10:15 10/17/18 10:16 DC 10/17/18 09:44 1 MG Morphine Sulfate (Morphine Sulfate) 4 mg PRN Q2HR PRN 10/14/18 12:00 10/22/18 08:57 4 MG Ondansetron HCl (Zofran Odt) 4 mg PRN Q6HRS PRN 10/15/18 10:30 Ondansetron HCl (Zofran) 4 mg PRN Q6HRS PRN 10/15/18 10:30 Oxycodone/ Acetaminophen (Percocet 5/325) 1 tab PRN Q4HRS PRN 10/14/18 12:00 10/18/18 21:54 1 TAB Pantoprazole Sodium (Protonix) 40 mg DAILYAC 10/16/18 16:30 10/21/18 07:51 40 MG Sertraline HCl (Zoloft) 25 mg QHS 10/15/18 21:00 10/21/18 21:11 25 MG Sodium Chloride (Normal Saline Flush) 10 ml 1X PRN PRN 10/22/18 07:30 10/23/18 07:29 Tamsulosin HCl (Flomax) 0.4 mg DAILY 10/16/18 13:00 10/21/18 08:37 0.4 MG Vitamin A/Vitamin D (Vitamin A & D Ointment) 1 melvin BID PRN 10/19/18 13:15 Vitamin D (Vitamin D3) 1,000 unit DAILY 10/16/18 13:00 10/21/18 10:22 1,000 UNIT Labs: Lab Laboratory Tests Test 10/21/18 09:59 10/21/18 10:43 10/21/18 12:08 10/21/18 16:58 Glucose (Fingerstick) 314 mg/dL (70-99) 259 mg/dL (70-99) 362 mg/dL (70-99) White Blood Count 17.5 x10^3/uL (4.0-11.0) Red Blood Count 2.67 x10^6/uL (4.30-5.70) Hemoglobin 9.4 g/dL (13.0-17.5) Hematocrit 28.0 % (39.0-53.0) Mean Corpuscular Volume 105 fL (79-100) Mean Corpuscular Hemoglobin 35 pg (25-35) Mean Corpuscular Hemoglobin Concent 34 g/dL (31-37) Red Cell Distribution Width 15.0 % (11.5-14.5) Platelet Count 16 x10^3/uL (140-400) Neutrophils (%) (Auto) 81 % (31-73) Lymphocytes (%) (Auto) 14 % (24-48) Monocytes (%) (Auto) 5 % (0-9) Eosinophils (%) (Auto) 0 % (0-3) Basophils (%) (Auto) 1 % (0-3) Neutrophils # (Auto) 14.1 x10^3uL (1.8-7.7) Lymphocytes # (Auto) 2.4 x10^3/uL (1.0-4.8) Monocytes # (Auto) 0.8 x10^3/uL (0.0-1.1) Eosinophils # (Auto) 0.0 x10^3/uL (0.0-0.7) Basophils # (Auto) 0.2 x10^3/uL (0.0-0.2) Sodium Level 130 mmol/L (136-145) Potassium Level 3.4 mmol/L (3.5-5.1) Chloride Level 97 mmol/L (98-107) Carbon Dioxide Level 25 mmol/L (21-32) Anion Gap 8 (6-14) Blood Urea Nitrogen 57 mg/dL (8-26) Creatinine 2.6 mg/dL (0.7-1.3) Estimated GFR (Cockcroft-Gault) 25.1 BUN/Creatinine Ratio 22 (6-20) Glucose Level 291 mg/dL (70-99) Calcium Level 7.5 mg/dL (8.5-10.1) Total Bilirubin 8.9 mg/dL (0.2-1.0) Aspartate Amino Transf (AST/SGOT) 69 U/L (15-37) Alanine Aminotransferase (ALT/SGPT) 73 U/L (16-63) Alkaline Phosphatase 304 U/L (46-116) Total Protein 5.9 g/dL (6.4-8.2) Albumin 1.4 g/dL (3.4-5.0) Albumin/Globulin Ratio 0.3 (1.0-1.7) Test 10/21/18 19:51 10/21/18 22:04 10/22/18 00:28 10/22/18 02:15 Glucose (Fingerstick) 331 mg/dL (70-99) 305 mg/dL (70-99) 277 mg/dL (70-99) 213 mg/dL (70-99) Test 10/22/18 04:45 10/22/18 05:39 10/22/18 07:14 White Blood Count 17.1 x10^3/uL (4.0-11.0) Red Blood Count 2.59 x10^6/uL (4.30-5.70) Hemoglobin 9.3 g/dL (13.0-17.5) Hematocrit 26.9 % (39.0-53.0) Mean Corpuscular Volume 104 fL (79-100) Mean Corpuscular Hemoglobin 36 pg (25-35) Mean Corpuscular Hemoglobin Concent 35 g/dL (31-37) Red Cell Distribution Width 15.0 % (11.5-14.5) Platelet Count 18 x10^3/uL (140-400) Neutrophils (%) (Auto) 82 % (31-73) Lymphocytes (%) (Auto) 8 % (24-48) Monocytes (%) (Auto) 9 % (0-9) Eosinophils (%) (Auto) 1 % (0-3) Basophils (%) (Auto) 0 % (0-3) Neutrophils # (Auto) 14.1 x10^3uL (1.8-7.7) Lymphocytes # (Auto) 1.4 x10^3/uL (1.0-4.8) Monocytes # (Auto) 1.6 x10^3/uL (0.0-1.1) Eosinophils # (Auto) 0.1 x10^3/uL (0.0-0.7) Basophils # (Auto) 0.0 x10^3/uL (0.0-0.2) Prothrombin Time 17.5 SEC (11.7-14.0) Prothromb Time International Ratio 1.5 (0.8-1.1) Sodium Level 131 mmol/L (136-145) Potassium Level 3.2 mmol/L (3.5-5.1) Chloride Level 98 mmol/L (98-107) Carbon Dioxide Level 26 mmol/L (21-32) Anion Gap 7 (6-14) Blood Urea Nitrogen 66 mg/dL (8-26) Creatinine 2.4 mg/dL (0.7-1.3) Estimated GFR (Cockcroft-Gault) 27.6 BUN/Creatinine Ratio 28 (6-20) Glucose Level 198 mg/dL (70-99) Calcium Level 7.8 mg/dL (8.5-10.1) Total Bilirubin 7.8 mg/dL (0.2-1.0) Aspartate Amino Transf (AST/SGOT) 66 U/L (15-37) Alanine Aminotransferase (ALT/SGPT) 71 U/L (16-63) Alkaline Phosphatase 290 U/L (46-116) Ammonia 71 mcmol/L (11-34) Total Protein 6.0 g/dL (6.4-8.2) Albumin 1.4 g/dL (3.4-5.0) Albumin/Globulin Ratio 0.3 (1.0-1.7) Glucose (Fingerstick) 175 mg/dL (70-99) 183 mg/dL (70-99) Objective: Assessment: ESBL E. coli UTI/pyelonephritis, complicated, 10/14 (POA) Renal failure now on HD Cirrhosis of liver/ESLD/Hepatorenal syndrome Severe thrombocytopenia Leukocytosis Hypothermia Metabolic encephalopathy] acute hepatitis Aug 2018 DM 2 S/P Tunnel HD catheter this admission Plan: Plan of Care Meropenem (started 10/18) Vanc HD dosing BC x2 Monitor temp/WBC Consider paracentesis , plt cont to remain low Contact isolation Overall Condition poor Palliative care followiing D/w son, and nursing JAKE MEDINA MD Oct 22, 2018 09:06
--- NOTE | 2018-10-22 09:48 | PDOC ---
RADAMES GERARD DENTURE CONTOUR WIRE SPECIALIST 10/22/18 0948: SUBJECTIVE Subjective Pt sleeping, appears comfortable. Per , he did well over the weekend. OBJECTIVE Objective Physical Exam: General appearance:Sleeping, appears comfortable. Head: Normocephalic, without obvious abnormality Eyes: conjunctivae/corneas clear. PERRL, EOM's intact. Fundi benign Back: negative, no CVA pain Lungs: Regular respirations, non labored breathing Abdomen: soft, non-tender. Vital Signs Vital Signs Date Time Temp Pulse Resp B/P (MAP) Pulse Ox O2 Delivery O2 Flow Rate FiO2 10/22/18 08:57 Nasal Cannula 2.0 10/22/18 08:13 Nasal Cannula 2.0 10/22/18 07:15 97.4 99 14 128/56 (80) 96 Room Air 97.4 10/22/18 02:56 98.1 110 20 153/70 (97) 91 Nasal Cannula 2.0 98.1 10/21/18 23:23 20 96 Nasal Cannula 2.0 10/21/18 22:45 97.9 106 19 119/52 (74) 96 Nasal Cannula 2.0 97.9 10/21/18 20:26 107 145/65 (91) 10/21/18 20:09 20 96 Nasal Cannula 2.0 10/21/18 20:00 Nasal Cannula 2.0 10/21/18 19:39 20 96 Nasal Cannula 2.0 10/21/18 19:00 97.9 104 19 172/72 (105) 95 Nasal Cannula 2.0 97.9 10/21/18 15:00 98.0 106 20 137/71 (93) 96 Nasal Cannula 2.0 98.0 10/21/18 14:50 22 97 Nasal Cannula 2.0 10/21/18 11:00 99.2 100 20 143/70 (94) 97 Nasal Cannula 2.0 99.2 I & O Intake and Output 10/22/18 07:00 Intake Total 100 ml Balance 100 ml Intake Oral 100 ml # Voids 9 # Bowel Movements 1 PHYSICAL EXAM Physical Exam Physical Exam: General appearance: Sleeping, appears comfortable. Head: Normocephalic, without obvious abnormality Eyes: conjunctivae/corneas clear. PERRL, EOM's intact. Fundi benign Back: negative, no CVA pain Lungs: Regular respirations, non labored breathing Abdomen: soft, non-tender. ASSESSMENT/PLAN Assessment/Plan Pt getting antibiotics for complicated UTI via ID, appreciate input. Recommend PSA in 4-6 weeks when UTI has resolved. A cystoscopy appointment has been secured for patient on 11/01/[address] [place] [facility] [place] card and new patient paperwork was given to patient's son on Mondayu 10/19/18. Recommend prophylactic abx whenever he does discharge; will defer this decision to ID. Will continue to follow peripherally while in house. Problems: (1) UTI (urinary tract infection) COMMENT Lab Laboratory Tests Test 10/21/18 09:59 10/21/18 10:43 10/21/18 12:08 10/21/18 16:58 Glucose (Fingerstick) 314 mg/dL (70-99) 259 mg/dL (70-99) 362 mg/dL (70-99) White Blood Count 17.5 x10^3/uL (4.0-11.0) Red Blood Count 2.67 x10^6/uL (4.30-5.70) Hemoglobin 9.4 g/dL (13.0-17.5) Hematocrit 28.0 % (39.0-53.0) Mean Corpuscular Volume 105 fL (79-100) Mean Corpuscular Hemoglobin 35 pg (25-35) Mean Corpuscular Hemoglobin Concent 34 g/dL (31-37) Red Cell Distribution Width 15.0 % (11.5-14.5) Platelet Count 16 x10^3/uL (140-400) Neutrophils (%) (Auto) 81 % (31-73) Lymphocytes (%) (Auto) 14 % (24-48) Monocytes (%) (Auto) 5 % (0-9) Eosinophils (%) (Auto) 0 % (0-3) Basophils (%) (Auto) 1 % (0-3) Neutrophils # (Auto) 14.1 x10^3uL (1.8-7.7) Lymphocytes # (Auto) 2.4 x10^3/uL (1.0-4.8) Monocytes # (Auto) 0.8 x10^3/uL (0.0-1.1) Eosinophils # (Auto) 0.0 x10^3/uL (0.0-0.7) Basophils # (Auto) 0.2 x10^3/uL (0.0-0.2) Sodium Level 130 mmol/L (136-145) Potassium Level 3.4 mmol/L (3.5-5.1) Chloride Level 97 mmol/L (98-107) Carbon Dioxide Level 25 mmol/L (21-32) Anion Gap 8 (6-14) Blood Urea Nitrogen 57 mg/dL (8-26) Creatinine 2.6 mg/dL (0.7-1.3) Estimated GFR (Cockcroft-Gault) 25.1 BUN/Creatinine Ratio 22 (6-20) Glucose Level 291 mg/dL (70-99) Calcium Level 7.5 mg/dL (8.5-10.1) Total Bilirubin 8.9 mg/dL (0.2-1.0) Aspartate Amino Transf (AST/SGOT) 69 U/L (15-37) Alanine Aminotransferase (ALT/SGPT) 73 U/L (16-63) Alkaline Phosphatase 304 U/L (46-116) Total Protein 5.9 g/dL (6.4-8.2) Albumin 1.4 g/dL (3.4-5.0) Albumin/Globulin Ratio 0.3 (1.0-1.7) Test 10/21/18 19:51 10/21/18 22:04 10/22/18 00:28 10/22/18 02:15 Glucose (Fingerstick) 331 mg/dL (70-99) 305 mg/dL (70-99) 277 mg/dL (70-99) 213 mg/dL (70-99) Test 10/22/18 04:45 10/22/18 05:39 10/22/18 07:14 White Blood Count 17.1 x10^3/uL (4.0-11.0) Red Blood Count 2.59 x10^6/uL (4.30-5.70) Hemoglobin 9.3 g/dL (13.0-17.5) Hematocrit 26.9 % (39.0-53.0) Mean Corpuscular Volume 104 fL (79-100) Mean Corpuscular Hemoglobin 36 pg (25-35) Mean Corpuscular Hemoglobin Concent 35 g/dL (31-37) Red Cell Distribution Width 15.0 % (11.5-14.5) Platelet Count 18 x10^3/uL (140-400) Neutrophils (%) (Auto) 82 % (31-73) Lymphocytes (%) (Auto) 8 % (24-48) Monocytes (%) (Auto) 9 % (0-9) Eosinophils (%) (Auto) 1 % (0-3) Basophils (%) (Auto) 0 % (0-3) Neutrophils # (Auto) 14.1 x10^3uL (1.8-7.7) Lymphocytes # (Auto) 1.4 x10^3/uL (1.0-4.8) Monocytes # (Auto) 1.6 x10^3/uL (0.0-1.1) Eosinophils # (Auto) 0.1 x10^3/uL (0.0-0.7) Basophils # (Auto) 0.0 x10^3/uL (0.0-0.2) Prothrombin Time 17.5 SEC (11.7-14.0) Prothromb Time International Ratio 1.5 (0.8-1.1) Sodium Level 131 mmol/L (136-145) Potassium Level 3.2 mmol/L (3.5-5.1) Chloride Level 98 mmol/L (98-107) Carbon Dioxide Level 26 mmol/L (21-32) Anion Gap 7 (6-14) Blood Urea Nitrogen 66 mg/dL (8-26) Creatinine 2.4 mg/dL (0.7-1.3) Estimated GFR (Cockcroft-Gault) 27.6 BUN/Creatinine Ratio 28 (6-20) Glucose Level 198 mg/dL (70-99) Calcium Level 7.8 mg/dL (8.5-10.1) Total Bilirubin 7.8 mg/dL (0.2-1.0) Aspartate Amino Transf (AST/SGOT) 66 U/L (15-37) Alanine Aminotransferase (ALT/SGPT) 71 U/L (16-63) Alkaline Phosphatase 290 U/L (46-116) Ammonia 71 mcmol/L (11-34) Total Protein 6.0 g/dL (6.4-8.2) Albumin 1.4 g/dL (3.4-5.0) Albumin/Globulin Ratio 0.3 (1.0-1.7) Glucose (Fingerstick) 175 mg/dL (70-99) 183 mg/dL (70-99) DAVID ROSENTHAL MD 10/24/18 0925: ASSESSMENT/PLAN Assessment/Plan Agree with assessment and plan. RADAMES GERARD APRN Oct 22, 2018 09:48 DAVID ROSENTHAL MD Oct 24, 2018 09:25
[2018-10-22] MEDS ORDERED: VANCOMYCIN 2 GM in IV NORMAL SALINE 500ML BAG 500 ML IV ONE (10:00)
--- NOTE | 2018-10-22 11:32 | PDOC ---
Objective: Objective: D/w business information consultant - has been sleeping, did wake when lab came around. D/w Pat. Vital Signs: Vital Signs Date Time Temp Pulse Resp B/P (MAP) Pulse Ox O2 Delivery O2 Flow Rate FiO2 10/22/18 10:05 Nasal Cannula 2.0 10/22/18 07:15 97.4 99 14 128/56 (80) 96 97.4 Labs: Laboratory Tests Test 10/21/18 12:08 10/21/18 16:58 10/21/18 19:51 10/21/18 22:04 Glucose (Fingerstick) 259 mg/dL 362 mg/dL 331 mg/dL 305 mg/dL Test 10/22/18 00:28 10/22/18 02:15 10/22/18 04:45 10/22/18 05:39 Glucose (Fingerstick) 277 mg/dL 213 mg/dL 175 mg/dL White Blood Count 17.1 x10^3/uL Red Blood Count 2.59 x10^6/uL Hemoglobin 9.3 g/dL Hematocrit 26.9 % Mean Corpuscular Volume 104 fL Mean Corpuscular Hemoglobin 36 pg Mean Corpuscular Hemoglobin Concent 35 g/dL Red Cell Distribution Width 15.0 % Platelet Count 18 x10^3/uL Neutrophils (%) (Auto) 82 % Lymphocytes (%) (Auto) 8 % Monocytes (%) (Auto) 9 % Eosinophils (%) (Auto) 1 % Basophils (%) (Auto) 0 % Neutrophils # (Auto) 14.1 x10^3uL Lymphocytes # (Auto) 1.4 x10^3/uL Monocytes # (Auto) 1.6 x10^3/uL Eosinophils # (Auto) 0.1 x10^3/uL Basophils # (Auto) 0.0 x10^3/uL Prothrombin Time 17.5 SEC Prothromb Time International Ratio 1.5 Sodium Level 131 mmol/L Potassium Level 3.2 mmol/L Chloride Level 98 mmol/L Carbon Dioxide Level 26 mmol/L Anion Gap 7 Blood Urea Nitrogen 66 mg/dL Creatinine 2.4 mg/dL Estimated GFR (Cockcroft-Gault) 27.6 BUN/Creatinine Ratio 28 Glucose Level 198 mg/dL Calcium Level 7.8 mg/dL Total Bilirubin 7.8 mg/dL Aspartate Amino Transf (AST/SGOT) 66 U/L Alanine Aminotransferase (ALT/SGPT) 71 U/L Alkaline Phosphatase 290 U/L Ammonia 71 mcmol/L Total Protein 6.0 g/dL Albumin 1.4 g/dL Albumin/Globulin Ratio 0.3 Test 10/22/18 07:14 Glucose (Fingerstick) 183 mg/dL PE: GEN: dialyzing LUNGS: NC NEURO/PSYCH: asleep, not awakened A/P: Cirrhosis, ?hepatorenal syndrome - improved w/ HD Anemia/thrombocytopenia UTI - atbx per ID -- INR and bili better. Note ammonia and also lactulose refusal. Will return w/ Dr. Nunez, seems family might have some questions. IRIS CRONIN Oct 22, 2018 11:32
--- NOTE | 2018-10-22 12:44 | PDOC ---
SUBJECTIVE ROS Seen on HD, Sleeping , No concerns voiced by nursing Talked to pt's son ( Pharmacist) , stable, No new concerns OBJECTIVE Vital Signs Vital Signs Date Time Temp Pulse Resp B/P (MAP) Pulse Ox O2 Delivery O2 Flow Rate FiO2 10/22/18 10:05 Nasal Cannula 2.0 10/22/18 07:15 97.4 99 14 128/56 (80) 96 97.4 I & 0 Intake and Output 10/22/18 06:59 Intake Total 100 ml Balance 100 ml Intake Oral 100 ml # Voids 9 # Bowel Movements 1 PHYSICAL EXAM Physical Exam GENERAL: sleeping, lethargic HEENT: OM moist LUNGS: Clear. HEART: S1 and S2 regular. ABDOMEN: Soft and nontender EXTREMITIES: 1-2 edema BLE. SKIN: No rash NEUROLOGICAL: Arouses to name, lethargic - No Guerra Tunneled HDC (10/17) DIAGNOSIS/ASSESSMENT Assessment & Plan DEE - ATN/ Hepatorenal , Hx of NSAID use prior to hospitalization No micr hematuria on UA Initiated on HD, has TDC Strict I/O , Monitor ESBL E. coli UTI/pyelonephritis ID On board Urology Consulted Cirrhosis of liver/ESLD GI Following Anemia- On Epogen Severe thrombocytopenia Metabolic encephalopathy] acute hepatitis Aug 2018 Palliative care followiing Hx of Etoh Abuse COMMENT/RELEVANT DATA Meds Current Medications Medications (Trade) Dose Ordered Sig/Micheal Start Time Stop Time Status Last Admin Dose Admin Cefazolin Sodium 50 ml @ 100 mls/hr 1X ONCE 10/17/18 10:15 10/17/18 10:44 DC 10/17/18 09:45 100 MLS/HR Cefepime HCl (Maxipime) 1 gm Q12HR 10/18/18 10:00 10/18/18 10:01 DC Ceftriaxone Sodium (Rocephin) 1 gm Q24H 10/15/18 10:00 10/18/18 09:12 DC 10/17/18 11:37 1 GM Darbepoetin Poncho (Aranesp) 60 mcg WEEKLYHS 10/19/18 21:00 10/19/18 21:12 60 MCG Dextrose (Dextrose 50%-Water Syringe) 12.5 gm PRN Q15MIN PRN 10/16/18 12:15 Diphenhydramine HCl (Benadryl) 25 mg 1X PRN PRN 10/17/18 18:15 10/18/18 18:14 DC Fentanyl Citrate (Fentanyl 2ml Vial) 50 mcg 1X ONCE 10/17/18 10:15 10/17/18 10:16 DC 10/17/18 09:44 50 MCG Gabapentin (Neurontin) 100 mg TID 10/16/18 14:00 10/20/18 09:00 100 MG Info (PHARMACY MONITORING -- do not chart) 1 each PRN DAILY PRN 10/22/18 07:30 Insulin Glargine (Lantus) 15 units 1X ONCE 10/21/18 10:30 10/21/18 10:31 DC 10/21/18 13:24 15 UNITS Insulin Human Lispro (HumaLOG) 2 units 1X ONCE 10/22/18 03:00 10/22/18 03:01 DC 10/22/18 02:42 2 UNITS Labetalol HCl (Normodyne Iv Push) 10 mg PRN Q2HR PRN 10/16/18 12:15 Lactobacillus Rhamnosus (Culturelle) 1 cap BID 10/14/18 21:00 10/21/18 21:11 1 CAP Lactulose (Lactulose) 20 gm TID 10/15/18 15:00 10/20/18 20:20 20 GM Lidocaine/ Epinephrine (LIDOCAINE 1%-EPI 1:100,000 Multi-Dose) 7 ml 1X ONCE 10/17/18 10:15 10/17/18 10:16 DC 10/17/18 09:44 7 ML Meropenem 500 mg/ Sodium Chloride 50 ml @ 100 mls/hr Q12HR 10/18/18 11:00 10/21/18 21:11 100 MLS/HR Midazolam HCl (Versed) 1 mg 1X ONCE 10/17/18 10:15 10/17/18 10:16 DC 10/17/18 09:44 1 MG Morphine Sulfate (Morphine Sulfate) 4 mg PRN Q2HR PRN 10/14/18 12:00 10/22/18 08:57 4 MG Ondansetron HCl (Zofran Odt) 4 mg PRN Q6HRS PRN 10/15/18 10:30 Ondansetron HCl (Zofran) 4 mg PRN Q6HRS PRN 10/15/18 10:30 Oxycodone/ Acetaminophen (Percocet 5/325) 1 tab PRN Q4HRS PRN 10/14/18 12:00 10/18/18 21:54 1 TAB Pantoprazole Sodium (Protonix) 40 mg DAILYAC 10/16/18 16:30 10/21/18 07:51 40 MG Sertraline HCl (Zoloft) 25 mg QHS 10/15/18 21:00 10/21/18 21:11 25 MG Sodium Chloride (Normal Saline Flush) 10 ml 1X PRN PRN 10/22/18 07:30 10/23/18 07:29 Tamsulosin HCl (Flomax) 0.4 mg DAILY 10/16/18 13:00 10/21/18 08:37 0.4 MG Vancomycin HCl (Vanco Per Pharmacy) 1 each PRN DAILY PRN 10/22/18 09:45 Vancomycin HCl 2 gm/Sodium Chloride 500 ml @ 250 mls/hr 1X ONCE 10/22/18 10:00 10/22/18 11:59 DC Vitamin A/Vitamin D (Vitamin A & D Ointment) 1 melvin BID PRN 10/19/18 13:15 Vitamin D (Vitamin D3) 1,000 unit DAILY 10/16/18 13:00 10/21/18 10:22 1,000 UNIT Lab Laboratory Tests Test 10/21/18 16:58 10/21/18 19:51 10/21/18 22:04 10/22/18 00:28 Glucose (Fingerstick) 362 mg/dL (70-99) 331 mg/dL (70-99) 305 mg/dL (70-99) 277 mg/dL (70-99) Test 10/22/18 02:15 10/22/18 04:45 10/22/18 05:39 10/22/18 07:14 Glucose (Fingerstick) 213 mg/dL (70-99) 175 mg/dL (70-99) 183 mg/dL (70-99) White Blood Count 17.1 x10^3/uL (4.0-11.0) Red Blood Count 2.59 x10^6/uL (4.30-5.70) Hemoglobin 9.3 g/dL (13.0-17.5) Hematocrit 26.9 % (39.0-53.0) Mean Corpuscular Volume 104 fL (79-100) Mean Corpuscular Hemoglobin 36 pg (25-35) Mean Corpuscular Hemoglobin Concent 35 g/dL (31-37) Red Cell Distribution Width 15.0 % (11.5-14.5) Platelet Count 18 x10^3/uL (140-400) Neutrophils (%) (Auto) 82 % (31-73) Lymphocytes (%) (Auto) 8 % (24-48) Monocytes (%) (Auto) 9 % (0-9) Eosinophils (%) (Auto) 1 % (0-3) Basophils (%) (Auto) 0 % (0-3) Neutrophils # (Auto) 14.1 x10^3uL (1.8-7.7) Lymphocytes # (Auto) 1.4 x10^3/uL (1.0-4.8) Monocytes # (Auto) 1.6 x10^3/uL (0.0-1.1) Eosinophils # (Auto) 0.1 x10^3/uL (0.0-0.7) Basophils # (Auto) 0.0 x10^3/uL (0.0-0.2) Prothrombin Time 17.5 SEC (11.7-14.0) Prothromb Time International Ratio 1.5 (0.8-1.1) Sodium Level 131 mmol/L (136-145) Potassium Level 3.2 mmol/L (3.5-5.1) Chloride Level 98 mmol/L (98-107) Carbon Dioxide Level 26 mmol/L (21-32) Anion Gap 7 (6-14) Blood Urea Nitrogen 66 mg/dL (8-26) Creatinine 2.4 mg/dL (0.7-1.3) Estimated GFR (Cockcroft-Gault) 27.6 BUN/Creatinine Ratio 28 (6-20) Glucose Level 198 mg/dL (70-99) Calcium Level 7.8 mg/dL (8.5-10.1) Total Bilirubin 7.8 mg/dL (0.2-1.0) Aspartate Amino Transf (AST/SGOT) 66 U/L (15-37) Alanine Aminotransferase (ALT/SGPT) 71 U/L (16-63) Alkaline Phosphatase 290 U/L (46-116) Ammonia 71 mcmol/L (11-34) Total Protein 6.0 g/dL (6.4-8.2) Albumin 1.4 g/dL (3.4-5.0) Albumin/Globulin Ratio 0.3 (1.0-1.7) Results All relevant outside records, renal labs, imaging studies, telemetry/EKG's were reviewed. CHRISTINA GROSS MD Oct 22, 2018 12:44
--- NOTE | 2018-10-22 12:49 | NUR ---
SW following pt. MARANDA faxed labs to [facility]. Spoke with Zainab and pt has confirmed chair time at [facility] on MWF at 0615. SW provided pt's son with dialysis schedule. Family on last week was interested on knowing about insurance benefit for hospice. [facility] run pt's benefit and notified SW pt will have 80/20 hospice coverage after meeting the remainder $8 deductible. Insurance will cover 80% cost and pt will be responsible for 20% cost. Pt's son notified regarding hospice benefit as well. Discussed with Physician and RN. Will continue to follow.
[2018-10-22 12:50] VITALS: BP 133/61
[2018-10-22] MEDS: MEROPENEM 500 MG in IV NORMAL SALINE 50ML 50 ML IV SCH ×2 (12:57→21:30)
--- NOTE | 2018-10-22 14:14 | PDOC ---
PROGRESS NOTES Subjective Subjective HPI - f/u of Thrombocytopenia ROS - lethargic Objective Objective Vital Signs Date Time Temp Pulse Resp B/P (MAP) Pulse Ox O2 Delivery O2 Flow Rate FiO2 10/22/18 12:50 98.3 105 16 133/61 (85) 100 Nasal Cannula 2.0 98.3 Intake and Output 10/22/18 07:00 Intake Total 100 ml Balance 100 ml Intake Oral 100 ml # Voids 9 # Bowel Movements 1 Physical Exam General: No acute distress Neck: No JVD Assessment Assessment Problems Medical Problems: (1) Acute pyelonephritis Status: Acute (2) Acute renal failure Status: Acute (3) Exertional dyspnea Status: Acute (4) Hyponatremia Status: Acute IMPRESSION AND PLAN: 1. Thrombocytopenia due to cirrhosis of the liver and hypersplenism. The patient has chronic thrombocytopenia and he is aware of hematologic abnormality. I suspect that his platelets are worse at this time due to underlying infection. He has history of urinary tract infection and now the CAT scan reveals evidence of pyelonephritis. He has 32% bands. Reticulocyte count is normal at 1.6, and hence, I do not suspect DIC or TTP. There is no evidence of fragmented red cells in the peripheral smear. There is evidence of toxic granulations and toxic vacuolation further indicating that he has underlying infection causing worsening thrombocytopenia. No clinical evidence of bleeding at this time. If he has any significant bleeding, I would recommend platelet transfusion. He is afebrile and does not appear toxic. Continue to monitor closely. No bleed. 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 plt now 18. Plan to transfuse if platelets at or below 10. I d/w RN 2. Anemia secondary to renal failure and cirrhosis of the liver. Reticulocyte count is normal at 1.6. Iron studies are consistent with anemia of chronic disease. B12 is more than 2000. TSH is normal at 1.070. Continue to monitor hemoglobin. Hb 9.3 3. Jaundice thought to be due to decompensated cirrhosis. I appreciate GI consultation. 4. Renal failure, management per primary team. 5. UTI - appreciate ID and urology management. 6. Met encephalopathy. Comment Review of Relevant I have reviewed the following items ester (where applicable) has been applied. Labs Laboratory Tests Test 10/20/18 15:07 10/20/18 16:42 10/20/18 20:32 10/21/18 07:58 Glucose (Fingerstick) 391 mg/dL (70-99) 323 mg/dL (70-99) 308 mg/dL (70-99) 376 mg/dL (70-99) Test 10/21/18 09:59 10/21/18 10:43 10/21/18 12:08 10/21/18 16:58 Glucose (Fingerstick) 314 mg/dL (70-99) 259 mg/dL (70-99) 362 mg/dL (70-99) White Blood Count 17.5 x10^3/uL (4.0-11.0) Red Blood Count 2.67 x10^6/uL (4.30-5.70) Hemoglobin 9.4 g/dL (13.0-17.5) Hematocrit 28.0 % (39.0-53.0) Mean Corpuscular Volume 105 fL (79-100) Mean Corpuscular Hemoglobin 35 pg (25-35) Mean Corpuscular Hemoglobin Concent 34 g/dL (31-37) Red Cell Distribution Width 15.0 % (11.5-14.5) Platelet Count 16 x10^3/uL (140-400) Neutrophils (%) (Auto) 81 % (31-73) Lymphocytes (%) (Auto) 14 % (24-48) Monocytes (%) (Auto) 5 % (0-9) Eosinophils (%) (Auto) 0 % (0-3) Basophils (%) (Auto) 1 % (0-3) Neutrophils # (Auto) 14.1 x10^3uL (1.8-7.7) Lymphocytes # (Auto) 2.4 x10^3/uL (1.0-4.8) Monocytes # (Auto) 0.8 x10^3/uL (0.0-1.1) Eosinophils # (Auto) 0.0 x10^3/uL (0.0-0.7) Basophils # (Auto) 0.2 x10^3/uL (0.0-0.2) Sodium Level 130 mmol/L (136-145) Potassium Level 3.4 mmol/L (3.5-5.1) Chloride Level 97 mmol/L (98-107) Carbon Dioxide Level 25 mmol/L (21-32) Anion Gap 8 (6-14) Blood Urea Nitrogen 57 mg/dL (8-26) Creatinine 2.6 mg/dL (0.7-1.3) Estimated GFR (Cockcroft-Gault) 25.1 BUN/Creatinine Ratio 22 (6-20) Glucose Level 291 mg/dL (70-99) Calcium Level 7.5 mg/dL (8.5-10.1) Total Bilirubin 8.9 mg/dL (0.2-1.0) Aspartate Amino Transf (AST/SGOT) 69 U/L (15-37) Alanine Aminotransferase (ALT/SGPT) 73 U/L (16-63) Alkaline Phosphatase 304 U/L (46-116) Total Protein 5.9 g/dL (6.4-8.2) Albumin 1.4 g/dL (3.4-5.0) Albumin/Globulin Ratio 0.3 (1.0-1.7) Test 10/21/18 19:51 10/21/18 22:04 10/22/18 00:28 10/22/18 02:15 Glucose (Fingerstick) 331 mg/dL (70-99) 305 mg/dL (70-99) 277 mg/dL (70-99) 213 mg/dL (70-99) Test 10/22/18 04:45 10/22/18 05:39 10/22/18 07:14 10/22/18 12:50 White Blood Count 17.1 x10^3/uL (4.0-11.0) Red Blood Count 2.59 x10^6/uL (4.30-5.70) Hemoglobin 9.3 g/dL (13.0-17.5) Hematocrit 26.9 % (39.0-53.0) Mean Corpuscular Volume 104 fL (79-100) Mean Corpuscular Hemoglobin 36 pg (25-35) Mean Corpuscular Hemoglobin Concent 35 g/dL (31-37) Red Cell Distribution Width 15.0 % (11.5-14.5) Platelet Count 18 x10^3/uL (140-400) Neutrophils (%) (Auto) 82 % (31-73) Lymphocytes (%) (Auto) 8 % (24-48) Monocytes (%) (Auto) 9 % (0-9) Eosinophils (%) (Auto) 1 % (0-3) Basophils (%) (Auto) 0 % (0-3) Neutrophils # (Auto) 14.1 x10^3uL (1.8-7.7) Lymphocytes # (Auto) 1.4 x10^3/uL (1.0-4.8) Monocytes # (Auto) 1.6 x10^3/uL (0.0-1.1) Eosinophils # (Auto) 0.1 x10^3/uL (0.0-0.7) Basophils # (Auto) 0.0 x10^3/uL (0.0-0.2) Prothrombin Time 17.5 SEC (11.7-14.0) Prothromb Time International Ratio 1.5 (0.8-1.1) Sodium Level 131 mmol/L (136-145) Potassium Level 3.2 mmol/L (3.5-5.1) Chloride Level 98 mmol/L (98-107) Carbon Dioxide Level 26 mmol/L (21-32) Anion Gap 7 (6-14) Blood Urea Nitrogen 66 mg/dL (8-26) Creatinine 2.4 mg/dL (0.7-1.3) Estimated GFR (Cockcroft-Gault) 27.6 BUN/Creatinine Ratio 28 (6-20) Glucose Level 198 mg/dL (70-99) Calcium Level 7.8 mg/dL (8.5-10.1) Total Bilirubin 7.8 mg/dL (0.2-1.0) Aspartate Amino Transf (AST/SGOT) 66 U/L (15-37) Alanine Aminotransferase (ALT/SGPT) 71 U/L (16-63) Alkaline Phosphatase 290 U/L (46-116) Ammonia 71 mcmol/L (11-34) Total Protein 6.0 g/dL (6.4-8.2) Albumin 1.4 g/dL (3.4-5.0) Albumin/Globulin Ratio 0.3 (1.0-1.7) Glucose (Fingerstick) 175 mg/dL (70-99) 183 mg/dL (70-99) 136 mg/dL (70-99) Laboratory Tests Test 10/21/18 16:58 10/21/18 19:51 10/21/18 22:04 10/22/18 00:28 Glucose (Fingerstick) 362 mg/dL (70-99) 331 mg/dL (70-99) 305 mg/dL (70-99) 277 mg/dL (70-99) Test 10/22/18 02:15 10/22/18 04:45 10/22/18 05:39 10/22/18 07:14 Glucose (Fingerstick) 213 mg/dL (70-99) 175 mg/dL (70-99) 183 mg/dL (70-99) White Blood Count 17.1 x10^3/uL (4.0-11.0) Red Blood Count 2.59 x10^6/uL (4.30-5.70) Hemoglobin 9.3 g/dL (13.0-17.5) Hematocrit 26.9 % (39.0-53.0) Mean Corpuscular Volume 104 fL (79-100) Mean Corpuscular Hemoglobin 36 pg (25-35) Mean Corpuscular Hemoglobin Concent 35 g/dL (31-37) Red Cell Distribution Width 15.0 % (11.5-14.5) Platelet Count 18 x10^3/uL (140-400) Neutrophils (%) (Auto) 82 % (31-73) Lymphocytes (%) (Auto) 8 % (24-48) Monocytes (%) (Auto) 9 % (0-9) Eosinophils (%) (Auto) 1 % (0-3) Basophils (%) (Auto) 0 % (0-3) Neutrophils # (Auto) 14.1 x10^3uL (1.8-7.7) Lymphocytes # (Auto) 1.4 x10^3/uL (1.0-4.8) Monocytes # (Auto) 1.6 x10^3/uL (0.0-1.1) Eosinophils # (Auto) 0.1 x10^3/uL (0.0-0.7) Basophils # (Auto) 0.0 x10^3/uL (0.0-0.2) Prothrombin Time 17.5 SEC (11.7-14.0) Prothromb Time International Ratio 1.5 (0.8-1.1) Sodium Level 131 mmol/L (136-145) Potassium Level 3.2 mmol/L (3.5-5.1) Chloride Level 98 mmol/L (98-107) Carbon Dioxide Level 26 mmol/L (21-32) Anion Gap 7 (6-14) Blood Urea Nitrogen 66 mg/dL (8-26) Creatinine 2.4 mg/dL (0.7-1.3) Estimated GFR (Cockcroft-Gault) 27.6 BUN/Creatinine Ratio 28 (6-20) Glucose Level 198 mg/dL (70-99) Calcium Level 7.8 mg/dL (8.5-10.1) Total Bilirubin 7.8 mg/dL (0.2-1.0) Aspartate Amino Transf (AST/SGOT) 66 U/L (15-37) Alanine Aminotransferase (ALT/SGPT) 71 U/L (16-63) Alkaline Phosphatase 290 U/L (46-116) Ammonia 71 mcmol/L (11-34) Total Protein 6.0 g/dL (6.4-8.2) Albumin 1.4 g/dL (3.4-5.0) Albumin/Globulin Ratio 0.3 (1.0-1.7) Test 10/22/18 12:50 Glucose (Fingerstick) 136 mg/dL (70-99) Microbiology 10/14/18 Urine Culture - Final, Complete 10/14/18 Urine Culture Result 1 (SABRINA) - Final, Complete 10/14/18 Antimicrobic Susceptibility - Final, Complete Medications Current Medications Sodium Chloride 500 ml @ 500 mls/hr 1X ONCE IV Last administered on at 09:47; Start 10/14/18 at 09:30; Stop 10/14/18 at 10:29; Status DC Ondansetron HCl (Zofran) 4 mg PRN Q8HRS PRN IV NAUSEA/VOMITING Last administered on 10/15/18at 09:57; Start 10/14/18 at 10:15; Stop 10/15/18 at 10:14 ; Status DC Ceftriaxone Sodium (Rocephin) 1 gm 1X ONCE IVP Last administered on 10/14/18at 10:41; Start 10/14/18 at 10:30; Stop 10/14/18 at 10:31; Status DC Ceftriaxone Sodium (Rocephin) 1 gm Q24H IVP Last administered on 10/17/18at 11: 37; Start 10/15/18 at 10:00; Stop 10/18/18 at 09:12; Status DC Oxycodone/ Acetaminophen (Percocet 5/325) 1 tab PRN Q4HRS PRN PO PAIN Last administered on 10/18/18 21:54; Start 10/14/18 at 12:00 Morphine Sulfate (Morphine Sulfate) 4 mg PRN Q2HR PRN IV PAIN Last administered on 10/22/18 08:57; Start 10/14/18 at 12:00 Sodium Chloride 1,000 ml @ 100 mls/hr 1X ONCE IV Last administered on at 12:15; Start 10/14/18 at 12:00; Stop 10/14/18 at 21:59; Status DC Lactobacillus Rhamnosus (Culturelle) 1 cap BID PO Last administered on 21:11; Start 10/14/18 at 21:00 Ondansetron HCl (Zofran) 4 mg PRN Q6HRS PRN IV NAUSEA/VOMITING; Start 10/15/18 at 10:30 Ondansetron HCl (Zofran Odt) 4 mg PRN Q6HRS PRN PO NAUSEA/VOMITING; Start 10/15 at 10:30 Sodium Chloride 1,000 ml @ 75 mls/hr [id number] IV Last administered on 10/21/18 23:30; Start 10/15/18 at 13:00 Lactulose (Lactulose) 20 gm TID PO Last administered on 10/20/18 20:20; Start 10/15/18 at 15:00 Sertraline HCl (Zoloft) 25 mg QHS PO Last administered on 10/21/18 21:11; Start 10/15/18 at 21:00 Insulin Human Lispro (HumaLOG) 0-9 UNITS TIDWMEALS SQ Last administered on 17:27; Start 10/16/18 at 17:00 Dextrose (Dextrose 50%-Water Syringe) 12.5 gm PRN Q15MIN PRN IV SEE COMMENTS; Start 10/16/18 at 12:15 Labetalol HCl (Normodyne Iv Push) 20 mg 1X ONCE IVP ; Start 10/16/18 at 12:15; Stop 10/16/18 at 12:15; Status DC Labetalol HCl (Normodyne Iv Push) 10 mg PRN Q2HR PRN IVP HYPERTENSION, SEE COMMENTS; Start 10/16/18 at 12:15 Vitamin D (Vitamin D3) 1,000 unit DAILY PO Last administered on 10/21/18 10:22 ; Start 10/16/18 at 13:00 Tamsulosin HCl (Flomax) 0.4 mg DAILY PO Last administered on 10/21/18 08:37; Start 10/16/18 at 13:00 Pantoprazole Sodium (Protonix) 40 mg DAILYAC PO Last administered on 10/21/18at 07:51; Start 10/16/18 at 16:30 Gabapentin (Neurontin) 100 mg TID PO ; Start 10/16/18 at 14:00; Stop 10/16/18 at 16:21; Status DC Gabapentin (Neurontin) 100 mg TID PO Last administered on 10/20/18at 09:00; Start 10/16/18 at 14:00 Lidocaine/ Epinephrine (LIDOCAINE 1%-EPI 1:100,000 Multi-Dose) 20 ml STK-MED ONCE .ROUTE ; Start 10/17/18 at 09:26; Stop 10/17/18 at 09:27; Status DC Cefazolin Sodium 50 ml @ As Directed STK-MED ONCE IV ; Start 10/17/18 at 09:37; Stop 10/17/18 at 09:38; Status DC Midazolam HCl (Versed) 2 mg STK-MED ONCE .ROUTE ; Start 10/17/18 at 09:37; Stop 10/17/18 at 09:38; Status DC Fentanyl Citrate (Fentanyl 2ml Vial) 100 mcg STK-MED ONCE .ROUTE ; Start at 09:37; Stop 10/17/18 at 09:38; Status DC Midazolam HCl (Versed) 1 mg 1X ONCE IV Last administered on 10/17/18at 09:44; Start 10/17/18 at 10:15; Stop 10/17/18 at 10:16; Status DC Fentanyl Citrate (Fentanyl 2ml Vial) 50 mcg 1X ONCE IV Last administered on at 09:44; Start 10/17/18 at 10:15; Stop 10/17/18 at 10:16; Status DC Lidocaine/ Epinephrine (LIDOCAINE 1%-EPI 1:100,000 Multi-Dose) 7 ml 1X ONCE IJ Last administered on 10/17/18at 09:44; Start 10/17/18 at 10:15; Stop 10/17/18 at 10:16; Status DC Cefazolin Sodium 50 ml @ 100 mls/hr 1X ONCE IV Last administered on at 09:45; Start 10/17/18 at 10:15; Stop 10/17/18 at 10:44; Status DC Sodium Chloride 1,000 ml @ 1,000 mls/hr Q1H PRN IV hypotension; Start 10/17/18 at 18:06; Stop 10/18/18 at 00:05; Status DC Diphenhydramine HCl (Benadryl) 25 mg 1X PRN PRN IV ITCHING; Start 10/17/18 at 18:15; Stop 10/18/18 at 18:14; Status DC Diphenhydramine HCl (Benadryl) 25 mg 1X PRN PRN IV ITCHING; Start 10/17/18 at 18:15; Stop 10/18/18 at 18:14; Status DC Sodium Chloride 1,000 ml @ 400 mls/hr Q2H30M PRN IV PATENCY; Start 10/17/18 at 18:06; Stop 10/18/18 at 06:05; Status DC Info (PHARMACY MONITORING -- do not chart) 1 each PRN DAILY PRN MC SEE COMMENTS ; Start 10/17/18 at 18:15; Status Cancel Cefepime HCl (Maxipime) 1 gm Q12HR IVP ; Start 10/18/18 at 10:00; Stop 10/18/18 at 10:01; Status DC Info (PHARMACY MONITORING -- do not chart) 1 each PRN DAILY PRN MC SEE COMMENTS ; Start 10/18/18 at 10:00; Stop 10/18/18 at 10:04; Status DC Info (PHARMACY MONITORING -- do not chart) 1 each PRN DAILY PRN MC SEE COMMENTS ; Start 10/18/18 at 10:00; Stop 10/18/18 at 10:04; Status DC Meropenem 500 mg/ Sodium Chloride 50 ml @ 100 mls/hr Q12HR IV Last administered on 10/22/18at 12:57; Start 10/18/18 at 11:00 Darbepoetin Opncho (Aranesp) 60 mcg WEEKLYHS SQ Last administered on 10/19/18at 21: 12; Start 10/19/18 at 21:00 Vitamin A/Vitamin D (Vitamin A & D Ointment) 1 melvin BID PRN TP SKIN PROTECTION; Start 10/19/18 at 13:15 Sodium Chloride 1,000 ml @ 1,000 mls/hr Q1H PRN IV hypotension; Start 10/19/18 at 15:33; Stop 10/19/18 at 21:32; Status DC Sodium Chloride (Normal Saline Flush) 10 ml 1X PRN PRN IV AP catheter pack; Start 10/19/18 at 15:45; Stop 10/20/18 at 15:44; Status DC Sodium Chloride (Normal Saline Flush) 10 ml 1X PRN PRN IV SECURITY ENGINEER catheter pack; Start 10/19/18 at 15:45; Stop 10/20/18 at 15:44; Status DC Sodium Chloride 1,000 ml @ 400 mls/hr Q2H30M PRN IV PATENCY; Start 10/19/18 at 15:33; Stop 10/20/18 at 03:32; Status DC Info (PHARMACY MONITORING -- do not chart) 1 each PRN DAILY PRN MC SEE COMMENTS ; Start 10/19/18 at 15:45; Status UNV Info (PHARMACY MONITORING -- do not chart) 1 each PRN DAILY PRN MC SEE COMMENTS ; Start 10/19/18 at 15:45; Status Cancel Insulin Human Lispro (HumaLOG) 20 units STAT SQ ; Start 10/20/18 at 11:30; Stop 10/21/18 at 10:00; Status DC Insulin Glargine (Lantus) 8 units QHS SQ Last administered on 10/20/18at 21:15; Start 10/20/18 at 21:00; Stop 10/21/18 at 09:56; Status DC Insulin Human Lispro (HumaLOG) 15 units STAT STAT SQ Last administered on at 08:47; Start 10/21/18 at 08:21; Stop 10/21/18 at 08:24; Status DC Insulin Glargine (Lantus) 20 units QHS SQ Last administered on 10/21/18at 21:15; Start 10/21/18 at 21:00 Insulin Glargine (Lantus) 15 units 1X ONCE SQ Last administered on 10/21/18at 13 :24; Start 10/21/18 at 10:30; Stop 10/21/18 at 10:31; Status DC Insulin Human Lispro (HumaLOG) 10 units TIDWMEALS SQ Last administered on at 17:28; Start 10/21/18 at 12:00 Insulin Human Lispro (HumaLOG) 15 units 1X ONCE SQ ; Start 10/21/18 at 10:30; Stop 10/21/18 at 10:31; Status DC Insulin Human Lispro (HumaLOG) 9 units 1X ONCE SQ Last administered on at 20:06; Start 10/21/18 at 20:00; Stop 10/21/18 at 20:09; Status DC Insulin Human Lispro (HumaLOG) 6 units 1X ONCE SQ Last administered on at 22:23; Start 10/21/18 at 22:30; Stop 10/21/18 at 22:31; Status DC Insulin Human Lispro (HumaLOG) 4 units 1X ONCE SQ Last administered on at 00:54; Start 10/22/18 at 01:00; Stop 10/22/18 at 01:01; Status DC Insulin Human Lispro (HumaLOG) 2 units 1X ONCE SQ Last administered on at 02:42; Start 10/22/18 at 03:00; Stop 10/22/18 at 03:01; Status DC Sodium Chloride 1,000 ml @ 1,000 mls/hr Q1H PRN IV hypotension; Start 10/22/18 at 07:29; Stop 10/22/18 at 13:28; Status DC Sodium Chloride (Normal Saline Flush) 10 ml 1X PRN PRN IV AP catheter pack; Start 10/22/18 at 07:30; Stop 10/23/18 at 07:29 Sodium Chloride (Normal Saline Flush) 10 ml 1X PRN PRN IV SECURITY ENGINEER catheter pack; Start 10/22/18 at 07:30; Stop 10/23/18 at 07:29 Info (PHARMACY MONITORING -- do not chart) 1 each PRN DAILY PRN MC SEE COMMENTS ; Start 10/22/18 at 07:30; Status UNV Info (PHARMACY MONITORING -- do not chart) 1 each PRN DAILY PRN MC SEE COMMENTS ; Start 10/22/18 at 07:30 Vancomycin HCl (Vanco Per Pharmacy) 1 each PRN DAILY PRN MC SEE COMMENTS; Start 10/22/18 at 09:45 Vancomycin HCl 2 gm/Sodium Chloride 500 ml @ 250 mls/hr 1X ONCE IV Last administered on 10/22/18at 13:45; Start 10/22/18 at 10:00; Stop 10/22/18 at 11:59; Status DC Active Scripts Active Reported Nexium Capsule (Esomeprazole Magnesium) 20 Mg Capsule.dr 1 Cap PO DAILY Alfuzosin Hcl 10 Mg Tab.er.24h 10 Mg Pe PO DAILY Vitamin D3 (Cholecalciferol (Vitamin D3)) 1,000 Unit Tablet 1,000 Unit PO DAILY Hydrochlorothiazide 25 Mg Tablet 25 Mg PO DAILY Enalapril Maleate 10 Mg Tablet 10 Mg PO DAILY Gabapentin 100 Mg Capsule 100 Mg PO TID Diclofenac Sodium 75 Mg Tablet.dr 75 Mg PO BID Vitals/I & O Vital Sign - Last 24 Hours 10/21/18 10/21/18 10/21/18 10/21/18 14:50 15:00 19:00 19:39 Temp 98.0 97.9 98.0 97.9 Pulse 106 104 Resp 20 B/P (MAP) 137/71 (93) 172/72 (105) Pulse Ox 97 96 95 96 O2 Delivery Nasal Cannula Nasal Cannula Nasal Cannula Nasal Cannula O2 Flow Rate 2.0 2.0 2.0 2.0 10/21/18 10/21/18 10/21/18 10/21/18 20:00 20:09 20:26 22:45 Temp 97.9 97.9 Pulse 107 106 Resp B/P (MAP) 145/65 (91) 119/52 (74) Pulse Ox 96 96 O2 Delivery Nasal Cannula Nasal Cannula O2 Flow Rate 2.0 2.0 10/21/18 10/22/18 10/22/18 10/22/18 23:23 02:56 07:15 08:13 Temp 98.1 97.4 98.1 97.4 Pulse 110 99 Resp 14 B/P (MAP) 153/70 (97) 128/56 (80) Pulse Ox 96 91 96 O2 Delivery Nasal Cannula Nasal Cannula Room Air Nasal Cannula O2 Flow Rate 2.0 2.0 2.0 10/22/18 10/22/18 10/22/18 08:57 10:05 12:50 Temp 98.3 98.3 Pulse 105 Resp 16 B/P (MAP) 133/61 (85) Pulse Ox 100 O2 Delivery Nasal Cannula Nasal Cannula Nasal Cannula O2 Flow Rate 2.0 2.0 2.0 Intake and Output 10/21/18 10/21/18 10/22/18 15:00 23:00 07:00 Intake Total 100 ml Balance 100 ml JAMAL HER MD Oct 22, 2018 14:14
--- NOTE | 2018-10-22 14:50 | PDOC2 ---
PALLIATIVE CARE Palliative Care Note Palliative Care Patient asleep. Requested by to have further discussion about plan of care. After family discussion Alyssa would like to proceed with DNR/DNI. Ever--son agrees with this decision. Will meet again tomorrow. FMLA papers completed. Outside the Hospital DNR/DNI completed and signed by MELI Johnson Oct 22, 2018 14:50
[2018-10-22 15:00] VITALS: BP 144/73
[2018-10-22] MEDS: LACTOBACILLUS RHAMNOSUS GG 1 CAPSULE. PO SCH ×2 (15:48→21:31)
[2018-10-22] MEDS: PANTOPRAZOLE 40 MG TABLET.DR. PO SCH (15:48)
[2018-10-22] MEDS: VANCOMYCIN PER PHARMACY MC PRN (16:34)
--- NOTE | 2018-10-22 16:34 | NUR ---
Pharmacy Vancomycin Dosing Note S:Consulted to monitor and dose vancomycin started 10/22/18. O:MAGALY TAVARES is a 63 year old M with mental status changes, new HD catheter placed recently. Height: 5 feet, 6 inches Weight: 90.8 Other Antibiotics: MERREM 500 MG IV Q12HRS LABS: Last BUN: 66 Last Creatinine: 2.4 Creatinine Clearance: ESRD on HD Last WBC: 17.1 Last Procalcitonin: ESRD Tmax (past 24 hours): 98.4 Microbiology: BLOOD CX IN PROCESS I/O: 100/output not documented; 9 voids A: Patient requires vancomycin as empiric treatment for mental status changes - blood cultures in process. Goal levels 15-20 mcg/ml. Patient has been receiving dialysis intermittently this admission. Last session was today, prior to vancomycin dose given. Initiate the following, based on a MWF HD schedule: P: 1. Initiate Vancomycin 2000 mg IV x 1 dose 2. Follow up Random level on 10/24/18 at 0600 3. Pharmacy will continue to monitor, follow and adjust therapy as needed. SUKHWINDER CHAPIN [facility], 10/22/18 [id number]
[2018-10-22 19:00] VITALS: BP_SYST 125; BP_SYST 138; BP_DIAS 55; BP_DIAS 89
[2018-10-22] MEDS: rifAXIMin 550 MG TABLET PO SCH (21:31)
[2018-10-22] MEDS: SERTRALINE 25 MG TABLET. PO SCH (21:31)
[2018-10-22] MEDS: INSULIN GLARGINE 300 UNITS/3 ML INSULN.PEN. SQ SCH (21:46)
[2018-10-22] MEDS: IV NORMAL SALINE 1000ML BAG 1,000 ML IV SCH (22:31)
[2018-10-22 23:00] VITALS: BP_SYST 132; BP_SYST 155; BP_DIAS 56; BP_DIAS 85
[2018-10-23 03:00] VITALS: BP 151/67
[2018-10-23] MEDS: MORPHINE SULFATE 4 MG/ML VIAL. IV PRN ×3 (03:09→12:26)
[2018-10-23] MEDS: PANTOPRAZOLE 40 MG TABLET.DR. PO SCH (05:28)
[2018-10-23 07:00] VITALS: BP 139/55
[2018-10-23] MEDS: IV NORMAL SALINE 1000ML BAG 1,000 ML IV SCH (07:40)
[2018-10-23] MEDS: INSULIN LISPRO 300 UNITS/3 ML INSULN.PEN. SQ SCH ×6 (08:00→17:00)
--- NOTE | 2018-10-23 08:58 | PDOC ---
PROGRESS NOTES Subjective Subjective HPI - f/u of Thrombocytopenia ROS - no bleeding Objective Objective Vital Signs Date Time Temp Pulse Resp B/P (MAP) Pulse Ox O2 Delivery O2 Flow Rate FiO2 10/23/18 08:15 Nasal Cannula 2.0 10/23/18 06:14 16 96 10/23/18 03:00 98.1 99 151/67 (95) 98.1 Intake and Output 10/23/18 07:00 Intake Total 1500 ml Balance 1500 ml Intake Oral 400 ml IV Total 1100 ml # Voids 8 # Bowel Movements 1 Physical Exam General: No acute distress Skin: Other (icterus) Assessment Assessment Problems Medical Problems: (1) Acute pyelonephritis Status: Acute (2) Acute renal failure Status: Acute (3) Exertional dyspnea Status: Acute (4) Hyponatremia Status: Acute IMPRESSION AND PLAN: 1. Thrombocytopenia due to cirrhosis of the liver and hypersplenism. The patient has chronic thrombocytopenia and he is aware of hematologic abnormality. I suspect that his platelets are worse at this time due to underlying infection. He has history of urinary tract infection and now the CAT scan reveals evidence of pyelonephritis. He has 32% bands. Reticulocyte count is normal at 1.6, and hence, I do not suspect DIC or TTP. There is no evidence of fragmented red cells in the peripheral smear. There is evidence of toxic granulations and toxic vacuolation further indicating that he has underlying infection causing worsening thrombocytopenia. No clinical evidence of bleeding at this time. If he has any significant bleeding, I would recommend platelet transfusion. He is afebrile and does not appear toxic. Continue to monitor closely. No bleed. 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 plt now 18. Plan to transfuse if platelets at or below 10. I d/w pt's son 2. Anemia secondary to renal failure and cirrhosis of the liver. Reticulocyte count is normal at 1.6. Iron studies are consistent with anemia of chronic disease. B12 is more than 2000. TSH is normal at 1.070. Continue to monitor hemoglobin. Hb 9.3 3. Jaundice thought to be due to decompensated cirrhosis. I appreciate GI consultation. 4. Renal failure, management per primary team. 5. UTI - appreciate ID and urology management. 6. Met encephalopathy. Comment Review of Relevant I have reviewed the following items ester (where applicable) has been applied. Labs Laboratory Tests Test 10/21/18 09:59 10/21/18 10:43 10/21/18 12:08 10/21/18 16:58 Glucose (Fingerstick) 314 mg/dL (70-99) 259 mg/dL (70-99) 362 mg/dL (70-99) White Blood Count 17.5 x10^3/uL (4.0-11.0) Red Blood Count 2.67 x10^6/uL (4.30-5.70) Hemoglobin 9.4 g/dL (13.0-17.5) Hematocrit 28.0 % (39.0-53.0) Mean Corpuscular Volume 105 fL (79-100) Mean Corpuscular Hemoglobin 35 pg (25-35) Mean Corpuscular Hemoglobin Concent 34 g/dL (31-37) Red Cell Distribution Width 15.0 % (11.5-14.5) Platelet Count 16 x10^3/uL (140-400) Neutrophils (%) (Auto) 81 % (31-73) Lymphocytes (%) (Auto) 14 % (24-48) Monocytes (%) (Auto) 5 % (0-9) Eosinophils (%) (Auto) 0 % (0-3) Basophils (%) (Auto) 1 % (0-3) Neutrophils # (Auto) 14.1 x10^3uL (1.8-7.7) Lymphocytes # (Auto) 2.4 x10^3/uL (1.0-4.8) Monocytes # (Auto) 0.8 x10^3/uL (0.0-1.1) Eosinophils # (Auto) 0.0 x10^3/uL (0.0-0.7) Basophils # (Auto) 0.2 x10^3/uL (0.0-0.2) Sodium Level 130 mmol/L (136-145) Potassium Level 3.4 mmol/L (3.5-5.1) Chloride Level 97 mmol/L (98-107) Carbon Dioxide Level 25 mmol/L (21-32) Anion Gap 8 (6-14) Blood Urea Nitrogen 57 mg/dL (8-26) Creatinine 2.6 mg/dL (0.7-1.3) Estimated GFR (Cockcroft-Gault) 25.1 BUN/Creatinine Ratio 22 (6-20) Glucose Level 291 mg/dL (70-99) Calcium Level 7.5 mg/dL (8.5-10.1) Total Bilirubin 8.9 mg/dL (0.2-1.0) Aspartate Amino Transf (AST/SGOT) 69 U/L (15-37) Alanine Aminotransferase (ALT/SGPT) 73 U/L (16-63) Alkaline Phosphatase 304 U/L (46-116) Total Protein 5.9 g/dL (6.4-8.2) Albumin 1.4 g/dL (3.4-5.0) Albumin/Globulin Ratio 0.3 (1.0-1.7) Test 10/21/18 19:51 10/21/18 22:04 10/22/18 00:28 10/22/18 02:15 Glucose (Fingerstick) 331 mg/dL (70-99) 305 mg/dL (70-99) 277 mg/dL (70-99) 213 mg/dL (70-99) Test 10/22/18 04:45 10/22/18 05:39 10/22/18 07:14 10/22/18 12:50 White Blood Count 17.1 x10^3/uL (4.0-11.0) Red Blood Count 2.59 x10^6/uL (4.30-5.70) Hemoglobin 9.3 g/dL (13.0-17.5) Hematocrit 26.9 % (39.0-53.0) Mean Corpuscular Volume 104 fL (79-100) Mean Corpuscular Hemoglobin 36 pg (25-35) Mean Corpuscular Hemoglobin Concent 35 g/dL (31-37) Red Cell Distribution Width 15.0 % (11.5-14.5) Platelet Count 18 x10^3/uL (140-400) Neutrophils (%) (Auto) 82 % (31-73) Lymphocytes (%) (Auto) 8 % (24-48) Monocytes (%) (Auto) 9 % (0-9) Eosinophils (%) (Auto) 1 % (0-3) Basophils (%) (Auto) 0 % (0-3) Neutrophils # (Auto) 14.1 x10^3uL (1.8-7.7) Lymphocytes # (Auto) 1.4 x10^3/uL (1.0-4.8) Monocytes # (Auto) 1.6 x10^3/uL (0.0-1.1) Eosinophils # (Auto) 0.1 x10^3/uL (0.0-0.7) Basophils # (Auto) 0.0 x10^3/uL (0.0-0.2) Prothrombin Time 17.5 SEC (11.7-14.0) Prothromb Time International Ratio 1.5 (0.8-1.1) Sodium Level 131 mmol/L (136-145) Potassium Level 3.2 mmol/L (3.5-5.1) Chloride Level 98 mmol/L (98-107) Carbon Dioxide Level 26 mmol/L (21-32) Anion Gap 7 (6-14) Blood Urea Nitrogen 66 mg/dL (8-26) Creatinine 2.4 mg/dL (0.7-1.3) Estimated GFR (Cockcroft-Gault) 27.6 BUN/Creatinine Ratio 28 (6-20) Glucose Level 198 mg/dL (70-99) Calcium Level 7.8 mg/dL (8.5-10.1) Total Bilirubin 7.8 mg/dL (0.2-1.0) Aspartate Amino Transf (AST/SGOT) 66 U/L (15-37) Alanine Aminotransferase (ALT/SGPT) 71 U/L (16-63) Alkaline Phosphatase 290 U/L (46-116) Ammonia 71 mcmol/L (11-34) Total Protein 6.0 g/dL (6.4-8.2) Albumin 1.4 g/dL (3.4-5.0) Albumin/Globulin Ratio 0.3 (1.0-1.7) Glucose (Fingerstick) 175 mg/dL (70-99) 183 mg/dL (70-99) 136 mg/dL (70-99) Test 10/22/18 16:46 10/22/18 21:14 10/22/18 23:10 10/23/18 07:55 Glucose (Fingerstick) 194 mg/dL (70-99) 224 mg/dL (70-99) 259 mg/dL (70-99) 247 mg/dL (70-99) Laboratory Tests Test 10/22/18 12:50 10/22/18 16:46 10/22/18 21:14 10/22/18 23:10 Glucose (Fingerstick) 136 mg/dL (70-99) 194 mg/dL (70-99) 224 mg/dL (70-99) 259 mg/dL (70-99) Test 10/23/18 07:55 Glucose (Fingerstick) 247 mg/dL (70-99) Microbiology 10/14/18 Urine Culture - Final, Complete 10/14/18 Urine Culture Result 1 (SABRINA) - Final, Complete 10/14/18 Antimicrobic Susceptibility - Final, Complete Medications Current Medications Sodium Chloride 500 ml @ 500 mls/hr 1X ONCE IV Last administered on 09:47; Start 10/14/18 at 09:30; Stop 10/14/18 at 10:29; Status DC Ondansetron HCl (Zofran) 4 mg PRN Q8HRS PRN IV NAUSEA/VOMITING Last administered on 10/15/18at 09:57; Start 10/14/18 at 10:15; Stop 10/15/18 at 10:14 ; Status DC Ceftriaxone Sodium (Rocephin) 1 gm 1X ONCE IVP Last administered on 10/14/18at 10:41; Start 10/14/18 at 10:30; Stop 10/14/18 at 10:31; Status DC Ceftriaxone Sodium (Rocephin) 1 gm Q24H IVP Last administered on 10/17/18at 11: 37; Start 10/15/18 at 10:00; Stop 10/18/18 at 09:12; Status DC Oxycodone/ Acetaminophen (Percocet 5/325) 1 tab PRN Q4HRS PRN PO PAIN Last administered on 10/18/18at 21:54; Start 10/14/18 at 12:00 Morphine Sulfate (Morphine Sulfate) 4 mg PRN Q2HR PRN IV PAIN Last administered on 10/23/18at 05:28; Start 10/14/18 at 12:00 Sodium Chloride 1,000 ml @ 100 mls/hr 1X ONCE IV Last administered on at 12:15; Start 10/14/18 at 12:00; Stop 10/14/18 at 21:59; Status DC Lactobacillus Rhamnosus (Culturelle) 1 cap BID PO Last administered on 21:31; Start 10/14/18 at 21:00 Ondansetron HCl (Zofran) 4 mg PRN Q6HRS PRN IV NAUSEA/VOMITING; Start 10/15/18 at 10:30 Ondansetron HCl (Zofran Odt) 4 mg PRN Q6HRS PRN PO NAUSEA/VOMITING; Start 10/15 at 10:30 Sodium Chloride 1,000 ml @ 75 mls/hr [id number] IV Last administered on 10/22/18 22:31; Start 10/15/18 at 13:00 Lactulose (Lactulose) 20 gm TID PO Last administered on 10/20/18 20:20; Start 10/15/18 at 15:00 Sertraline HCl (Zoloft) 25 mg QHS PO Last administered on 10/22/18 21:31; Start 10/15/18 at 21:00 Insulin Human Lispro (HumaLOG) 0-9 UNITS TIDWMEALS SQ Last administered on 08:09; Start 10/16/18 at 17:00 Dextrose (Dextrose 50%-Water Syringe) 12.5 gm PRN Q15MIN PRN IV SEE COMMENTS; Start 10/16/18 at 12:15 Labetalol HCl (Normodyne Iv Push) 20 mg 1X ONCE IVP ; Start 10/16/18 at 12:15; Stop 10/16/18 at 12:15; Status DC Labetalol HCl (Normodyne Iv Push) 10 mg PRN Q2HR PRN IVP HYPERTENSION, SEE COMMENTS; Start 10/16/18 at 12:15 Vitamin D (Vitamin D3) 1,000 unit DAILY PO Last administered on 10/21/18 10:22 ; Start 10/16/18 at 13:00 Tamsulosin HCl (Flomax) 0.4 mg DAILY PO Last administered on 10/21/18 08:37; Start 10/16/18 at 13:00 Pantoprazole Sodium (Protonix) 40 mg DAILYAC PO Last administered on 10/23/18 05:28; Start 10/16/18 at 16:30 Gabapentin (Neurontin) 100 mg TID PO ; Start 10/16/18 at 14:00; Stop 10/16/18 at 16:21; Status DC Gabapentin (Neurontin) 100 mg TID PO Last administered on 10/20/18at 09:00; Start 10/16/18 at 14:00 Lidocaine/ Epinephrine (LIDOCAINE 1%-EPI 1:100,000 Multi-Dose) 20 ml STK-MED ONCE .ROUTE ; Start 10/17/18 at 09:26; Stop 10/17/18 at 09:27; Status DC Cefazolin Sodium 50 ml @ As Directed STK-MED ONCE IV ; Start 10/17/18 at 09:37; Stop 10/17/18 at 09:38; Status DC Midazolam HCl (Versed) 2 mg STK-MED ONCE .ROUTE ; Start 10/17/18 at 09:37; Stop 10/17/18 at 09:38; Status DC Fentanyl Citrate (Fentanyl 2ml Vial) 100 mcg STK-MED ONCE .ROUTE ; Start at 09:37; Stop 10/17/18 at 09:38; Status DC Midazolam HCl (Versed) 1 mg 1X ONCE IV Last administered on 10/17/18at 09:44; Start 10/17/18 at 10:15; Stop 10/17/18 at 10:16; Status DC Fentanyl Citrate (Fentanyl 2ml Vial) 50 mcg 1X ONCE IV Last administered on at 09:44; Start 10/17/18 at 10:15; Stop 10/17/18 at 10:16; Status DC Lidocaine/ Epinephrine (LIDOCAINE 1%-EPI 1:100,000 Multi-Dose) 7 ml 1X ONCE IJ Last administered on 10/17/18at 09:44; Start 10/17/18 at 10:15; Stop 10/17/18 at 10:16; Status DC Cefazolin Sodium 50 ml @ 100 mls/hr 1X ONCE IV Last administered on at 09:45; Start 10/17/18 at 10:15; Stop 10/17/18 at 10:44; Status DC Sodium Chloride 1,000 ml @ 1,000 mls/hr Q1H PRN IV hypotension; Start 10/17/18 at 18:06; Stop 10/18/18 at 00:05; Status DC Diphenhydramine HCl (Benadryl) 25 mg 1X PRN PRN IV ITCHING; Start 10/17/18 at 18:15; Stop 10/18/18 at 18:14; Status DC Diphenhydramine HCl (Benadryl) 25 mg 1X PRN PRN IV ITCHING; Start 10/17/18 at 18:15; Stop 10/18/18 at 18:14; Status DC Sodium Chloride 1,000 ml @ 400 mls/hr Q2H30M PRN IV PATENCY; Start 10/17/18 at 18:06; Stop 10/18/18 at 06:05; Status DC Info (PHARMACY MONITORING -- do not chart) 1 each PRN DAILY PRN MC SEE COMMENTS ; Start 10/17/18 at 18:15; Status Cancel Cefepime HCl (Maxipime) 1 gm Q12HR IVP ; Start 10/18/18 at 10:00; Stop 10/18/18 at 10:01; Status DC Info (PHARMACY MONITORING -- do not chart) 1 each PRN DAILY PRN MC SEE COMMENTS ; Start 10/18/18 at 10:00; Stop 10/18/18 at 10:04; Status DC Info (PHARMACY MONITORING -- do not chart) 1 each PRN DAILY PRN MC SEE COMMENTS ; Start 10/18/18 at 10:00; Stop 10/18/18 at 10:04; Status DC Meropenem 500 mg/ Sodium Chloride 50 ml @ 100 mls/hr Q12HR IV Last administered on 10/22/18at 21:30; Start 10/18/18 at 11:00 Darbepoetin Poncho (Aranesp) 60 mcg WEEKLYHS SQ Last administered on 10/19/18at 21: 12; Start 10/19/18 at 21:00 Vitamin A/Vitamin D (Vitamin A & D Ointment) 1 melvin BID PRN TP SKIN PROTECTION; Start 10/19/18 at 13:15 Sodium Chloride 1,000 ml @ 1,000 mls/hr Q1H PRN IV hypotension; Start 10/19/18 at 15:33; Stop 10/19/18 at 21:32; Status DC Sodium Chloride (Normal Saline Flush) 10 ml 1X PRN PRN IV AP catheter pack; Start 10/19/18 at 15:45; Stop 10/20/18 at 15:44; Status DC Sodium Chloride (Normal Saline Flush) 10 ml 1X PRN PRN IV TRIMMER MEAT catheter pack; Start 10/19/18 at 15:45; Stop 10/20/18 at 15:44; Status DC Sodium Chloride 1,000 ml @ 400 mls/hr Q2H30M PRN IV PATENCY; Start 10/19/18 at 15:33; Stop 10/20/18 at 03:32; Status DC Info (PHARMACY MONITORING -- do not chart) 1 each PRN DAILY PRN MC SEE COMMENTS ; Start 10/19/18 at 15:45; Status UNV Info (PHARMACY MONITORING -- do not chart) 1 each PRN DAILY PRN MC SEE COMMENTS ; Start 10/19/18 at 15:45; Status Cancel Insulin Human Lispro (HumaLOG) 20 units STAT SQ ; Start 10/20/18 at 11:30; Stop 10/21/18 at 10:00; Status DC Insulin Glargine (Lantus) 8 units QHS SQ Last administered on 10/20/18at 21:15; Start 10/20/18 at 21:00; Stop 10/21/18 at 09:56; Status DC Insulin Human Lispro (HumaLOG) 15 units STAT STAT SQ Last administered on at 08:47; Start 10/21/18 at 08:21; Stop 10/21/18 at 08:24; Status DC Insulin Glargine (Lantus) 20 units QHS SQ Last administered on 10/22/18at 21:46; Start 10/21/18 at 21:00 Insulin Glargine (Lantus) 15 units 1X ONCE SQ Last administered on 10/21/18at 13 :24; Start 10/21/18 at 10:30; Stop 10/21/18 at 10:31; Status DC Insulin Human Lispro (HumaLOG) 10 units TIDWMEALS SQ Last administered on at 17:28; Start 10/21/18 at 12:00 Insulin Human Lispro (HumaLOG) 15 units 1X ONCE SQ ; Start 10/21/18 at 10:30; Stop 10/21/18 at 10:31; Status DC Insulin Human Lispro (HumaLOG) 9 units 1X ONCE SQ Last administered on at 20:06; Start 10/21/18 at 20:00; Stop 10/21/18 at 20:09; Status DC Insulin Human Lispro (HumaLOG) 6 units 1X ONCE SQ Last administered on at 22:23; Start 10/21/18 at 22:30; Stop 10/21/18 at 22:31; Status DC Insulin Human Lispro (HumaLOG) 4 units 1X ONCE SQ Last administered on at 00:54; Start 10/22/18 at 01:00; Stop 10/22/18 at 01:01; Status DC Insulin Human Lispro (HumaLOG) 2 units 1X ONCE SQ Last administered on at 02:42; Start 10/22/18 at 03:00; Stop 10/22/18 at 03:01; Status DC Sodium Chloride 1,000 ml @ 1,000 mls/hr Q1H PRN IV hypotension; Start 10/22/18 at 07:29; Stop 10/22/18 at 13:28; Status DC Sodium Chloride (Normal Saline Flush) 10 ml 1X PRN PRN IV AP catheter pack; Start 10/22/18 at 07:30; Stop 10/23/18 at 07:29; Status DC Sodium Chloride (Normal Saline Flush) 10 ml 1X PRN PRN IV TRIMMER MEAT catheter pack; Start 10/22/18 at 07:30; Stop 10/23/18 at 07:29; Status DC Info (PHARMACY MONITORING -- do not chart) 1 each PRN DAILY PRN MC SEE COMMENTS ; Start 10/22/18 at 07:30; Status UNV Info (PHARMACY MONITORING -- do not chart) 1 each PRN DAILY PRN MC SEE COMMENTS ; Start 10/22/18 at 07:30 Vancomycin HCl (Vanco Per Pharmacy) 1 each PRN DAILY PRN MC SEE COMMENTS Last administered on 10/22/18at 16:34; Start 10/22/18 at 09:45 Vancomycin HCl 2 gm/Sodium Chloride 500 ml @ 250 mls/hr 1X ONCE IV Last administered on 10/22/18at 13:45; Start 10/22/18 at 10:00; Stop 10/22/18 at 11:59; Status DC Rifaximin (Xifaxan) 550 mg Q12HR PO Last administered on 10/22/18at 21:31; Start 10/22/18 at 21:00 Vancomycin HCl (Vancomycin Random Level) 1 each 1X ONCE MC ; Start 10/24/18 at 06:00; Stop 10/24/18 at 06:01 Insulin Human Lispro (HumaLOG) 6 units 1X ONCE SQ Last administered on at 00:04; Start 10/22/18 at 23:45; Stop 10/22/18 at 23:46; Status DC Active Scripts Active Reported Nexium Capsule (Esomeprazole Magnesium) 20 Mg Capsule. 1 Cap PO DAILY Alfuzosin Hcl 10 Mg Tab.er.24h 10 Mg Pe PO DAILY Vitamin D3 (Cholecalciferol (Vitamin D3)) 1,000 Unit Tablet 1,000 Unit PO DAILY Hydrochlorothiazide 25 Mg Tablet 25 Mg PO DAILY Enalapril Maleate 10 Mg Tablet 10 Mg PO DAILY Gabapentin 100 Mg Capsule 100 Mg PO TID Diclofenac Sodium 75 Mg Tablet.dr 75 Mg PO BID Vitals/I & O Vital Sign - Last 24 Hours 10/22/18 10/22/18 10/22/18 10/22/18 08:57 12:50 15:00 15:47 Temp 98.3 98.4 98.3 98.4 Pulse 105 86 Resp 16 14 B/P (MAP) 133/61 (85) 144/73 (96) Pulse Ox 100 96 O2 Delivery Nasal Cannula Nasal Cannula Nasal Cannula Room Air O2 Flow Rate 2.0 2.0 2.0 10/22/18 10/22/18 10/22/18 10/22/18 19:00 20:00 22:32 23:00 Temp 98.7 97.5 98.7 97.5 Pulse 86 91 Resp 16 16 18 B/P (MAP) 125/55 (78) 155/56 (89) Pulse Ox 96 O2 Delivery Nasal Cannula Nasal Cannula Nasal Cannula Nasal Cannula O2 Flow Rate 2.0 2.0 2.0 2.0 10/23/18 10/23/18 10/23/18 10/23/18 03:00 03:09 05:28 06:14 Temp 98.1 98.1 Pulse 99 Resp 18 16 16 16 B/P (MAP) 151/67 (95) Pulse Ox 98 96 96 O2 Delivery Nasal Cannula Nasal Cannula Nasal Cannula Nasal Cannula O2 Flow Rate 2.0 2.0 2.0 2.0 10/23/18 08:15 O2 Delivery Nasal Cannula O2 Flow Rate 2.0 Intake and Output 10/22/18 10/22/18 10/23/18 15:00 23:00 07:00 Intake Total 50 ml 400 ml 1050 ml Balance 50 ml 400 ml 1050 ml JAMAL HER MD Oct 23, 2018 08:58
[2018-10-23] MEDS: rifAXIMin 550 MG TABLET PO SCH ×2 (09:00→21:00)
[2018-10-23] MEDS: GABAPENTIN 100 MG CAPSULE. PO SCH ×3 (09:00→21:00)
[2018-10-23] MEDS: CHOLECALCIFEROL (VITAMIN D3) 1,000 UNIT TABLET PO SCH (09:00)
[2018-10-23] MEDS: LACTOBACILLUS RHAMNOSUS GG 1 CAPSULE. PO SCH ×2 (09:00→21:00)
[2018-10-23] MEDS: TAMSULOSIN 0.4 MG CAP.ER.24H. PO SCH (09:00)
[2018-10-23] MEDS: LACTULOSE 20 GM/30 ML SOLUTION. PO SCH ×3 (09:00→21:00)
[2018-10-23] MEDS: MEROPENEM 500 MG in IV NORMAL SALINE 50ML 50 ML IV SCH ×2 (09:07→21:00)
--- NOTE | 2018-10-23 10:23 | PDOC ---
Infectious Disease Note Subjective: Subjective pt remains the same confused lethargic arousable, says is ok but does not answer any questions ROS: ROS Negative except for above. Vital Signs: Vital Signs Vital Signs Date Time Temp Pulse Resp B/P (MAP) Pulse Ox O2 Delivery O2 Flow Rate FiO2 10/23/18 08:15 Nasal Cannula 2.0 10/23/18 07:00 97.2 92 16 139/55 (83) 99 97.2 Physical Exam: PHYSICAL EXAM GENERAL: Lethargic HEENT: Oral cavity dry LUNGS: Clear. HEART: S1 and S2 regular. ABDOMEN: Soft and nontender EXTREMITIES: 1-2 edema BLE. No cyanosis SKIN: warm without rash NEUROLOGICAL: Arouses to name, lethargic Tunneled HDC (10/17) clean Medications: Inpatient Meds: Current Medications Medications (Trade) Dose Ordered Sig/Micheal Start Time Stop Time Status Last Admin Dose Admin Cefazolin Sodium 50 ml @ 100 mls/hr 1X ONCE 10/17/18 10:15 10/17/18 10:44 DC 10/17/18 09:45 100 MLS/HR Cefepime HCl (Maxipime) 1 gm Q12HR 10/18/18 10:00 10/18/18 10:01 DC Ceftriaxone Sodium (Rocephin) 1 gm Q24H 10/15/18 10:00 10/18/18 09:12 DC 10/17/18 11:37 1 GM Darbepoetin Poncho (Aranesp) 60 mcg WEEKLYHS 10/19/18 21:00 10/19/18 21:12 60 MCG Dextrose (Dextrose 50%-Water Syringe) 12.5 gm PRN Q15MIN PRN 10/16/18 12:15 Diphenhydramine HCl (Benadryl) 25 mg 1X PRN PRN 10/17/18 18:15 10/18/18 18:14 DC Fentanyl Citrate (Fentanyl 2ml Vial) 50 mcg 1X ONCE 10/17/18 10:15 10/17/18 10:16 DC 10/17/18 09:44 50 MCG Gabapentin (Neurontin) 100 mg TID 10/16/18 14:00 10/20/18 09:00 100 MG Info (PHARMACY MONITORING -- do not chart) 1 each PRN DAILY PRN 10/22/18 07:30 Insulin Glargine (Lantus) 15 units 1X ONCE 10/21/18 10:30 10/21/18 10:31 DC 10/21/18 13:24 15 UNITS Insulin Human Lispro (HumaLOG) 6 units 1X ONCE 10/22/18 23:45 10/22/18 23:46 DC 10/23/18 00:04 6 UNITS Labetalol HCl (Normodyne Iv Push) 10 mg PRN Q2HR PRN 10/16/18 12:15 Lactobacillus Rhamnosus (Culturelle) 1 cap BID 10/14/18 21:00 10/22/18 21:31 1 CAP Lactulose (Lactulose) 20 gm TID 10/15/18 15:00 10/20/18 20:20 20 GM Lidocaine/ Epinephrine (LIDOCAINE 1%-EPI 1:100,000 Multi-Dose) 7 ml 1X ONCE 10/17/18 10:15 10/17/18 10:16 DC 10/17/18 09:44 7 ML Meropenem 500 mg/ Sodium Chloride 50 ml @ 100 mls/hr Q12HR 10/18/18 11:00 10/23/18 09:07 100 MLS/HR Midazolam HCl (Versed) 1 mg 1X ONCE 10/17/18 10:15 10/17/18 10:16 DC 10/17/18 09:44 1 MG Morphine Sulfate (Morphine Sulfate) 4 mg PRN Q2HR PRN 10/14/18 12:00 10/23/18 05:28 4 MG Ondansetron HCl (Zofran Odt) 4 mg PRN Q6HRS PRN 10/15/18 10:30 Ondansetron HCl (Zofran) 4 mg PRN Q6HRS PRN 10/15/18 10:30 Oxycodone/ Acetaminophen (Percocet 5/325) 1 tab PRN Q4HRS PRN 10/14/18 12:00 10/18/18 21:54 1 TAB Pantoprazole Sodium (Protonix) 40 mg DAILYAC 10/16/18 16:30 10/23/18 05:28 40 MG Rifaximin (Xifaxan) 550 mg Q12HR 10/22/18 21:00 10/22/18 21:31 550 MG Sertraline HCl (Zoloft) 25 mg QHS 10/15/18 21:00 10/22/18 21:31 25 MG Sodium Chloride (Normal Saline Flush) 10 ml 1X PRN PRN 10/22/18 07:30 10/23/18 07:29 DC Tamsulosin HCl (Flomax) 0.4 mg DAILY 10/16/18 13:00 10/21/18 08:37 0.4 MG Vancomycin HCl (Vanco Per Pharmacy) 1 each PRN DAILY PRN 10/22/18 09:45 10/22/18 16:34 1 EACH Vancomycin HCl (Vancomycin Random Level) 1 each 1X ONCE 10/24/18 06:00 10/24/18 06:01 Vancomycin HCl 2 gm/Sodium Chloride 500 ml @ 250 mls/hr 1X ONCE 10/22/18 10:00 10/22/18 11:59 DC 10/22/18 13:45 250 MLS/HR Vitamin A/Vitamin D (Vitamin A & D Ointment) 1 melvin BID PRN 10/19/18 13:15 Vitamin D (Vitamin D3) 1,000 unit DAILY 10/16/18 13:00 10/21/18 10:22 1,000 UNIT Labs: Lab Laboratory Tests Test 10/22/18 12:50 10/22/18 16:46 10/22/18 21:14 10/22/18 23:10 Glucose (Fingerstick) 136 mg/dL (70-99) 194 mg/dL (70-99) 224 mg/dL (70-99) 259 mg/dL (70-99) Test 10/23/18 07:55 Glucose (Fingerstick) 247 mg/dL (70-99) Objective: Assessment: ESBL E. coli UTI/pyelonephritis, complicated, 10/14 (POA) Renal failure on HD Cirrhosis of liver/ESLD/Hepatorenal syndrome Severe thrombocytopenia Leukocytosis Hypothermia Metabolic encephalopathy] acute hepatitis Aug 2018 DM 2 S/P Tunnel HD catheter this admission Plan: Plan of Care Meropenem (started 10/18) Vanc HD dosing f/u cults and labs in am Monitor temp/WBC multispeciality team following Contact isolation Overall Condition poor Palliative care followiing D/w nursing JAKE MEDINA MD Oct 23, 2018 10:23
[2018-10-23 11:00] VITALS: BP 164/72
--- NOTE | 2018-10-23 14:56 | PDOC ---
Objective: Objective: Reviewed w/ RN - palliative care discussion ongoing. Sleeps during the day, more awake during the night. Oral meds held for the most part. Vital Signs: Vital Signs Date Time Temp Pulse Resp B/P (MAP) Pulse Ox O2 Delivery O2 Flow Rate FiO2 10/23/18 13:53 Nasal Cannula 2.0 10/23/18 11:00 98.2 96 14 164/72 (102) 96 98.2 Labs: Laboratory Tests Test 10/22/18 16:46 10/22/18 21:14 10/22/18 23:10 10/23/18 07:55 Glucose (Fingerstick) 194 mg/dL 224 mg/dL 259 mg/dL 247 mg/dL Test 10/23/18 11:10 10/23/18 13:59 Glucose (Fingerstick) 202 mg/dL 164 mg/dL BLOOD CULTURE Preliminary NO GROWTH AFTER 1 DAY PE: GEN: NAD NEURO/PSYCH: sleeping, not awakened A/P: Cirrhosis - anemia/thrombocytopenia, ?hepatorenal syndrome (on HD) UTI -- Other per Dr. Nunez. IRIS CRONIN Oct 23, 2018 14:56
[2018-10-23 15:00] VITALS: BP 161/66
--- NOTE | 2018-10-23 15:58 | NUR ---
SS following up with discharge planning. SS received request from Palliative Care to send referral to [facility]. SS phoned and faxed referral to intake for [facility], ; fax [phone]. SS will await acceptance decision and will proceed accordingly.
--- NOTE | 2018-10-23 16:07 | PDOC ---
PROGRESS NOTES Chief Complaint Chief Complaint Acute renal failure, ESRD - new HD - Likely HEPATORENAL SYNDROME Anemia, multifactorial Established cirrhosis, decompensated likely from infection. w. ascites Hx of esophageal varices on propanolol Complicated E coli UTI/clinically c/w pyelonephritis with resistance to rocephin and others Hepatic metabolic encephalopathy, subtle/mild Mod PCM, poor PO itnake Dm,2, poor control, increased insulin Hyperbilirubinemia TB 6 with pruritus Likely ESLD - hospice has been consulted and family has decided to transition to inpatient hospice, Thrombocytopenia Very Poor prognosis, reassurance provided to the family greater than 35 minutes spent in counseling coordination of care and face to face encounter with patient and his family at bedside. History of Present Illness History of Present Illness Mr Hernandez is a 63 y/o male with known alcoholic cirrhosis; previously seen at [facility]. Family states other causes of liver disease effectively ruled out. 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 Banded several times. Last EGD a year ago and nothing left to band. No h/o ascites, though occasional LE edema. Admitted with complicated UTI - MDRO Today I had a prolonged conversation with his family members at bedside. We discussed patient's wishes at length. I managed expectations and addressed older concerns the best of my abilities. Palliative care team has visited with them in the afternoon and they have decided transition to a hospice care plan of care in light of our conversation and knowing that the patient's wishes were not to have aggressive medical management. I explained his current situation and the grim prognosis to the best of my abilities reassurance was provided Vitals Vitals Vital Signs Date Time Temp Pulse Resp B/P (MAP) Pulse Ox O2 Delivery O2 Flow Rate FiO2 10/23/18 13:53 Nasal Cannula 2.0 10/23/18 11:00 98.2 96 14 164/72 (102) 96 98.2 Physical Exam Physical Exam GENERAL: Lethargic HEENT: Oral cavity dry LUNGS: Clear. HEART: S1 and S2 regular. ABDOMEN: Soft and nontender EXTREMITIES: 1-2 edema BLE. No cyanosis SKIN: warm without rash NEUROLOGICAL: Arouses to name, lethargic Tunneled HDC (10/17) clean General: No acute distress Heart: Regular rate, Normal S1, Normal S2 Abdomen: Normal bowel sounds, Soft, No tenderness, Other (MILD ASCITES) Extremities: No clubbing, No cyanosis Skin: Other (icterus) Labs LABS Laboratory Tests Test 10/22/18 16:46 10/22/18 21:14 10/22/18 23:10 10/23/18 07:55 Glucose (Fingerstick) 194 mg/dL (70-99) 224 mg/dL (70-99) 259 mg/dL (70-99) 247 mg/dL (70-99) Test 10/23/18 11:10 10/23/18 13:59 Glucose (Fingerstick) 202 mg/dL (70-99) 164 mg/dL (70-99) Review of Systems Review of Systems unable to obtain due to encephalopathy Assessment and Plan Assessmemt and Plan Problems Medical Problems: (1) Acute pyelonephritis Status: Acute (2) Acute renal failure Status: Acute (3) Exertional dyspnea Status: Acute (4) Hyponatremia Status: Acute Comment Review of Relevant I have reviewed the following items ester (where applicable) has been applied. Labs Laboratory Tests Test 10/21/18 16:58 10/21/18 19:51 10/21/18 22:04 10/22/18 00:28 Glucose (Fingerstick) 362 mg/dL (70-99) 331 mg/dL (70-99) 305 mg/dL (70-99) 277 mg/dL (70-99) Test 10/22/18 02:15 10/22/18 04:45 10/22/18 05:39 10/22/18 07:14 Glucose (Fingerstick) 213 mg/dL (70-99) 175 mg/dL (70-99) 183 mg/dL (70-99) White Blood Count 17.1 x10^3/uL (4.0-11.0) Red Blood Count 2.59 x10^6/uL (4.30-5.70) Hemoglobin 9.3 g/dL (13.0-17.5) Hematocrit 26.9 % (39.0-53.0) Mean Corpuscular Volume 104 fL (79-100) Mean Corpuscular Hemoglobin 36 pg (25-35) Mean Corpuscular Hemoglobin Concent 35 g/dL (31-37) Red Cell Distribution Width 15.0 % (11.5-14.5) Platelet Count 18 x10^3/uL (140-400) Neutrophils (%) (Auto) 82 % (31-73) Lymphocytes (%) (Auto) 8 % (24-48) Monocytes (%) (Auto) 9 % (0-9) Eosinophils (%) (Auto) 1 % (0-3) Basophils (%) (Auto) 0 % (0-3) Neutrophils # (Auto) 14.1 x10^3uL (1.8-7.7) Lymphocytes # (Auto) 1.4 x10^3/uL (1.0-4.8) Monocytes # (Auto) 1.6 x10^3/uL (0.0-1.1) Eosinophils # (Auto) 0.1 x10^3/uL (0.0-0.7) Basophils # (Auto) 0.0 x10^3/uL (0.0-0.2) Prothrombin Time 17.5 SEC (11.7-14.0) Prothromb Time International Ratio 1.5 (0.8-1.1) Sodium Level 131 mmol/L (136-145) Potassium Level 3.2 mmol/L (3.5-5.1) Chloride Level 98 mmol/L (98-107) Carbon Dioxide Level 26 mmol/L (21-32) Anion Gap 7 (6-14) Blood Urea Nitrogen 66 mg/dL (8-26) Creatinine 2.4 mg/dL (0.7-1.3) Estimated GFR (Cockcroft-Gault) 27.6 BUN/Creatinine Ratio 28 (6-20) Glucose Level 198 mg/dL (70-99) Calcium Level 7.8 mg/dL (8.5-10.1) Total Bilirubin 7.8 mg/dL (0.2-1.0) Aspartate Amino Transf (AST/SGOT) 66 U/L (15-37) Alanine Aminotransferase (ALT/SGPT) 71 U/L (16-63) Alkaline Phosphatase 290 U/L (46-116) Ammonia 71 mcmol/L (11-34) Total Protein 6.0 g/dL (6.4-8.2) Albumin 1.4 g/dL (3.4-5.0) Albumin/Globulin Ratio 0.3 (1.0-1.7) Test 10/22/18 12:50 10/22/18 16:46 10/22/18 21:14 10/22/18 23:10 Glucose (Fingerstick) 136 mg/dL (70-99) 194 mg/dL (70-99) 224 mg/dL (70-99) 259 mg/dL (70-99) Test 10/23/18 07:55 10/23/18 11:10 10/23/18 13:59 Glucose (Fingerstick) 247 mg/dL (70-99) 202 mg/dL (70-99) 164 mg/dL (70-99) Laboratory Tests Test 10/22/18 16:46 10/22/18 21:14 10/22/18 23:10 10/23/18 07:55 Glucose (Fingerstick) 194 mg/dL (70-99) 224 mg/dL (70-99) 259 mg/dL (70-99) 247 mg/dL (70-99) Test 10/23/18 11:10 10/23/18 13:59 Glucose (Fingerstick) 202 mg/dL (70-99) 164 mg/dL (70-99) Microbiology 10/22/18 Blood Culture - Preliminary, Resulted NO GROWTH AFTER 1 DAY 10/14/18 Urine Culture - Final, Complete 10/14/18 Urine Culture Result 1 (SABRINA) - Final, Complete 10/14/18 Antimicrobic Susceptibility - Final, Complete Medications Current Medications Sodium Chloride 500 ml @ 500 mls/hr 1X ONCE IV Last administered on at 09:47; Start 10/14/18 at 09:30; Stop 10/14/18 at 10:29; Status DC Ondansetron HCl (Zofran) 4 mg PRN Q8HRS PRN IV NAUSEA/VOMITING Last administered on 10/15/18at 09:57; Start 10/14/18 at 10:15; Stop 10/15/18 at 10:14 ; Status DC Ceftriaxone Sodium (Rocephin) 1 gm 1X ONCE IVP Last administered on 10/14/18at 10:41; Start 10/14/18 at 10:30; Stop 10/14/18 at 10:31; Status DC Ceftriaxone Sodium (Rocephin) 1 gm Q24H IVP Last administered on 10/17/18at 11: 37; Start 10/15/18 at 10:00; Stop 10/18/18 at 09:12; Status DC Oxycodone/ Acetaminophen (Percocet 5/325) 1 tab PRN Q4HRS PRN PO PAIN Last administered on 10/18/18 21:54; Start 10/14/18 at 12:00 Morphine Sulfate (Morphine Sulfate) 4 mg PRN Q2HR PRN IV PAIN Last administered on 10/23/18 12:26; Start 10/14/18 at 12:00; Stop 10/23/18 at 15:59; Status DC Sodium Chloride 1,000 ml @ 100 mls/hr 1X ONCE IV Last administered on 12:15; Start 10/14/18 at 12:00; Stop 10/14/18 at 21:59; Status DC Lactobacillus Rhamnosus (Culturelle) 1 cap BID PO Last administered on 21:31; Start 10/14/18 at 21:00 Ondansetron HCl (Zofran) 4 mg PRN Q6HRS PRN IV NAUSEA/VOMITING; Start 10/15/18 at 10:30 Ondansetron HCl (Zofran Odt) 4 mg PRN Q6HRS PRN PO NAUSEA/VOMITING; Start 10/15 at 10:30 Sodium Chloride 1,000 ml @ 75 mls/hr [id number] IV Last administered on 10/22/18 22:31; Start 10/15/18 at 13:00; Stop 10/23/18 at 14:55; Status DC Lactulose (Lactulose) 20 gm TID PO Last administered on 10/20/18 20:20; Start 10/15/18 at 15:00 Sertraline HCl (Zoloft) 25 mg QHS PO Last administered on 10/22/18 21:31; Start 10/15/18 at 21:00 Insulin Human Lispro (HumaLOG) 0-9 UNITS TIDWMEALS SQ Last administered on 08:09; Start 10/16/18 at 17:00 Dextrose (Dextrose 50%-Water Syringe) 12.5 gm PRN Q15MIN PRN IV SEE COMMENTS; Start 10/16/18 at 12:15 Labetalol HCl (Normodyne Iv Push) 20 mg 1X ONCE IVP ; Start 10/16/18 at 12:15; Stop 10/16/18 at 12:15; Status DC Labetalol HCl (Normodyne Iv Push) 10 mg PRN Q2HR PRN IVP HYPERTENSION, SEE COMMENTS; Start 10/16/18 at 12:15 Vitamin D (Vitamin D3) 1,000 unit DAILY PO Last administered on 10/21/18at 10:22 ; Start 10/16/18 at 13:00 Tamsulosin HCl (Flomax) 0.4 mg DAILY PO Last administered on 10/21/18at 08:37; Start 10/16/18 at 13:00 Pantoprazole Sodium (Protonix) 40 mg DAILYAC PO Last administered on 10/23/18at 05:28; Start 10/16/18 at 16:30 Gabapentin (Neurontin) 100 mg TID PO ; Start 10/16/18 at 14:00; Stop 10/16/18 at 16:21; Status DC Gabapentin (Neurontin) 100 mg TID PO Last administered on 10/20/18at 09:00; Start 10/16/18 at 14:00 Lidocaine/ Epinephrine (LIDOCAINE 1%-EPI 1:100,000 Multi-Dose) 20 ml STK-MED ONCE .ROUTE ; Start 10/17/18 at 09:26; Stop 10/17/18 at 09:27; Status DC Cefazolin Sodium 50 ml @ As Directed STK-MED ONCE IV ; Start 10/17/18 at 09:37; Stop 10/17/18 at 09:38; Status DC Midazolam HCl (Versed) 2 mg STK-MED ONCE .ROUTE ; Start 10/17/18 at 09:37; Stop 10/17/18 at 09:38; Status DC Fentanyl Citrate (Fentanyl 2ml Vial) 100 mcg STK-MED ONCE .ROUTE ; Start at 09:37; Stop 10/17/18 at 09:38; Status DC Midazolam HCl (Versed) 1 mg 1X ONCE IV Last administered on 10/17/18at 09:44; Start 10/17/18 at 10:15; Stop 10/17/18 at 10:16; Status DC Fentanyl Citrate (Fentanyl 2ml Vial) 50 mcg 1X ONCE IV Last administered on at 09:44; Start 10/17/18 at 10:15; Stop 10/17/18 at 10:16; Status DC Lidocaine/ Epinephrine (LIDOCAINE 1%-EPI 1:100,000 Multi-Dose) 7 ml 1X ONCE IJ Last administered on 10/17/18at 09:44; Start 10/17/18 at 10:15; Stop 10/17/18 at 10:16; Status DC Cefazolin Sodium 50 ml @ 100 mls/hr 1X ONCE IV Last administered on at 09:45; Start 10/17/18 at 10:15; Stop 10/17/18 at 10:44; Status DC Sodium Chloride 1,000 ml @ 1,000 mls/hr Q1H PRN IV hypotension; Start 10/17/18 at 18:06; Stop 10/18/18 at 00:05; Status DC Diphenhydramine HCl (Benadryl) 25 mg 1X PRN PRN IV ITCHING; Start 10/17/18 at 18:15; Stop 10/18/18 at 18:14; Status DC Diphenhydramine HCl (Benadryl) 25 mg 1X PRN PRN IV ITCHING; Start 10/17/18 at 18:15; Stop 10/18/18 at 18:14; Status DC Sodium Chloride 1,000 ml @ 400 mls/hr Q2H30M PRN IV PATENCY; Start 10/17/18 at 18:06; Stop 10/18/18 at 06:05; Status DC Info (PHARMACY MONITORING -- do not chart) 1 each PRN DAILY PRN MC SEE COMMENTS ; Start 10/17/18 at 18:15; Status Cancel Cefepime HCl (Maxipime) 1 gm Q12HR IVP ; Start 10/18/18 at 10:00; Stop 10/18/18 at 10:01; Status DC Info (PHARMACY MONITORING -- do not chart) 1 each PRN DAILY PRN MC SEE COMMENTS ; Start 10/18/18 at 10:00; Stop 10/18/18 at 10:04; Status DC Info (PHARMACY MONITORING -- do not chart) 1 each PRN DAILY PRN MC SEE COMMENTS ; Start 10/18/18 at 10:00; Stop 10/18/18 at 10:04; Status DC Meropenem 500 mg/ Sodium Chloride 50 ml @ 100 mls/hr Q12HR IV Last administered on 10/23/18at 09:07; Start 10/18/18 at 11:00 Darbepoetin Poncho (Aranesp) 60 mcg WEEKLYHS SQ Last administered on 10/19/18at 21: 12; Start 10/19/18 at 21:00 Vitamin A/Vitamin D (Vitamin A & D Ointment) 1 melvin BID PRN TP SKIN PROTECTION; Start 10/19/18 at 13:15 Sodium Chloride 1,000 ml @ 1,000 mls/hr Q1H PRN IV hypotension; Start 10/19/18 at 15:33; Stop 10/19/18 at 21:32; Status DC Sodium Chloride (Normal Saline Flush) 10 ml 1X PRN PRN IV AP catheter pack; Start 10/19/18 at 15:45; Stop 10/20/18 at 15:44; Status DC Sodium Chloride (Normal Saline Flush) 10 ml 1X PRN PRN IV CO PILOT catheter pack; Start 10/19/18 at 15:45; Stop 10/20/18 at 15:44; Status DC Sodium Chloride 1,000 ml @ 400 mls/hr Q2H30M PRN IV PATENCY; Start 10/19/18 at 15:33; Stop 10/20/18 at 03:32; Status DC Info (PHARMACY MONITORING -- do not chart) 1 each PRN DAILY PRN MC SEE COMMENTS ; Start 10/19/18 at 15:45; Status UNV Info (PHARMACY MONITORING -- do not chart) 1 each PRN DAILY PRN MC SEE COMMENTS ; Start 10/19/18 at 15:45; Status Cancel Insulin Human Lispro (HumaLOG) 20 units STAT SQ ; Start 10/20/18 at 11:30; Stop 10/21/18 at 10:00; Status DC Insulin Glargine (Lantus) 8 units QHS SQ Last administered on 10/20/18at 21:15; Start 10/20/18 at 21:00; Stop 10/21/18 at 09:56; Status DC Insulin Human Lispro (HumaLOG) 15 units STAT STAT SQ Last administered on at 08:47; Start 10/21/18 at 08:21; Stop 10/21/18 at 08:24; Status DC Insulin Glargine (Lantus) 20 units QHS SQ Last administered on 10/22/18at 21:46; Start 10/21/18 at 21:00 Insulin Glargine (Lantus) 15 units 1X ONCE SQ Last administered on 10/21/18at 13 :24; Start 10/21/18 at 10:30; Stop 10/21/18 at 10:31; Status DC Insulin Human Lispro (HumaLOG) 10 units TIDWMEALS SQ Last administered on at 12:25; Start 10/21/18 at 12:00 Insulin Human Lispro (HumaLOG) 15 units 1X ONCE SQ ; Start 10/21/18 at 10:30; Stop 10/21/18 at 10:31; Status DC Insulin Human Lispro (HumaLOG) 9 units 1X ONCE SQ Last administered on at 20:06; Start 10/21/18 at 20:00; Stop 10/21/18 at 20:09; Status DC Insulin Human Lispro (HumaLOG) 6 units 1X ONCE SQ Last administered on at 22:23; Start 10/21/18 at 22:30; Stop 10/21/18 at 22:31; Status DC Insulin Human Lispro (HumaLOG) 4 units 1X ONCE SQ Last administered on at 00:54; Start 10/22/18 at 01:00; Stop 10/22/18 at 01:01; Status DC Insulin Human Lispro (HumaLOG) 2 units 1X ONCE SQ Last administered on at 02:42; Start 10/22/18 at 03:00; Stop 10/22/18 at 03:01; Status DC Sodium Chloride 1,000 ml @ 1,000 mls/hr Q1H PRN IV hypotension; Start 10/22/18 at 07:29; Stop 10/22/18 at 13:28; Status DC Sodium Chloride (Normal Saline Flush) 10 ml 1X PRN PRN IV AP catheter pack; Start 10/22/18 at 07:30; Stop 10/23/18 at 07:29; Status DC Sodium Chloride (Normal Saline Flush) 10 ml 1X PRN PRN IV CO PILOT catheter pack; Start 10/22/18 at 07:30; Stop 10/23/18 at 07:29; Status DC Info (PHARMACY MONITORING -- do not chart) 1 each PRN DAILY PRN MC SEE COMMENTS ; Start 10/22/18 at 07:30; Status UNV Info (PHARMACY MONITORING -- do not chart) 1 each PRN DAILY PRN MC SEE COMMENTS ; Start 10/22/18 at 07:30 Vancomycin HCl (Vanco Per Pharmacy) 1 each PRN DAILY PRN MC SEE COMMENTS Last administered on 10/22/18at 16:34; Start 10/22/18 at 09:45 Vancomycin HCl 2 gm/Sodium Chloride 500 ml @ 250 mls/hr 1X ONCE IV Last administered on 10/22/18at 13:45; Start 10/22/18 at 10:00; Stop 10/22/18 at 11:59; Status DC Rifaximin (Xifaxan) 550 mg Q12HR PO Last administered on 10/22/18at 21:31; Start 10/22/18 at 21:00 Vancomycin HCl (Vancomycin Random Level) 1 each 1X ONCE MC ; Start 10/24/18 at 06:00; Stop 10/24/18 at 06:01 Insulin Human Lispro (HumaLOG) 6 units 1X ONCE SQ Last administered on at 00:04; Start 10/22/18 at 23:45; Stop 10/22/18 at 23:46; Status DC Fentanyl Citrate (Fentanyl 2ml Vial) 25 mcg PRN Q2HR PRN IV PAIN; Start at 16:00 Active Scripts Active Reported Nexium Capsule (Esomeprazole Magnesium) 20 Mg Capsule. 1 Cap PO DAILY Alfuzosin Hcl 10 Mg Tab.er.24h 10 Mg Pe PO DAILY Vitamin D3 (Cholecalciferol (Vitamin D3)) 1,000 Unit Tablet 1,000 Unit PO DAILY Hydrochlorothiazide 25 Mg Tablet 25 Mg PO DAILY Enalapril Maleate 10 Mg Tablet 10 Mg PO DAILY Gabapentin 100 Mg Capsule 100 Mg PO TID Diclofenac Sodium 75 Mg Tablet. 75 Mg PO BID Vitals/I & O Vital Sign - Last 24 Hours 10/22/18 10/22/18 10/22/18 10/22/18 19:00 20:00 22:32 23:00 Temp 98.7 97.5 98.7 97.5 Pulse 86 91 Resp 16 16 18 B/P (MAP) 125/55 (78) 155/56 (89) Pulse Ox 96 O2 Delivery Nasal Cannula Nasal Cannula Nasal Cannula Nasal Cannula O2 Flow Rate 2.0 2.0 2.0 2.0 10/23/18 10/23/18 10/23/1819 03:00 03:09 05:28 06:14 Temp 98.1 98.1 Pulse 99 Resp 18 16 16 16 B/P (MAP) 151/67 (95) Pulse Ox 98 96 96 O2 Delivery Nasal Cannula Nasal Cannula Nasal Cannula O2 Flow Rate 2.0 2.0 2.0 10/23/18 10/23/18 10/23/18 10/23/18 07:00 08:15 11:00 12:26 Temp 97.2 98.2 97.2 98.2 Pulse 92 96 Resp 16 14 B/P (MAP) 139/55 (83) 164/72 (102) Pulse Ox 99 96 O2 Delivery Nasal Cannula Nasal Cannula Nasal Cannula Nasal Cannula O2 Flow Rate 2.0 2.0 2.0 2.0 10/23/18 13:53 O2 Delivery Nasal Cannula O2 Flow Rate 2.0 Intake and Output 10/22/18 10/22/18 10/23/18 15:00 23:00 07:00 Intake Total 50 ml 400 ml 1050 ml Balance 50 ml 400 ml 1050 ml GLENNA ZAVLAA MD Oct 23, 2018 16:07
--- NOTE | 2018-10-23 16:08 | PDOC2 ---
PALLIATIVE CARE Palliative Care Note Palliative Care Patient minimally responsive to stimuli per staff. Requested to meet with family. Met with Alyssa--, 2 sons and daughter. Reviewed medical condition--lack of improvement. Ever son sees no improvement and would like to focus on comfort. Discussed options for care; Home with Hospice vs IP Hospice. Family requests [facility]. Family also concerned about comfort. Receiving Morphine IV . Will Change to Fentanyl for pain or SOB Spoke with Mary AVILEZ. Will fax information to [facility] Spoke with Dr. Montes who will write orders Plan: Comfort Care. IP Hospice Change Morphine to Fentanyl. MELI SCHUSTER Oct 23, 2018 16:08
[2018-10-23 19:00] VITALS: BP 144/59
[2018-10-23] MEDS: SERTRALINE 25 MG TABLET. PO SCH (21:00)
[2018-10-23] MEDS: INSULIN GLARGINE 300 UNITS/3 ML INSULN.PEN. SQ SCH (21:00)
[2018-10-23 23:00] VITALS: BP 145/65
[2018-10-24 03:00] VITALS: BP 145/64
[2018-10-24] MEDS ORDERED: VANCOMYCIN RANDOM LEVEL. MC ONE (06:00)
[2018-10-24] MEDS: fentaNYL PF VIAL 100 MCG/2 ML VIAL IV PRN ×3 (06:01→15:06)
[2018-10-24 06:41] LABS: ALBUMIN 1.3 g/dL (3.4-5.0); CREATININE 2.9 mg/dL (0.7-1.3); GFR 22.2; PHOSPHORUS 5.7 mg/dL (2.6-4.7); POTASSIUM 4.1 mmol/L (3.5-5.1)
[2018-10-24 07:00] VITALS: BP 155/70
[2018-10-24] MEDS: INSULIN LISPRO 300 UNITS/3 ML INSULN.PEN. SQ SCH ×4 (08:00→12:00)
[2018-10-24] MEDS: rifAXIMin 550 MG TABLET PO SCH (09:00)
[2018-10-24] MEDS: MEROPENEM 500 MG in IV NORMAL SALINE 50ML 50 ML IV SCH (09:00)
[2018-10-24] MEDS: LACTULOSE 20 GM/30 ML SOLUTION. PO SCH ×2 (09:00→14:00)
[2018-10-24] MEDS: GABAPENTIN 100 MG CAPSULE. PO SCH ×2 (09:00→14:00)
[2018-10-24] MEDS: VANCOMYCIN PER PHARMACY MC PRN ×2 (09:19→09:21)
--- NOTE | 2018-10-24 09:21 | NUR ---
Pharmacy Vancomycin Dosing Note S: Consulted to monitor and dose vancomycin started 10/22/18. O: MAGALY TAVARES is a 63 year old M with Bacteremia; mental status changes, new HD catheter placed Other Antibiotics: MERREM 500 MG IV Q12HRS LABS: Last BUN: 59 Last Creatinine: 2.9 Creatinine Clearance: ESRD Last WBC: 17.1 Last Platelets: Tmax (past 24 hours): 99.5 Microbiology: BLOOD CX: GNR I/O: 160/output not documented; 7 voids Drug Levels: Last Random level: 12.5 on 10/24/18 at 0600 Last dose given 10/22/18 at 1300 Vancomycin Dosing: Dosing Weight: Target Trough: 15-20 A: Based on: level P: 1. Dose Vancomycin 1000 mg IV One Time 2. Follow up Random level to be ordered as appropriate 3. Pharmacy will continue to monitor, follow and adjust therapy as needed. Yesenia Beverly RPH, 10/24/18 [id number]
--- NOTE | 2018-10-24 09:34 | PDOC ---
RADAMES GERARD Fe [employer] 10/24/18 0934: SUBJECTIVE Subjective Discussed case with Stephany Greer of palliative care and spouse. Patient has continued to show decline since his admission here and family has elected to transfer him to [facility] in light of this. He should go later today once everything has been arranged. OBJECTIVE Objective Physical Exam: General appearance: Sleeping, appears comfortable. Head: Normocephalic, without obvious abnormality Eyes: conjunctivae/corneas clear. PERRL, EOM's intact. Fundi benign Lungs: Regular respirations, non labored breathing Abdomen: soft, non-tender, obese Vital Signs Vital Signs Date Time Temp Pulse Resp B/P (MAP) Pulse Ox O2 Delivery O2 Flow Rate FiO2 10/24/18 07:00 96.6 81 18 155/70 (98) 99 Nasal Cannula 2.0 96.6 10/24/18 06:01 99 Nasal Cannula 2.0 10/24/18 03:00 98.0 80 16 145/64 (91) 99 Nasal Cannula 2.0 98.0 10/23/18 23:00 99.5 86 16 145/65 (91) 99 Nasal Cannula 2.0 99.5 10/23/18 20:00 Nasal Cannula 2.0 10/23/18 19:00 98.1 91 16 144/59 (87) 97 Nasal Cannula 2.0 98.1 10/23/18 15:00 98.2 96 14 161/66 (97) 97 Nasal Cannula 2.0 98.2 10/23/18 13:53 Nasal Cannula 2.0 10/23/18 12:26 Nasal Cannula 2.0 10/23/18 11:00 98.2 96 14 164/72 (102) 96 Nasal Cannula 2.0 98.2 I & O Intake and Output 10/24/18 07:00 Intake Total 160 ml Balance 160 ml Intake Oral 110 ml IV Total 50 ml # Voids 7 PHYSICAL EXAM Physical Exam Physical Exam: General appearance: Sleeping, appears comfortable. Head: Normocephalic, without obvious abnormality Eyes: conjunctivae/corneas clear. PERRL, EOM's intact. Fundi benign Lungs: Regular respirations, non labored breathing Abdomen: soft, non-tender, obese ASSESSMENT/PLAN Assessment/Plan Pt getting antibiotics for complicated UTI via ID, appreciate input. No longer recommend PSA in 4-6 weeks since patient is transferring to hospice care Discussed with spouse that we will cancel cystoscopy appointment that was on at [address] Rosenthal of [facility]. Recommend prophylactic abx whenever he does discharge; will defer this decision to ID. Ok to D/C to hospice house whenever medical team is ready. Will sign off at this time, but please call with questions or changes in patient condition. Spouse does have our card should she think of questions. COMMENT Lab Laboratory Tests Test 10/23/18 11:10 10/23/18 13:59 10/23/18 17:07 10/23/18 21:24 Glucose (Fingerstick) 202 mg/dL (70-99) 164 mg/dL (70-99) 168 mg/dL (70-99) 158 mg/dL (70-99) Test 10/24/18 05:30 10/24/18 07:48 Sodium Level 140 mmol/L (136-145) Potassium Level 4.1 mmol/L (3.5-5.1) Chloride Level 104 mmol/L (98-107) Carbon Dioxide Level 27 mmol/L (21-32) Anion Gap 9 (6-14) Blood Urea Nitrogen 59 mg/dL (8-26) Creatinine 2.9 mg/dL (0.7-1.3) Estimated GFR (Cockcroft-Gault) 22.2 Glucose Level 163 mg/dL (70-99) Calcium Level 8.0 mg/dL (8.5-10.1) Phosphorus Level 5.7 mg/dL (2.6-4.7) Albumin 1.3 g/dL (3.4-5.0) Random Vancomycin Level 12.5 mcg/mL Glucose (Fingerstick) 160 mg/dL (70-99) DAVID ROSENTHAL MD 10/25/18 0934: ASSESSMENT/PLAN Assessment/Plan Agree with assessment and plan. RADAMES GERARD APRN Oct 24, 2018 09:34 DAVID ROSENTHAL MD Oct 25, 2018 09:34
[2018-10-24] MEDS: TAMSULOSIN 0.4 MG CAP.ER.24H. PO SCH (09:39)
[2018-10-24] MEDS: LACTOBACILLUS RHAMNOSUS GG 1 CAPSULE. PO SCH (09:40)
[2018-10-24] MEDS: PANTOPRAZOLE 40 MG TABLET.DR. PO SCH (09:40)
[2018-10-24] MEDS: CHOLECALCIFEROL (VITAMIN D3) 1,000 UNIT TABLET PO SCH (09:40)
--- NOTE | 2018-10-24 10:15 | NUR ---
SS following for discharge planning. RN Romana, , from [facility] contacted SS and reported that she would come to evaluate pt for hospice house at 1230pm today. Palliative Care RN notified.
--- NOTE | 2018-10-24 10:32 | PDOC3 ---
Discharge Summary Visit Information Date of Admission: Oct 10, 2018 Date of Discharge: Oct 24, 2018 Admitting Diagnosis: Acute pyelonephritis Final Diagnosis Acute renal failure, ESRD - new HD - Likely HEPATORENAL SYNDROME Anemia, multifactorial Established cirrhosis, decompensated likely from infection. w. ascites Hx of esophageal varices on propanolol Complicated E coli UTI/clinically c/w pyelonephritis with resistance to rocephin and others Hepatic metabolic encephalopathy, subtle/mild Mod PCM, poor PO itnake Dm,2, poor control, increased insulin Hyperbilirubinemia TB 6 with pruritus Likely ESLD - hospice has been consulted and family has decided to transition to inpatient hospice, Thrombocytopenia Brief Hospital Course Allergies Allergies Coded Allergies Type Severity Reaction Last Updated Verified I S O L A T I O N *CONTACT* Allergy Unknown 10/18/18 Yes No Known Medication Allergies Allergy Unknown 10/18/18 Yes Vital Signs Vital Signs Date Time Temp Pulse Resp B/P (MAP) Pulse Ox O2 Delivery O2 Flow Rate FiO2 10/24/18 07:00 96.6 81 18 155/70 (98) 99 Nasal Cannula 2.0 96.6 Lab Results Laboratory Tests Test 10/22/18 12:50 10/22/18 16:46 10/22/18 21:14 10/22/18 23:10 Glucose (Fingerstick) 136 mg/dL (70-99) 194 mg/dL (70-99) 224 mg/dL (70-99) 259 mg/dL (70-99) Test 10/23/18 07:55 10/23/18 11:10 10/23/18 13:59 10/23/18 17:07 Glucose (Fingerstick) 247 mg/dL (70-99) 202 mg/dL (70-99) 164 mg/dL (70-99) 168 mg/dL (70-99) Test 10/23/18 21:24 10/24/18 05:30 10/24/18 07:48 Glucose (Fingerstick) 158 mg/dL (70-99) 160 mg/dL (70-99) Sodium Level 140 mmol/L (136-145) Potassium Level 4.1 mmol/L (3.5-5.1) Chloride Level 104 mmol/L (98-107) Carbon Dioxide Level 27 mmol/L (21-32) Anion Gap 9 (6-14) Blood Urea Nitrogen 59 mg/dL (8-26) Creatinine 2.9 mg/dL (0.7-1.3) Estimated GFR (Cockcroft-Gault) 22.2 Glucose Level 163 mg/dL (70-99) Calcium Level 8.0 mg/dL (8.5-10.1) Phosphorus Level 5.7 mg/dL (2.6-4.7) Albumin 1.3 g/dL (3.4-5.0) Random Vancomycin Level 12.5 mcg/mL Laboratory Tests Test 10/23/18 11:10 10/23/18 13:59 10/23/18 17:07 10/23/18 21:24 Glucose (Fingerstick) 202 mg/dL (70-99) 164 mg/dL (70-99) 168 mg/dL (70-99) 158 mg/dL (70-99) Test 10/24/18 05:30 10/24/18 07:48 Sodium Level 140 mmol/L (136-145) Potassium Level 4.1 mmol/L (3.5-5.1) Chloride Level 104 mmol/L (98-107) Carbon Dioxide Level 27 mmol/L (21-32) Anion Gap 9 (6-14) Blood Urea Nitrogen 59 mg/dL (8-26) Creatinine 2.9 mg/dL (0.7-1.3) Estimated GFR (Cockcroft-Gault) 22.2 Glucose Level 163 mg/dL (70-99) Calcium Level 8.0 mg/dL (8.5-10.1) Phosphorus Level 5.7 mg/dL (2.6-4.7) Albumin 1.3 g/dL (3.4-5.0) Random Vancomycin Level 12.5 mcg/mL Glucose (Fingerstick) 160 mg/dL (70-99) Brief Hospital Course Mr. Mc is a 63 year old male presented to the ER today for evaluation of bilateral flank pain, decreased urination. Patient started having this symptom on , whenever he urinated, and has had flank pain for days. Dr. Zaragoza, started Cipro and flomax 4 days ago, no improvement in pain, He also complaints of trouble breathing with exertion. 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 (copied from H and P) Hospital course: Patient had imaging Studies done initially with the following results: Abd US IMPRESSION: 1. Hepatic steatosis with hepatic cirrhosis. 2. Tiny calcification identified just inferior to the gallbladder could be calcification in the liver. Renal US IMPRESSION: 1. Limited exam due to bowel gas. The kidneys are grossly unremarkable. 2. Limited evaluation of the urinary bladder due to underdistention. 3. Please refer to the separate report for the abdomen sonogram on the same date for additional findings. CXR IMPRESSION: Mild left lung base opacity, likely atelectasis, versus a small infiltrate. Consider follow-up PA and lateral chest radiograph when clinically feasible. CT A/P IMPRESSION: 1. Mild stranding in the perinephric fat and mild perirenal fascial thickening, greater on the left. Nonspecific but suggest inflammatory process such as pyelonephritis. No evidence of obstructive calculus. 2. Borderline retroperitoneal lymph node enlargement, may be reactive. 3. The caudate and left lobes of the liver appear hypertrophic, finding which can be seen with cirrhosis. 4. Mild splenomegaly. 5. Gallbladder is contracted limiting evaluation, but there may be a small gallstone. 6. Linear markings in the right lung base, most likely atelectasis, versus infiltrate. 7. Urinary bladder wall thickening, may be due to lack of distention, but cystitis could also be considered. Patient seen in consultation by GI and infectious disease as well. he was seen by urology as well. Patient unfortunately went into hepatorenal syndrome nephrology consultation was requested at that time and a tunnel catheter was placed on October 17, 2018. Continues to do very poorly and unfortunately his liver dysfunction was so significant that the patient is unable to recover from this insult. Patient was seen in consultation by palliative care and the result of the consult is as follows: Consult requested by Corinne COVARRUBIAS at request of family to discuss goals of care. Medical Assessment per medical record; MET ENCEPHALOPATHY DEE-MULTIFACTORIAL DUE TO NSAID, ECVD AND LIVER FAILURE ACUTE HEPATITIS-T BILI OF 1.4 IN AUGUST CHRONIC LIVER CIRRHOSIS-ESLD PROTEINURIA DM II HTN HX OF ETOH ABUSE UTI/PYELONEPHRITIS PANCYTOPENIA-SEVERE THROMBOCYTOPENIA [id number] MET ENCEPHALOPATHY S/P TUNNELED HD CATHETER DIALYSIS Patient alternates with being alert and drowsy. Met with Alyssa, and son Sawyer. Patient has 2 other children. Reviewed medical condition as above. Copy of AD reviewed. Discussed Code Status: Will remain Full code until family is able to discuss with other family members. Discussed Hospice Support. Reviewed support provided by Hospice. They are interested in Hospice support. Will need to check with Insurance provider concerning benefits. Patient subsequently was transitioned to a DNR status and given the grim prognosis, poor functional status he was deemed appropriate to transition to inpatient hospice to continue with his care. I had a meeting with family members on the day prior to discharge, all expectations and plan of care was discussed in detail. He will be transitioning to [facility] today Physical exam: Jaundiced chronically ill appearing, somnolent lungs with coarse breath sounds Discharge Information Condition at Discharge: Stable Disposition/Orders: D/C to Another Facility No Active Prescriptions or Reported Meds GLENNA ZAVALA MD Oct 24, 2018 10:32
[2018-10-24 11:00] VITALS: BP 155/67
--- NOTE | 2018-10-24 11:02 | PDOC ---
Infectious Disease Note Subjective: Subjective Pt continues to deteriorate Family has decided for him to go to [facility] due to the above ROS: ROS unable to obtain Vital Signs: Vital Signs Vital Signs Date Time Temp Pulse Resp B/P (MAP) Pulse Ox O2 Delivery O2 Flow Rate FiO2 10/24/18 10:17 21 93 Nasal Cannula 2.0 10/24/18 07:00 96.6 81 155/70 (98) 96.6 Physical Exam: PHYSICAL EXAM GENERAL: Lethargic ,does not respond HEENT: Oral cavity dry LUNGS: Clear. HEART: S1 and S2 ABDOMEN: Soft and nontender EXTREMITIES: 1-2 edema BLE. No cyanosis SKIN: warm without rash NEUROLOGICAL: Arouses to name, lethargic Tunneled HDC (10/17) clean Medications: Inpatient Meds: Current Medications Medications (Trade) Dose Ordered Sig/Micheal Start Time Stop Time Status Last Admin Dose Admin Cefazolin Sodium 50 ml @ 100 mls/hr 1X ONCE 10/17/18 10:15 10/17/18 10:44 DC 10/17/18 09:45 100 MLS/HR Cefepime HCl (Maxipime) 1 gm Q12HR 10/18/18 10:00 10/18/18 10:01 DC Ceftriaxone Sodium (Rocephin) 1 gm Q24H 10/15/18 10:00 10/18/18 09:12 DC 10/17/18 11:37 1 GM Darbepoetin Poncho (Aranesp) 60 mcg WEEKLYHS 10/19/18 21:00 10/19/18 21:12 60 MCG Dextrose (Dextrose 50%-Water Syringe) 12.5 gm PRN Q15MIN PRN 10/16/18 12:15 Diphenhydramine HCl (Benadryl) 25 mg 1X PRN PRN 10/17/18 18:15 10/18/18 18:14 DC Fentanyl Citrate (Fentanyl 2ml Vial) 25 mcg PRN Q2HR PRN 10/23/18 16:00 10/24/18 10:17 25 MCG Gabapentin (Neurontin) 100 mg TID 10/16/18 14:00 10/20/18 09:00 100 MG Info (PHARMACY MONITORING -- do not chart) 1 each PRN DAILY PRN 10/22/18 07:30 Insulin Glargine (Lantus) 15 units 1X ONCE 3/3/19 10:30 10/21/18 10:31 DC 10/21/18 13:24 15 UNITS Insulin Human Lispro (HumaLOG) 6 units 1X ONCE 10/22/18 23:45 10/22/18 23:46 DC 10/23/18 00:04 6 UNITS Labetalol HCl (Normodyne Iv Push) 10 mg PRN Q2HR PRN 10/16/18 12:15 Lactobacillus Rhamnosus (Culturelle) 1 cap BID 10/14/18 21:00 10/24/18 09:40 1 CAP Lactulose (Lactulose) 20 gm TID 10/15/18 15:00 10/20/18 20:20 20 GM Lidocaine/ Epinephrine (LIDOCAINE 1%-EPI 1:100,000 Multi-Dose) 7 ml 1X ONCE 10/17/18 10:15 10/17/18 10:16 DC 10/17/18 09:44 7 ML Meropenem 500 mg/ Sodium Chloride 50 ml @ 100 mls/hr Q12HR 10/18/18 11:00 10/23/18 09:07 100 MLS/HR Midazolam HCl (Versed) 1 mg 1X ONCE 10/17/18 10:15 10/17/18 10:16 DC 10/17/18 09:44 1 MG Morphine Sulfate (Morphine Sulfate) 4 mg PRN Q2HR PRN 10/14/18 12:00 10/23/18 15:59 DC 10/23/18 12:26 4 MG Ondansetron HCl (Zofran Odt) 4 mg PRN Q6HRS PRN 10/15/18 10:30 Ondansetron HCl (Zofran) 4 mg PRN Q6HRS PRN 10/15/18 10:30 Oxycodone/ Acetaminophen (Percocet 5/325) 1 tab PRN Q4HRS PRN 10/14/18 12:00 10/18/18 21:54 1 TAB Pantoprazole Sodium (Protonix) 40 mg DAILYAC 10/16/18 16:30 10/24/18 09:40 40 MG Rifaximin (Xifaxan) 550 mg Q12HR 10/22/18 21:00 10/22/18 21:31 550 MG Sertraline HCl (Zoloft) 25 mg QHS 10/15/18 21:00 10/23/18 21:00 25 MG Sodium Chloride (Normal Saline Flush) 10 ml 1X PRN PRN 10/22/18 07:30 10/23/18 07:29 DC Tamsulosin HCl (Flomax) 0.4 mg DAILY 10/16/18 13:00 10/24/18 09:39 0.4 MG Vancomycin HCl (Vanco Per Pharmacy) 1 each PRN DAILY PRN 10/22/18 09:45 10/24/18 09:21 1 EACH Vancomycin HCl (Vancomycin Random Level) 1 each 1X ONCE 10/24/18 06:00 10/24/18 06:01 DC Vancomycin HCl 1 gm/Sodium Chloride 250 ml @ 250 mls/hr 1X ONCE 10/24/18 16:00 10/24/18 16:59 Vancomycin HCl 2 gm/Sodium Chloride 500 ml @ 250 mls/hr 1X ONCE 10/22/18 10:00 10/22/18 11:59 DC 10/22/18 13:45 250 MLS/HR Vitamin A/Vitamin D (Vitamin A & D Ointment) 1 melvin BID PRN 10/19/18 13:15 Vitamin D (Vitamin D3) 1,000 unit DAILY 10/16/18 13:00 10/24/18 09:40 1,000 UNIT Labs: Lab Laboratory Tests Test 10/23/18 11:10 10/23/18 13:59 10/23/18 17:07 10/23/18 21:24 Glucose (Fingerstick) 202 mg/dL (70-99) 164 mg/dL (70-99) 168 mg/dL (70-99) 158 mg/dL (70-99) Test 10/24/18 05:30 10/24/18 07:48 Sodium Level 140 mmol/L (136-145) Potassium Level 4.1 mmol/L (3.5-5.1) Chloride Level 104 mmol/L (98-107) Carbon Dioxide Level 27 mmol/L (21-32) Anion Gap 9 (6-14) Blood Urea Nitrogen 59 mg/dL (8-26) Creatinine 2.9 mg/dL (0.7-1.3) Estimated GFR (Cockcroft-Gault) 22.2 Glucose Level 163 mg/dL (70-99) Calcium Level 8.0 mg/dL (8.5-10.1) Phosphorus Level 5.7 mg/dL (2.6-4.7) Albumin 1.3 g/dL (3.4-5.0) Random Vancomycin Level 12.5 mcg/mL Glucose (Fingerstick) 160 mg/dL (70-99) Micro RUN DATE: 10/17/18 PAGE 1 RUN TIME: 1253 [facility] [address] [place] [address] Shahab Vargas M.D., Mechanical Systems Design Engineer PATIENT: MAGALY TAVARES ACCT: [id number] LOC: [address] [place] [address] U : [id number] AGE/SX: 63/M ROOM: [facility] REG : 10/14/[address]: ELIEZER WHITTEN MD : 1955 BED: 1 DIS : STATUS: ADM IN TLOC: SPEC #: [id number] FAUSTINO: 10/14/18 STATUS: COMP REQ #: [id number] RECD: 10/14/[address]: CAMERON LOPEZ DO SOURCE: VOID ENTR: 10/14/[address]: ELIEZER WHITTEN MD SPDC: DIAZ GILL M.D. ORDERED: URINE CULTURE COMMENTS: MULTI-DRUG RESISTANT E COLI ISOLATED. CALLED TO ARI GREENE RN ON 5N AND LORIN ROCHE AT 12:50 ON 10/17/18 MARY MT Procedure Result URINE CULTURE Final Final report URINE CULTURE RES 1 Final Escherichia coli Greater than 100,000 colony forming units per mL Susceptibility profile is consistent with a probable ESBL. Multi-Drug Resistant Organism ANTIMICROBIAL SUSCEPTIBILITY Final Comment S = Susceptible; I = Intermediate; R = Resistant P = Positive; N = Negative MICS are expressed in micrograms per mL Antibiotic RSLT#1 RSLT#2 RSLT#3 RSLT#4 Amikacin S<=2 Amoxicillin/Clavulanic Acid S =8 Ampicillin R>=32 Ampicillin/Sulbactam I =16 Cefazolin R>=64 Cefepime S<=1 Cefotaxime R =8 Ceftazidime S =4 Ceftriaxone R>=64 Cefuroxime R>=64 Ciprofloxacin R>=4 Ertapenem S<=0.12 Gentamicin R>=16 Imipenem S<=1 Levofloxacin R>=8 Meropenem S<=0.25 Nitrofurantoin S<=16 Piperacillin/Tazobactam S<=4 Tetracycline R>=16 CONTINUED ON NEXT PAGE RUN DATE: 10/17/18 PAGE 2 RUN TIME: 7571 [facility] [address] [place] [address] Shahab Vargas M.D., Mechanical Systems Design Engineer SPEC: [id number] PATIENT: MAGALY TAVARES [id number] ( Continued) RUN DATE: 10/24/18 PAGE 1 RUN TIME: 805 [facility] [address] [place] [address] Shahab Vargas M.D., Mechanical Systems Design Engineer PATIENT: MAGALY TAVARES ACCT: [id number] LOC: [address] [place] [address] U : [id number] AGE/SX: 63/M ROOM: 532 REG : 10/14/[address]: ELIEZER WHITTEN MD : 1955 BED: 1 DIS : STATUS: ADM IN TLOC: SPEC #: [id number] FAUSTINO: 10/22/18 STATUS: NICK RERiky #: [id number] RECD: 10/22/18 [facility] DR: JAKE MEDINA MD SOURCE: BLOOD ENTR: 10/22/18 [facility] [address]: MARTHA TRAMMELL [facility] MD,MATTHEW WHITTEN,ELIEZER HER,JAMAL GILL,DIAZ GARCIA,JESUS Hassan MD ORDERED: BCULT Procedure Result BLOOD CULTURE Final GRAM NEGATIVE RODS IN 1 OF 4 BOTTLES (2 SETS DRAWN). CALLED TO TRES KELLY ON 5N 10/24/18 AT 0805 BY Mickey BENNETT. CULTURE HAS BEEN SENT TO [facility] FOR FURTHER IDENTIFICATION. Objective: Assessment: ESBL E. coli UTI/pyelonephritis, complicated, 10/14 (POA) Bacteremia 10/22 08/24 GNR ID and SABRINA pending source /GI Renal failure on HD Cirrhosis of liver/ESLD/Hepatorenal syndrome Severe thrombocytopenia Leukocytosis Hypothermia Metabolic encephalopathy acute hepatitis Aug 2018 DM 2 S/P Tunnel HD catheter Plan: Plan of Care pt been transitioned to hospice per family request and transferred later today call with any questions JAKE MEDINA MD Oct 24, 2018 11:02
--- NOTE | 2018-10-24 12:26 | PDOC ---
Objective: Objective: Staff says to DC w/ Hospice. Vital Signs: Vital Signs Date Time Temp Pulse Resp B/P (MAP) Pulse Ox O2 Delivery O2 Flow Rate FiO2 10/24/18 10:17 21 93 Nasal Cannula 2.0 10/24/18 07:00 96.6 81 155/70 (98) 96.6 Labs: Laboratory Tests Test 10/23/18 13:59 10/23/18 17:07 10/23/18 21:24 10/24/18 07:48 Glucose (Fingerstick) 164 mg/dL (70-99) 168 mg/dL (70-99) 158 mg/dL (70-99) 160 mg/dL (70-99) BLOOD CULTURE Final GRAM NEGATIVE RODS IN 1 OF 4 BOTTLES (2 SETS DRAWN). CALLED TO TRES KELLY ON 5N 10/24/18 AT 0805 BY Mickey BENNETT. CULTURE HAS BEEN SENT TO [facility] FOR FURTHER IDENTIFICATION. PE: GEN: staff present changing/cleaning NEURO/PSYCH: confused A/P: Cirrhosis -- Note Hospice plans. IRIS CRONIN Oct 24, 2018 12:26
--- NOTE | 2018-10-24 14:25 | NUR ---
SS following up with discharge planning. Pt accepted at [facility]. Pt's RN provided with report number, . Pt will discharge today and go to [facility] at 1500 via [facility], . Pt, pt's family, and pt's RN notified.
--- NOTE | 2018-10-24 15:25 | NUR ---
PATIENTS FAMILY MEMBERS AT THE BEDSIDE, QUESTIONS AND CONCERNS ANSWERED, THIS GRINDER SET UP OPERATOR EXTERNAL INFORMED THE FAMILY THAT PATIENT WOULD LEAVE WITH HIS SALINE LOCK AND TUNNELLED DIALYSIS CATH. REPORT CALLED TO AZEEM AT [facility], QUESTIONS AND CONCERNS ANSWERED, ALL PERSONAL BELONGINGS GATHERED BY THE FAMILY AND PLACED IN BAGS FOR DISCHARGE.
[2018-10-24] MEDS ORDERED: VANCOMYCIN 1 GM in IV NORMAL SALINE 250ML 250 ML IV ONE (16:00)
--- NOTE | 2018-10-24 16:00 | NUR ---
PATIENT LEAVES THE UNIT PER CART ACCOMPANIED BY FAMILY MEMBERS AND TRANSPORT OF 2, EMOTIONAL SUPPORT GIVEN.
--- NOTE | 2018-10-24 16:02 | PDOC ---
SUBJECTIVE ROS Pt continues to deteriorate Family has decided for him to go to [facility] hospice house OBJECTIVE Vital Signs Vital Signs Date Time Temp Pulse Resp B/P (MAP) Pulse Ox O2 Delivery O2 Flow Rate FiO2 10/24/18 15:06 20 93 Nasal Cannula 10/24/18 11:00 96.7 92 155/67 (96) 2.0 96.7 I & 0 Intake and Output 10/24/18 06:59 Intake Total 160 ml Balance 160 ml Intake Oral 110 ml IV Total 50 ml # Voids 7 PHYSICAL EXAM Physical Exam GENERAL: Lethargic ,does not respond HEENT: Oral cavity dry LUNGS: Clear. HEART: S1 and S2 ABDOMEN: Soft and nontender EXTREMITIES: 1-2 edema BLE. No cyanosis SKIN: warm without rash NEUROLOGICAL: Arouses to name, lethargic DIAGNOSIS/ASSESSMENT Assessment & Plan DEE - ATN/ Hepatorenal , Hx of NSAID use prior to hospitalization No micr hematuria on UA Initiated on HD, has TDC family decision for hospice care, no more WEB PRODUCTION ASSISTANT ESBL E. coli UTI/pyelonephritis ID On board Urology Consulted Cirrhosis of liver/ESLD GI Following Anemia- On Epogen Severe thrombocytopenia Metabolic encephalopathy] acute hepatitis Aug 2018 pt been transitioned to hospice per family request and transferred later today As per RN, TDC left in place at dc as per Primary and Hospice care team to be used for IV meds as needed COMMENT/RELEVANT DATA Meds Current Medications Medications (Trade) Dose Ordered Sig/Micheal Start Time Stop Time Status Last Admin Dose Admin Cefazolin Sodium 50 ml @ 100 mls/hr 1X ONCE 10/17/18 10:15 10/17/18 10:44 DC 10/17/18 09:45 100 MLS/HR Cefepime HCl (Maxipime) 1 gm Q12HR 10/18/18 10:00 10/18/18 10:01 DC Ceftriaxone Sodium (Rocephin) 1 gm Q24H 10/15/18 10:00 10/18/18 09:12 DC 10/17/18 11:37 1 GM Darbepoetin Poncho (Aranesp) 60 mcg WEEKLYHS 10/19/18 21:00 10/19/18 21:12 60 MCG Dextrose (Dextrose 50%-Water Syringe) 12.5 gm PRN Q15MIN PRN 10/16/18 12:15 Diphenhydramine HCl (Benadryl) 25 mg 1X PRN PRN 10/17/18 18:15 10/18/18 18:14 DC Fentanyl Citrate (Fentanyl 2ml Vial) 25 mcg PRN Q2HR PRN 10/23/18 16:00 10/24/18 15:06 25 MCG Gabapentin (Neurontin) 100 mg TID 10/16/18 14:00 10/20/18 09:00 100 MG Info (PHARMACY MONITORING -- do not chart) 1 each PRN DAILY PRN 10/22/18 07:30 Insulin Glargine (Lantus) 15 units 1X ONCE 10/21/18 10:30 10/21/18 10:31 DC 10/21/18 13:24 15 UNITS Insulin Human Lispro (HumaLOG) 6 units 1X ONCE 10/22/18 23:45 10/22/18 23:46 DC 10/23/18 00:04 6 UNITS Labetalol HCl (Normodyne Iv Push) 10 mg PRN Q2HR PRN 10/16/18 12:15 Lactobacillus Rhamnosus (Culturelle) 1 cap BID 10/14/18 21:00 10/24/18 09:40 1 CAP Lactulose (Lactulose) 20 gm TID 10/15/18 15:00 10/20/18 20:20 20 GM Lidocaine/ Epinephrine (LIDOCAINE 1%-EPI 1:100,000 Multi-Dose) 7 ml 1X ONCE 10/17/18 10:15 10/17/18 10:16 DC 10/17/18 09:44 7 ML Meropenem 500 mg/ Sodium Chloride 50 ml @ 100 mls/hr Q12HR 10/18/18 11:00 10/23/18 09:07 100 MLS/HR Midazolam HCl (Versed) 1 mg 1X ONCE 10/17/18 10:15 10/17/18 10:16 DC 10/17/18 09:44 1 MG Morphine Sulfate (Morphine Sulfate) 4 mg PRN Q2HR PRN 10/14/18 12:00 10/23/18 15:59 DC 10/23/18 12:26 4 MG Ondansetron HCl (Zofran Odt) 4 mg PRN Q6HRS PRN 10/15/18 10:30 Ondansetron HCl (Zofran) 4 mg PRN Q6HRS PRN 10/15/18 10:30 Oxycodone/ Acetaminophen (Percocet 5/325) 1 tab PRN Q4HRS PRN 10/14/18 12:00 10/18/18 21:54 1 TAB Pantoprazole Sodium (Protonix) 40 mg DAILYAC 10/16/18 16:30 10/24/18 09:40 40 MG Rifaximin (Xifaxan) 550 mg Q12HR 10/22/18 21:00 10/22/18 21:31 550 MG Sertraline HCl (Zoloft) 25 mg QHS 10/15/18 21:00 10/23/18 21:00 25 MG Sodium Chloride (Normal Saline Flush) 10 ml 1X PRN PRN 10/22/18 07:30 10/23/18 07:29 DC Tamsulosin HCl (Flomax) 0.4 mg DAILY 10/16/18 13:00 10/24/18 09:39 0.4 MG Vancomycin HCl (Vanco Per Pharmacy) 1 each PRN DAILY PRN 10/22/18 09:45 10/24/18 09:21 1 EACH Vancomycin HCl (Vancomycin Random Level) 1 each 1X ONCE 10/24/18 06:00 10/24/18 06:01 DC Vancomycin HCl 1 gm/Sodium Chloride 250 ml @ 250 mls/hr 1X ONCE 10/24/18 16:00 10/24/18 16:59 Vancomycin HCl 2 gm/Sodium Chloride 500 ml @ 250 mls/hr 1X ONCE 10/22/18 10:00 10/22/18 11:59 DC 10/22/18 13:45 250 MLS/HR Vitamin A/Vitamin D (Vitamin A & D Ointment) 1 melvin BID PRN 10/19/18 13:15 Vitamin D (Vitamin D3) 1,000 unit DAILY 10/16/18 13:00 10/24/18 09:40 1,000 UNIT Lab Laboratory Tests Test 10/23/18 17:07 10/23/18 21:24 10/24/18 05:30 10/24/18 07:48 Glucose (Fingerstick) 168 mg/dL (70-99) 158 mg/dL (70-99) 160 mg/dL (70-99) Sodium Level 140 mmol/L (136-145) Potassium Level 4.1 mmol/L (3.5-5.1) Chloride Level 104 mmol/L (98-107) Carbon Dioxide Level 27 mmol/L (21-32) Anion Gap 9 (6-14) Blood Urea Nitrogen 59 mg/dL (8-26) Creatinine 2.9 mg/dL (0.7-1.3) Estimated GFR (Cockcroft-Gault) 22.2 Glucose Level 163 mg/dL (70-99) Calcium Level 8.0 mg/dL (8.5-10.1) Phosphorus Level 5.7 mg/dL (2.6-4.7) Albumin 1.3 g/dL (3.4-5.0) Random Vancomycin Level 12.5 mcg/mL Results All relevant outside records, renal labs, imaging studies, telemetry/EKG's were reviewed. CHRISTINA GROSS MD Oct 24, 2018 16:02
== END 2018-10-24 16:15 | disposition hospice, inpatient (51) | DRG 871 ==
LOC: ER 07:40 → 5 NORTH 10:07
PROVIDERS: ADMIT Internal Medicine; ATTEND Internal Medicine
PROC: 0JH63XZ Insertion of Tunneled Vascular Access Device into Chest Subcutaneous Tissue and Fascia, Percutaneous Approach (ICD-10-PCS; principal; 2018-10-17)
PROC: 02H633Z Insertion of Infusion Device into Right Atrium, Percutaneous Approach (ICD-10-PCS; 2018-10-17)
PROC: B244YZZ Ultrasonography of Right Heart using Other Contrast (ICD-10-PCS; 2018-10-17)
PROC: B2141ZZ Fluoroscopy of Right Heart using Low Osmolar Contrast (ICD-10-PCS; 2018-10-17)
PROC: 30233R1 Transfusion of Nonautologous Platelets into Peripheral Vein, Percutaneous Approach (ICD-10-PCS; 2018-10-17)
PROC: 5A1D70Z Performance of Urinary Filtration, Intermittent, Less than 6 Hours Per Day (ICD-10-PCS; 2018-10-17)
PROC: 5A1D70Z Performance of Urinary Filtration, Intermittent, Less than 6 Hours Per Day (ICD-10-PCS; 2018-10-18)
PROC: 5A1D70Z Performance of Urinary Filtration, Intermittent, Less than 6 Hours Per Day (ICD-10-PCS; 2018-10-19)
PROC: 5A1D70Z Performance of Urinary Filtration, Intermittent, Less than 6 Hours Per Day (ICD-10-PCS; 2018-10-22)
DX: A41.9 Sepsis, unspecified organism (principal); G93.41 Metabolic encephalopathy; N18.6 End stage renal disease; K76.7 Hepatorenal syndrome; N17.9 Acute kidney failure, unspecified; B17.9 Acute viral hepatitis, unspecified; E87.1 Hypo-osmolality and hyponatremia; D61.818 Other pancytopenia; N10 Acute pyelonephritis; I12.0 Hypertensive chronic kidney disease with stage 5 chronic kidney disease or end stage renal disease; E44.0 Moderate protein-calorie malnutrition; K76.6 Portal hypertension; D69.59 Other secondary thrombocytopenia; E11.22 Type 2 diabetes mellitus with diabetic chronic kidney disease; E11.65 Type 2 diabetes mellitus with hyperglycemia; K72.90 Hepatic failure, unspecified without coma; K70.31 Alcoholic cirrhosis of liver with ascites; K76.0 Fatty (change of) liver, not elsewhere classified; Z66 Do not resuscitate; B96.20 Unspecified Escherichia coli [E. coli] as the cause of diseases classified elsewhere; K21.9 Gastro-esophageal reflux disease without esophagitis; F17.210 Nicotine dependence, cigarettes, uncomplicated; T39.395A Adverse effect of other nonsteroidal anti-inflammatory drugs [NSAID], initial encounter; D73.1 Hypersplenism; D63.1 Anemia in chronic kidney disease; Z16.12 Extended spectrum beta lactamase (ESBL) resistance; Z51.5 Encounter for palliative care; L29.9 Pruritus, unspecified; B96.89 Other specified bacterial agents as the cause of diseases classified elsewhere; Z16.19 Resistance to other specified beta lactam antibiotics; Z16.24 Resistance to multiple antibiotics; Z99.2 Dependence on renal dialysis; Z82.49 Family history of ischemic heart disease and other diseases of the circulatory system; Z79.4 Long term (current) use of insulin; Z86.010 Personal history of colon polyps; Y92.89 Other specified places as the place of occurrence of the external cause; Z68.32 Body mass index [BMI] 32.0-32.9, adult; Z87.440 Personal history of urinary (tract) infections
CPT/HCPCS: 36415; 36558; 71045; 74176; 76705; 76770; 76937; 77001; 80048; 80053; 80069; 80076; 80202; 81001; 82140; 82248; 82436; 82550; 82553; 82570; 82607; 82728; 82962; 82977; 83540; 83550; 83690; 83880; 83930; 83935; 84133; 84156; 84300; 84443; 84484; 85007; 85025; 85027; 85045; 85049; 85610; 85730; 86703; 86704; 86705; 86709; 86803; 86850; 86900; 86901; 87040; 87077; 87086; 87186; 87205; 87340; 93005; 93306; 96360; 99152; A4215; C1750; C1892; J0690; J0696; J0881; J1815; J2185; J2250; J2270; J2405; J3010; J3370; J3490; J7030; J7040; P9035; 97530; 99285-25